=== PATIENT | male | born 1950 | race Caucasian/White ===

== ENCOUNTER 2022-06-28 10:29 | Outpatient (CLI) | payer MEDICARE, SELFPAY ==
[2022-06-28 19:08] LABS: Basophils Percent Auto 0.4 % (0.2-1.2); Eosinophils Absolute Auto 0.2 K/mm3 (0-0.3); Eosinophils Percent Auto 3.1 % (0-4.4); Hematocrit 45.7 % (42.0-52.0); Hemoglobin 14.8 g/dL (14.0-18.0); Immature Granulocyte Absolute 0.01 K/mm3 (0.00-0.031); Immature Granulocyte Percent A 0.2 % (0-0.5); Lymphocytes Absolute Auto 1.17 K/mm3 (0.9-3.2); Lymphocytes Percent Auto 24.3 % (18.3-44.2); Mean Corpuscular HGB Conc 32.4 g/dl (32-36); Mean Corpuscular Hemoglobin 29.5 pg (26-34); Monocytes Absolute Auto 0.5 K/mm3 (0.1-0.6); Monocytes Percent Auto 9.6 % (2.6-8.5); Neutrophils Percent Auto 62.4 % (45.5-73.1); Platelet Count Result 156 k/mm3 (150-375); Red Blood Count 5.02 M/mm3 (4.6-6.20); Red Cell Distribution Width 14.6 % (11.5-14.5); White Blood Count 4.8 K/mm3 (4.5-10.0)
[2022-06-28 19:22] LABS: Hemoglobin A1C 6.2 % (<5.7)
[2022-06-28 19:48] LABS: Alanine Aminotransferase 18 U/L (6-50); Albumin Level 4.2 g/dL (3.5-5.1); Alkaline Phosphatase 67 U/L (38-126); Anion Gap 9 mmol/L (8-16); Aspartate Amino Transferase 28 U/L (17-59); Bilirubin,Total 0.9 mg/dL (0.2-1.3); Blood Urea Nitrogen 14 mg/dL (9-20); Calcium 9.1 mg/dL (8.4-10.2); Carbon Dioxide 29 mmol/L (22-30); Chloride 103 mmol/L (98-107); Cholesterol 162 mg/dL (0-200); Estimated Glomerular Filt Rate > 60; Glucose 124 mg/dL (65-110); HDL Direct 38 mg/dL; Potassium 4.4 mmol/L (3.4-5.0); Sodium 141 mmol/L (137-145); Triglycerides 119 mg/dL (<150)
[2022-06-28 20:00] LABS: LDL Cholesterol Direct 96 mg/dL
[2022-06-28 20:20] LABS: Prostate Specific Antigen 1.9 ng/mL (< OR = 4.0)
[2022-06-28 20:32] LABS: Creatinine Urine 65.4 mg/dL
[2022-06-28 20:36] LABS: MALB Creatinine Ratio 17.7 mg/g (0-30); Microalbumin Urine Random 11.6 mg/L (0-16.7)
[2022-06-28 22:06] LABS: Vitamin D 25 Hydroxy 47.1 ng/mL
== END 2022-06-28 10:30 | disposition home or self-care (01) ==
LOC: ANHGOSHLAB 10:32
PROVIDERS: PCP Family Medicine; Visit Provider Family Medicine
DX: G47.33 Obstructive sleep apnea (adult) (pediatric) (principal); I10 Essential (primary) hypertension; E55.9 Vitamin D deficiency, unspecified; E53.8 Deficiency of other specified B group vitamins; Z12.5 Encounter for screening for malignant neoplasm of prostate; E78.5 Hyperlipidemia, unspecified; E11.9 Type 2 diabetes mellitus without complications
CPT/HCPCS: 36415; 80053; 80061; 82043; 82306; 82607; 83036; 84153; 84443; 85025; G0103

== ENCOUNTER 2022-12-30 10:31 | Outpatient (CLI) | payer MEDICARE, SELFPAY ==
[2022-12-30 18:44] LABS: Alanine Aminotransferase 23 U/L (6-50); Albumin Level 4.3 g/dL (3.5-5.1); Alkaline Phosphatase 77 U/L (38-126); Anion Gap 4 mmol/L (8-16); Aspartate Amino Transferase 22 U/L (17-59); Bilirubin,Total 1.2 mg/dL (0.2-1.3); Blood Urea Nitrogen 15 mg/dL (9-20); Carbon Dioxide 34 mmol/L (22-30); Chloride 101 mmol/L (98-107); Estimated Glomerular Filt Rate > 60; Glucose 139 mg/dL (65-110); Sodium 139 mmol/L (137-145)
[2022-12-30 19:11] LABS: Hemoglobin A1C 6.6 % (<5.7)
== END 2022-12-30 10:32 | disposition home or self-care (01) ==
LOC: ANHGOSHLAB 10:32
PROVIDERS: PCP Family Medicine; Visit Provider Family Medicine
DX: E11.9 Type 2 diabetes mellitus without complications (principal); I10 Essential (primary) hypertension; Z79.899 Other long term (current) drug therapy
CPT/HCPCS: 36415; 80053; 83036

== ENCOUNTER 2023-06-29 10:26 | Outpatient (CLI) | payer MEDICARE, SELFPAY ==
[2023-06-29 19:35] LABS: Alanine Aminotransferase 21 U/L (6-50); Albumin Level 4.6 g/dL (3.5-5.1); Alkaline Phosphatase 58 U/L (38-126); Anion Gap 10 mmol/L (8-16); Aspartate Amino Transferase 30 U/L (17-59); Bilirubin,Total 1.3 mg/dL (0.2-1.3); Blood Urea Nitrogen 16 mg/dL (9-20); Calcium 9.3 mg/dL (8.4-10.2); Carbon Dioxide 29 mmol/L (22-30); Chloride 100 mmol/L (98-107); Cholesterol 179 mg/dL (0-200); Estimated Glomerular Filt Rate > 60; Glucose 107 mg/dL (65-110); HDL Direct 46 mg/dL; Potassium 4.3 mmol/L (3.4-5.0); Sodium 139 mmol/L (137-145); Triglycerides 99 mg/dL (<150)
[2023-06-29 19:46] LABS: LDL Cholesterol Direct 99 mg/dL
[2023-06-29 20:14] LABS: Basophils Percent Auto 0.4 % (0.2-1.2); Eosinophils Absolute Auto 0.1 K/mm3 (0-0.3); Eosinophils Percent Auto 1.5 % (0-4.4); Hematocrit 45.2 % (42.0-52.0); Hemoglobin 14.5 g/dL (14.0-18.0); Immature Granulocyte Absolute 0.01 K/mm3 (0.00-0.031); Immature Granulocyte Percent A 0.2 % (0-0.5); Immature Platelet Fraction Pct 2.4 % (0.9-11.2); Lymphocytes Absolute Auto 0.94 K/mm3 (0.9-3.2); Lymphocytes Percent Auto 17.6 % (18.3-44.2); Mean Corpuscular HGB Conc 32.1 g/dl (32-36); Mean Corpuscular Hemoglobin 29.5 pg (26-34); Mean Corpuscular Volume 91.9 fl (80-100); Monocytes Absolute Auto 0.4 K/mm3 (0.1-0.6); Neutrophils Absolute Auto 3.9 K/mm3 (1.3-6.7); Neutrophils Percent Auto 72.3 % (45.5-73.1); Platelet Count Result 161 k/mm3 (150-375); Red Blood Count 4.92 M/mm3 (4.6-6.20); Red Cell Distribution Width 14.7 % (11.5-14.5); White Blood Count 5.4 K/mm3 (4.5-10.0)
[2023-06-29 20:15] LABS: Creatinine Urine 117.8 mg/dL
[2023-06-29 20:23] LABS: Hemoglobin A1C 5.9 % (<5.7)
[2023-06-29 20:25] LABS: Vitamin D 25 Hydroxy 51.7 ng/mL
[2023-06-29 20:39] LABS: Thyroid Stimulating Hormone Reflex 0.907 uIU/mL (0.465-4.68)
[2023-06-29 21:56] LABS: MALB Creatinine Ratio 25.5 mg/g (0-30)
[2023-06-30 17:30] LABS: Prostate Specific Antigen 2.5 ng/mL (< OR = 4.0)
== END 2023-06-29 10:27 | disposition home or self-care (01) ==
LOC: ANHGOSHLAB 10:27
PROVIDERS: PCP Family Medicine; Visit Provider Family Medicine
DX: E78.5 Hyperlipidemia, unspecified (principal); I10 Essential (primary) hypertension; E11.9 Type 2 diabetes mellitus without complications; E53.8 Deficiency of other specified B group vitamins; E55.9 Vitamin D deficiency, unspecified; Z12.5 Encounter for screening for malignant neoplasm of prostate
CPT/HCPCS: 36415; 80053; 80061; 82043; 82306; 82607; 83036; 84153; 84443; 85025; 85055; G0103

== ENCOUNTER 2023-08-23 01:43 | Day surgery (SDC) | payer MEDICARE, SELFPAY ==
[2023-08-11 14:58] VITALS: BMI 28.0
--- NOTE | 2023-08-19 14:32 | SUR.PREOP ---
Patient called regarding upcoming procedure. No answer- message left with phone number for questions.
[2023-08-23 13:07] VITALS: BP 132/56; PULSE 73; RESP 20; TEMP 36.2; O2SAT 100; BMI 27.6
--- NOTE | 2023-08-23 13:24 | PM.HPGS ---
History of Present Illness History of Present Illness Consent: Risks, benefits, and alternatives have been discussed and questions answered. Patient agrees to proceed with procedure. Chief complaint: hx colon polyps Narrative: Farooq Fish is a 73 year old male Presents for screening colonoscopy. Patient's current weight appetite and bowel movements are normal. Patient denies abdominal pain. He has had no bleeding. Family history is significant that his father had colon cancer. Patient self has had colon polyps in the past in 2001 they were adenomatous. In 2019 just a hyperplastic polyp. Patient returns for screening colonoscopy today. Review of Systems Review of Systems: Review of systems noncontributory. [facility] Past Medical History Medical History (Updated 08/23/23 @ 13:26 by Jordan Burgess MD) Chronic pain of right knee Dyslipidemia Essential (primary) hypertension History of colon polyps History of polyneuropathy (~1992) h/o numbness and weakness in legs ruled out MS ROMÁN (obstructive sleep apnea) Toe fracture 01/2015 Type 2 diabetes mellitus without complication, without long-term current use of insulin Vitamin D deficiency Surgical History Surgical History History of cholecystectomy History of hernia repair 03/11/2017 [place] teeth extracted Family History Family History Father Carcinoma of colon, Onset Age: 61 Sibling Family history of type 2 diabetes mellitus Other Diabetes mellitus Family history of malignant neoplasm Social History Social History Smoking status: Never smoker Second hand tobacco smoke exposure: No Alcohol intake: current Drinks per week: 3 Alcohol use details: consumes 2 beers weekly Substance use: never Substance use type: does not use Lack of Transportation: No Lack of Food: Never True Current Housing: I Have Housing Concerned About Future Housing: No Difficulty Paying Gas/Electric Bills: No Difficulty Paying for Meds: No Currently Unemployed: No Education: High School Diploma/GED Difficulty w/ Childcare or Family Care: No Living arrangements: other Additional living arrangements comments: with sp Agree to blood products: Yes Meds Home Medications and Allergies Home Medications Medication Instructions Recorded Confirmed Type blood sugar diagnostic #100 ea 12/14/21 08/11/23 Rx metformin 500 mg tablet,extended 500 mg PO BID #180 tabs 03/01/23 08/11/23 Rx release 24 hr empagliflozin 25 mg tablet 25 mg PO QAM #90 tabs 03/17/23 08/11/23 Rx (Jardiance) ezetimibe 10 mg tablet 10 mg PO DAILY #90 tabs 05/30/23 08/11/23 Rx glipizide 10 mg tablet, extended 10 mg PO DAILY #90 tabs 05/30/23 08/11/23 Rx release 24 hr cholecalciferol (vitamin D3) 50 50 mcg PO DAILY 06/29/23 08/11/23 History mcg (2,000 unit) tablet cyanocobalamin (vitamin B-12) 1,000 mcg sublingual DAILY #90 tabs 06/30/23 08/11/23 Rx 1,000 mcg sublingual tablet sodium,potassium,mag sulfates 17.5 See Rx Instructions PO .COMPLEX 08/10/23 Rx gram-3.13 gram-1.6 gram oral soln #354 mL (Suprep Bowel Prep Kit) losartan 100 1 tablet PO DAILY #90 tabs 08/15/23 Rx mg-hydrochlorothiazide 25 mg tablet Allergies Allergy/AdvReac Type Severity Reaction Status Date / Time No Known Allergies Allergy Verified 08/11/23 14:56 Vital Signs Vital Signs - 24 hr 08/23/23 13:07 Temperature 97.2 F L Pulse Rate 73 Respiratory Rate 20 Blood Pressure 132/56 L Pulse Oximetry 100 Oxygen Delivery Room Air Exam Narrative: Physical exam reveals patient to be alert. Vital signs stable. HEENT exam is unremarkable. Patient anicteric. Lungs are clear to auscultation and percussion. Heart is without murmur or extra sounds. Abdomen bowel sounds are present sof
[2023-08-23 13:31] LABS: Glucose Point of Care 71 mg/dl (65-105)
[2023-08-23] MEDS: LACTATED RINGERS 1,000 ML 150 ML IV CONT (13:32)
--- NOTE | 2023-08-23 13:50 | WPDANESEPPF ---
Anes - Initial Pre Proc Eval Procedure: Operation Date: 08/23/23 14:30 Proposed Procedures p Colonoscopy - Jordan Burgess MD Date/Time: 08/23/23 13:50 Surgeon: Jordan Burgess MD Pre Op Diagnosis: hx colon polyps Patient Data Age: 73 Gender: M Height: 1.93 m Weight: 103.2 kg Last Vital Signs Temp 97.2 F L 08/23/23 13:07 Pulse 73 08/23/23 13:07 Resp 20 08/23/23 13:07 BP 132/56 L 08/23/23 13:07 Pulse Ox 100 08/23/23 13:07 O2 Del Method Room Air 08/23/23 13:07 Allergies Allergy/AdvReac Type Severity Reaction Status Date / Time No Known Allergies Allergy Verified 08/11/23 14:56 Home Medications Medication Instructions Recorded Confirmed Type blood sugar diagnostic #100 ea 12/14/21 08/11/23 Rx metformin 500 mg tablet,extended 500 mg PO BID #180 tabs 03/01/23 08/11/23 Rx release 24 hr empagliflozin 25 mg tablet 25 mg PO QAM #90 tabs 03/17/23 08/11/23 Rx (Jardiance) ezetimibe 10 mg tablet 10 mg PO DAILY #90 tabs 05/30/23 08/11/23 Rx glipizide 10 mg tablet, extended 10 mg PO DAILY #90 tabs 05/30/23 08/11/23 Rx release 24 hr cholecalciferol (vitamin D3) 50 50 mcg PO DAILY 06/29/23 08/11/23 History mcg (2,000 unit) tablet cyanocobalamin (vitamin B-12) 1,000 mcg sublingual DAILY #90 tabs 06/30/23 08/11/23 Rx 1,000 mcg sublingual tablet sodium,potassium,mag sulfates 17.5 See Rx Instructions PO .COMPLEX 08/10/23 Rx gram-3.13 gram-1.6 gram oral soln #354 mL (Suprep Bowel Prep Kit) losartan 100 1 tablet PO DAILY #90 tabs 08/15/23 Rx mg-hydrochlorothiazide 25 mg tablet Laboratory Tests 08/23/23 13:28 POC Capillary Glucose 71 mg/dl (65-105) Patient hx anesthesia problems: none Family hx anesthesia problems: none Results Review: All pre-operative results and documents have been reviewed as part of the pre-operative evaluation. [facility] Past Medical History Medical History (Updated 08/23/23 @ 13:26 by Jordan Burgess MD) Chronic pain of right knee Dyslipidemia Essential (primary) hypertension History of colon polyps History of polyneuropathy (~1992) h/o numbness and weakness in legs ruled out MS ROMÁN (obstructive sleep apnea) Toe fracture 01/2015 Type 2 diabetes mellitus without complication, without long-term current use of insulin Vitamin D deficiency Surgical History Surgical History History of cholecystectomy History of hernia repair 03/11/2017 [place] teeth extracted Family History Family History Father Carcinoma of colon, Onset Age: 61 Sibling Family history of type 2 diabetes mellitus Other Diabetes mellitus Family history of malignant neoplasm Social History Social History Smoking status: Never smoker Second hand tobacco smoke exposure: No Alcohol intake: current Drinks per week: 3 Alcohol use details: consumes 2 beers weekly Substance use: never Substance use type: does not use Lack of Transportation: No Lack of Food: Never True Current Housing: I Have Housing Concerned About Future Housing: No Difficulty Paying Gas/Electric Bills: No Difficulty Paying for Meds: No Currently Unemployed: No Education: High School Diploma/GED Difficulty w/ Childcare or Family Care: No Living arrangements: other Additional living arrangements comments: with sp Agree to blood products: Yes Anes - Eval Final PreProcedure Day of Procedure 08/23/23 13:50 Patient weight: normal Heart: regular rate and rhythm Lungs: clear to auscultation Airway: Mallampati scale class II Neurological: alert and oriented Last oral intake: >/= 8 hours ASA classification: III Emergent: no Anesthetic plan: proceed Anesthesia type and monitoring: general GIVS and standard monitoring Results Review: All pre-operative results and
[2023-08-23 14:20] VITALS: BP 116/66; PULSE 71; RESP 24; O2SAT 100
[2023-08-23 14:30] VITALS: BP 140/71; PULSE 67; RESP 19; O2SAT 100
[2023-08-23 14:40] VITALS: BP 132/77; PULSE 62; RESP 19; O2SAT 100
== END 2023-08-23 14:53 | disposition home or self-care (01) ==
PROVIDERS: PCP Family Medicine; Visit Provider Internal Medicine Gastroenterology
PROC: 0DJD8ZZ Inspection of Lower Intestinal Tract, Via Natural or Artificial Opening Endoscopic (ICD-10-PCS; CPT 45378; principal; 2023-08-23 14:30)
DX: Z12.11 Encounter for screening for malignant neoplasm of colon (principal); E78.5 Hyperlipidemia, unspecified; I10 Essential (primary) hypertension; G47.33 Obstructive sleep apnea (adult) (pediatric); E11.9 Type 2 diabetes mellitus without complications; E55.9 Vitamin D deficiency, unspecified; Z79.84 Long term (current) use of oral hypoglycemic drugs; Z90.49 Acquired absence of other specified parts of digestive tract; Z86.010 Personal history of colon polyps; Z80.0 Family history of malignant neoplasm of digestive organs; K64.8 Other hemorrhoids; K57.30 Diverticulosis of large intestine without perforation or abscess without bleeding
CPT/HCPCS: G0105; 82948; J2001; J2704; J7120

== ENCOUNTER 2023-12-28 09:56 | Outpatient (CLI) | payer MEDICARE, SELFPAY ==
[2023-12-28 19:03] LABS: Alanine Aminotransferase 14 U/L (6-50); Albumin Level 4.2 g/dL (3.5-5.1); Alkaline Phosphatase 78 U/L (38-126); Anion Gap 4 mmol/L (4-12); Aspartate Amino Transferase 23 U/L (17-59); Blood Urea Nitrogen 13 mg/dL (9-20); Calcium 9.5 mg/dL (8.4-10.2); Carbon Dioxide 33 mmol/L (22-30); Chloride 104 mmol/L (98-107); Estimated Glomerular Filt Rate > 60; Glucose 105 mg/dL (65-110); Potassium 3.9 mmol/L (3.4-5.0); Sodium 141 mmol/L (137-145)
[2023-12-28 19:45] LABS: Hemoglobin A1C 6.6 % (<5.7)
[2023-12-28 20:52] LABS: Hepatitis C Virus Antibody Negative (Negative)
== END 2023-12-28 09:57 | disposition home or self-care (01) ==
LOC: ANHGOSHLAB 09:59
PROVIDERS: PCP Family Medicine; Visit Provider Family Medicine
DX: E11.9 Type 2 diabetes mellitus without complications (principal); I10 Essential (primary) hypertension; Z11.59 Encounter for screening for other viral diseases
CPT/HCPCS: 36415; 80053; 83036; 86803

== ENCOUNTER 2024-02-23 16:29 | Emergency (ER) | payer MEDICARE, SELFPAY ==
--- NOTE | 2024-02-23 16:33 | ED.MALEGU ---
HPI - Male Genitourinary General Chief complaint: Urogenital-Male Stated complaint: FREQUENT URINATION Time Seen by Provider: 02/23/24 16:52 Source: patient, RN notes reviewed and old records reviewed Mode of arrival: ambulatory Limitations: no limitations History of Present Illness HPI Narrative: 73-year-old male presents to the [facility] with continued frequent and urgent urination. Did a telemedicine appointment on 02/13 was prescribed Macrobid without testing. States the burning is better however continues to have frequency and urgency with urination. States that it has been interrupting his sleep because he is up multiple times through the night Does have a history of diabetes, blood sugar 166 currently Onset (ago): day(s) (12) Associated symptoms: Reports dysuria; Denies blood in urine, fever, nausea/vomiting or incontinence Related Data Home Medications Medication Instructions Recorded Confirmed cholecalciferol (vitamin D3) 50 50 mcg PO DAILY 06/29/23 02/14/24 mcg (2,000 unit) tablet ezetimibe 10 mg tablet 10 mg PO DAILY 12/28/23 02/14/24 glipizide 10 mg tablet, extended 10 mg PO DAILY 12/28/23 02/14/24 release 24 hr Allergies Allergy/AdvReac Type Severity Reaction Status Date / Time No Known Allergies Allergy Verified 02/23/24 16:37 Review of Systems Review of Systems: All systems reviewed & are unremarkable except as noted in HPI and below Constitutional: Constitutional: Reports no additional constitutional complaints Eyes: Eyes: Reports no additional eye complaints ENT: Reports system reviewed and no additional complaints, except as documented Cardiovascular: Cardiovascular: Reports no additional cardiovascular complaints, Denies chest pain and Denies dyspnea Respiratory: Respiratory: Reports no additional respiratory complaints, Denies chest congestion, Denies cough and Denies dyspnea Gastrointestinal: Gastrointestinal: Reports no additional gastrointestinal complaints, Denies abdominal pain, Denies nausea and Denies vomiting Genitourinary: Genitourinary: Reports as per HPI and Reports dysuria Musculoskeletal: Musculoskeletal: Reports no additional musculoskeletal complaints Integumentary/Breasts: Skin/Breast: Reports system reviewed and no additional complaints, except as docu Neurologic: Reports system reviewed and no additional complaints, except as documented Psychiatric: Psychiatric: Reports no additional psychiatric complaints Allergic/Immunologic: Allergic/Immunologic: Reports no additional allergic/immunologic complaints PMFSH Past Medical History Medical History Dyslipidemia Essential (primary) hypertension History of colon polyps History of polyneuropathy (~1992) h/o numbness and weakness in legs ruled out MS ROMÁN (obstructive sleep apnea) Toe fracture 01/2015 Type 2 diabetes mellitus without complication, without long-term current use of insulin Vitamin D deficiency Surgical History Surgical History History of cholecystectomy (~1999) History of incisional hernia repair (~03/2002) History of right inguinal hernia repair (~03/2017) [place] teeth extracted Family History Family History Father Carcinoma of colon, Onset Age: 61 Sibling Family history of type 2 diabetes mellitus Other Diabetes mellitus Family history of malignant neoplasm Social History Social History Smoking status: Never smoker Second hand tobacco smoke exposure: No Alcohol intake: current Drinks per week: 3 Alcohol use details: consumes 2 beers weekly Substance use: never Substance use type: does not use Lack of Transportation: No Lack of Food: Never True Current Housing: I Have Housing Concerned About Future Housing: No Difficulty Paying Gas/Electric B
[2024-02-23 16:42] VITALS: BP 118/70; PULSE 80; RESP 16; TEMP 37.3; O2SAT 99
[2024-02-23 16:54] LABS: Glucose Point of Care 166 mg/dl (65-105)
--- NOTE | 2024-02-23 16:55 | PC.NURSE ---
[address] [facility] 166.
== END 2024-02-23 17:15 | disposition home or self-care (01) ==
PROVIDERS: Emergency Provider Nurse Practitioner; PCP Family Medicine
DX: N39.0 Urinary tract infection, site not specified (principal); B95.2 Enterococcus as the cause of diseases classified elsewhere; E78.5 Hyperlipidemia, unspecified; I10 Essential (primary) hypertension; E11.42 Type 2 diabetes mellitus with diabetic polyneuropathy; E55.9 Vitamin D deficiency, unspecified
CPT/HCPCS: 81003; 82948; 87077; 87086; 87088; 87181; 99213; G0463

== ENCOUNTER 2024-02-26 18:29 | Emergency (ER) | payer MEDICARE, SELFPAY ==
[2024-02-26 18:29] VITALS: BP 134/65; PULSE 66; RESP 18; TEMP 36.8; O2SAT 100
--- NOTE | 2024-02-26 18:34 | ED.MALEGU ---
HPI - Male Genitourinary General Chief complaint: Urogenital-Male Stated complaint: UTI Time Seen by Provider: 02/26/24 18:34 History of Present Illness HPI Narrative: Patient is a 73 year old male with history of DM, HTN here with abnormal lab. Patient notes that on 02/13 he called his PCP because he began having dysuria and increased urinary frequency. He believes that he was started on nitrofurantoin at that time. He completed a 5 day course and believed symptoms were improving. His symptoms returned a few days after stopping his antibiotics and 3 days ago they contacted PCP to have a urine sample performed. He went to an urgent care 02/22, had a urine sample performed. He was started on augmentin at that time. He believes he has had some improvement with his urination over the last couple of days however tonight he was called by the urgent care because his urine culture was positive and he needed to get IV antibiotics to treat his UTI. Patient denies fever, chills, abdominal pain. Notes he has been a bit more tired but is otherwise feeling well. Related Data Home Medications Medication Instructions Recorded Confirmed cholecalciferol (vitamin D3) 50 50 mcg PO DAILY 06/29/23 02/23/24 mcg (2,000 unit) tablet ezetimibe 10 mg tablet 10 mg PO DAILY 12/28/23 02/23/24 glipizide 10 mg tablet, extended 10 mg PO DAILY 12/28/23 02/23/24 release 24 hr Allergies Allergy/AdvReac Type Severity Reaction Status Date / Time No Known Allergies Allergy Verified 02/23/24 16:37 Review of Systems Review of Systems: All systems reviewed & are unremarkable except as noted in HPI and below [facility] Past Medical History Medical History Dyslipidemia Essential (primary) hypertension History of colon polyps History of polyneuropathy (~1992) h/o numbness and weakness in legs ruled out MS ROMÁN (obstructive sleep apnea) Toe fracture 01/2015 Type 2 diabetes mellitus without complication, without long-term current use of insulin Vitamin D deficiency Surgical History Surgical History History of cholecystectomy (~1999) History of incisional hernia repair (~03/2002) History of right inguinal hernia repair (~03/2017) [place] teeth extracted Family History Family History Father Carcinoma of colon, Onset Age: 61 Sibling Family history of type 2 diabetes mellitus Other Diabetes mellitus Family history of malignant neoplasm Social History Social History Smoking status: Never smoker Second hand tobacco smoke exposure: No Alcohol intake: current Drinks per week: 3 Alcohol use details: consumes 2 beers weekly Substance use: never Substance use type: does not use Lack of Transportation: No Lack of Food: Never True Current Housing: I Have Housing Concerned About Future Housing: No Difficulty Paying Gas/Electric Bills: No Difficulty Paying for Meds: No Currently Unemployed: No Education: High School Diploma/GED Difficulty w/ Childcare or Family Care: No Living arrangements: other Additional living arrangements comments: with sp Agree to blood products: Yes Exam Narrative: GENERAL: Well-appearing, well-nourished, and in no acute distress. HEAD: Normocephalic, atraumatic. EYES: PERRLA and EOMI. ENT: Nares clear. Mucous membranes moist. NECK: Supple. CHEST: Clear to auscultation. No respiratory distress. HEART: Regular rate and rhythm. Normal peripheral pulses. ABDOMEN: Soft, nontender, nondistended. EXTREMITIES: Normal range of motion. No edema. SKIN: Warm, dry, no rash. NEURO: No focal deficits. Alert and oriented x3. PSYCH: Normal mood and affect. Course Course Emergency Course: Spoke with Urgent Care provider regarding transfer to this hospital. Reviewed chart with lalo
[2024-02-26 20:00] VITALS: PULSE 64; RESP 18; O2SAT 100
[2024-02-26 20:03] LABS: Basophils Percent Auto 0.5 % (0.2-1.2); Eosinophils Absolute Auto 0.1 K/mm3 (0-0.3); Eosinophils Percent Auto 1.9 % (0-4.4); Hemoglobin 13.7 g/dL (14.0-18.0); Immature Granulocyte Absolute 0.02 K/mm3 (0.00-0.031); Immature Granulocyte Percent A 0.3 % (0-0.5); Lymphocytes Absolute Auto 1.17 K/mm3 (0.9-3.2); Lymphocytes Percent Auto 18.9 % (18.3-44.2); Mean Corpuscular HGB Conc 33.4 g/dl (32-36); Mean Corpuscular Volume 86.9 fl (80-100); Mean Platelet Volume 9.1 fl (7.4-10.4); Monocytes Absolute Auto 0.5 K/mm3 (0.1-0.6); Monocytes Percent Auto 7.4 % (2.6-8.5); Neutrophils Absolute Auto 4.4 K/mm3 (1.3-6.7); Platelet Count Result 188 k/mm3 (150-375); Red Blood Count 4.72 M/mm3 (4.6-6.20); Red Cell Distribution Width 13.6 % (11.5-14.5); White Blood Count 6.2 K/mm3 (4.5-10.0)
[2024-02-26 20:20] LABS: Alanine Aminotransferase 25 U/L (6-50); Albumin Level 4.2 g/dL (3.5-5.1); Alkaline Phosphatase 87 U/L (38-126); Anion Gap 6 mmol/L (4-12); Aspartate Amino Transferase 18 U/L (17-59); Bilirubin,Total 0.5 mg/dL (0.2-1.3); Blood Urea Nitrogen 19 mg/dL (9-20); CRP 1.4 mg/dL (<1.0); Calcium 9.2 mg/dL (8.4-10.2); Carbon Dioxide 30 mmol/L (22-30); Chloride 101 mmol/L (98-107); Estimated CRCL calculation 80 ml/min; Estimated Glomerular Filt Rate > 60; Glucose 164 mg/dL (65-110); Potassium 3.7 mmol/L (3.4-5.0); Sodium 137 mmol/L (137-145)
[2024-02-26 21:02] LABS: Appearance Urine Clear (Clear); Bacteria Urine None Seen /hpf; Bilirubin Urine Negative (Negative); Blood Urine 2+ (Negative); Color Urine Yellow (Yellow); Glucose Urine UA 3+ mg/dL (Negative); Ketones Urine Negative (Negative); Leukocyte Esterase Ur Negative LEU/UL (Negative); Need Manual Microscopic Reviewed; Nitrate Urine Negative (Negative); Non Pathogenic Casts 0-2; Protein Urine Negative (Negative); Specific Grav Ur 1.024 (1.001-1.035); Squamous Epithelial Cell Urine None Seen /hpf (Few); Urobilinogen Urine 0.2 mg/dL (<2.0); pH Urine 5.5 (5.0-9.0)
[2024-02-26 21:10] LABS: Add Urine Microscopic? YES
[2024-02-26 21:26] VITALS: BP 137/59; PULSE 66; RESP 18; TEMP 36.6; O2SAT 98
[2024-02-26] MEDS: AMOXICILLIN/CLAVULANATE K 875-125 MG TAB 1 TABLET PO (21:28)
== END 2024-02-26 21:50 | disposition home or self-care (01) ==
PROVIDERS: Emergency Provider Student in an Organized Health Care Education/Training Program; PCP Family Medicine
DX: N39.0 Urinary tract infection, site not specified (principal); E78.5 Hyperlipidemia, unspecified; I10 Essential (primary) hypertension; E11.9 Type 2 diabetes mellitus without complications; G47.30 Sleep apnea, unspecified
CPT/HCPCS: 36415; 80053; 81001; 83605; 85025; 86140; 87040; 87086; 99283; A9270

== ENCOUNTER 2024-03-06 09:22 | Outpatient (CLI) | payer MEDICARE, SELFPAY ==
[2024-03-06 13:41] LABS: Appearance Urine Clear (Clear); Bacteria Urine None Seen /hpf; Bilirubin Urine Negative (Negative); Blood Urine 2+ (Negative); Color Urine Yellow (Yellow); Glucose Urine UA 3+ mg/dL (Negative); Ketones Urine Negative (Negative); Leukocyte Esterase Ur Negative LEU/UL (Negative); Nitrate Urine Negative (Negative); Non Pathogenic Casts 0-2; Protein Urine Negative (Negative); Specific Grav Ur 1.025 (1.001-1.035); Squamous Epithelial Cell Urine None Seen /hpf (Few); Urobilinogen Urine 0.2 mg/dL (<2.0); WBC Urine 0-5 /hpf (0-3)
[2024-03-06 14:10] LABS: Add Urine Microscopic? YES
== END 2024-03-06 09:23 | disposition home or self-care (01) ==
LOC: ANHGOSHLAB 09:23
PROVIDERS: PCP Family Medicine; Visit Provider Nurse Practitioner
DX: N39.0 Urinary tract infection, site not specified (principal)
CPT/HCPCS: 81001

== ENCOUNTER 2024-04-16 09:53 | Outpatient (CLI) | payer MEDICARE, SELFPAY ==
[2024-04-17 09:55] LABS: Kit Draw Collected
== END 2024-04-16 09:54 | disposition home or self-care (01) ==
LOC: ANHGOSHLAB 09:55
PROVIDERS: PCP Family Medicine; Visit Provider Nurse Practitioner
DX: E11.9 Type 2 diabetes mellitus without complications (principal)
CPT/HCPCS: 36415

== ENCOUNTER 2024-05-11 09:20 | Outpatient (CLI) | payer MEDICARE, SELFPAY ==
--- NOTE | ~2024-05-11 | CT_ITS ---
CT of the Abdomen and Pelvis: Indication: Neoplasm of uncertain behavior of left kidney Technique: 2.5 mm axial scans were obtained through the abdomen and pelvis prior to and following in travenous administration of 100 cc of Omnipaque 350. Dose reduction technique was used on this scan b y utilizing automated exposure control and iterative reconstruction technique. The dose-length produc t (DLP) was 900.67 mGy-cm. Findings: Scans through the lung bases are unremarkable. There are 2 separate 1.5 cm hypodense lesions at the dome of the liver (series 6 images 40-41). There is an additional 2.5 cm hypodense probable mass in the right hepatic lobe more inferiorly (axial robin ge 51). The spleen, pancreas, and adrenal glands are within normal limits. Cholecystectomy clips are present. No evidence of aortic aneurysm. No lymphadenopathy. Small simple right renal cysts are present. There is a 6.5 x 5.8 x 7.1 cm heterogeneous solid mass ex tensively occupying the midpole the left kidney, most compatible with renal cell carcinoma. No bowel obstruction or bowel wall thickening. There is no evidence to suggest acute appendicitis. Images through the pelvis were performed. Urinary bladder is distended, probable mild diffuse wall ve ntricular dilatation. Prostate gland mildly enlarged. No ascites. There are bilateral L5 pars interarticularis defects, with minimal grade 1 anterolisthesis of L5 over S1. Impression: 6.5 x 5.8 x 7.1 cm solid left renal mass, most consistent with renal cell carcinoma. 3 hypodense hepatic masses, as detailed above, indeterminate. Metastatic disease is a consideration. Pre and postcontrast MR recommended to further evaluate. Distended urinary bladder with diffuse bladder wall trabeculation and mildly enlarged prostate gland. Reviewed, dictated and finalized at location . Impression: 6.5 x 5.8 x 7.1 cm solid left renal mass, most consistent with renal cell carci noma. 3 hypodense hepatic masses, as detailed above, indeterminate. Metastatic diseas e is a consideration. Pre and postcontrast MR recommended to further evaluate. Distended urinary bladder with diffuse bladder wall trabeculation and mildly en larged prostate gland.
[2024-05-11 09:58] LABS: Estimated Glomerular Filt Rate > 60
== END 2024-05-11 09:21 | disposition home or self-care (01) ==
LOC: ANHIMG 09:27
PROVIDERS: PCP Family Medicine; Visit Provider Urology
DX: D41.02 Neoplasm of uncertain behavior of left kidney (principal)
CPT/HCPCS: 74178; Q9967

== ENCOUNTER 2024-06-28 11:19 | Outpatient (CLI) | payer MEDICARE, SELFPAY ==
[2024-06-28 12:07] LABS: Basophils Percent Auto 0.5 % (0.2-1.2); Eosinophils Absolute Auto 0.1 K/mm3 (0-0.3); Eosinophils Percent Auto 1.3 % (0-4.4); Hematocrit 43.4 % (42.0-52.0); Hemoglobin 14.1 g/dL (14.0-18.0); Immature Granulocyte Absolute 0.01 K/mm3 (0.00-0.031); Immature Granulocyte Percent A 0.2 % (0-0.5); Lymphocytes Absolute Auto 0.93 K/mm3 (0.9-3.2); Mean Corpuscular HGB Conc 32.5 g/dl (32-36); Mean Corpuscular Hemoglobin 28.3 pg (26-34); Mean Platelet Volume 9.5 fl (7.4-10.4); Monocytes Absolute Auto 0.5 K/mm3 (0.1-0.6); Monocytes Percent Auto 8.8 % (2.6-8.5); Neutrophils Percent Auto 72.2 % (45.5-73.1); Platelet Count Result 184 k/mm3 (150-375); Red Blood Count 4.99 M/mm3 (4.6-6.20); Red Cell Distribution Width 14.2 % (11.5-14.5); White Blood Count 5.5 K/mm3 (4.5-10.0)
[2024-06-28 12:21] LABS: Alanine Aminotransferase 14 U/L (6-50); Albumin Level 4.4 g/dL (3.5-5.1); Alkaline Phosphatase 94 U/L (38-126); Anion Gap 8 mmol/L (4-12); Aspartate Amino Transferase 20 U/L (17-59); Bilirubin,Total 0.9 mg/dL (0.2-1.3); Blood Urea Nitrogen 19 mg/dL (9-20); Calcium 9.2 mg/dL (8.4-10.2); Carbon Dioxide 30 mmol/L (22-30); Chloride 100 mmol/L (98-107); Cholesterol 147 mg/dL (0-200); Estimated Glomerular Filt Rate > 60; Glucose 132 mg/dL (65-110); HDL Direct 45 mg/dL; Potassium 4.1 mmol/L (3.4-5.0); Sodium 138 mmol/L (137-145); Triglycerides 58 mg/dL (<150)
[2024-06-28 12:31] LABS: LDL Cholesterol Direct 89 mg/dL
[2024-06-28 12:52] LABS: Prostate Specific Antigen 2.2 ng/mL (< OR = 4.0)
[2024-06-28 12:53] LABS: Vitamin D 25 Hydroxy 47.8 ng/mL
[2024-06-28 12:54] LABS: Add Urine Microscopic? YES; Appearance Urine Cloudy (Clear); Bilirubin Urine Negative (Negative); Blood Urine 3+ (Negative); Color Urine Yellow (Yellow); Glucose Urine UA 3+ mg/dL (Negative); Ketones Urine 1+ mg/dL (Negative); Leukocyte Esterase Ur Trace LEU/UL (Negative); Nitrate Urine Negative (Negative); Protein Urine Trace mg/dL (Negative); Specific Grav Ur 1.033 (1.001-1.035); Urobilinogen Urine 0.2 mg/dL (<2.0)
[2024-06-28 13:01] LABS: Hemoglobin A1C 6.8 % (<5.7)
[2024-06-28 13:19] LABS: Squamous Epithelial Cell Urine None Seen /hpf (Few)
[2024-06-28 18:31] LABS: Creatinine Urine 112.5 mg/dL
[2024-06-28 18:35] LABS: MALB Creatinine Ratio 47.9 mg/g (0-30); Microalbumin Urine Random 53.9 mg/L (0-16.7)
== END 2024-06-28 11:20 | disposition home or self-care (01) ==
PROVIDERS: PCP Family Medicine; Visit Provider Family Medicine
DX: E55.9 Vitamin D deficiency, unspecified (principal); E53.8 Deficiency of other specified B group vitamins; R31.9 Hematuria, unspecified; E11.9 Type 2 diabetes mellitus without complications; I10 Essential (primary) hypertension; Z12.5 Encounter for screening for malignant neoplasm of prostate; M25.562 Pain in left knee
CPT/HCPCS: 36415; 80053; 80061; 81001; 82043; 82306; 82607; 83036; 84153; 84443; 85025; G0103

== ENCOUNTER 2024-08-24 17:09 | Inpatient (IN) | payer MEDICARE, SELFPAY ==
[2024-08-24] VITALS (72 sets, daily range): BP systolic 61–168; BP diastolic 39–108; PULSE 77–95; RESP 15–33; TEMP 36.6–38.3; O2SAT 90–100
--- NOTE | ~2024-08-24 | XR_ITS ---
EXAMINATION: XR chest 1V portable DATE: 08/24/2024 18:12 INDICATION: Hypoxia. Weakness. Fever. TECHNIQUE: A single frontal view of the chest was obtained. COMPARISON: CT abdomen and pelvis 05/11/2024 FINDINGS: There is no pneumonia, pleural effusion, or pneumothorax. The heart size is normal. IMPRESSION: 1. No acute cardiopulmonary disease. Reviewed, dictated and finalized at location A. ELET FORM COVERER
--- NOTE | ~2024-08-24 | XR_ITS ---
EXAMINATION: XR chest port-a-cath/central DATE: 08/24/2024 20:40 INDICATION: Central line adjustment. TECHNIQUE: A single frontal view of the chest was obtained. COMPARISON: Chest single view at 8:12 PM FINDINGS: There is no pneumonia, pleural effusion, or pneumothorax. The heart size is normal. A left subclavian central venous catheter is seen with tip in the superior vena cava. IMPRESSION: 1. Central line tip in the superior vena cava. Reviewed, dictated and finalized at location A. RINARY SURGEON
--- NOTE | ~2024-08-24 | XR_ITS ---
EXAMINATION: XR chest port-a-cath/central DATE: 08/24/2024 20:21 INDICATION: Central line placement. TECHNIQUE: A single frontal view of the chest was obtained. COMPARISON: Chest single view at 6:08 PM. FINDINGS: There is mild atelectasis in the lower lung zones. No pleural effusion or pneumothorax. The heart size is normal. There is a left subclavian central venous catheter with tip in the left regulatory intern al jugular vein above the superior margin of the radiograph. IMPRESSION: 1. Catheter tip in abnormal position in the left internal jugular vein. 2. Mild atelectasis in the lower lung zones. Reviewed, dictated and finalized at location A. AND [employer]ENT AIRCRAFT MECHANIC
--- NOTE | ~2024-08-24 | CT_ITS ---
EXAMINATION: CT chest abdomen pelvis wo con DATE: 08/24/2024 23:33 INDICATION: Acute renal failure. Septic shock. TECHNIQUE: Computed tomography (CT) of the chest, abdomen, and pelvis was performed without intraveno us contrast. Automated exposure control and iterative reconstruction technique were employed. The dos e-length product was 1334.83 mGy-cm. COMPARISON: CT abdomen and pelvis 05/11/24 FINDINGS: CHEST CT: There are airspace opacities in the lower lobes with volume loss. A calcified left lung nodule is con sistent with old granulomatous disease. No pleural effusion. The heart size is normal. There are herson nary artery calcifications. There is a trace pericardial effusion. The central pulmonary arteries are enlarged, consistent with pulmonary arterial hypertension. There is a left subclavian central venous catheter with tip in superior vena cava. There is a healing fracture of right eighth rib. There is a hemangioma in T3 vertebral body. There is an aggressive lytic lesion in the T3 and T4 posterior [place] ents and T4 vertebral body. There is a lytic lesion in T7 vertebral body. There is mild chronic heigh t loss of multiple vertebral bodies. ABDOMEN/PELVIS CT: There is periportal edema in the liver. There is a 1.6 cm low-density mass in right hepatic lobe. The re are changes of cholecystectomy. The spleen, pancreas, and adrenal glands are normal. There are cys ts in the kidneys measuring up to 1.6 cm on the right. There is a 7.0 cm mass in left kidney. There i s mild left hydronephrosis and hydroureter. The prostate is moderately enlarged. There is a Knight cat heter in expected position. There is diffuse bladder wall thickening. There is diverticulosis of the colon without evidence of diverticulitis. There is diffuse wall thickening of colon. There are no dil ated loops of bowel. There are no pathologically enlarged lymph nodes. There is trace ascites. There is edema of the intra-abdominal fat and body wall. There is a lytic lesion in the sacrum. IMPRESSION: 1. Airspace opacities in the lower lobes, consistent with atelectasis versus pneumonia. 2. 7.0 cm mass in left kidney that enhanced on the prior CT, consistent with renal cell carcinoma. 3. Lytic lesions of bone, consistent with metastatic disease. 4. 1.6 cm liver mass, which may be benign or malignant. Consider abdomen MRI without and with contras t. 5. Diffuse bladder wall thickening, which may be secondary to chronic outlet obstruction and/or neuro genic bladder. 6. Mild left hydronephrosis and hydroureter. Reviewed, dictated and finalized at location A. IVABLE EXECUTIVE IMPRESSION: 1. Airspace opacities in the lower lobes, consistent with atelectasis versus pn eumonia. 2. 7.0 cm mass in left kidney that enhanced on the prior CT, consistent with re nal cell carcinoma. 3. Lytic lesions of bone, consistent with metastatic disease. 4. 1.6 cm liver mass, which may be benign or malignant. Consider abdomen MRI wi thout and with contrast. 5. Diffuse bladder wall thickening, which may be secondary to chronic outlet ob struction and/or neurogenic bladder. 6. Mild left hydronephrosis and hydroureter.
--- NOTE | 2024-08-24 17:26 | ECG_ITS ---
Test Date: 2024-08-24 17:32:34 Measurements Intervals [place] Rate: 94 P: 17 MA: 136 QRS: -31 QRSD: 115 T: 38 QT: 328 QTc: 411 Interpretive Statements SINUS RHYTHM LEFT AXIS DEVIATION INTRAVENTRICULAR CONDUCTION DELAY PATTERN CONSISTENT WITH PULMONARY DISEASE INFERIOR INFARCT, AGE INDETERMINATE BORDERLINE T WAVE ABNORMALITY- ANTEROLAT/HIGH LAT LEADS BASELINE ARTIFACT- I, II, III, AVR, AVL, AVF, V4-V6 ABNORMAL ECG No previous ECG available for comparison Electronically Signed On 08-25-2024 07:53:57 OPERATIONS ARCHITECT by Messi Smith D.O.
--- NOTE | 2024-08-24 17:28 | ED_ITS ---
HPI - Weakness General Chief complaint: Weakness <ROBBIE Jay Filed: 08/25/24 02:48> Stated complaint: weakness <ROBBIE Jay Filed: 08/25/24 02:48> Time Seen by Provider: 08/24/24 17:12 <ROBBIE Jay Filed: 08/25/24 02:48> Source: patient <ROBBIE Jay Filed: 08/25/24 02:48> Mode of arrival: EMS <ROBBIE Jay Filed: 08/25/24 02:48> Limitations: no limitations <ROBBIE Jay Last Filed: 08/25/24 02:48> History of Present Illness HPI Narrative: Patient is a 74-year-old male who presents the ED via EMS with report of weakness. 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 Seeing Dr. Perez with [facility]. Last had a chemotherapy infusion on Tuesday. States he has been increasingly weak over the last few days. Has had decreased p.o. intake. Had a fever up to 103? F today per . Given Tylenol prior to arrival. also reported that patient has had urinary incontinence. He does straight cath himself. Patient denies any significant pain. <ROBBIE Jay Last Filed: 08/25/24 02:48> Related Data Home medications: Home Medications Medication Instructions Recorded Confirmed cholecalciferol (vitamin D3) 50 50 mcg PO DAILY 06/29/23 08/25/24 mcg (2,000 unit) tablet tamsulosin 0.4 mg capsule 0.4 mg PO HS 06/28/24 08/25/24 ezetimibe 10 mg tablet 10 mg PO HS 08/25/24 08/25/24 lenvatinib 20 mg/day (10 mg x 2) 10 mg PO DAILY 08/25/24 08/25/24 capsule (Lenvima) <ROBBIE Jay Last Filed: 08/25/24 02:48> Allergies/Adverse reactions: Allergies Allergy/AdvReac Type Severity Reaction Status Date / Time No Known Allergies Allergy Verified 06/28/24 09:46 <Magaly Cueva PA-C - Last Filed: 08/25/24 02:48> Review of Systems Review of Systems: All systems reviewed & are unremarkable except as noted in HPI. <Magaly Cueva PA-C - Last Filed: 08/25/24 02:48> All systems reviewed & are unremarkable except as noted in HPI and below <Magaly Cueva PA-C - Last Filed: 08/25/24 02:48> [facility] Past Medical History Medical History: Medical History Dyslipidemia Essential (primary) hypertension History of colon polyps History of polyneuropathy (~1992) h/o numbness and weakness in legs ruled out MS Left kidney mass ROMÁN (obstructive sleep apnea) Toe fracture 01/2015 Type 2 diabetes mellitus without complication, without long-term current use of insulin Urinary retention Vitamin D deficiency <Magaly Cueva PA-C - Last Filed: 08/25/24 02:48> Surgical History Surgical History: Surgical History History of cholecystectomy (~1999) History of incisional hernia repair (~03/2002) History of right inguinal hernia repair (~03/2017) [place] teeth extracted <Magaly Cueva PA-C - Last Filed: 08/25/24 02:48> Family History Family History: Family History Father Carcinoma of colon, Onset Age: 61 Sibling Family history of type 2 diabetes mellitus Other Diabetes mellitus Family history of malignant neoplasm <Magaly Cueva PA-C - Last Filed: 08/25/24 02:48> Social History Social History: Social History Smoking status: Never smoker Second hand tobacco smoke exposure: No Alcohol intake: former Drinks per week: 2 Alcohol use details: consumes 2 beers weekly Substance use: never Substance use type: does not use Do You Feel Safe in your Home?: Yes Lack of Transportation: No Lack of Food: Never True Current Housing: I Have Housing Concerned About Future Housing: No Difficulty Paying Gas/Electric Bills: No Difficulty Paying for Meds: No Currently Unemployed: No Education: High School Diploma/GED Difficulty w/ Childcare or Family Care: No Living arrangements: other Additional living arrangements comments: with sp Spiritual care concerns: No Agree to blood products: Yes <Magaly Cueva PA-C - Last Filed: 08/25/24 02:48> Exam Narrative: GENERAL: Ill-appearing, somewhat thin, non-toxic, in no acute distress. HEAD: Normocephalic, atraumatic. RESPIRATORY: Airway patent, respirations nonlabored. On NC but no tachypnea or distress. Clear to auscultation bilaterally, no rales, rhonchi, wheezing. No significant focal lung sounds. CARDIOVASCULAR: Regular rate and rhythm without murmurs, rubs, or gallops. MUSCULOSKELETAL: Moves all extremities. No gross deformities. SKIN: Warm, dry, normal color. No rash. NEURO: A&O X3. Speech clear. No ataxic movements. No focal deficits. PSYCHIATRIC: Appropriate mood and affect. Normal interaction. <Magaly Cueva PA-C - Last Filed: 08/25/24 02:48> Course CH[employer] TAPPER/PA Physician Supervision I agree with midlevel documentation; I performed the medical decision making component of this evaluation. I had independent [id number] time with the patient and performed my own independent evaluation and assessment. Patient is in septic shock and has severe neutropenia given his ongoing chemotherapy and cancer diagnosis. He has received maximum fluid resuscitation and requires pressors at this time. Peripheral vasopressor and norepinephrine was given until central access was obtained by myself. Please see procedure note for successful left subclavian after 2 attempts. Patient tolerated the procedure well. Had improvement his blood pressure after peripheral pressors have switched to central access pressors. He was also given hydrocortisone. Discussions with the inpatient team and the shale processing technician was for plan to admit the patient here wall transfer was pending. 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 Patient and family agreed to transfer at this time and patient left without further incident via ALS. <Kamlesh Padron MD - Last Filed: 08/25/24 08:22> Vital Signs Vital signs: Vital Signs Pulse Oximetry 90 08/24/24 17:16 Oxygen Delivery Nasal Cannula 08/24/24 17:16 Oxygen Flow Rate 2 08/24/24 17:16 Temperature 36.9 C 08/25/24 04:30 Pulse Rate 64 08/25/24 04:30 Respiratory Rate 20 08/25/24 04:30 Blood Pressure 97/59 L 08/25/24 04:30 Pulse Oximetry 96 08/25/24 04:30 Oxygen Delivery Nasal Cannula 08/25/24 04:30 Oxygen Flow Rate 2 08/25/24 04:30 <Magaly Cueva PA-C - Last Filed: 08/25/24 02:48> Vital Signs Pulse Oximetry 90 08/24/24 17:16 Oxygen Delivery Nasal Cannula 08/24/24 17:16 Oxygen Flow Rate 2 08/24/24 17:16 Temperature 36.9 C 08/25/24 04:30 Pulse Rate 64 08/25/24 04:30 Respiratory Rate 20 08/25/24 04:30 Blood Pressure 97/59 L 08/25/24 04:30 Pulse Oximetry 96 08/25/24 04:30 Oxygen Delivery Nasal Cannula 08/25/24 04:30 Oxygen Flow Rate 2 08/25/24 04:30 <Bruce Padron MD - Last Filed: 08/25/24 08:22> Procedures Central Line Placement Left SC: Central Line Date: 08/25/24 <Bruce Padron MD - Last Filed: 08/25/24 08:22> Central Line Time: 20:27 <Bruce Padron MD - Last Filed: 08/25/24 08:22> Discussed w/ the patient/family/POA,the placement of a central venous catheter, including its clinical necessity/indication & associated potential risks, benifits and alternatives.: Yes <Bruce Padron MD - Last Filed: 08/25/24 08:22> The patient/family/POA understand(s) and acknowledge(s) the need to proceed with central venous catheter insertion as an important element of the patient's clinical management.: Yes <Bruce Padron MD - Last Filed: 08/25/24 08:22> Time Out Performed: Yes <Bruce Padron MD - Last Filed: 08/25/24 08:22> Patient Placed on Monitor/Pulse Ox: Yes <Bruce Padron MD - Last Filed: 08/25/24 08:22> Max. Sterile Barrier Technique: Caps, large sterile sheet and hand hygiene <Bruce Padron MD - Last Filed: 08/25/24 08:22> Central Line Prep: 2% chlorhexidine scrub and sterile drapes applied <Bruce Padron MD - Last Filed: 08/25/24 08:22> Technique: sterile prep/drape <Bruce Padron MD - Last Filed: 08/25/24 08:22> Local Anesthetic: lidocaine 1% <Bruce Padron MD - Last Filed: 08/25/24 08:22> Amount of anesthesia used (mL): 5 <Bruce Padron MD - Last Filed: 08/25/24 08:22> Ultrasound Used for Placement: Yes <Bruce Padron MD - Last Filed: 08/25/24 08:22> Central Line Lumen Inserted: single <Bruce Padron MD - Last Filed: 08/25/24 08:22> Post Procedure: sutured in place, good blood return, all ports aspirated, flushed, capped and sterile dressing applied <Bruce Padron MD - Last Filed: 08/25/24 08:22> Post Procedure X-Ray: other (Abnormal positioning of the catheter tip curling into left IJ, will be replaced.) <Bruce Padron MD - Last Filed: 08/25/24 08:22> Patient Tolerated Procedure: well <Bruce Padron MD - Last Filed: 08/25/24 08:22> Complications: catheter malposition (Catheter was exchanged and reposition with appropriate positioning of the catheter in the superior vena cava on repeat x- ray. No complications such as pneumothorax or hematoma. Patient tolerated the procedure well without any additional complications on 2nd attempt.) <Bruce Padron MD - Last Filed: 08/25/24 08:22> Additional Comments: Repeat chest x-ray confirming appropriate position on replacement after new subclavian catheter. <Bruce Padron MD - Last Filed: 08/25/24 08:22> MDM - Weakness MDM Narrative Medical decision making narrative: Patient presented to ED with weakness, fever, possible UTI, currently undergoing chemotherapy for renal cell carcinoma. Patient hypotensive, borderline tachycardic, borderline febrile, hypoxic on room air. Placed on 2L NC which required titration up to 4 L. Patient does not appear in any significant respiratory distress however. No previous oxygen requirement. Patient did receive Tylenol prior to arrival. Sepsis w/u initiated. Given 30cc/kg fluid bolus. CBC with marked leukopenia 0.3. Neutrophils are 48.4%. H&H is stable. Thrombocytopenia noted with platelet count of 62. CMP with Na 132, K 3.3 (IV replacement ordered), Mag WNL. Acute renal failure noted with creatinine today of 2.3. Baseline around 0.9 per records. Fluids ongoing. Patient has had decreased intake over the last several days. CK is within normal range. Inflammatory markers are notably elevated. Procalcitonin is markedly elevated to 51.6. Lactic acid 5.1. Viral swabs are negative. UA appears infectious. Chest x-ray is clear. Blood cultures obtained. Vanc/zosyn initiated for broad spectrum coverage for sepsis/leukopenia. Patient persistently hypotensive despite appropriate fluid resuscitation. Pressures consistently in the 60s to 70 systolic. Discussed severity of patient's condition with patient and family at length, discussed potential for central line placement for BP support. Patient does desire to be a full code. Peripheral Levophed was initiated but ultimately decision was made to place central line. Patient and family in agreement w/ this. L subclavian line placed. Performed by Dr. Padron, EDP. See procedure notes. Levophed now through central line as well as maintenance fluids. Discussed case with Dr. Neal, shale processing technician, recommended to switch Zosyn to meropenem to cover for potential ESBL and avoid further kidney injury. Recommended to give hydrocortisone 100 mg IV push x1. Recommended to obtain CT chest/abd/pelvis to ensure no obstructive or surgical process. Will accept to ICU and admit here, however advised to discuss with [facility] for waitlist/transfer for continuity of care of oncologic services. CT chest/abdomen/pelvis with atelectasis versus pneumonia, known cancer tumors with mets, left-sided hydroureteronephrosis, but no obstructing stone. Discussed case with Dr. Harris, hospitalist, in agreement with plan, accepted for admission. Discussed case with Dr. Leblanc, shale processing technician at [facility], accepted patient for transfer/admission to [facility]. Bed available. <ROBBIE Jay Last Filed: 08/25/24 02:48> Differential Diagnosis Differential diagnosis: Likely acute myocardial infarction, hypoglycemia, rhabdomyolysis, sepsis, dehydration and other (neutropenia, deven, uti) <ROBBIE Jay Last Filed: 08/25/24 02:48> Medical Records Attestation: I reviewed the patient's medical records. <ROBBIE Jay Last Filed: 08/25/24 02:48> Lab Data Attestation: I reviewed the patient's lab results. <ROBBEI Jay Last Filed: 08/25/24 02:48> Result diagrams: 08/24/24 18:11 08/24/24 18:11 <ROBBIE Jay Last Filed: 08/25/24 02:48> Labs: Lab Results 08/24/24 08/24/24 08/24/24 Range/Units 18:11 18:27 19:02 WBC 0.3 L* (4.5-10.0) K/mm3 RBC 4.71 (4.6-6.20) M/mm3 Hgb 13.5 L (14.0-18.0) g/dL Hct 40.1 L (42.0-52.0) % MCV 85.1 (80-100) fl MCH 28.7 (26-34) pg MCHC 33.7 (32-36) g/dl RDW 14.2 (11.5-14.5) % Plt Count 62 L D (150-375) k/mm3 MPV 9.7 (7.4-10.4) fl Immature Gran % (Auto) 9.7 H (0-0.5) % Neut % (Auto) 48.4 (45.5-73.1) % Lymph % (Auto) 25.8 (18.3-44.2) % [place] % (Auto) 3.2 (2.6-8.5) % Eos % (Auto) 9.7 H (0-4.4) % Baso % (Auto) 3.2 H (0.2-1.2) % Lymph # (Auto) 0.08 L (0.9-3.2) K/mm3 [place] # (Auto) 0.0 L (0.1-0.6) K/mm3 Eos # (Auto) 0.0 (0-0.3) K/mm3 Baso # (Auto) 0.0 (0.0-0.1) K/mm3 Abs Immat Gran (auto) 0.03 (0.00-0.031) K/mm3 Absolute Neuts (auto) 0.2 L (1.3-6.7) K/mm3 Absolute Nucleated RBC 0.000 (0.0-0.012) K/mm3 Nucleated RBC % 0.0 (0.0-0.2) % Platelet Estimate Decreased (Adequate) % Immature Plt Fraction 2.0 (0.9-11.2) % Anisocytosis 1+ Schistocytes None seen ESR 44 H (0-20) mm/hr PT 16.3 H (11.1-14.7) Seconds INR 1.3 APTT 37.2 H (22.3-36.8) Seconds Methemoglobin 0.0 (0-1.5) %THb Sodium 132 L (137-145) mmol/L Potassium 3.3 L (3.4-5.0) mmol/L Chloride 97 L (98-107) mmol/L Carbon Dioxide 25 (22-30) mmol/L Anion Gap 10 (4-12) mmol/L BUN 54 H D (9-20) mg/dL Creatinine 2.30 H (0.7-1.3) mg/dL Estim Creat Clear Calc 32 ml/min Estimated GFR 28 L (59 - ) Glucose 233 H (65-110) mg/dL Lactic Acid 5.1 H* (0.7-2.0) mmol/L Calcium 8.4 (8.4-10.2) mg/dL Magnesium 2.1 (1.6-2.3) mg/dL Total Bilirubin 1.5 H (0.2-1.3) mg/dL AST 82 H (17-59) U/L ALT 32 (6-50) U/L Alkaline Phosphatase 92 (38-126) U/L Total Creatine Kinase 45 L (55-170) U/L C-Reactive Protein 30.6 H (<1.0) mg/dL Total Protein 7.0 (6.3-8.2) g/dL Albumin 3.5 (3.5-5.1) g/dL Procalcitonin 51.6 ng/mL Urine Color Dark yellow (Yellow) Urine Appearance Cloudy H (Clear) Urine pH 5.5 (5.0-9.0) Ur Specific Bra[place] 1.018 (1.001-1.035) Urine Protein 3+ H (Negative) mg/dL Urine Glucose (UA) 3+ H (Negative) mg/dL Urine Ketones Trace H (Negative) mg/dL Ur Blood (Man) 3+ H (Negative) Urine Nitrate Positive H (Negative) Urine Bilirubin 1+ H (Negative) Urine Urobilinogen 1.0 (<2.0) mg/dL Add Ur Microanalysis Reviewed Leukocyte Esterase Rfl 2+ H (Negative) CHEYANNE/UL Urine RBC 0-2 (0-2) /hpf Urine WBC >100 H (0-3) /hpf Ur Squamous Epith Cells Moderate (Few) /hpf Urine Bacteria 4+ H /hpf Urine Casts 11-20 C. difficile (PCR) (NEGATIVE) Influenza A (RT-PCR) Negative (Negative) Influenza B (RT-PCR) Negative (Negative) RSV (RT-PCR) Negative (Negative) SARS-CoV-2 RNA (RT-PCR) Negative (Negative) 08/24/24 08/24/24 Range/Units 22:10 22:39 WBC (4.5-10.0) K/mm3 RBC (4.6-6.20) M/mm3 Hgb (14.0-18.0) g/dL Hct (42.0-52.0) % MCV (80-100) fl MCH (26-34) pg MCHC (32-36) g/dl RDW (11.5-14.5) % Plt Count (150-375) k/mm3 MPV (7.4-10.4) fl Immature Gran % (Auto) (0-0.5) % Neut % (Auto) (45.5-73.1) % Lymph % (Auto) (18.3-44.2) % [place] % (Auto) (2.6-8.5) % Eos % (Auto) (0-4.4) % Baso % (Auto) (0.2-1.2) % Lymph # (Auto) (0.9-3.2) K/mm3 [place] # (Auto) (0.1-0.6) K/mm3 Eos # (Auto) (0-0.3) K/mm3 Baso # (Auto) (0.0-0.1) K/mm3 Abs Immat Gran (auto) (0.00-0.031) K/mm3 Absolute Neuts (auto) (1.3-6.7) K/mm3 Absolute Nucleated RBC (0.0-0.012) K/mm3 Nucleated RBC % (0.0-0.2) % Platelet Estimate (Adequate) % Immature Plt Fraction (0.9-11.2) % Anisocytosis Schistocytes ESR (0-20) mm/hr PT (11.1-14.7) Seconds INR APTT (22.3-36.8) Seconds Methemoglobin (0-1.5) %THb Sodium (137-145) mmol/L Potassium (3.4-5.0) mmol/L Chloride (98-107) mmol/L Carbon Dioxide (22-30) mmol/L Anion Gap (4-12) mmol/L BUN (9-20) mg/dL Creatinine (0.7-1.3) mg/dL Estim Creat Clear Calc ml/min Estimated GFR (59 - ) Glucose (65-110) mg/dL Lactic Acid 3.7 H (0.7-2.0) mmol/L Calcium (8.4-10.2) mg/dL Magnesium (1.6-2.3) mg/dL Total Bilirubin (0.2-1.3) mg/dL AST (17-59) U/L ALT (6-50) U/L Alkaline Phosphatase (38-126) U/L Total Creatine Kinase (55-170) U/L C-Reactive Protein (<1.0) mg/dL Total Protein (6.3-8.2) g/dL Albumin (3.5-5.1) g/dL Procalcitonin ng/mL Urine Color (Yellow) Urine Appearance (Clear) Urine pH (5.0-9.0) Ur Specific [place] (1.001-1.035) Urine Protein (Negative) mg/dL Urine Glucose (UA) (Negative) mg/dL Urine Ketones (Negative) mg/dL Ur Blood (Man) (Negative) Urine Nitrate (Negative) Urine Bilirubin (Negative) Urine Urobilinogen (<2.0) mg/dL Add Ur Microanalysis Leukocyte Esterase Rfl (Negative) [place]/UL Urine RBC (0-2) /hpf Urine WBC (0-3) /hpf Ur Squamous Epith Cells (Few) /hpf Urine Bacteria /hpf Urine Casts C. difficile (PCR) Negative (NEGATIVE) Influenza A (RT-PCR) (Negative) Influenza B (RT-PCR) (Negative) RSV (RT-PCR) (Negative) SARS-CoV-2 RNA (RT-PCR) (Negative) <Magaly Cueva PA-C - Last Filed: 08/25/24 02:48> Lab Results 08/24/24 08/24/24 08/24/24 Range/Units 18:11 18:27 19:02 WBC 0.3 L* (4.5-10.0) K/mm3 RBC 4.71 (4.6-6.20) M/mm3 Hgb 13.5 L (14.0-18.0) g/dL Hct 40.1 L (42.0-52.0) % MCV 85.1 (80-100) fl MCH 28.7 (26-34) pg MCHC 33.7 (32-36) g/dl RDW 14.2 (11.5-14.5) % Plt Count 62 L D (150-375) k/mm3 MPV 9.7 (7.4-10.4) fl Immature Gran % (Auto) 9.7 H (0-0.5) % Neut % (Auto) 48.4 (45.5-73.1) % Lymph % (Auto) 25.8 (18.3-44.2) % [place] % (Auto) 3.2 (2.6-8.5) % Eos % (Auto) 9.7 H (0-4.4) % Baso % (Auto) 3.2 H (0.2-1.2) % Lymph # (Auto) 0.08 L (0.9-3.2) K/mm3 [place] # (Auto) 0.0 L (0.1-0.6) K/mm3 Eos # (Auto) 0.0 (0-0.3) K/mm3 Baso # (Auto) 0.0 (0.0-0.1) K/mm3 Abs Immat Gran (auto) 0.03 (0.00-0.031) K/mm3 Absolute Neuts (auto) 0.2 L (1.3-6.7) K/mm3 Absolute Nucleated RBC 0.000 (0.0-0.012) K/mm3 Nucleated RBC % 0.0 (0.0-0.2) % Platelet Estimate Decreased (Adequate) % Immature Plt Fraction 2.0 (0.9-11.2) % Anisocytosis 1+ Schistocytes None seen ESR 44 H (0-20) mm/hr PT 16.3 H (11.1-14.7) Seconds INR 1.3 APTT 37.2 H (22.3-36.8) Seconds Methemoglobin 0.0 (0-1.5) %THb Sodium 132 L (137-145) mmol/L Potassium 3.3 L (3.4-5.0) mmol/L Chloride 97 L (98-107) mmol/L Carbon Dioxide 25 (22-30) mmol/L Anion Gap 10 (4-12) mmol/L BUN 54 H D (9-20) mg/dL Creatinine 2.30 H (0.7-1.3) mg/dL Estim Creat Clear Calc 32 ml/min Estimated GFR 28 L (59 - ) Glucose 233 H (65-110) mg/dL Lactic Acid 5.1 H* (0.7-2.0) mmol/L Calcium 8.4 (8.4-10.2) mg/dL Magnesium 2.1 (1.6-2.3) mg/dL Total Bilirubin 1.5 H (0.2-1.3) mg/dL AST 82 H (17-59) U/L ALT 32 (6-50) U/L Alkaline Phosphatase 92 (38-126) U/L Total Creatine Kinase 45 L (55-170) U/L C-Reactive Protein 30.6 H (<1.0) mg/dL Total Protein 7.0 (6.3-8.2) g/dL Albumin 3.5 (3.5-5.1) g/dL Procalcitonin 51.6 ng/mL Urine Color Dark yellow (Yellow) Urine Appearance Cloudy H (Clear) Urine pH 5.5 (5.0-9.0) Ur Specific [place] 1.018 (1.001-1.035) Urine Protein 3+ H (Negative) mg/dL Urine Glucose (UA) 3+ H (Negative) mg/dL Urine Ketones Trace H (Negative) mg/dL Ur Blood (Man) 3+ H (Negative) Urine Nitrate Positive H (Negative) Urine Bilirubin 1+ H (Negative) Urine Urobilinogen 1.0 (<2.0) mg/dL Add Ur Microanalysis Reviewed Leukocyte Esterase Rfl 2+ H (Negative) [place]/UL Urine RBC 0-2 (0-2) /hpf Urine WBC >100 H (0-3) /hpf Ur Squamous Epith Cells Moderate (Few) /hpf Urine Bacteria 4+ H /hpf Urine Casts 11-20 C. difficile (PCR) (NEGATIVE) Influenza A (RT-PCR) Negative (Negative) Influenza B (RT-PCR) Negative (Negative) RSV (RT-PCR) Negative (Negative) SARS-CoV-2 RNA (RT-PCR) Negative (Negative) 08/24/24 08/24/24 Range/Units 22:10 22:39 WBC (4.5-10.0) K/mm3 RBC (4.6-6.20) M/mm3 Hgb (14.0-18.0) g/dL Hct (42.0-52.0) % MCV (80-100) fl MCH (26-34) pg MCHC (32-36) g/dl RDW (11.5-14.5) % Plt Count (150-375) k/mm3 MPV (7.4-10.4) fl Immature Gran % (Auto) (0-0.5) % Neut % (Auto) (45.5-73.1) % Lymph % (Auto) (18.3-44.2) % [place] % (Auto) (2.6-8.5) % Eos % (Auto) (0-4.4) % Baso % (Auto) (0.2-1.2) % Lymph # (Auto) (0.9-3.2) K/mm3 [place] # (Auto) (0.1-0.6) K/mm3 Eos # (Auto) (0-0.3) K/mm3 Baso # (Auto) (0.0-0.1) K/mm3 Abs Immat Gran (auto) (0.00-0.031) K/mm3 Absolute Neuts (auto) (1.3-6.7) K/mm3 Absolute Nucleated RBC (0.0-0.012) K/mm3 Nucleated RBC % (0.0-0.2) % Platelet Estimate (Adequate) % Immature Plt Fraction (0.9-11.2) % Anisocytosis Schistocytes ESR (0-20) mm/hr PT (11.1-14.7) Seconds INR APTT (22.3-36.8) Seconds Methemoglobin (0-1.5) %THb Sodium (137-145) mmol/L Potassium (3.4-5.0) mmol/L Chloride (98-107) mmol/L Carbon Dioxide (22-30) mmol/L Anion Gap (4-12) mmol/L BUN (9-20) mg/dL Creatinine (0.7-1.3) mg/dL Estim Creat Clear Calc ml/min Estimated GFR (59 - ) Glucose (65-110) mg/dL Lactic Acid 3.7 H (0.7-2.0) mmol/L Calcium (8.4-10.2) mg/dL Magnesium (1.6-2.3) mg/dL Total Bilirubin (0.2-1.3) mg/dL AST (17-59) U/L ALT (6-50) U/L Alkaline Phosphatase (38-126) U/L Total Creatine Kinase (55-170) U/L C-Reactive Protein (<1.0) mg/dL Total Protein (6.3-8.2) g/dL Albumin (3.5-5.1) g/dL Procalcitonin ng/mL Urine Color (Yellow) Urine Appearance (Clear) Urine pH (5.0-9.0) Ur Specific [place] (1.001-1.035) Urine Protein (Negative) mg/dL Urine Glucose (UA) (Negative) mg/dL Urine Ketones (Negative) mg/dL Ur Blood (Man) (Negative) Urine Nitrate (Negative) Urine Bilirubin (Negative) Urine Urobilinogen (<2.0) mg/dL Add Ur Microanalysis Leukocyte Esterase Rfl (Negative) [place]/UL Urine RBC (0-2) /hpf Urine WBC (0-3) /hpf Ur Squamous Epith Cells (Few) /hpf Urine Bacteria /hpf Urine Casts C. difficile (PCR) Negative (NEGATIVE) Influenza A (RT-PCR) (Negative) Influenza B (RT-PCR) (Negative) RSV (RT-PCR) (Negative) SARS-CoV-2 RNA (RT-PCR) (Negative) <Bruce Padron MD - Last Filed: 08/25/24 08:22> ABG Data ABG results: 08/24/24 18:27 Puncture Site Left radial ABG pH 7.432 ABG pCO2 29.9 L ABG pO2 67.7 L ABG PO2/FiO2 Ratio 1.88 ABG HCO3 19.5 L ABG O2 Saturation 94.3 L ABG O2 Content 16.8 ABG Base Excess -3.7 A-a Gradient 154.3 Oxyhemoglobin 92.7 Carboxyhemoglobin 1.1 Reduced Hemoglobin 6.2 H Total Hemoglobin 12.9 O2 Delivery Device Nasal cannula O2 Liters/Min 4.0 FiO2 36 <Magaly Cueva PA-C - Last Filed: 08/25/24 02:48> 08/24/24 18:27 Puncture Site Left radial ABG pH 7.432 ABG pCO2 29.9 L ABG pO2 67.7 L ABG PO2/FiO2 Ratio 1.88 ABG HCO3 19.5 L ABG O2 Saturation 94.3 L ABG O2 Content 16.8 ABG Base Excess -3.7 A-a Gradient 154.3 Oxyhemoglobin 92.7 Carboxyhemoglobin 1.1 Reduced Hemoglobin 6.2 H Total Hemoglobin 12.9 O2 Delivery Device Nasal cannula O2 Liters/Min 4.0 FiO2 36 <Bruce Padron MD - Last Filed: 08/25/24 08:22> Attestation: I personally reviewed and interpreted this ABG as follows: <Magaly Cueva PA-C - Last Filed: 08/25/24 02:48> Imaging Data Attestation: I personally reviewed and interpreted this imaging study as follows: <Magaly Cueva PA-C - Last Filed: 08/25/24 02:48> Radiologist's impression: ITS Impressions Chest X-Ray 08/24/24 18:18 IMPRESSION: 1. No acute cardiopulmonary disease. Chest X-Ray 08/24/24 20:27 IMPRESSION: 1. Catheter tip in abnormal position in the left internal jugular vein. 2. Mild atelectasis in the lower lung zones. Chest X-Ray 08/24/24 20:42 IMPRESSION: 1. Central line tip in the superior vena cava. Chest/Abdomen/Pelvis CT 08/24/24 23:35 IMPRESSION: 1. Airspace opacities in the lower lobes, consistent with atelectasis versus pneumonia. 2. 7.0 cm mass in left kidney that enhanced on the prior CT, consistent with renal cell carcinoma. 3. Lytic lesions of bone, consistent with metastatic disease. 4. 1.6 cm liver mass, which may be benign or malignant. Consider abdomen MRI without and with contrast. 5. Diffuse bladder wall thickening, which may be secondary to chronic outlet obstruction and/or neurogenic bladder. 6. Mild left hydronephrosis and hydroureter. <Magaly Cueva PA-C - Last Filed: 08/25/24 02:48> ECG Data EKG #1: Attestation: I personally reviewed and interpreted this ECG as follows: <Magaly Cueva PA-C - Last Filed: 08/25/24 02:48> ECG completion date: 08/24/24 <Magaly Cueva PA-C - Last Filed: 08/25/24 02:48> Critical Care Time Critical Care Time Critical Care Time: Yes <Bruce Padron MD - Last Filed: 08/25/24 08:22> Total Critical Care Time: 120 <Bruce Padron MD - Last Filed: 08/25/24 08:22> Discharge Plan Discharge Clinical Impression: Septic shock, Thrombocytopenia, Lactic acidosis, Acute hypoxic respiratory failure, Hydroureteronephrosis Leukopenia Qualifiers: Leukopenia type: unspecified Qualified Code(s): D72.819 - Decreased white blood cell count, unspecified Renal cell carcinoma Qualifiers: Laterality: left Qualified Code(s): C64.2 - Malignant neoplasm of left kidney, except renal pelvis Acute renal failure Qualifiers: Acute renal failure type: unspecified Qualified Code(s): N17.9 - Acute kidney failure, unspecified UTI (urinary tract infection) Qualifiers: Urinary tract infection type: acute cystitis Hematuria presence: without hematuria Qualified Code(s): N30.00 - Acute cystitis without hematuria <Magaly Cueva PA-C - Last Filed: 08/25/24 02:48> Patient Disposition: Still a Patient <Magaly Cueva PA-C - Last Filed: 08/25/24 02:48> Condition: Critical <Magaly Cueva PA-C - Last Filed: 08/25/24 02:48>
[2024-08-24] MEDS: SODIUM CHLORIDE 0.9% IV 1,000 ML 999 ML IV CONT ×2 (18:13→18:14)
[2024-08-24 18:18] LABS: Basophils Percent Auto 3.2 % (0.2-1.2); Eosinophils Percent Auto 9.7 % (0-4.4); Hematocrit 40.1 % (42.0-52.0); Hemoglobin 13.5 g/dL (14.0-18.0); Immature Granulocyte Absolute 0.03 K/mm3 (0.00-0.031); Immature Granulocyte Percent A 9.7 % (0-0.5); Lymphocytes Absolute Auto 0.08 K/mm3 (0.9-3.2); Lymphocytes Percent Auto 25.8 % (18.3-44.2); Mean Corpuscular HGB Conc 33.7 g/dl (32-36); Mean Corpuscular Hemoglobin 28.7 pg (26-34); Mean Corpuscular Volume 85.1 fl (80-100); Mean Platelet Volume 9.7 fl (7.4-10.4); Monocytes Percent Auto 3.2 % (2.6-8.5); Neutrophils Absolute Auto 0.2 K/mm3 (1.3-6.7); Neutrophils Percent Auto 48.4 % (45.5-73.1); Platelet Count Result 62 k/mm3 (150-375); Red Blood Count 4.71 M/mm3 (4.6-6.20); Red Cell Distribution Width 14.2 % (11.5-14.5)
[2024-08-24 18:27] LABS: Creatine Kinase 45 U/L (55-170)
[2024-08-24 18:29] LABS: Alveolar/Arterial O2 Gradient 154.3 mmHg; Base Excess ABG -3.7 mEq/l (+/-2.0); Carboxyhemoglobin 1.1 % THb (0-2.0); Fractional Inspired Oxygen 36 %; HCO3 ABG 19.5 mEq/l (22.0-26.0); Oxygen Content ABG 16.8 %vol (16.0-22.0); Oxygen Saturation ABG 94.3 % (95.0-100.0); Oxyhemoglobin 92.7 % THb (90.0-100.0); PCO2 ABG 29.9 mmHg (35.0-45.0); PO2 ABG 67.7 mmHg (80.0-100.0); PO2 FiO2 Ratio Arterial Blood 1.88 %; Reduced Hemoglobin 6.2 %THb (0-5.0); Total Hemoglobin 12.9 g/dL (12.0-18.0); pH ABG 7.432 (7.350-7.450)
[2024-08-24 18:29] LABS: Lactic Acid Reflex 5.1 mmol/L (0.7-2.0)
[2024-08-24 18:31] LABS: Device NASAL CANNULA; Modified Allen's Test Pass; Site Drawn LEFT RADIAL
[2024-08-24 18:41] LABS: Alanine Aminotransferase 32 U/L (6-50); Albumin Level 3.5 g/dL (3.5-5.1); Alkaline Phosphatase 92 U/L (38-126); Aspartate Amino Transferase 82 U/L (17-59); Blood Urea Nitrogen 54 mg/dL (9-20); Calcium 8.4 mg/dL (8.4-10.2); Carbon Dioxide 25 mmol/L (22-30); Chloride 97 mmol/L (98-107); Estimated CRCL calculation 32 ml/min; Estimated Glomerular Filt Rate 28
[2024-08-24 18:42] LABS: Anion Gap 10 mmol/L (4-12); Bilirubin,Total 1.5 mg/dL (0.2-1.3); Glucose 233 mg/dL (65-110); Potassium 3.3 mmol/L (3.4-5.0); Sodium 132 mmol/L (137-145)
[2024-08-24 18:43] LABS: Procalcitonin 51.6 ng/mL
[2024-08-24 18:45] LABS: INR 1.3; Prothrombin Time 16.3 Seconds (11.1-14.7)
[2024-08-24 18:46] LABS: Partial Thromboplastin Time 37.2 Seconds (22.3-36.8)
[2024-08-24 18:52] LABS: Influenza A QL RT-PCR Negative (Negative); Influenza B QL RT-PCR Negative (Negative); RSV RNA, RT-PCR Negative (Negative); SARS-CoV-2 RNA PCR Negative (Negative)
[2024-08-24 18:56] LABS: White Blood Count 0.3 K/mm3 (4.5-10.0)
[2024-08-24 18:57] LABS: Platelet Estimate Decreased (Adequate)
[2024-08-24 18:58] LABS: Anisocytosis 1+; Schistocytes None Seen
[2024-08-24 19:09] LABS: CRP 30.6 mg/dL (<1.0)
[2024-08-24] MEDS: ACETAMINOPHEN 500 MG TABLET 1000 MG PO (19:24)
[2024-08-24] MEDS: NOREPINEPHRINE 8 MG/D5W 250 ML 8 MG/250 ML BAG 9.38 MG IV CONT (19:25)
--- NOTE | 2024-08-24 19:33 | PC.NURSE ---
Report received from JULIANNE Banda. Assumed care of patient at this time. Central line being set up at this time.
[2024-08-24] MEDS: PIPERACILLN/TAZ 3.375GM/NS50ML 3.375 GM/50 ML BAG IVPB (19:42)
--- NOTE | 2024-08-24 19:42 | PC.NURSE ---
Zosyn started at this time via IV. Unable to scan in DEC, but ROBBIE notified.
[2024-08-24 19:44] LABS: Erythrocyte Sedimentation Rate 44 mm/hr (0-20)
--- NOTE | 2024-08-24 19:49 | PC.NURSE ---
Pt was admitted to monitor in ED 19, however vitals did not pullover to chart prior to move from ED 19 to ed8. ERP aware of persistent hypotension with BPs 70/40 after bolus of fluids.
--- NOTE | 2024-08-24 20:15 | PC.NURSE ---
ERP placed central line, upon xray, line not in good position. VORB to set up another central line kit.
[2024-08-24 20:32] LABS: Magnesium 2.1 mg/dL (1.6-2.3)
--- NOTE | 2024-08-24 20:32 | PC.NURSE ---
ERP placed new central line. Patient tolerated well. New xray ordered.
[2024-08-24 20:33] LABS: Add Urine Microscopic? YES; Appearance Urine Cloudy (Clear); Bacteria Urine 4+ /hpf; Bilirubin Urine 1+ (Negative); Blood Urine 3+ (Negative); Color Urine Dark Yellow (Yellow); Glucose Urine UA 3+ mg/dL (Negative); Ketones Urine Trace mg/dL (Negative); Leukocyte Esterase Ur 2+ LEU/UL (Negative); Need Manual Microscopic Reviewed; Nitrate Urine Positive (Negative); Protein Urine 3+ mg/dL (Negative); RBC Urine 0-2 /hpf (0-2); Specific Grav Ur 1.018 (1.001-1.035); Squamous Epithelial Cell Urine Moderate /hpf (Few); WBC Urine >100 /hpf (0-3); pH Urine 5.5 (5.0-9.0)
--- NOTE | 2024-08-24 20:37 | PC.NURSE ---
ERP in room, verified central line in correct position, okay to use.
[2024-08-24] MEDS: VANCOMYCIN 1,500 MG/NS 500 ML 1,500 MG/500 ML BAG 250 MG IVPB (20:57)
--- NOTE | 2024-08-24 21:05 | PC.NURSE ---
Spoke with Pharmacy, okay to run Kcl with alejandrina.
[2024-08-24] MEDS: KCL 20 MEQ/SW 100 ML 100 ML 50 MEQ IVPB (21:08)
[2024-08-24 21:14] LABS: Reflex Lactic Acid Yes or No Add Lactic
--- NOTE | 2024-08-24 21:35 | PC.NURSE ---
Spoke with pharmacy, okay to run vasopressin with
[2024-08-24] MEDS: VASOPRESSIN INJ 100 UNITS in DEXTROSE 5% 95 ML IV CONT (21:38)
[2024-08-24] MEDS: HYDROCORTISONE SODIUM SUCCINATE 100 MG/2 ML VIAL IV PUSH (22:04)
[2024-08-24] MEDS: SODIUM CHLORIDE 0.9% IV 1,000 ML 125 ML IV CONT (22:13)
[2024-08-24 22:23] LABS: Lactic Acid 3.7 mmol/L (0.7-2.0)
--- NOTE | 2024-08-24 23:12 | PC.NURSE ---
Patient in ct at this time. Patient on monitor, has IV meds going via pumps.
[2024-08-24] MEDS: MEROPENEM 2 GM in SODIUM CHLORIDE 0.9% IV 100 ML IVPB (23:33)
--- NOTE | 2024-08-24 23:43 | PM.IMHP ---
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 Patient has been undergoing chemotherapy, presents to the emergency room after having episode of fever of 103 F, generalized weakness. In emergency room patient was found to have lung infiltrates. patient has an arranged transfer to [facility] EXAMINATION: XR chest 1V portable DATE: 08/24/2024 18:12 INDICATION: Hypoxia. Weakness. Fever. TECHNIQUE: A single frontal view of the chest was obtained. COMPARISON: CT abdomen and pelvis 05/11/2024 FINDINGS: There is no pneumonia, pleural effusion, or pneumothorax. The heart size is normal. IMPRESSION: 1. No acute cardiopulmonary disease. EXAMINATION: CT chest abdomen pelvis wo con DATE: 08/24/2024 23:33 INDICATION: Acute renal failure. Septic shock. TECHNIQUE: Computed tomography (CT) of the chest, abdomen, and pelvis was performed without intravenous contrast. Automated exposure control and iterative reconstruction technique were employed. The dose-length product was 1334.83 mGy-cm. COMPARISON: CT abdomen and pelvis 05/11/24 FINDINGS: CHEST CT: There are airspace opacities in the lower lobes with volume loss. A calcified left lung nodule is consistent with old granulomatous disease. No pleural effusion. The heart size is normal. There are coronary artery calcifications. There is a trace pericardial effusion. The central pulmonary arteries are enlarged, consistent with pulmonary arterial hypertension. There is a left subclavian central venous catheter with tip in superior vena cava. There is a healing fracture of right eighth rib. There is a hemangioma in T3 vertebral body. There is an aggressive lytic lesion in the T3 and T4 posterior elements and T4 vertebral body. There is a lytic lesion in T7 vertebral body. There is mild chronic height loss of multiple vertebral bodies. ABDOMEN/PELVIS CT: There is periportal edema in the liver. There is a 1.6 cm low-density mass in right hepatic lobe. There are changes of cholecystectomy. The spleen, pancreas, and adrenal glands are normal. There are cysts in the kidneys measuring up to 1.6 cm on the right. There is a 7.0 cm mass in left kidney. There is mild left hydronephrosis and hydroureter. The prostate is moderately enlarged. There is a Knight catheter in expected position. There is diffuse bladder wall thickening. There is diverticulosis of the colon without evidence of diverticulitis. There is diffuse wall thickening of colon. There are no dilated loops of bowel. There are no pathologically enlarged lymph nodes. There is trace ascites. There is edema of the intra-abdominal fat and body wall. There is a lytic lesion in the sacrum. IMPRESSION: 1. Airspace opacities in the lower lobes, consistent with atelectasis versus pneumonia. 2. 7.0 cm mass in left kidney that enhanced on the prior CT, consistent with renal cell carcinoma. 3. Lytic lesions of bone, consistent with metastatic disease. 4. 1.6 cm liver mass, which may be benign or malignant. Consider abdomen MRI without and with contrast. 5. Diffuse bladder wall thickening, which may be secondary to chronic outlet obstruction and/or neurogenic bladder. 6. Mild left hydronephrosis and hydroureter. Review of Systems Review of Systems: ROS unobtainable: Yes unobtainable due to mental status ( obtundation) [facility] Past Medical History Medical History Cardiomyopathy Dyslipidemia Essential (primary) hypertension History of colon polyps History of polyneuropathy (~1992) h/o numbness and weakness in legs ruled out MS Left kidney mass ROMÁN (obstructive sleep apnea) Paroxysmal atrial fibrillation (~08/2024) 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 Toe fracture 01/2015 Type 2 diabetes mellitus without complication, without long-term current use of insulin Urinary retention Vitamin D deficiency Surgical History Surgical History History of cholecystectomy (~1999) History of incisional hernia repair (~03/2002) History of right inguinal hernia repair (~03/2017) [place] teeth extracted Family History Family History Father Carcinoma of colon, Onset Age: 61 Sibling Family history of type 2 diabetes mellitus Other Diabetes mellitus Family history of malignant neoplasm Social History Social History Smoking status: Never smoker Second hand tobacco smoke exposure: No Alcohol intake: former Drinks per week: 2 Alcohol use details: consumes 2 beers weekly Substance use: never Substance use type: does not use Do You Feel Safe in your Home?: Yes Lack of Transportation: No Lack of Food: Never True Current Housing: I Have Housing Concerned About Future Housing: No Difficulty Paying Gas/Electric Bills: No Difficulty Paying for Meds: No Currently Unemployed: No Education: High School Diploma/GED Difficulty w/ Childcare or Family Care: No Living arrangements: other Additional living arrangements comments: with sp Spiritual care concerns: No Agree to blood products: Yes Meds Home Medications and Allergies Home Medications ?Medication ?Instructions ?Recorded ?Confirmed ?Type cyanocobalamin (vitamin B-12) 1,000 mcg sublingual DAILY #90 tabs 06/30/23 09/06/24 Rx 1,000 mcg sublingual tablet blood sugar diagnostic (OneTouch #100 ea 01/02/24 09/06/24 Rx Ultra Test strips) metformin 500 mg tablet,extended 500 mg PO BID #180 tabs 02/28/24 09/06/24 Rx release 24 hr glipizide 10 mg tablet, extended 10 mg PO DAILY #90 tabs 05/22/24 09/06/24 Rx release 24 hr tamsulosin 0.4 mg capsule 0.4 mg PO PCHS 06/28/24 09/06/24 History carvedilol 6.25 mg tablet 6.25 mg PO BID 09/06/24 09/06/24 History cholecalciferol (vitamin D3) 25 25 mcg PO DAILY 09/06/24 09/06/24 History mcg (1,000 unit) capsule ciprofloxacin HCl 750 mg tablet 750 mg PO BID 09/06/24 09/06/24 History empagliflozin 10 mg tablet 10 mg PO DAILY 09/06/24 09/06/24 History (Jardiance) ezetimibe 10 mg tablet 10 mg PO DAILY 09/06/24 09/06/24 History losartan 25 mg tablet 25 mg PO DAILY 09/06/24 09/06/24 History spironolactone 25 mg tablet 25 mg PO DAILY 09/06/24 09/06/24 History Allergies Allergy/AdvReac Type Severity Reaction Status Date / Time No Known Allergies Allergy Verified 09/06/24 13:30 Vital Signs Vital Signs - 24 hr 08/24/24 17:19 08/24/24 17:16 08/24/24 17:22 Temperature 99.1 F Pulse Rate 95 89 Respiratory Rate 19 Blood Pressure 91/51 L Pulse Oximetry 90 92 Oxygen Delivery Nasal Cannula Nasal Cannula Oxygen Flow Rate 2 2 08/24/24 17:40 08/24/24 19:25 08/24/24 19:25 Temperature Pulse Rate 94 Respiratory Rate Blood Pressure 92/58 L 92/65 L Pulse Oximetry 92 Oxygen Delivery Nasal Cannula Oxygen Flow Rate 4 08/24/24 19:30 08/24/24 18:50 08/24/24 18:40 Temperature Pulse Rate Respiratory Rate Blood Pressure 88/64 L 74/49 L 71/39 L Pulse Oximetry Oxygen Delivery Oxygen Flow Rate 08/24/24 19:36 08/24/24 20:33 08/24/24 19:40 Temperature Pulse Rate 92 89 Respiratory Rate 20 18 Blood Pressure 69/46 L 84/60 L Pulse Oximetry 98 Oxygen Delivery Oxygen Flow Rate 08/24/24 19:41 08/24/24 19:45 08/24/24 19:46 Temperature Pulse Rate 91 91 Respiratory Rate 25 H 24 H 23 H Blood Pressure 94/41 L Pulse Oximetry 99 Oxygen Delivery Oxygen Flow Rate 08/24/24 19:50 08/24/24 19:52 08/24/24 20:01 Temperature Pulse Rate 90 91 91 Respiratory Rate 23 H 23 H 17 Blood Pressure 78/57 L Pulse Oximetry 100 99 98 Oxygen Delivery Oxygen Flow Rate 08/24/24 20:05 08/24/24 20:06 08/24/24 20:20 Temperature Pulse Rate 91 93 89 Respiratory Rate 22 H 21 H 20 Blood Pressure 72/47 L 61/47 L Pulse Oximetry 99 95 Oxygen Delivery Oxygen Flow Rate 08/24/24 20:21 08/24/24 20:25 08/24/24 20:26 Temperature Pulse Rate 90 89 88 Respiratory Rate 25 H 22 H 23 H Blood Pressure 63/47 L Pulse Oximetry 96 Oxygen Delivery Oxygen Flow Rate 08/24/24 20:30 08/24/24 20:31 08/24/24 20:42 Temperature 97.8 F Pulse Rate 88 90 Respiratory Rate 22 H 23 H Blood Pressure 69/46 L Pulse Oximetry 97 97 Oxygen Delivery Oxygen Flow Rate 08/24/24 20:57 08/24/24 21:38 08/24/24 21:38 Temperature Pulse Rate 89 86 85 Respiratory Rate Blood Pressure 70/56 L 76/55 L 76/55 L Pulse Oximetry Oxygen Delivery Oxygen Flow Rate 08/24/24 20:35 08/24/24 20:36 08/24/24 20:40 Temperature Pulse Rate 89 90 89 Respiratory Rate 20 23 H 23 H Blood Pressure 70/57 L 72/50 L Pulse Oximetry 97 96 Oxygen Delivery Oxygen Flow Rate 08/24/24 20:41 08/24/24 20:45 08/24/24 20:46 Temperature Pulse Rate 85 91 87 Respiratory Rate 19 22 H 23 H Blood Pressure 68/54 L Pulse Oximetry 98 100 97 Oxygen Delivery Oxygen Flow Rate 08/24/24 20:50 08/24/24 20:51 08/24/24 20:55 Temperature Pulse Rate 90 88 90 Respiratory Rate 23 H 24 H 24 H Blood Pressure 88/72 L 70/56 L Pulse Oximetry 98 94 Oxygen Delivery Oxygen Flow Rate 08/24/24 20:56 08/24/24 21:00 08/24/24 21:02 Temperature Pulse Rate 91 88 88 Respiratory Rate 23 H 23 H 25 H Blood Pressure 89/65 L Pulse Oximetry 97 96 94 Oxygen Delivery Oxygen Flow Rate 08/24/24 21:05 08/24/24 21:06 08/24/24 21:10 Temperature Pulse Rate 88 88 86 Respiratory Rate 18 24 H 15 Blood Pressure 74/54 L 73/55 L Pulse Oximetry 94 94 98 Oxygen Delivery Oxygen Flow Rate 08/24/24 21:34 Temperature Pulse Rate 80 Respiratory Rate 24 H Blood Pressure Pulse Oximetry 94 Oxygen Delivery Oxygen Flow Rate Exam Narrative: patient is laying in a stretcher Const: General: comfortable, no acute distress, well developed, ill appearing, lethargic, patient obtunded and average body habitus Nutritional Appearance: average body habitus Orientation/consciousness: patient oriented x3 HENMT: Head: normal to inspection, normocephalic and atraumatic Ears: hearing grossly normal bilaterally Face/Nose/Sinus: normal facial exam Face and sinus: normal facial exam Eyes: General: appearance normal, both eyes and all related structures Pupils: Equal, round and reactive pupils present EOM: EOMs intact bilaterally Neck: Neck: full ROM, no lymphadenopathy and no JVD Thyroid: thyroid normal Lymphatic: no lymphadenopathy noted Resp: Effort & Inspection: normal respiratory effort and able to speak in complete sentences Auscultation: clear to auscultation bilaterally Cardio: Jugular venous distension: no JVD Rate: regular rate Rhythm: regular rhythm Heart sounds: S1 normal heart sound present and S2 normal heart sound present GI: GI Palp: Yes Soft to palpation and Yes No hepatosplenomegaly present : General: Yes deferred Skin: Rashes: no rashes Wounds: no wounds Neuro: General: oriented to person, oriented to place and CN's II-XI intact bilaterally Cranial nerves: Yes CN's II-XII intact bilaterally and Yes Equal, round and reactive pupils present Cognition (Neuro): abnormal cognition ( obtundation) Speech: normal speech Gait exam (Neuro): Unable to assess gait Motor exam (neuro): 5/5 motor strength present throughout Extrem: General: edema bilateral ( 3+) H&P: Results Labs Labs: Short CBC 08/24/24 Range/Units 18:11 WBC 0.3 L* (4.5-10.0) K/mm3 Hgb 13.5 L (14.0-18.0) g/dL Hct 40.1 L (42.0-52.0) % Plt Count 62 L D (150-375) k/mm3 BMP 08/24/24 18:11 Sodium 132 L Potassium 3.3 L Chloride 97 L Carbon Dioxide 25 BUN 54 H D Creatinine 2.30 H Glucose 233 H Calcium 8.4 Cardiac Enzymes 08/24/24 Range/Units 18:11 Total Creatine Kinase 45 L (55-170) U/L Liver Function 08/24/24 Range/Units 18:11 Total Bilirubin 1.5 H (0.2-1.3) mg/dL AST 82 H (17-59) U/L ALT 32 (6-50) U/L Alkaline Phosphatase 92 (38-126) U/L Albumin 3.5 (3.5-5.1) g/dL Urine 08/24/24 Range/Units 19:02 Urine Color Dark yellow (Yellow) Urine Appearance Cloudy H (Clear) Urine pH 5.5 (5.0-9.0) Ur Specific [place] 1.018 (1.001-1.035) Urine Protein 3+ H (Negative) mg/dL Urine Glucose (UA) 3+ H (Negative) mg/dL Assessment and Plan Assessment and plan (1) Bilateral pulmonary infiltrates: Code(s): R91.8 - Other nonspecific abnormal finding of lung field Status: Acute Assessment and Plan: patient is awaiting bed at [facility] sepsis protocol in progress early goal-directed therapy in progress patient is started on broad-spectrum antibiotics (2) Acute hypoxic respiratory failure: Code(s): J96.01 - Acute respiratory failure with hypoxia Status: Acute Assessment and Plan: on supplemental oxygen by nasal cannula (3) Cardiomyopathy: Qualifiers: Cardiomyopathy type: unspecified Qualified Code(s): I42.9 - Cardiomyopathy, unspecified Code(s): I42.9 - Cardiomyopathy, unspecified Status: Acute Assessment and Plan: continue to monitor daily intake and output daily weights (4) Paroxysmal atrial fibrillation: Onset Date: ~08/2024 Code(s): I48.0 - Paroxysmal atrial fibrillation Status: Acute Assessment and Plan: continue to monitor (5) 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: Code(s): C64.2 - Malignant neoplasm of left kidney, except renal pelvis Status: Acute Assessment and Plan: follow-up in outpatient setting (6) Acute renal failure: Qualifiers: Acute renal failure type: unspecified Qualified Code(s): N17.9 - Acute kidney failure, unspecified Code(s): N17.9 - Acute kidney failure, unspecified Status: Acute Assessment and Plan: likely to be multifactorial continue to monitor BUN and creatinine daily BMP will hold losartan will hold spironolactone (7) ROMÁN (obstructive sleep apnea): Code(s): G47.33 - Obstructive sleep apnea (adult) (pediatric) Status: Chronic Assessment and Plan: CPAP at nighttime (8) Type 2 diabetes mellitus without complication, without long-term current use of insulin: Code(s): E11.9 - Type 2 diabetes mellitus without complications Status: Chronic Assessment and Plan: will hold glipizide will hold metformin we hold ezetimibe
[2024-08-24 23:53] LABS: Toxigenic C. Diff NEGATIVE (NEGATIVE)
[2024-08-25] VITALS (15 sets, daily range): BP systolic 75–97; BP diastolic 55–66; PULSE 60–78; RESP 15–32; TEMP 36.8–37.3; O2SAT 93–98; BMI 22.8
[2024-08-25 01:29] LABS: Glucose Point of Care 275 mg/dl (65-105)
--- NOTE | 2024-08-25 01:39 | ADMGEN ---
This patient, Farooq Fish, was admitted to Intensive Care Unit-5 at 0116. Patient/family oriented to hospital policies and general routines including ID bracelet, bed and alarms, visiting hours, pain management, procedures, bathroom and other care routines, personal items, smoking policy, room service/diet, and visiting hours. Information on how to activate the Rapid Response Team has been discussed. Patient/Family are encouraged to report perceived risks to care and to ask questions if they do not understand what they are told or what they should do. Report was called from the ED at 0050.
--- NOTE | 2024-08-25 02:37 | PC.NURSE ---
Received call at 0145 from [facility] that patient has a bed at [facility]. Called report (at 0226) to Magaly at [facility], . Patient will be transferred to room 499-[address] under accepting Dr. Coffey.
[2024-08-25 03:06] LABS: MRSA (PCR) NOT DETECTED (NOT DETECTE)
--- NOTE | 2024-08-25 05:02 | PC.NURSE ---
Patient was picked up via EMS at 0450. No personal belongings were left with the patient, took them home. Called Magaly Narayan to let her know the patient was on the way.
--- NOTE | 2024-09-11 21:04 | P.TS_ITS ---
Transfer Discharge Sum: Prov Provider Date of admission: 08/24/24 23:52 Primary care physician: Sushma Willett MD Admitting clinician: Thais Harris MD Consults: 08/24/24 23:54 Consult to Physician Routine Comment: Consulting Provider: Migel Neal Reason for consultation: septic shock, uti, arf, leukopenia, renal cell carcinoma Has provider been notified: Yes Attending physician on discharge: Thais Harris V. DS: Admitting Diagnosis Discharge Date 08/25/24 Admitting Diagnosis (1) Bilateral pulmonary infiltrates: Code(s): R91.8 - Other nonspecific abnormal finding of lung field Status: Acute Assessment and Plan: patient is awaiting bed at [facility] sepsis protocol in progress early goal-directed therapy in progress patient is started on broad-spectrum antibiotics (2) Acute hypoxic respiratory failure: Code(s): J96.01 - Acute respiratory failure with hypoxia Status: Acute Assessment and Plan: on supplemental oxygen by nasal cannula (3) Cardiomyopathy: Qualifiers: Cardiomyopathy type: unspecified Qualified Code(s): I42.9 - Cardiomyopathy, unspecified Code(s): I42.9 - Cardiomyopathy, unspecified Status: Acute Assessment and Plan: continue to monitor daily intake and output daily weights (4) Paroxysmal atrial fibrillation: Onset Date: ~08/2024 Code(s): I48.0 - Paroxysmal atrial fibrillation Status: Acute Assessment and Plan: continue to monitor (5) 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: Code(s): C64.2 - Malignant neoplasm of left kidney, except renal pelvis Status: Acute Assessment and Plan: follow-up in outpatient setting (6) Acute renal failure: Qualifiers: Acute renal failure type: unspecified Qualified Code(s): N17.9 - Acute kidney failure, unspecified Code(s): N17.9 - Acute kidney failure, unspecified Status: Acute Assessment and Plan: likely to be multifactorial continue to monitor BUN and creatinine daily BMP will hold losartan will hold spironolactone (7) ROMÁN (obstructive sleep apnea): Code(s): G47.33 - Obstructive sleep apnea (adult) (pediatric) Status: Chronic Assessment and Plan: CPAP at nighttime (8) Type 2 diabetes mellitus without complication, without long-term current use of insulin: Code(s): E11.9 - Type 2 diabetes mellitus without complications Status: Chronic Assessment and Plan: will hold glipizide will hold metformin we hold ezetimibe DS: Discharge Diagnosis Discharge Diagnosis (1) Bilateral pulmonary infiltrates: Code(s): R91.8 - Other nonspecific abnormal finding of lung field Status: Acute Assessment and Plan: patient is awaiting bed at [facility] sepsis protocol in progress early goal-directed therapy in progress patient is started on broad-spectrum antibiotics (2) Cardiomyopathy: Qualifiers: Cardiomyopathy type: unspecified Qualified Code(s): I42.9 - Cardiomyopathy, unspecified Code(s): I42.9 - Cardiomyopathy, unspecified Status: Acute Assessment and Plan: continue to monitor daily intake and output daily weights (3) Paroxysmal atrial fibrillation: Onset Date: ~08/2024 Code(s): I48.0 - Paroxysmal atrial fibrillation Status: Acute Assessment and Plan: continue to monitor (4) 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: Code(s): C64.2 - Malignant neoplasm of left kidney, except renal pelvis Status: Acute Assessment and Plan: follow-up in outpatient setting (5) Acute renal failure: Qualifiers: Acute renal failure type: unspecified Qualified Code(s): N17.9 - Acute kidney failure, unspecified Code(s): N17.9 - Acute kidney failure, unspecified Status: Acute Assessment and Plan: likely to be multifactorial continue to monitor BUN and creatinine daily BMP will hold losartan will hold spironolactone (6) Renal cell carcinoma: Qualifiers: Laterality: left Qualified Code(s): C64.2 - Malignant neoplasm of left kidney, except renal pelvis Code(s): C64.9 - Malignant neoplasm of unspecified kidney, except renal pelvis Status: Acute (7) Acute hypoxic respiratory failure: Code(s): J96.01 - Acute respiratory failure with hypoxia Status: Acute Assessment and Plan: on supplemental oxygen by nasal cannula (8) Type 2 diabetes mellitus without complication, without long-term current use of insulin: Code(s): E11.9 - Type 2 diabetes mellitus without complications Status: Chronic Assessment and Plan: will hold glipizide will hold metformin we hold ezetimibe (9) ROMÁN (obstructive sleep apnea): Code(s): G47.33 - Obstructive sleep apnea (adult) (pediatric) Status: Chronic Assessment and Plan: CPAP at nighttime Plan (1) Bilateral pulmonary infiltrates: Code(s): R91.8 - Other nonspecific abnormal finding of lung field Status: Acute Assessment and Plan: patient is awaiting bed at [facility] sepsis protocol in progress early goal-directed therapy in progress patient is started on broad-spectrum antibiotics (2) Acute hypoxic respiratory failure: Code(s): J96.01 - Acute respiratory failure with hypoxia Status: Acute Assessment and Plan: on supplemental oxygen by nasal cannula (3) Cardiomyopathy: Qualifiers: Cardiomyopathy type: unspecified Qualified Code(s): I42.9 - Cardiomyopathy, unspecified Code(s): I42.9 - Cardiomyopathy, unspecified Status: Acute Assessment and Plan: continue to monitor daily intake and output daily weights (4) Paroxysmal atrial fibrillation: Onset Date: ~08/2024 Code(s): I48.0 - Paroxysmal atrial fibrillation Status: Acute Assessment and Plan: continue to monitor (5) 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: Code(s): C64.2 - Malignant neoplasm of left kidney, except renal pelvis Status: Acute Assessment and Plan: follow-up in outpatient setting (6) Acute renal failure: Qualifiers: Acute renal failure type: unspecified Qualified Code(s): N17.9 - Acute kidney failure, unspecified Code(s): N17.9 - Acute kidney failure, unspecified Status: Acute Assessment and Plan: likely to be multifactorial continue to monitor BUN and creatinine daily BMP will hold losartan will hold spironolactone (7) ROMÁN (obstructive sleep apnea): Code(s): G47.33 - Obstructive sleep apnea (adult) (pediatric) Status: Chronic Assessment and Plan: CPAP at nighttime (8) Type 2 diabetes mellitus without complication, without long-term current use of insulin: Code(s): E11.9 - Type 2 diabetes mellitus without complications Status: Chronic Assessment and Plan: will hold glipizide will hold metformin we hold ezetimibe Transfer Discharge Sum: Med Medications Active and Home Medications: Home Medications cyanocobalamin (vitamin B-12) 1,000 mcg sublingual tablet 1,000 mcg sublingual DAILY #90 tabs 06/30/23 [Rx Confirmed 09/06/24] blood sugar diagnostic (GoForm[employer]uch Ultra Test strips) #100 ea 01/02/24 [Rx Confirmed 09/06/24] metformin 500 mg tablet,extended release 24 hr 500 mg PO BID #180 tabs 02/28/24 [Rx Confirmed 09/06/24] glipizide 10 mg tablet, extended release 24 hr 10 mg PO DAILY #90 tabs 05/22/24 [Rx Confirmed 09/06/24] tamsulosin 0.4 mg capsule 0.4 mg PO PCHS 06/28/24 [History Confirmed 09/06/24] carvedilol 6.25 mg tablet 6.25 mg PO BID 09/06/24 [History Confirmed 09/06/24] cholecalciferol (vitamin D3) 25 mcg (1,000 unit) capsule 25 mcg PO DAILY 09/06/24 [History Confirmed 09/06/24] ciprofloxacin HCl 750 mg tablet 750 mg PO BID 09/06/24 [History Confirmed 09/06/24] empagliflozin 10 mg tablet (Jardiance) 10 mg PO DAILY 09/06/24 [History Confirmed 09/06/24] ezetimibe 10 mg tablet 10 mg PO DAILY 09/06/24 [History Confirmed 09/06/24] losartan 25 mg tablet 25 mg PO DAILY 09/06/24 [History Confirmed 09/06/24] spironolactone 25 mg tablet 25 mg PO DAILY 09/06/24 [History Confirmed 09/06/24] Transfer Discharge Sum: Hosp Hospital Course Hospital course: Farooq Fish is a 74 year old male with past medical history significant for renal cell carcinoma with metastatic lesions to spine, undergoing chemotherapy, chronic kidney disease, type 2 diabetes mellitus, obstructive sleep apnea, cardiomyopathy. Patient presents to the emergency room due to generalized weakness and fever of 103? F found to have bilateral lung infiltrates. Time Spent with Patient Time attestation: Total time spent providing and/or coordinating transfer services: Exam Narrative: patient is laying in a stretcher Const: General: comfortable, no acute distress, well developed, alert, awake, ill appearing, lethargic, patient obtunded and average body habitus Nutritional Appearance: average body habitus Orientation/consciousness: oriented to person, oriented to place, patient oriented x3, patient obtunded and lethargic HENMT: Head: normal to inspection, normocephalic and atraumatic Ears: hearing grossly normal bilaterally Face/Nose/Sinus: normal facial exam Face and sinus: normal facial exam Eyes: General: appearance normal, both eyes and all related structures Pupils: Equal, round and reactive pupils present EOM: EOMs intact bilaterally Neck: Neck: full ROM, no lymphadenopathy and no JVD Thyroid: thyroid normal Lymphatic: no lymphadenopathy noted Resp: Effort & Inspection: normal respiratory effort and able to speak in complete sentences Auscultation: clear to auscultation bilaterally Cardio: Jugular venous distension: no JVD Rate: regular rate Rhythm: regular rhythm Heart sounds: S1 normal heart sound present and S2 normal hea rt sound present : General: Yes deferred Skin: Rashes: no rashes Wounds: no wounds Neuro: General: oriented to person, oriented to place, patient oriented x3, CN's II-XI intact bilaterally, patient obtunded and Unable to assess gait Cranial nerves: Yes CN's II-XII intact bilaterally and Yes Equal, round and reactive pupils present Cognition (Neuro): normal cognition and abnormal cognition ( obtundation) Speech: normal speech Gait exam (Neuro): Normal gait present and Unable to assess gait Motor exam (neuro): 5/5 motor strength present throughout Extrem: General: normal to inspection, full ROM, no joint enlargement, no pedal edema and edema bilateral ( 3+)
== END 2024-08-25 04:50 | disposition short-term general hospital (02) | DRG 871 ==
LOC: ANHED 20:03 → ANHICU 08-25 00:42
PROVIDERS: Internal Medicine; Admitting Provider Internal Medicine; Emergency Provider Physician Assistant; PCP Family Medicine; Visit Provider Internal Medicine
DX: A02.1 Salmonella sepsis (principal); J96.01 Acute respiratory failure with hypoxia; R65.21 Severe sepsis with septic shock; C64.2 Malignant neoplasm of left kidney, except renal pelvis; C79.51 Secondary malignant neoplasm of bone; N17.9 Acute kidney failure, unspecified; N13.30 Unspecified hydronephrosis; N39.0 Urinary tract infection, site not specified; I42.9 Cardiomyopathy, unspecified; R91.8 Other nonspecific abnormal finding of lung field; I10 Essential (primary) hypertension; E78.5 Hyperlipidemia, unspecified; I48.0 Paroxysmal atrial fibrillation; G47.33 Obstructive sleep apnea (adult) (pediatric); E11.9 Type 2 diabetes mellitus without complications; R33.9 Retention of urine, unspecified; D69.6 Thrombocytopenia, unspecified; Z90.49 Acquired absence of other specified parts of digestive tract
CPT/HCPCS: 36415; 36556; 36600; 71045; 71250; 74176; 80053; 81001; 82375; 82550; 82805; 82948; 83050; 83605; 83735; 84145; 85018; 85025; 85055; 85610; 85652; 85730; 86140; 87040; 87045; 87077; 87086; 87088; 87186; 87427; 87449; 87493; 87637; 87641; 93005; 96361; 96365; 96366; 96367; 96375; 99291; A9270; C1751; J1720; J2185; J2543; J3370; J3480; J7030

== ENCOUNTER 2024-12-20 09:56 | Outpatient (CLI) | payer MEDICARE, SELFPAY ==
--- OUTSIDE RECORDS SUMMARY | 2024-12-20 10:34 | XMS_ITS | Encounter Summary ---
Author Organization [facility] Address [address] [place] [address] Care Team Providers Care Brass Molder Helper Name Role Phone Sushma Willett MD Primary Care Provider Samm Boudreaux MD Unavailable [phone] Pablo Perez MD Unavailable [phone] Encounter Details Date Type Department Care Team (Late st Contact Info) Description 07/30/2024 Social Work [facility] [address] [place] [address] Jolie Pabon LCSW Social History Tobacco Use Types Packs/Day Years Used Date Smoking Tobacco: Never AUDIT-C Answer Date Recorded Q1: How often do you have a drink containing alcohol? 4 or more times a week 06/29/2024 Q2: How many drinks containi ng alcohol do you have on a typical day when you are drinking? 1 or 2 Q3: How often do you have si x or more drinks on one occasion? Never 06/29/2024 Sex and Gender Information Value Date Recorded Sex Assigned at Not on file Legal Sex Male 2:20 PM PROFESSOR OF VOICE Gender Identity Not on file Sexual Orientation Not on file documented as of this encounter Plan of Treatment Not on file documented as of this encounter Visit Diagnoses Not on filedocumented in this encounter Care Teams Brass Molder Helper Relationship Specialty Start Date End Date Sushma Willett MD [address] [facility] [address] [address] PCP - General Family Practice 05/30/24 Samm Boudreaux MD [address] DEPT [place] [address] Consulting Physician Radiation Oncology 07/06/24 Pablo Perez MD [address] [place] [address] Medical Oncologist/Plug Maker Hematology and Oncology 07/06/24 documented as of this encounter
--- OUTSIDE RECORDS SUMMARY | 2024-12-20 10:34 | XMS_ITS ---
Author Organization [facility] Address [address] [place] [address] Care Team Providers Care Deputy United [place] Marshal Name Role Phone Sushma Wlilett MD Primary Care Provider Samm Boudreaux MD Unavailable [phone] Pablo Perez MD Unavailable [phone] Active Problems Problem Noted Date Diagnosed Date Cardiomyopathy 08/31/2024 Salmonella bacteremia 08/29/2024 Atrial fibrillation 08/28/2024 Palliative care encounter 08/27/2024 Advanced care planning/counseling discussion Severe protein-calorie malnutrition 08/26/2024 Sepsis 08/25/2024 Acute renal failure with tubular necrosis 2023 Septic shock 08/25/2024 Kidney cancer, primary, with metastasis from kidney to other site 07/18/2024 Cancer Staging:Clinical stage from 07/09/2024:Stage IV(cTX, cN0, pM1) - Signed by Pablo Perez MD on 08/02/2024 Renal mass 06/26/2024 Current Treatment and Therapy Plans Lenvatinib / Pembrolizumab - 21 Day Cycles - Renal* Plan Start Date:07/17/2024 Plan Provider:Pablo Perez MD Linked Problems Primary malignant neoplasm o f left kidney with metastasis from kidney to other site (HCC) Treatment Medications Current Day (Day 1 , Cycle 8 - Planned for 12/26/2024) Next Day (Day 1, Cycle 9 - Planned for 01/16/2025) lenvatinib (LENVIMA)pembrolizumab (KEYTRUDA)pembrolizumab (KEYTRUDA) IVPB in 100 mL pembrolizumab (KEYTRUDA) 200 mg in sodium chloride 0.9% 100 mL IVPB pembrolizumab (KEYTRUDA) 200 mg in sodium chloride 0.9% 100 mL IVPB Past Treatment and Therapy Plans No past plan information found. Radiation Treatments * Course C1_T SPINE 07/16/2024 - 07/27/2024 Treatment Period Energy Fraction Dose Fractions Total Dose Plans Planned T_SPINE_FiF 07/16/2024 - 07/27/2024 300 ,000 Reference Points Delivered DVP TSPINE 07/16/2024 - 07/27/2024 3,000
--- OUTSIDE RECORDS SUMMARY | 2024-12-20 10:34 | XMS_ITS | Clinical Summary ---
Author Organization [facility] Address [facility] [place] [address] Care Team Providers Care Histologist Name Role Phone None, Provider Primary Care Provider Unavaila ble Encounters Date Type Department Care Team Description 10/10/2024 10:14 AM MIS MANAGER - 10/10/2024 11:59 PM MIS MANAGER Hospital Encounter [facility] [place] [address] Zaire Ashford MD Discharge Disposition: Home or Self Care (Routine Discharge) 10/10/2024 Travel from Last 3 Months Social History Tobacco Use Types Packs/Day Years Used Date Smoking Tobacco: Never Assessed Sex and Gender Information Value Date Recorded Sex Assigned at Not on file Legal Sex Male 9:10 AM MIS MANAGER Gender Identity Not on file Sexual Orientation Not on file Plan of Treatment Health Maintenance Due Date Last Done Comments Colorectal Cancer Screening Colonoscopy (10 Years) 1950 Hepatitis C 1969 Zoster Vaccines (1 of 2) 2001 Annual Medicare Wellness Visit 2016 Pneumococcal Vaccine: 65+ Years (2 of 2 - PPSV23 or PCV20) 06/26/2021 06/26/2020 COVID-19 Vaccine ( season) 2024 07/14/2023, 08/09/2022, 07/27/2021, Additional history exists RSV Immunization or 60+ Years (1 - 1-dose 75+ series) 2026 DTaP, Tdap and Td Vaccines (2 - Td or Tdap) 07/14/2033 07/14/2023 Influenza Adult Completed 06/28/2024, 01/2022, 06/29/2021, Additional history exists Meningococcal B Vaccine Aged Out No l onger eligible based on patient's age to complete this topic Meningococcal Vaccine Aged Out No isaiah tila eligible based on patient's age to complete this topic RSV Immunizations Under 20 Months Aged Out No longer eligible based on patient's age to complete this topic Procedures Procedure Name Priority Date/Time Associated Diagnosis Comments XR LUMB SP+FLEX+EXT MIN 4V Routine 10/10/2024 10:43 AM MIS MANAGER Low back pain XR THOR SPINE 2V Routine 10/10/2024 10:4 3 AM MIS MANAGER Thoracic spine pain from Last 3 Months Results * XR THOR SPINE 2V (10/10/2024 10:43 AM MIS MANAGER) Anatomical Region Laterality Modality Spine Radiographic Lisa ging 10/11/2024 4:02 PM MIS MANAGER Impressions 10/11/2024 4:04 PM MIS MANAGER IMPRESSION: 10 mm anterolisthesis of L5 on S1 stable with extension, increases to 13 mm on flexion. Bilateral L5 spondylolysis. Mild lumbar levoscoliosis. Moderate degenerative disc disease and facet arthropathy, worst at L4-L5 and L5- S1. Degenerative changes without evidence of fracture thoracic spine. If neurologic signs are present, MRI recommended. Referred By: Interpreted By: Jose E Garcia MD, 10/11/2024 4:02 PM Narrative 10/11/2024 4:04 PM MIS MANAGER [address] [address] EXAMINATION: Thoracic spine and lumbar spine [id number] EXAM DATE: 10/10/2024 10:19 AM REASON FOR EXAM: low back pain COMPARISON: None TECHNIQUE: 3 views of the thoracic spine. 4 views of the lumbar spine including flexion and extension. FINDINGS: Thoracic: 12 thoracic type rib-bearing vertebrae. Moderate diffuse degenerative disc disease and facet arthropathy. No evidence of fracture or malalignment. Lumbar: 5 lumbar-type vertebrae are identified. 10 mm anterolisthesis of L5 on S1 stable with extension, increases to 13 mm on flexion. Bilateral L5 spondylolysis. Mild levoscoliosis. Moderate degenerative disc disease and facet arthropathy, worst at L4-L5 and L5- S1. No evidence of fracture. Procedure Note Jose E Garcia MD - 10/11/[address] [address] EXAMINATION: Thoracic spine and lumbar spine [id number] EXAM DATE: 10/10/2024 10:19 AM REASON FOR EXAM: low back pain COMPARISON: None TECHNIQUE: 3 views of the thoracic spine. 4 views of the lumbar spineincluding flexion and extension. FINDINGS: Thoracic: 12 thoracic type rib-bearing vertebrae. Moderate diffusedegenerative disc disease and facet arthropathy. No evidence of fractureor malalignment. Lumbar: 5 lumbar-type vertebrae are identified. 10 mm anterolisthesis ofL5 on S1 stable with extension, increases to 13 mm on flexion. Bilateral L5 spondylolysis. Mild levoscoliosis. Moderate degenerative disc disease and facet arthropathy, worst at L4-L5and L5- S1. No evidence of fracture. IMPRESSION: 10 mm anterolisthesis of L5 on S1 stable with extension, increases to 13mm on flexion. Bilateral L5 spondylolysis. Mild lumbar levoscoliosis. Moderate degenerative disc disease and facet arthropathy, worst at L4-L5and L5- S1. Degenerative changes without evidence of fracture thoracic spine. If neurologic signs are present, MRI recommended. Referred By: Interpreted By: Jose E Garcia MD, 10/11/2024 4:02 PM Zaire Ashford MD GENERAL IMAGING Final R esult * XR LUMB SP+FLEX+EXT MIN 4V (10/10/2024 10:43 AM MIS MANAGER) Anatomical Region Laterality Modality Spine Radiographic Lisa ging 10/11/2024 4:02 PM MIS MANAGER Impressions 10/11/2024 4:04 PM MIS MANAGER IMPRESSION: 10 mm anterolisthesis of L5 on S1 stable with extension, increases to 13 mm on flexion. Bilateral L5 spondylolysis. Mild lumbar levoscoliosis. Moderate degenerative disc disease and facet arthropathy, worst at L4-L5 and L5- S1. Degenerative changes without evidence of fracture thoracic spine. If neurologic signs are present, MRI recommended. Referred By: Interpreted By: Jose E Garcia MD, 10/11/2024 4:02 PM Narrative 10/11/2024 4:04 PM MIS MANAGER [place] [address] EXAMINATION: Thoracic spine and lumbar spine [id number] EXAM DATE: 10/10/2024 10:19 AM REASON FOR EXAM: low back pain COMPARISON: None TECHNIQUE: 3 views of the thoracic spine. 4 views of the lumbar spine including flexion and extension. FINDINGS: Thoracic: 12 thoracic type rib-bearing vertebrae. Moderate diffuse degenerative disc disease and facet arthropathy. No evidence of fracture or malalignment. Lumbar: 5 lumbar-type vertebrae are identified. 10 mm anterolisthesis of L5 on S1 stable with extension, increases to 13 mm on flexion. Bilateral L5 spondylolysis. Mild levoscoliosis. Moderate degenerative disc disease and facet arthropathy, worst at L4-L5 and L5- S1. No evidence of fracture. Procedure Note Jose E Garcia MD - 10/11/[address] [address] EXAMINATION: Thoracic spine and lumbar spine [id number] EXAM DATE: 10/10/2024 10:19 AM REASON FOR EXAM: low back pain COMPARISON: None TECHNIQUE: 3 views of the thoracic spine. 4 views of the lumbar spineincluding flexion and extension. FINDINGS: Thoracic: 12 thoracic type rib-bearing vertebrae. Moderate diffusedegenerative disc disease and facet arthropathy. No evidence of fractureor malalignment. Lumbar: 5 lumbar-type vertebrae are identified. 10 mm anterolisthesis ofL5 on S1 stable with extension, increases to 13 mm on flexion. Bilateral L5 spondylolysis. Mild levoscoliosis. Moderate degenerative disc disease and facet arthropathy, worst at L4-L5and L5- S1. No evidence of fracture. IMPRESSION: 10 mm anterolisthesis of L5 on S1 stable with extension, increases to 13mm on flexion. Bilateral L5 spondylolysis. Mild lumbar levoscoliosis. Moderate degenerative disc disease and facet arthropathy, worst at L4-L5and L5- S1. Degenerative changes without evidence of fracture thoracic spine. If neurologic signs are present, MRI recommended. Referred By: Interpreted By: Jose E Garcia MD, 10/11/2024 4:02 PM Zaire Ashford MD GENERAL IMAGING Final R esult from Last 3 Months Insurance [employer] Care Teams Histologist Relationship Specialty Start Date End Date None, Provider, PCP - General UNKNOWN PHYSICIAN SPECIALTY 10/10/24
--- OUTSIDE RECORDS SUMMARY | 2024-12-20 10:34 | XMS_ITS | Referral Summary ---
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) 12/05/2024 1:45 PM BONDING SUPERVISOR Lab [facility] Lab [address] [place] [phone] 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) 11/14/2024 9:00 AM BONDING SUPERVISOR Office Visit [facility] [address] [place] [phone] Alexandre Rocha MD 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); Rash 11/14/2024 9:30 AM BONDING SUPERVISOR Infusion [facility] [address] [place] [phone] 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) 11/14/2024 8:30 AM BONDING SUPERVISOR Lab [facility] [address] [place] [phone] 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) 11/13/2024 11:11 AM BONDING SUPERVISOR - 11/13/2024 11:59 PM BONDING SUPERVISOR Hospital Encounter [facility] - Imaging [address] [place] [phone] Pablo Perez MD 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) Discharge Disposition: Discharge to home or self care 10/25/2024 Orders Only [address] [phone] Pablo Perez MD 10/24/2024 8:30 AM BONDING SUPERVISOR Infusion [facility] [address] [place] [phone] 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) 10/24/2024 7:30 AM BONDING SUPERVISOR Lab [facility] [address] [place] [phone] 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) 10/24/2024 8:00 AM BONDING SUPERVISOR Office Visit [facility] [address] [place] [phone] Pablo Perez MD 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) 10/01/2024 8:00 AM BONDING SUPERVISOR Lab [facility] [address] [place] [phone] 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) 10/01/2024 9:00 AM BONDING SUPERVISOR Infusion [facility] [address] [place] [phone] 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) 10/01/2024 8:30 AM BONDING SUPERVISOR Office Visit [facility] [address] [place] [phone] Pablo Perez MD 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); Stress-induced cardiomyopathy 09/24/2024 1:59 PM BONDING SUPERVISOR - 09/24/2024 11:59 PM BONDING SUPERVISOR Hospital Encounter [facility] Cardiac Testing [address] [place] [address] [address] [place] [address] 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); Stress-induced cardiomyopathy Discharge Disposition: Discharge to home or self care from Last 3 Months Allergies No known active allergies Medications cholecalciferol 25 mcg (1,000 unit) tablet Take 1 tablet (1,000 Units total) by mouth every morning Active cyanocobalamin (Vitamin B-12) 1,000 mcg sublingual tablet Take 1 tablet (1,000 mcg total) by mouth every morning Active ezetimibe (ZETIA) 10 mg tablet Take 1 tablet (10 mg total) by mouth nightly Active tamsulosin (FLOMAX) 0.4 mg extended release capsule Take 1 capsule (0.4 mg total) by mouth nightly Active glipiZIDE XL (GLUCOTROL XL) 10 mg 24 hr tabletIndicatio ns:type 2 diabetes mellitus Take 1 tablet (10 mg total) by mouth every morning Active metFORMIN XR (GLUCOPHAGE XR) 500 mg 24 hr tablet Take 1 tablet (500 mg total) by mouth 2 (two) times a day Active empagliflozin (JARDIANCE) 10 mg tabletIndicatio ns:heart failure associated with type 2 diabetes mellitus Take 1 tablet (10 mg total) by mouth daily 30 tablet 2 4 Active losartan (COZAAR) 25 mg tablet Take 1 tablet (25 mg total) by mouth daily 30 tablet 2 4 Active spironolactone (ALDACTONE) 25 mg tablet Take 1 tablet (25 mg total) by mouth daily 30 tablet 2 4 Active carvediloL (COREG) 6.25 mg tablet Take 1 tablet (6.25 mg total) by mouth 2 (two) times a day with meals 60 tablet 2 4 09/03/20 25 Active lenvatinib (Lenvima) 10 mg/day (10 mg x 1/day) capsule Take 1 capsule (10 mg) by mouth daily. Take with or without food at the same time each day. 30 capsule 11 5 Active losartan-hydroc hlorothiazide (HYZAAR) 100-25 mg per tablet Take 1 tablet by mouth daily 5 Active acyclovir (ZOVIRAX) 400 mg tabletIndicatio ns:Prophylaxis, Medical,Skin/So ft Tissue Infection Take 1 tablet (400 mg total) by mouth 2 (two) times a day 30 tablet 5 Active triamcinolone (KENALOG) 0.1 % cream Apply topically 2 (two) times a day 30 g 5 Active Active Problems Problem Noted Date Diagnosed Date [...] Perez MD on 08/02/2024 Renal mass 06/26/2024 Social History Tobacco Use Types Packs/Day Years Used Date Smoking Tobacco: Never Tobacco Cessation:Counseling Given: Not Answered [facility] Utilities Answer Date Recorded In the past 12 months has e [employer], gas, oil, or water [employer] threatened to shut off services in your home? No 08/27/2024 Social Connection and Isolat ion Panel [NHANES] Answer Date Recorded In a typical week, how many times do you talk on the phone with family, friends, or neighbors? More than three times a week 08/27/2024 How often do you get togethe r with friends or relatives? More than three times a week 08/27/2024 How often do you attend chur ch or hinduism services? Never 08/27/2024 Do you belong to any clubs o r organizations such as adventist groups, unions, fraternal or athletic groups, or school groups? No 08/27/2024 How often do you attend meet ings of the clubs or organizations you belong to? Never 08/27/2024 Are you , , di vorced, , never , or living with a partner? 08/27/2024 AUDIT-C Answer Date Recorded Q1: How often do you have a drink containing alcohol? 4 or more times a week 06/29/2024 Q2: How many drinks containi ng alcohol do you have on a typical day when you are drinking? 1 or 2 Q3: How often do you have si x or more drinks on one occasion? Never 06/29/2024 Overall Financial Resource Strain (CARDIA) Answe r Date Recorded How hard is it for you to pa y for the very basics like food, housing, medical care, and heating? Not very hard 08/27/2024 Hunger Vital Sign Answer Date Recorded Within the past 12 months, y ou worried that your food would run out before you got the money to buy more. Never true 08/27/20 24 Within the past 12 months, t he food you bought just didn't last and you didn't have money to get more. Never true 08/27/2024 PRAPARE - Transportation Answer Date Re corded In the past 12 months, has l ack of transportation kept you from medical appointments or from getting medications? No 08/04 In the past 12 months, has l ack of transportation kept you from meetings, work, or from getting things needed for daily living? No 08/27/2024 Housing Stability Vital Sign Answer Reinaldo e Recorded In the last 12 months, was t here a time when you were not able to pay the mortgage or rent on time? No 08/27/2024 In the past 12 months, how m any times have you moved where you were living? 0 08/27/2024 At any time in the [facility], were you homeless or living in a prison (including now)? No 08/27/2024 Personal Safety Answer Date Recorded Have you ever been in or are you currently in a harmful physical or emotional relationship or is someone making you feel afraid or unsafe? 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 BONDING SUPERVISOR Gender Identity Not on file Sexual Orientation Not on file Last Filed Vital Signs Vital Sign Reading Time Taken Comments Blood Pressure 137/79 12/05/2024 2:52 PM BONDING SUPERVISOR Pulse 75 12/05/2024 2:52 PM BONDING SUPERVISOR Temperature 36.6 C (97.9 F) 12/05/2024 2:52 PM BONDING SUPERVISOR Respiratory Rate 18 12/05/2024 2:52 PM BONDING SUPERVISOR Oxygen Saturation 99% 12/05/2024 2:52 PM BONDING SUPERVISOR Inhaled Oxygen Concentration - - Weight 87.8 kg (193 lb 8 oz) 12/05/2024 2:52 PM BONDING SUPERVISOR Height 190.5 cm (6' 3 ) 10/24/2024 8:00 AM BONDING SUPERVISOR Body Mass Index 24.19 10/24/2024 8:00 AM BONDING SUPERVISOR Plan of Treatment Not on file Procedures Procedure Name Priority Date/Time Associated Diagnosis Comments PROTEIN / CREATININE RATIO, URINE, RANDOM Routine 12/05/2024 3:16 PM BONDING SUPERVISOR 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) EGFR STAT 12/05/2024 1:43 PM BONDING SUPERVISOR 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) DIFFERENTIAL AUTO STAT 12/05/2024 1:4 3 PM BONDING SUPERVISOR 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) THYROID FUNCTION CASCADE Routine 12/05/2024 1:43 PM BONDING SUPERVISOR 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) COMPREHENSIVE METABOLIC PANEL STAT 12/05/2024 1:43 PM BONDING SUPERVISOR 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) CBC WITH AUTO DIFFERENTIAL STAT 12/05/2024 1:43 PM BONDING SUPERVISOR 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) TRANSTHORACIC ECHO (TTE) COMPLETE W DOPPLER/CF WO CONTRAST Routine 11/23/2024 1:18 PM BONDING SUPERVISOR EGFR STAT 11/14/2024 8:26 AM BONDING SUPERVISOR 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) DIFFERENTIAL AUTO STAT 11/14/2024 8:2 6 AM BONDING SUPERVISOR 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) PROTEIN / CREATININE RATIO, URINE, RANDOM Routine 11/14/2024 8:26 AM BONDING SUPERVISOR 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) THYROID FUNCTION CASCADE Routine 11/14/2024 8:26 AM BONDING SUPERVISOR 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) COMPREHENSIVE METABOLIC PANEL STAT 11/14/2024 8:26 AM BONDING SUPERVISOR 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) CBC WITH AUTO DIFFERENTIAL STAT 11/14/2024 8:26 AM BONDING SUPERVISOR 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) CT CHEST ABDOMEN PELVIS W CONTRAST Schedule Routine, Read Routine (OP Routine) 11/13/2024 11:59 AM BONDING SUPERVISOR 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) POCT CREATININE FOR CONTRAST EVALUATION Routine 11/13/2024 11:26 AM BONDING SUPERVISOR EGFR STAT 10/24/2024 7:40 AM BONDING SUPERVISOR 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) DIFFERENTIAL AUTO STAT 10/24/2024 7:4 0 AM BONDING SUPERVISOR 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) CBC WITH AUTO DIFFERENTIAL STAT 10/24/2024 7:40 AM BONDING SUPERVISOR 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) COMPREHENSIVE METABOLIC PANEL STAT 10/24/2024 7:40 AM BONDING SUPERVISOR 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) THYROID FUNCTION CASCADE Routine 10/24/2024 7:40 AM BONDING SUPERVISOR 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) PROTEIN / CREATININE RATIO, URINE, RANDOM Routine 10/24/2024 7:40 AM BONDING SUPERVISOR 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) EGFR STAT 10/01/2024 7:56 AM BONDING SUPERVISOR 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) DIFFERENTIAL AUTO STAT 10/01/2024 7:5 6 AM BONDING SUPERVISOR 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) CBC WITH AUTO DIFFERENTIAL STAT 10/01/2024 7:56 AM BONDING SUPERVISOR 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) COMPREHENSIVE METABOLIC PANEL STAT 10/01/2024 7:56 AM BONDING SUPERVISOR 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) THYROID FUNCTION CASCADE Routine 10/01/2024 7:56 AM BONDING SUPERVISOR 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) PROTEIN / CREATININE RATIO, URINE, RANDOM Routine 10/01/2024 7:56 AM BONDING SUPERVISOR 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 Current interpretive data was last revised 2019. Creatinine Ur 77.4 mg/dL [facility] Comment: Interpretive Data No reference range established. Current interpretive data was last revised 2019. Protein/creatinin e ratio 87.9 0.0 - 180.0 mg/g CR [facility] Urine 12/05/2024 3:16 PM BONDING SUPERVISOR 12/05/2024 3:16 PM BONDING SUPERVISOR Narrative [facility] - 12/05/2024 3:49 PM BONDING SUPERVISOR No reference range established for random urine total protein. us Alexandre Rocha MD LAB URINE ORDERABLES Fin al Result [facility] [address] [place] [address] * eGFR (12/05/2024 1:43 PM BONDING SUPERVISOR) eGFR 75 >=60 mL/min/1. 73 m2 Comment: Interpretive Data Reference Interval Normal >/= 90 mL/min/1.73m2 Mildly decreased* 60 - 89 mL/min/1.73m2 Mildly to moderately decreased 45 - 59 mL/min/1.73m2 Moderately to severely decreased 30 - 44 mL/min/1.73m2 Severely decreased 15 - 29 mL/min/1.73m2 Kidney Failure < 15 mL/min/1.73m2 *Relative to young adult level Estimated glomerular filtration rate is determined by the 2020 CKD-EPI equation recommended by the National Kidney Foundation (A Unifying Approach to GFR Estimation: Recommendations of the NKF-ASK Task Force on Reassessing the Inclusion of Race in Diagnosing Kidney Disease, JASN 2020). The CKD-EPI equation should not be used for patients with unstable renal function and has not been validated in children and those over 70. Current interpretive data was last reviewed 2021. Blood 12/05/2024 1:43 PM BONDING SUPERVISOR 12/05/2024 2:00 PM BONDING SUPERVISOR us Alexandre Rocha MD LAB BLOOD ORDERABLES Fin al Result [facility] [address] [place] [address] * Differential, auto (12/05/2024 1:43 PM BONDING SUPERVISOR) Neutrophil abs 3.9 1.5 - 6.5 K/cumm Imm gran abs 0.0 0.0 - 0.1 K/cumm [facility] Lymphocyte abs 0.9 0.8 - 3.3 K/cumm [facility] Monocyte abs 0.4 0.2 - 0.8 K/cumm [facility] Eosinophil abs 0.2 0.0 - 0.5 K/cumm [facility] Basophil abs 0.0 0.0 - 0.1 K/cumm [facility] Neutrophil pct 72.0 % [facility] Comment: Interpretive Data Percent cell count reference ranges are not reported, since discordance with absolute values may lead to misinterpretation of CBC data. Current Interpretive Data was last revised on 2018. Imm gran pct 0.4 % [facility] Comment: Interpretive Data Percent cell count reference ranges are not reported, since discordance with absolute values may lead to misinterpretation of CBC data. Current Interpretive Data was last revised on 2018. Lymphocyte pct 16.1 % [facility] Comment: Interpretive Data Percent cell count reference ranges are not reported, since discordance with absolute values may lead to misinterpretation of CBC data. Current Interpretive Data was last revised on 2018. Monocyte pct 7.8 % [facility] Comment: Interpretive Data Percent cell count reference ranges are not reported, since discordance with absolute values may lead to misinterpretation of CBC data. Current Interpretive Data was last revised on 2018. Eosinophil pct 3.3 % [facility] Comment: Interpretive Data Percent cell count reference ranges are not reported, since discordance with absolute values may lead to misinterpretation of CBC data. Current Interpretive Data was last revised on 2018. Basophil pct 0.4 % [facility] Comment: Interpretive Data Percent cell count reference ranges are not reported, since discordance with absolute values may lead to misinterpretation of CBC data. Current Interpretive Data was last revised on 2018. Blood 12/05/2024 1:43 PM BONDING SUPERVISOR 12/05/2024 1:43 PM BONDING SUPERVISOR Alexandre Rocha MD LAB BLOOD ORDERABLES Fin al Result Performing Organization Address City/[facility]/ZIP Co de Phone Number [facility] [address] [employer] [place], [place] [id number] * Thyroid Function [place] (12/05/2024 1:43 PM BONDING SUPERVISOR) [facility] TSH 1.95 0.30 - 4.20 mcIUnit/mL Blood 12/05/2024 1:43 PM BONDING SUPERVISOR 12/05/2024 2:00 PM BONDING SUPERVISOR Alexandre Rocha MD LAB BLOOD ORDERABLES Fin al Result Performing Organization Address [facility]/ZIP Co de Phone Number [facility] [address] [place] [address] * (ABNORMAL) CBC with auto differential (12/05/2024 1:43 PM BONDING SUPERVISOR) [facility] WBC 5.4 3.8 - 9.9 K/cumm Hgb 15.3 13.0 - 17.5 g/dL [facility] Hct 45.5 38.9 - 50.3 % [facility] Plt 121(L) 150 - 400 K/cumm [facility] MPV 8.9(L) 9.1 - 12.3 fL [facility] RBC 5.37 4.30 - 5.80 M/cumm [facility] MCV 84.7 81.3 - 96.4 fL [facility] MCH 28.5 27.1 - 33.3 pg [facility] MCHC 33.6 32.3 - 35.7 g/dL [facility] RDW CV 15.2(H) 11.1 - 14.9 % [facility] RDW SD 46.9 35.7 - 48.1 fL [facility] NRBC abs 0.00 0.00 - 0.01 K/cumm [facility] Blood 12/05/2024 1:43 PM BONDING SUPERVISOR 12/05/2024 1:43 PM BONDING SUPERVISOR us Alexandre Rocha MD LAB BLOOD ORDERABLES Fin al Result [facility] [address] [place] [address] * (ABNORMAL) Comprehensive metabolic panel (12/05/2024 1:43 PM BONDING SUPERVISOR) Sodium 140 135 - 145 mmol/L Potassium, pl 4.9 3.3 - 4.9 mmol/L [facility] Chloride 102 97 - 110 mmol/L [facility] CO2 26 22 - 32 mmol/L [facility] Anion gap 12 2 - 15 mmol/L [facility] BUN 19 6 - 25 mg/dL [facility] Creatinine 1.05 0.80 - 1.30 mg/dL [facility] Glucose 205(H) 70 - 199 mg/dL [facility] Comment: Interpretive Data Fasting glucose >/= 126 mg/dl is diagnostic for diabetes. Fasting is defined as no caloric intake for at least 8 hours. Fasting glucose between 100 mg/dl to 125 mg/dl is diagnostic of prediabetes. In a patient with classic symptoms of hyperglycemia or hyperglycemic crisis, a random glucose >/= 200 mg/dl is diagnostic for diabetes. In the absence of unequivocal hyperglycemia, results should be confirmed by repeat testing. The classification and Diagnosis of Diabetes [facility] 2021; 46: S19-S40. Current interpretive data was last revised 2022. Calcium 9.6 8.5 - 10.3 mg/dL [facility] Bilirubin, total 0.6 0.1 - 1.2 mg/dL [facility] Protein, pl 7.2 6.5 - 8.5 g/dL [facility] Albumin 4.6 3.5 - 5.0 g/dL [facility] Alk phos 99 40 - 130 Units/L [facility] ALT 17 7 - 55 Units/L [facility] AST 17 10 - 50 Units/L [facility] Blood 12/05/2024 1:43 PM BONDING SUPERVISOR 12/05/2024 2:00 PM BONDING SUPERVISOR us Alexandre Rocha MD LAB BLOOD ORDERABLES Fin al Result [facility] [address] Department [place] [address] * TRANSTHORACIC ECHO (TTE) COMPLETE W DOPPLER/CF WO CONTRAST (11/23/2024 1:18 PM BONDING SUPERVISOR) Anatomical Region Laterality Modality Ultrasound 08/28/2024 1:37 PM BONDING SUPERVISOR Narrative 08/28/2024 3:40 PM BONDING SUPERVISOR [facility] [address] [address] ECHOCARDIOGRAM Patient Name: YONNY CAST : 1950 Study Date: 08/28/2024 1:37:38 PM Gender: M Tech: Location: [id number] Ref Provider: JACKIE PAEZ Height(Cm): 188 BSA: 2.15 Weight(Kg): 88.9 Order Provider: JACKIE PAEZ PROCEDURES: Echocardiographic Report: Transthoracic Echocardiogram with complete 2D, M-Mode, Spectral and Color Flow Doppler examination. INDICATIONS: shock. Measurements: 2D/M Mode Doppler Measurement Value Normal Range Measurement Value Normal Range LA Dimension 2D 4.51 [ 3.00 - 4.00 ] cm AV Peak Angel 1.2 [ 1.0 - 1.7 ] m/s AoR Diam 2D 3.99 [ 3.10 - 3.70 ] cm AV Peak PG 6 mmHg AoR Diam 2D Index 1.86 AV Mean PG 4 mmHg TAPSE 2.21 [ >= 1.71 ] cm AV VTI 22.5 cm ___ ___ ___ EM Vmax 2.8 cm2 ___ ___ ___ ME VTI 2.8 cm2 ___ ___ ___ LVOT Peak Angel 0.88 [ 0.70 - 1.10 ] m/s ___ ___ ___ LVOT VTI 15.9 cm ___ ___ ___ MV Peak PG 1 mmHg ___ ___ ___ MV Mean PG 1 mmHg ___ ___ ___ MV E Peak Angel 0.4 [ 0.6 - 1.3 ] m/s ___ ___ ___ MV A Peak Angel 0.5 [ 1.0 - 1.2 ] m/s ___ ___ ___ MV PHT 162.1 [ 20.0 - 100.0 ] ms ___ ___ ___ MV Decel Time 326.4 [ 104.0 - 258.0 ] ms ___ ___ ___ MVA PHT 1.4 ms MV E/A Ratio 0.8 TR Peak Angel 2.5 [ 1.0 - 2.8 ] m/s TR Peak PG 25 mmHg RVSP 40.0 [ 10.0 - 36.0 ] mmHg RA Pressure 15.0 mmHg PV Peak Angel 1.1 [ 0.4 - 0.8 ] m/s PV Peak PG 5 mmHg Lat E` Angel 0.05 [ 0.10 - 0.15 ] m/s E/E` 8.00 RV S` m/s Measurement Value Normal Range Measurement Value Normal Range 2D/M Mode Doppler - FINDINGS: Study Quality: The study was technically adequate. BP: Blood pressure: 112/58 mmHg. Left Ventricle: Moderate left ventricular systolic dysfunction. There is global hypokinesis. Ejection Fraction is estimated at 25-30 %. Right Ventricle: Normal right ventricular systolic function. Normal right ventricular size. Left Atrium: There is mild enlargement of the left atrium. Right Atrium: The right atrium is normal in size. Atrial Septum: Normal appearing atrial septum. Mitral Valve: Normal appearance of the mitral valve leaflets. Mild mitral valve regurgitation. Aortic Valve: Normal aortic valve appearance and function. Tricuspid Valve: Normal appearance of the tricuspid leaflets. Mild tricuspid regurgitation. There is mild pulmonary hypertension. Pulmonic Valve: The pulmonic valve is not seen. Mild pulmonic regurgitation. Pericardium: Normal appearing pericardial thickness. No significant pericardial effusion. Aortic Root and Aorta: Mild aortic root enlargement. Aortic Arch: The aortic arch is not seen. IVC: Dilated inferior vena cava with poor inspiratory collapse consistent with elevated right atrial pressure. CONCLUSIONS: 1. Moderate left ventricular systolic dysfunction. There is global hypokinesis. Ejection Fraction is estimated at 25-30 %. 2. Normal appearance of the mitral valve leaflets. Mild mitral valve regurgitation. 3. Normal appearance of the tricuspid leaflets. Mild tricuspid regurgitation. There is mild pulmonary hypertension. Electronically Signed By: Jake Wilson MD 2024-08-28 15:39:54 BONDING SUPERVISOR Procedure Note Jake Wilson MD - 08/28/2024 [facility] [address] [place] [address] ECHOCARDIOGRAM Patient Name: YONNY CAST : 1950 Study Date: 08/28/2024 1:37:38 PM Gender: M Tech: Location: [id number] Ref Provider: JACKIE PAEZ Height(Cm): 188 BSA: 2.15 Weight(Kg): 88.9 Order Provider: JACKIE PAEZ PROCEDURES: Echocardiographic Report: Transthoracic Echocardiogram with complete 2D, M-Mode, Spectral and ColorFlow Doppler examination. INDICATIONS: shock. Measurements: 2D/M ModeDoppler Measurement Value Normal Range MeasurementValue Normal Range LA Dimension 2D 4.51 [ 3.00 - 4.00 ] cm AV Peak Vel1.2 [ 1.0 - 1.7 ] m/s AoR Diam 2D 3.99 [ 3.10 - 3.70 ] cm AV Peak PG6 mmHg AoR Diam 2D Index 1.86 AV Mean PG4 mmHg TAPSE 2.21 [ >= 1.71 ] cm AV VTI22.5 cm ___ ___ ___ EM Vmax2.8 cm2 ___ ___ ___ EM VTI2.8 cm2 ___ ___ ___ LVOT Peak Vel0.88 [ 0.70 - 1.10 ] m/s ___ ___ ___ LVOT VTI15.9 cm ___ ___ ___ MV Peak PG1 mmHg ___ ___ ___ MV Mean PG1 mmHg ___ ___ ___ MV E Peak Vel0.4 [ 0.6 - 1.3 ] m/s ___ ___ ___ MV A Peak Vel0.5 [ 1.0 - 1.2 ] m/s ___ ___ ___ MV YYT468.1 [ 20.0 - 100.0 ] ms ___ ___ ___ MV Decel Xgnv572.4 [ 104.0 - 258.0 ] ms ___ ___ ___ MVA PHT1.4 ms MV E/A Ratio 0.8 TR Peak Angel 2.5 [ 1.0 - 2.8 ] m/s TR Peak PG 25 mmHg RVSP 40.0 [ 10.0 - 36.0 ] mmHg RA Pressure 15.0 mmHg PV Peak Angel 1.1 [ 0.4 - 0.8 ] m/s PV Peak PG 5 mmHg Lat E` Angel 0.05 [ 0.10 - 0.15 ] m/s E/E` 8.00 RV S` m/s Measurement Value Normal Range MeasurementValue Normal Range 2D/M ModeDoppler - FINDINGS: Study Quality: The study was technically adequate. BP: Blood pressure: 112/58 mmHg. Left Ventricle: Moderate left ventricular systolic dysfunction. There is globalhypokinesis. Ejection Fraction is estimated at 25-30 %. Right Ventricle: Normal right ventricular systolic function. Normal right ventricularsize. Left Atrium: There is mild enlargement of the left atrium. Right Atrium: The right atrium is normal in size. Atrial Septum: Normal appearing atrial septum. Mitral Valve: Normal appearance of the mitral valve leaflets. Mild mitral valveregurgitation. Aortic Valve: Normal aortic valve appearance and function. Tricuspid Valve: Normal appearance of the tricuspid leaflets. Mild tricuspid regurgitation.There is mild pulmonary hypertension. Pulmonic Valve: The pulmonic valve is not seen. Mild pulmonic regurgitation. Pericardium: Normal appearing pericardial thickness. No significant pericardialeffusion. Aortic Root and Aorta: Mild aortic root enlargement. Aortic Arch: The aortic arch is not seen. IVC: Dilated inferior vena cava with poor inspiratory collapse consistent withelevated right atrial pressure. CONCLUSIONS: 1. Moderate left ventricular systolic dysfunction. There is globalhypokinesis. Ejection Fraction is estimated at 25-30 %. 2. Normal appearance of the mitral valve leaflets. Mild mitral valveregurgitation. 3. Normal appearance of the tricuspid leaflets. Mild tricuspidregurgitation. There is mild pulmonary hypertension. Electronically Signed By: Jake Wilson MD 2024-08-28 15:39:54 BONDING SUPERVISOR Jackie Paez MD CV ECHO PROCEDURES Final Res ult * eGFR (11/14/2024 8:26 AM BONDING SUPERVISOR) eGFR 71 >=60 mL/min/1. 73 m2 Comment: Interpretive Data Reference Interval Normal >/= 90 mL/min/1.73m2 Mildly decreased* 60 - 89 mL/min/1.73m2 Mildly to moderately decreased 45 - 59 mL/min/1.73m2 Moderately to severely decreased 30 - 44 mL/min/1.73m2 Severely decreased 15 - 29 mL/min/1.73m2 Kidney Failure < 15 mL/min/1.73m2 *Relative to young adult level Estimated glomerular filtration rate is determined by the 2020 CKD-EPI equation recommended by the National Kidney Foundation (A Unifying Approach to GFR Estimation: Recommendations of the NKF-ASK Task Force on Reassessing the Inclusion of Race in Diagnosing Kidney Disease, JASN 2020). The CKD-EPI equation should not be used for patients with unstable renal function and has not been validated in children and those over 70. Current interpretive data was last reviewed 2021. Blood 11/14/2024 8:26 AM BONDING SUPERVISOR 11/14/2024 8:36 AM BONDING SUPERVISOR us Pablo Perez MD LAB BLOOD ORDERABLES Final R esult [facility] [address] [place] [address] * (ABNORMAL) Differential, auto (11/14/2024 8:26 AM BONDING SUPERVISOR) Neutrophil abs 2.3 1.5 - 6.5 K/cumm Imm gran abs 0.0 0.0 - 0.1 K/cumm [facility] Lymphocyte abs 0.4(L) 0.8 - 3.3 K/cumm [facility] Monocyte abs 0.4 0.2 - 0.8 K/cumm [facility] Eosinophil abs 0.2 0.0 - 0.5 K/cumm [facility] Basophil abs 0.0 0.0 - 0.1 K/cumm [facility] Neutrophil pct 69.0 % [facility] Comment: Interpretive Data Percent cell count reference ranges are not reported, since discordance with absolute values may lead to misinterpretation of CBC data. Current Interpretive Data was last revised on 2018. Imm gran pct 0.3 % [facility] Comment: Interpretive Data Percent cell count reference ranges are not reported, since discordance with absolute values may lead to misinterpretation of CBC data. Current Interpretive Data was last revised on 2018. Lymphocyte pct 13.0 % [facility] Comment: Interpretive Data Percent cell count reference ranges are not reported, since discordance with absolute values may lead to misinterpretation of CBC data. Current Interpretive Data was last revised on 2018. Monocyte pct 10.9 % [facility] Comment: Interpretive Data Percent cell count reference ranges are not reported, since discordance with absolute values may lead to misinterpretation of CBC data. Current Interpretive Data was last revised on 2018. Eosinophil pct 6.2 % [facility] Comment: Interpretive Data Percent cell count reference ranges are not reported, since discordance with absolute values may lead to misinterpretation of CBC data. Current Interpretive Data was last revised on 2018. Basophil pct 0.6 % [facility] Comment: Interpretive Data Percent cell count reference ranges are not reported, since discordance with absolute values may lead to misinterpretation of CBC data. Current Interpretive Data was last revised on 2018. Blood 11/14/2024 8:26 AM BONDING SUPERVISOR 11/14/2024 8:26 AM BONDING SUPERVISOR us Pablo Perez MD LAB BLOOD ORDERABLES Final R esult [facility] [address] [place] [place] [address] * Thyroid Function [place] (11/14/2024 8:26 AM BONDING SUPERVISOR) [facility] TSH 2.01 0.30 - 4.20 mcIUnit/mL Blood 11/14/2024 8:26 AM BONDING SUPERVISOR 11/14/2024 8:36 AM BONDING SUPERVISOR Pablo Perez MD LAB BLOOD ORDERABLES Final R esult Performing Organization Address [facility] Co de Phone Number [facility] [address] [place] [address] * (ABNORMAL) CBC with auto differential (11/14/2024 8:26 AM BONDING SUPERVISOR) [facility] WBC 3.4(L) 3.8 - 9.9 K/cumm Hgb 13.2 13.0 - 17.5 g/dL [facility] Hct 39.1 38.9 - 50.3 % [facility] Plt 98(L) 150 - 400 K/cumm [facility] MPV 8.8(L) 9.1 - 12.3 fL [facility] RBC 4.61 4.30 - 5.80 M/cumm [facility] MCV 84.8 81.3 - 96.4 fL [facility] MCH 28.6 27.1 - 33.3 pg [facility] MCHC 33.8 32.3 - 35.7 g/dL [facility] RDW CV 15.4(H) 11.1 - 14.9 % [facility] RDW SD 47.8 35.7 - 48.1 fL [facility] NRBC abs 0.00 0.00 - 0.01 K/cumm [facility] Blood 11/14/2024 8:26 AM BONDING SUPERVISOR 11/14/2024 8:26 AM BONDING SUPERVISOR Pablo Perez MD LAB BLOOD ORDERABLES Final R esult Performing Organization Address City/[facility]/ZIP Co de Phone Number [facility] [address] Department [employer] [place], [place] [phone] * Protein / creatinine ratio, urine, random (11/14/2024 8:26 AM BONDING SUPERVISOR) [facility] Protein, ur, quant 8.3 mg/dL Comment: Interpretive Data No reference range established. Current interpretive data was last revised 2019. Creatinine Ur 101.8 mg/dL [facility] Comment: Interpretive Data No reference range established. Current interpretive data was last revised 2019. Protein/creatinin e ratio 81.5 0.0 - 180.0 mg/g CR [facility] Urine 11/14/2024 8:26 AM BONDING SUPERVISOR 11/14/2024 8:26 AM BONDING SUPERVISOR Narrative [facility] - 11/14/2024 9:03 AM BONDING SUPERVISOR No reference range established for random urine total protein. Pablo Perez MD LAB URINE ORDERABLES Final R esult [facility] [address] [place] [address] * (ABNORMAL) Comprehensive metabolic panel (11/14/2024 8:26 AM BONDING SUPERVISOR) [facility] Sodium 138 135 - 145 mmol/L Potassium, pl 4.0 3.3 - 4.9 mmol/L [facility] Chloride 103 97 - 110 mmol/L [facility] CO2 26 22 - 32 mmol/L [facility] Anion gap 9 2 - 15 mmol/L [facility] BUN 16 6 - 25 mg/dL [facility] Creatinine 1.10 0.80 - 1.30 mg/dL [facility] Glucose 263(H) 70 - 199 mg/dL [facility] Comment: Interpretive Data Fasting glucose >/= 126 mg/dl is diagnostic for diabetes. Fasting is defined as no caloric intake for at least 8 hours. Fasting glucose between 100 mg/dl to 125 mg/dl is diagnostic of prediabetes. In a patient with classic symptoms of hyperglycemia or hyperglycemic crisis, a random glucose >/= 200 mg/dl is diagnostic for diabetes. In the absence of unequivocal hyperglycemia, results should be confirmed by repeat testing. The classification and Diagnosis of Diabetes Diabetes Care 2021; 46: S19-S40. Current interpretive data was last revised 2022. Calcium 8.9 8.5 - 10.3 mg/dL [facility] Bilirubin, total 0.7 0.1 - 1.2 mg/dL [facility] Protein, pl 6.3(L) 6.5 - 8.5 g/dL [facility] Albumin 4.0 3.5 - 5.0 g/dL [facility] Alk phos 102 40 - 130 Units/L [facility] ALT 19 7 - 55 Units/L [facility] AST 17 10 - 50 Units/L [facility] Blood 11/14/2024 8:26 AM BONDING SUPERVISOR 11/14/2024 8:36 AM BONDING SUPERVISOR Pablo Perez MD LAB BLOOD ORDERABLES Final R esult [facility] [address] Department [place] [address] * CT Chest Abdomen Pelvis W Contrast (11/13/2024 11:59 AM BONDING SUPERVISOR) Anatomical Region Laterality Modality Body N/A Computed Tomogra phy 11/13/2024 3:20 PM BONDING SUPERVISOR Impressions 11/13/2024 3:[address] CHEST: 1. No lymphadenopathy in the chest. 2. Redemonstration of T4 level lytic lesion involving the posterior elements and portions of the posterior aspect of the T4 vertebral body. 3. T7 vertebral body lesion, mildly larger in size compared with prior CT dated 06/21/2024 and prior MRI dated 07/04/2024 allowing for differences in modalities. CT ABDOMEN AND PELVIS: 1. Posterior right hepatic lesion, stable. 2. Left kidney lesions, smaller in size. 3. No new lymphadenopathy in the abdomen or pelvis. 4. Right sacral kaia lytic lesion, mildly larger in size compared with prior CT dated 08/31/2024. Electronically signed by: Angel Gomes M.D. Narrative 11/13/2024 3:[address] CHEST ABDOMEN PELVIS W CONTRAST 11/13/2024 11:45 AM CLINICAL INDICATION: Restaging, metastatic kidney cancer on therapy. COMPARISON: Prior CT scans, most recent CT abdomen pelvis dated 08/31/2024. TECHNIQUE: CT of the chest, abdomen and pelvis was performed with contrast. 91 mL of Optiray 350 was administered intravenously. Coronal and sagittal reformatted images were generated. FINDINGS: CHEST: LOWER NECK: Right thyroid nodule measures 7 mm no supraclavicular lymphadenopathy. HEART: Stable in size. Small pericardial fluid. CORONARY ARTERIES: Normal. AORTA: Origins of the great vessels patent. PULMONARY ARTERIES: No filling defects in the main pulmonary arteries. MEDIASTINUM AND POLY: No mediastinal or hilar lymphadenopathy. CHEST WALL: No axillary lymphadenopathy. LUNGS AND LARGE AIRWAYS: Trachea and large airways patent. No new consolidation or suspicious infiltrate. PLEURA: No pleural effusion or pneumothorax. ABDOMEN AND PELVIS: LIVER: Posterior right hepatic lesion measures approximately 3.2 cm, overall stable compared with prior CT. Small round hypodense lesions near the dome of the liver, stable. No new suspicious hepatic lesions. Portal veins patent. GALLBLADDER AND BILE DUCTS: Post surgical change from cholecystectomy. PANCREAS: No new pancreatic ductal dilatation. Small hypodense lesion along the tail of the pancreas, unchanged. SPLEEN: Normal. ADRENALS: Normal. KIDNEYS AND URETERS: Left kidney mass smaller in size measuring approximately 5.7 x 4.4 cm, previously 7.0 x 4.[address] Similarly, lesion along the inferior pole of the left kidney (series 2, image 152), smaller in size. Multiple small cysts in the right kidney. No hydroureteronephrosis. VASCULATURE: Abdominal aorta normal in caliber. Major visceral vessels patent. LYMPH NODES: No new lymphadenopathy. RETROPERITONEUM/PERITONEUM: No ascites. REPRODUCTIVE ORGANS: Prostatomegaly. No acute findings in the visualized scrotum. URINARY BLADDER: Diffuse urinary bladder wall thickening. Interval removal of Knight catheter compared with prior CT. STOMACH, BOWEL, AND MESENTERY: Small hiatal hernia. No acute findings along the stomach and duodenum. Small bowel normal in caliber without evidence for small bowel obstruction. Increased stool along the colon. No acute colonic abnormality. APPENDIX: Not definitively identified. No CT evidence for appendicitis. ABDOMINAL WALL: No inguinal lymphadenopathy. BONES: T3 vertebral body corduroy lesion, unchanged. Redemonstration of T4 metastasis with lytic change along the posterior elements and posterior aspect of the T4 vertebral body. T6 superior endplate deformity, unchanged. T7 vertebral body lesion larger in size compared to prior CT measuring measuring 1.6 cm, previously 0.9 cm. T10-T12 superior endplate deformities, unchanged. T12, L1 and L2 vertebral body lesions unchanged. Right sacral kaia lytic lesion larger in size measuring 2.4 cm, previously 1.[address] dated 08/31/2024. Procedure Note Angel Gomes MD - 11/13/2024 CT CHEST ABDOMEN PELVIS W CONTRAST 11/13/2024 11:45 AM CLINICAL INDICATION: Restaging, metastatic kidney cancer on therapy. COMPARISON: Prior CT scans, most recent CT abdomen pelvis dated 08/31/2024. TECHNIQUE: CT of the chest, abdomen and pelvis was performed with contrast. 91 mL of Optiray 350 was administered intravenously. Coronal and sagittal reformatted images were generated. FINDINGS: CHEST: LOWER NECK: Right thyroid nodule measures 7 mm no supraclavicular lymphadenopathy. HEART: Stable in size. Small pericardial fluid. CORONARY ARTERIES: Normal. AORTA: Origins of the great vessels patent. PULMONARY ARTERIES: No filling defects in the main pulmonary arteries. MEDIASTINUM AND POLY: No mediastinal or hilar lymphadenopathy. CHEST WALL: No axillary lymphadenopathy. LUNGS AND LARGE AIRWAYS: Trachea and large airways patent. No new consolidation or suspicious infiltrate. PLEURA: No pleural effusion or pneumothorax. ABDOMEN AND PELVIS: LIVER: Posterior right hepatic lesion measures approximately 3.2 cm, overall stable compared with prior CT. Small round hypodense lesions near the dome of the liver, stable. No new suspicious hepatic lesions. Portal veins patent. GALLBLADDER AND BILE DUCTS: Post surgical change from cholecystectomy. PANCREAS: No new pancreatic ductal dilatation. Small hypodense lesion along the tail of the pancreas, unchanged. SPLEEN: Normal. ADRENALS: Normal. KIDNEYS AND URETERS: Left kidney mass smaller in size measuring approximately 5.7 x 4.4 cm, previously 7.0 x 4.[address] Similarly, lesion along the inferior pole of the left kidney (series 2, image 152), smaller in size. Multiple small cysts in the right kidney. No hydroureteronephrosis. VASCULATURE: Abdominal aorta normal in caliber. Major visceral vessels patent. LYMPH NODES: No new lymphadenopathy. RETROPERITONEUM/PERITONEUM: No ascites. REPRODUCTIVE ORGANS: Prostatomegaly. No acute findings in the visualized scrotum. URINARY BLADDER: Diffuse urinary bladder wall thickening. Interval removal of Knight catheter compared with prior CT. STOMACH, BOWEL, AND MESENTERY: Small hiatal hernia. No acute findings along the stomach and duodenum. Small bowel normal in caliber without evidence for small bowel obstruction. Increased stool along the colon. No acute colonic abnormality. APPENDIX: Not definitively identified. No CT evidence for appendicitis. ABDOMINAL WALL: No inguinal lymphadenopathy. BONES: T3 vertebral body corduroy lesion, unchanged. Redemonstration of T4 metastasis with lytic change along the posterior elements and posterior aspect of the T4 vertebral body. T6 superior endplate deformity, unchanged. T7 vertebral body lesion larger in size compared to prior CT measuring measuring 1.6 cm, previously 0.9 cm. T10-T12 superior endplate deformities, unchanged. T12, L1 and L2 vertebral body lesions unchanged. Right sacral kaia lytic lesion larger in size measuring 2.4 cm, previously 1.[address] dated 08/31/2024. IMPRESSION: CT CHEST: 1. No lymphadenopathy in the chest. 2. Redemonstration of T4 level lytic lesion involving the posterior elements and portions of the posterior aspect of the T4 vertebral body. 3. T7 vertebral body lesion, mildly larger in size compared with prior CT dated 06/21/2024 and prior MRI dated 07/04/2024 allowing for differences in modalities. CT ABDOMEN AND PELVIS: 1. Posterior right hepatic lesion, stable. 2. Left kidney lesions, smaller in size. 3. No new lymphadenopathy in the abdomen or pelvis. 4. Right sacral kaia lytic lesion, mildly larger in size compared with prior CT dated 08/31/2024. Electronically signed by: Angel Gomes M.D. Pablo Perez MD [facility] CT PROCEDURES Final Resu lt * POCT creatinine for contrast evaluation (11/13/2024 11:26 AM BONDING SUPERVISOR) Creatinine, POC 0.9 0.6 - 1.5 mg/dL Comment:egfr 89 Blood 11/13/2024 11:2 6 AM BONDING SUPERVISOR Pablo Perez MD POINT OF CARE TEST ORDERABLE S Final Result * eGFR (10/24/2024 7:40 AM BONDING SUPERVISOR) eGFR 74 >=60 mL/min/1. 73 m2 Comment: Interpretive Data Reference Interval Normal >/= 90 mL/min/1.73m2 Mildly decreased* 60 - 89 mL/min/1.73m2 Mildly to moderately decreased 45 - 59 mL/min/1.73m2 Moderately to severely decreased 30 - 44 mL/min/1.73m2 Severely decreased 15 - 29 mL/min/1.73m2 Kidney Failure < 15 mL/min/1.73m2 *Relative to young adult level Estimated glomerular filtration rate is determined by the 2020 CKD-EPI equation recommended by the National Kidney Foundation (A Unifying Approach to GFR Estimation: Recommendations of the NKF-ASK Task Force on Reassessing the Inclusion of Race in Diagnosing Kidney Disease, JASN 2020). The CKD-EPI equation should not be used for patients with unstable renal function and has not been validated in children and those over 70. Current interpretive data was last reviewed 2021. Blood 10/24/2024 7:40 AM BONDING SUPERVISOR 10/24/2024 7:47 AM BONDING SUPERVISOR Pablo Perez MD LAB BLOOD ORDERABLES Final R esult [facility] [address] [place] [address] * (ABNORMAL) Differential, auto (10/24/2024 7:40 AM BONDING SUPERVISOR) Pathologist [facility] Neutrophil abs 2.6 1.5 - 6.5 K/cumm Imm gran abs 0.0 0.0 - 0.1 K/cumm [facility] Lymphocyte abs 0.6(L) 0.8 - 3.3 K/cumm [facility] Monocyte abs 0.3 0.2 - 0.8 K/cumm [facility] Eosinophil abs 0.2 0.0 - 0.5 K/cumm [facility] Basophil abs 0.0 0.0 - 0.1 K/cumm [facility] Neutrophil pct 69.9 % [facility] Comment: Interpretive Data Percent cell count reference ranges are not reported, since discordance with absolute values may lead to misinterpretation of CBC data. Current Interpretive Data was last revised on 2018. Imm gran pct 0.3 % [facility] Comment: Interpretive Data Percent cell count reference ranges are not reported, since discordance with absolute values may lead to misinterpretation of CBC data. Current Interpretive Data was last revised on 2018. Lymphocyte pct 17.3 % [facility] Comment: Interpretive Data Percent cell count reference ranges are not reported, since discordance with absolute values may lead to misinterpretation of CBC data. Current Interpretive Data was last revised on 2018. Monocyte pct 7.1 % [facility] Comment: Interpretive Data Percent cell count reference ranges are not reported, since discordance with absolute values may lead to misinterpretation of CBC data. Current Interpretive Data was last revised on 2018. Eosinophil pct 4.9 % [facility] Comment: Interpretive Data Percent cell count reference ranges are not reported, since discordance with absolute values may lead to misinterpretation of CBC data. Current Interpretive Data was last revised on 2018. Basophil pct 0.5 % [facility] Comment: Interpretive Data Percent cell count reference ranges are not reported, since discordance with absolute values may lead to misinterpretation of CBC data. Current Interpretive Data was last revised on 2018. Blood 10/24/2024 7:40 AM BONDING SUPERVISOR 10/24/2024 7:40 AM BONDING SUPERVISOR Pablo Perez MD LAB BLOOD ORDERABLES Final R esult [facility] [address] Department [place] [address] * Thyroid Function [place] (10/24/2024 7:40 AM BONDING SUPERVISOR) TSH 3.72 0.30 - 4.20 mcIUnit/mL Blood 10/24/2024 7:40 AM BONDING SUPERVISOR 10/24/2024 7:47 AM BONDING SUPERVISOR Pablo Perez MD LAB BLOOD ORDERABLES Final R esult Performing Organization Address [facility] Co de Phone Number [facility] [address] [place] [address] * (ABNORMAL) CBC with auto differential (10/24/2024 7:40 AM BONDING SUPERVISOR) [facility] WBC 3.7(L) 3.8 - 9.9 K/cumm Hgb 13.2 13.0 - 17.5 g/dL [facility] Hct 40.5 38.9 - 50.3 % [facility] Plt 114(L) 150 - 400 K/cumm [facility] MPV 9.1 9.1 - 12.3 fL [facility] RBC 4.81 4.30 - 5.80 M/cumm [facility] MCV 84.2 81.3 - 96.4 fL [facility] MCH 27.4 27.1 - 33.3 pg [facility] MCHC 32.6 32.3 - 35.7 g/dL [facility] RDW CV 15.1(H) 11.1 - 14.9 % [facility] RDW SD 46.5 35.7 - 48.1 fL [facility] NRBC abs 0.00 0.00 - 0.01 K/cumm [facility] Blood 10/24/2024 7:40 AM BONDING SUPERVISOR 10/24/2024 7:40 AM BONDING SUPERVISOR Pablo Perez MD LAB BLOOD ORDERABLES Final R esult Performing Organization Address City/[facility]/ZIP Co de Phone Number [facility] [address] Department [facility] [place], [place] [phone] * Protein / creatinine ratio, urine, random (10/24/2024 7:40 AM BONDING SUPERVISOR) [facility] Protein, ur, quant 4.9 mg/dL Comment: Interpretive Data No reference range established. Current interpretive data was last revised 2019. Creatinine Ur 61.0 mg/dL [facility] Comment: Interpretive Data No reference range established. Current interpretive data was last revised 2019. Protein/creatinin e ratio 80.3 0.0 - 180.0 mg/g CR [facility] Urine 10/24/2024 7:40 AM BONDING SUPERVISOR 10/24/2024 7:40 AM BONDING SUPERVISOR Narrative [facility] - 10/24/2024 8:18 AM BONDING SUPERVISOR No reference range established for random urine total protein. Pablo Perez MD LAB URINE ORDERABLES Final R esult [facility] [address] [place] [address] * (ABNORMAL) Comprehensive metabolic panel (10/24/2024 7:40 AM BONDING SUPERVISOR) Sodium 140 135 - 145 mmol/L Potassium, pl 4.5 3.3 - 4.9 mmol/L [facility] Chloride 104 97 - 110 mmol/L [facility] CO2 26 22 - 32 mmol/L [facility] Anion gap 10 2 - 15 mmol/L [facility] BUN 21 6 - 25 mg/dL [facility] Creatinine 1.06 0.80 - 1.30 mg/dL [facility] Glucose 291(H) 70 - 199 mg/dL [facility] Comment: Interpretive Data Fasting glucose >/= 126 mg/dl is diagnostic for diabetes. Fasting is defined as no caloric intake for at least 8 hours. Fasting glucose between 100 mg/dl to 125 mg/dl is diagnostic of prediabetes. In a patient with classic symptoms of hyperglycemia or hyperglycemic crisis, a random glucose >/= 200 mg/dl is diagnostic for diabetes. In the absence of unequivocal hyperglycemia, results should be confirmed by repeat testing. The classification and Diagnosis of Diabetes Diabetes Care 2021; 46: S19-S40. Current interpretive data was last revised 2022. Calcium 9.4 8.5 - 10.3 mg/dL [facility] Bilirubin, total 0.5 0.1 - 1.2 mg/dL [facility] Protein, pl 6.7 6.5 - 8.5 g/dL [facility] Albumin 4.1 3.5 - 5.0 g/dL [facility] Alk phos 103 40 - 130 Units/L [facility] ALT 14 7 - 55 Units/L [facility] AST 13 10 - 50 Units/L [facility] Blood 10/24/2024 7:40 AM BONDING SUPERVISOR 10/24/2024 7:47 AM BONDING SUPERVISOR Pablo Perez MD LAB BLOOD ORDERABLES Final R esult Performing Organization Address City/[facility]/ZIP Co de Phone Number [facility] [address] [employer] [place] [place] [address] * eGFR (10/01/2024 7:56 AM BONDING SUPERVISOR) eGFR 77 >=60 mL/min/1. 73 m2 Comment: Interpretive Data Reference Interval Normal >/= 90 mL/min/1.73m2 Mildly decreased* 60 - 89 mL/min/1.73m2 Mildly to moderately decreased 45 - 59 mL/min/1.73m2 Moderately to severely decreased 30 - 44 mL/min/1.73m2 Severely decreased 15 - 29 mL/min/1.73m2 Kidney Failure < 15 mL/min/1.73m2 *Relative to young adult level Estimated glomerular filtration rate is determined by the 2020 CKD-EPI equation recommended by the National Kidney Foundation (A Unifying Approach to GFR Estimation: Recommendations of the NKF-ASK Task Force on Reassessing the Inclusion of Race in Diagnosing Kidney Disease, JASN 2020). The CKD-EPI equation should not be used for patients with unstable renal function and has not been validated in children and those over 70. Current interpretive data was last reviewed 2021. Blood 10/01/2024 7:56 AM BONDING SUPERVISOR 10/01/2024 8:09 AM BONDING SUPERVISOR Pablo Perez MD LAB BLOOD ORDERABLES Final R esult Performing Organization Address City/[facility]/ZIP Co de Phone Number [facility] [address] Department [place] [address] * (ABNORMAL) Differential, auto (10/01/2024 7:56 AM BONDING SUPERVISOR) Neutrophil abs 3.6 1.5 - 6.5 K/cumm Imm gran abs 0.0 0.0 - 0.1 K/cumm [facility] Lymphocyte abs 0.7(L) 0.8 - 3.3 K/cumm [facility] Monocyte abs 0.4 0.2 - 0.8 K/cumm [facility] Eosinophil abs 0.2 0.0 - 0.5 K/cumm [facility] Basophil abs 0.0 0.0 - 0.1 K/cumm [facility] Neutrophil pct 74.3 % [facility] Comment: Interpretive Data Percent cell count reference ranges are not reported, since discordance with absolute values may lead to misinterpretation of CBC data. Current Interpretive Data was last revised on 2018. Imm gran pct 0.2 % [facility] Comment: Interpretive Data Percent cell count reference ranges are not reported, since discordance with absolute values may lead to misinterpretation of CBC data. Current Interpretive Data was last revised on 2018. Lymphocyte pct 14.0 % [facility] Comment: Interpretive Data Percent cell count reference ranges are not reported, since discordance with absolute values may lead to misinterpretation of CBC data. Current Interpretive Data was last revised on 2018. Monocyte pct 8.0 % [facility] Comment: Interpretive Data Percent cell count reference ranges are not reported, since discordance with absolute values may lead to misinterpretation of CBC data. Current Interpretive Data was last revised on 2018. Eosinophil pct 3.1 % [facility] Comment: Interpretive Data Percent cell count reference ranges are not reported, since discordance with absolute values may lead to misinterpretation of CBC data. Current Interpretive Data was last revised on 2018. Basophil pct 0.4 % [facility] Comment: Interpretive Data Percent cell count reference ranges are not reported, since discordance with absolute values may lead to misinterpretation of CBC data. Current Interpretive Data was last revised on 2018. Blood 10/01/2024 7:56 AM BONDING SUPERVISOR 10/01/2024 7:56 AM BONDING SUPERVISOR Pablo Perez MD LAB BLOOD ORDERABLES Final R esult Performing Organization Address City/[facility] Co de Phone Number [facility] [address] [facility] [place] [address] * Thyroid Function [place] (10/01/2024 7:56 AM BONDING SUPERVISOR) [facility] TSH 3.76 0.30 - 4.20 mcIUnit/mL Blood 10/01/2024 7:56 AM BONDING SUPERVISOR 10/01/2024 8:09 AM BONDING SUPERVISOR Pablo Perez MD LAB BLOOD ORDERABLES Final R esult Performing Organization Address [facility] de Phone Number [facility] [address] [place] [place] [address] * (ABNORMAL) CBC with auto differential (10/01/2024 7:56 AM BONDING SUPERVISOR) [facility] WBC 4.9 3.8 - 9.9 K/cumm Hgb 11.9(L) 13.0 - 17.5 g/dL [facility] Hct 36.4(L) 38.9 - 50.3 % [facility] Plt 140(L) 150 - 400 K/cumm [facility] MPV 8.4(L) 9.1 - 12.3 fL [facility] RBC 4.34 4.30 - 5.80 M/cumm [facility] MCV 83.9 81.3 - 96.4 fL [facility] MCH 27.4 27.1 - 33.3 pg [facility] MCHC 32.7 32.3 - 35.7 g/dL [facility] RDW CV 15.5(H) 11.1 - 14.9 % [facility] RDW SD 46.9 35.7 - 48.1 fL [facility] NRBC abs 0.00 0.00 - 0.01 K/cumm [facility] Blood 10/01/2024 7:56 AM BONDING SUPERVISOR 10/01/2024 7:56 AM BONDING SUPERVISOR Pablo Perez MD LAB BLOOD ORDERABLES Final R esult Performing Organization Address [facility] Co de Phone Number [facility] [address] [place] [address] * Protein / creatinine ratio, urine, random (10/01/2024 7:56 AM BONDING SUPERVISOR) Pathologist [facility] Protein, ur, quant 7.4 mg/dL Comment: Interpretive Data No reference range established. Current interpretive data was last revised 2019. Creatinine Ur 71.7 mg/dL [facility] Comment: Interpretive Data No reference range established. Current interpretive data was last revised 2019. Protein/creatinin e ratio 103.2 0.0 - 180.0 mg/g CR [facility] Urine 10/01/2024 7:56 AM BONDING SUPERVISOR 10/01/2024 8:43 AM BONDING SUPERVISOR Narrative [facility] - 10/01/2024 9:10 AM BONDING SUPERVISOR No reference range established for random urine total protein. Pablo Perez MD LAB URINE ORDERABLES Final R [facility] Performing Organization Address [facility] Co de Phone Number [facility] [address] Department [place] [address] * (ABNORMAL) Comprehensive metabolic panel (10/01/2024 7:56 AM BONDING SUPERVISOR) [facility] Sodium 141 135 - 145 mmol/L Potassium, pl 4.1 3.3 - 4.9 mmol/L [facility] Chloride 104 97 - 110 mmol/L [facility] CO2 26 22 - 32 mmol/L [facility] Anion gap 11 2 - 15 mmol/L [facility] BUN 20 6 - 25 mg/dL [facility] Creatinine 1.03 0.80 - 1.30 mg/dL [facility] Glucose 228(H) 70 - 199 mg/dL [facility] Comment: Interpretive Data Fasting glucose >/= 126 mg/dl is diagnostic for diabetes. Fasting is defined as no caloric intake for at least 8 hours. Fasting glucose between 100 mg/dl to 125 mg/dl is diagnostic of prediabetes. In a patient with classic symptoms of hyperglycemia or hyperglycemic crisis, a random glucose >/= 200 mg/dl is diagnostic for diabetes. In the absence of unequivocal hyperglycemia, results should be confirmed by repeat testing. The classification and Diagnosis of Diabetes Diabetes Care 202; 46: S19-S40. Current interpretive data was last revised 2022. Calcium 8.9 8.5 - 10.3 mg/dL [facility] Bilirubin, total 0.6 0.1 - 1.2 mg/dL [facility] Protein, pl 6.6 6.5 - 8.5 g/dL [facility] Albumin 4.1 3.5 - 5.0 g/dL [facility] Alk phos 90 40 - 130 Units/L [facility] ALT 10 7 - 55 Units/L [facility] AST 12 10 - 50 Units/L [facility] Blood 10/01/2024 7:56 AM BONDING SUPERVISOR 10/01/2024 8:09 AM BONDING SUPERVISOR Pablo Perez MD LAB BLOOD ORDERABLES Final R esult [facility] [address] [place] [address] * TRANSTHORACIC ECHO (TTE) COMPLETE W DOPPLER/CF WO CONTRAST (09/24/2024 3:09 PM BONDING SUPERVISOR) Anatomical Region Laterality Modality Ultrasound 09/24/2024 2:28 PM BONDING SUPERVISOR Narrative 09/24/2024 7:11 PM BONDING SUPERVISOR [facility] [address] [address] ECHOCARDIOGRAM Patient Name: YONNY CAST : 1950 (74y 6m) Gender: M Study Date: 09/24/2024 02:28:02 PM Ht(Inch): 76 Wt(Lb): 190.92 BSA: 2.15 Programmer Analyst Consultant: Location: OPT Order Provider: PABLO PEREZ BMI: 23.24 BP: 107/69 Ref Provider: PABLO PEREZ - PROCEDURES: Echocardiographic Report: Transthoracic Echocardiogram with complete 2D, M-Mode, Spectral and Color Flow Doppler examination. INDICATIONS: C64.2 Malignant neoplasm of left kidney, except renal pelvis and I51.81 Takotsubo syndrome. MEASUREMENTS: 2D/MM Value Range Doppler Value Range IVSd 2D 0.83 cm [ 0.60 - 1.00 ] AV Peak Angel 1 m/s [ 1 - 2 ] LVIDd 2D 5.84 cm [ 4.20 - 5.80 ] AV Peak PG 8 mmHg LVIDs 2D 3.86 cm [ 2.50 - 4.00 ] AV Mean PG 4 mmHg LVPWd 2D 0.84 cm [ 0.60 - 1.00 ] AV VTI 29.8 cm Estimated EF 60-65 % EM VTI 2.5 cm2 LA Dimension 2D 3.13 cm [ 3.00 - 4.00 ] LVOT Peak Angel 1.13 m/s [ 0.70 - 1.10 ] AoR Diam 2D 3.30 cm [ 3.10 - 3.70 ] LVOT Diam 2.0 cm AoR Diam 2D Index 1.53 LVOT Peak PG 5 mmHg RA Volume 41.00 ml LVOT VTI 23.8 cm TAPSE 2.08 cm [ >= 1.71 ] TR Peak Angel 2.1 m/s [ 1.0 - 2.8 ] TR Peak PG 25 mmHg RVSP 40.4 mmHg [ 10.0 - 36.0 ] RA Pressure 15.0 mmHg PV Peak Angel 0.7 m/s [ 0.4 - 0.8 ] PV Peak PG 2 mmHg Lat E` Angel 0.13 m/s [ 0.10 - 0.15 ] Sept E' Angel 0.10 m/s [ 0.08 - 0.15 ] RV S' 0.20 m/s 2D/MM Value Range Doppler Value Range - FINDINGS: BP: Blood pressure: 107/69 mmHg. Left Ventricle: Normal global and regional left ventricular systolic function. Normal left ventricular diastolic function. Ejection Fraction is estimated at 60-65 %. Upper limits of normal left ventricular chamber size. LV wall thickness is within normal limits. GLPS is normal (-22.7%). Right Ventricle: Normal right ventricular systolic function. Normal right ventricular size. Left Atrium: The left atrium is normal in size. Right Atrium: The right atrium is normal in size. Atrial Septum: Normal appearing atrial septum. Mitral Valve: Normal appearance of the mitral valve leaflets. Mitral stenosis is absent. Mild mitral valve regurgitation. Aortic Valve: Probable tricuspid aortic valve, although not all cusps are well visualized. Aortic cusps appear mildly calcified. There is no aortic stenosis. Trace aortic valve regurgitation. Tricuspid Valve: Normal appearance of the tricuspid leaflets. Mild tricuspid regurgitation. Mildly elevated RVSP (40-42mmHg with RAP 15). Pulmonic Valve: Pulmonic valve not well visualized. There is no pulmonic stenosis. Trace pulmonic regurgitation. Pericardium: Normal appearing pericardial thickness. No significant pericardial effusion. Aortic Root and Aorta: Normal caliber aortic root. Poorly visualized ascending aorta. Aortic Arch: The aortic arch is poorly visualized. IVC: Dilated inferior vena cava with poor inspiratory collapse consistent with elevated right atrial pressure (estimated RAP 15 mmHg). CONCLUSIONS: 1. Normal global and regional left ventricular systolic function. Normal left ventricular diastolic function. Ejection Fraction is estimated at 60-65 %. Upper limits of normal left ventricular chamber size. LV wall thickness is within normal limits. GLPS is normal (-22.7%). 2. Normal right ventricular systolic function. Normal right ventricular size. 3. The left atrium is normal in size. 4. The right atrium is normal in size. 5. Normal appearing atrial septum. 6. Normal appearance of the mitral valve leaflets. Mitral stenosis is absent. Mild mitral valve regurgitation. 7. Probable tricuspid aortic valve, although not all cusps are well visualized. Aortic cusps appear mildly calcified. There is no aortic stenosis. Trace aortic valve regurgitation. 8. Normal appearance of the tricuspid leaflets. Mild tricuspid regurgitation. Mildly elevated RVSP (40-42mmHg with RAP 15). 9. Pulmonic valve not well visualized. There is no pulmonic stenosis. Trace pulmonic regurgitation. 10. Normal appearing pericardial thickness. No significant pericardial effusion. 11. Dilated inferior vena cava with poor inspiratory collapse consistent with elevated right atrial pressure (estimated RAP 15 mmHg). Electronically Signed By: Abdiel Wylie MD PhD 09/24/2024 7:10:54 PM BONDING SUPERVISOR 60-65 Procedure Note Abdiel Wylie MD PhD - 09/24/2024 [place] [address] [place] [address] ECHOCARDIOGRAM Patient Name: YONNY CAST : 1950 (74y 6m) Gender: M Study Date: 09/24/2024 02:28:02 PM Ht(Inch): 76 Wt(Lb): 190.92 BSA: 2.15 Programmer Analyst Consultant: Location: OPT Order Provider: PABLO PEREZ BMI: 23.24 BP: 107/69 Ref Provider: PABLO PEREZ - PROCEDURES: Echocardiographic Report: Transthoracic Echocardiogram with complete 2D,M-Mode, Spectral and Color Flow Doppler examination. INDICATIONS: C64.2 Malignant neoplasm of left kidney, except renal pelvis and I51.81Takotsubo syndrome. MEASUREMENTS: 2D/MM Value Range Doppler ValueRange IVSd 2D 0.83 cm [ 0.60 - 1.00 ] AV Peak Angel 1 m/s[ 1 - 2 ] LVIDd 2D 5.84 cm [ 4.20 - 5.80 ] AV Peak PG 8mmHg LVIDs 2D 3.86 cm [ 2.50 - 4.00 ] AV Mean PG 4mmHg LVPWd 2D 0.84 cm [ 0.60 - 1.00 ] AV VTI 29.8cm Estimated EF 60-65 % EM VTI 2.5cm2 LA Dimension 2D 3.13 cm [ 3.00 - 4.00 ] LVOT Peak Angel 1.13m/s [ 0.70 - 1.10 ] AoR Diam 2D 3.30 cm [ 3.10 - 3.70 ] LVOT Diam 2.0cm AoR Diam 2D Index 1.53 LVOT Peak PG 5mmHg RA Volume 41.00 ml LVOT VTI 23.8cm TAPSE 2.08 cm [ >= 1.71 ] TR Peak Angel 2.1m/s [ 1.0 - 2.8 ] TR Peak PG 25 mmHg RVSP 40.4 mmHg [ 10.0 - 36.0 ] RA Pressure 15.0 mmHg PV Peak Angel 0.7 m/s [ 0.4 - 0.8 ] PV Peak PG 2 mmHg Lat E` Angel 0.13 m/s [ 0.10 - 0.15 ] Sept E' Angel 0.10 m/s [ 0.08 - 0.15 ] RV S' 0.20 m/s 2D/MM Value Range Doppler ValueRange - FINDINGS: BP: Blood pressure: 107/69 mmHg. Left Ventricle: Normal global and regional left ventricular systolicfunction. Normal left ventricular diastolic function. Ejection Fraction is estimated at60-65 %. Upper limits of normal left ventricular chamber size. LV wall thickness iswithin normal limits. GLPS is normal (-22.7%). Right Ventricle: Normal right ventricular systolic function. Normal rightventricular size. Left Atrium: The left atrium is normal in size. Right Atrium: The right atrium is normal in size. Atrial Septum: Normal appearing atrial septum. Mitral Valve: Normal appearance of the mitral valve leaflets. Mitralstenosis is absent. Mild mitral valve regurgitation. Aortic Valve: Probable tricuspid aortic valve, although not all cusps arewell visualized. Aortic cusps appear mildly calcified. There is no aorticstenosis. Trace aortic valve regurgitation. Tricuspid Valve: Normal appearance of the tricuspid leaflets. Mildtricuspid regurgitation. Mildly elevated RVSP (40-42mmHg with RAP 15). Pulmonic Valve: Pulmonic valve not well visualized. There is no pulmonicstenosis. Trace pulmonic regurgitation. Pericardium: Normal appearing pericardial thickness. No significantpericardial effusion. Aortic Root and Aorta: Normal caliber aortic root. Poorly visualizedascending aorta. Aortic Arch: The aortic arch is poorly visualized. IVC: Dilated inferior vena cava with poor inspiratory collapse consistentwith elevated right atrial pressure (estimated RAP 15 mmHg). CONCLUSIONS: 1. Normal global and regional left ventricular systolic function. Normalleft ventricular diastolic function. Ejection Fraction is estimated at 60-65 %. Upperlimits of normal left ventricular chamber size. LV wall thickness is within normal limits.GLPS is normal (-22.7%). 2. Normal right ventricular systolic function. Normal right ventricularsize. 3. The left atrium is normal in size. 4. The right atrium is normal in size. 5. Normal appearing atrial septum. 6. Normal appearance of the mitral valve leaflets. Mitral stenosis isabsent. Mild mitral valve regurgitation. 7. Probable tricuspid aortic valve, although not all cusps are wellvisualized. Aortic cusps appear mildly calcified. There is no aortic stenosis. Trace aorticvalve regurgitation. 8. Normal appearance of the tricuspid leaflets. Mild tricuspidregurgitation. Mildly elevated RVSP (40-42mmHg with RAP 15). 9. Pulmonic valve not well visualized. There is no pulmonic stenosis.Trace pulmonic regurgitation. 10. Normal appearing pericardial thickness. No significant pericardialeffusion. 11. Dilated inferior vena cava with poor inspiratory collapse consistentwith elevated right atrial pressure (estimated RAP 15 mmHg). Electronically Signed By: Abdiel Wylie MD PhD 09/24/2024 7:10:54 PM BONDING SUPERVISOR 60-65 Pablo Perez MD CV ECHO PROCEDURES Final Res ult * (ABNORMAL) Hemoglobin A1c (08/25/2024 9:50 AM BONDING SUPERVISOR) Hgb A1C 7.2(H) 4.0 - 5.6 % Estimated Average Glucose 160 mg/dL [facility] Comment: The ADA recommends reporting an estimated Average Glucose (eAG) with all Hemoglobin A1c results using the equation derived from a study of 507 normal and diabetic adults. Minority populations were underrepresented and children were not included. (Diabetes Care 31:0584-7695, 2008). The eAG is not equivalent to a fasting glucose. Blood 08/25/2024 9:50 AM BONDING SUPERVISOR 08/25/2024 10:16 AM BONDING SUPERVISOR us Todd Clemens MD LAB BLOOD ORDERABLES Andressa sheldon Result [facility] [address] [place] [address] from Last 3 Months or Most Recently Relevant to Health Maintenance Insurance [facility] MEDICARE Advance Directives For more information, please contact: [phone] Documents on File Type Date Recorded Patient Tax Services Intern Expl anation ADVANCE DIRECTIVE 08/25/2024 12:15 PM Pow er of Printed Circuit Boards Inspector-Medical * Full Code (Latest Code Status on File) Date Activated Date Inactivated Comments 08/25/2024 6:42 AM 09/03/2024 4:27 PM Care Teams Intravenous Therapy Nurse Relationship Specialty Start Date End Date Sushma Willett MD [address] [facility] [place] [place] [address] [address] PCP - General Family Practice 05/30/24 Samm Boudreaux MD [address] DEPT RADIATION ONCOLOGY [place], [place] [id number] Consulting Physician Radiation Oncology 07/06/24 Pablo Perez MD [address] [place] [address] Medical Oncologist/Support Services Tech Hematology and Oncology 07/06/24
--- OUTSIDE RECORDS SUMMARY | 2024-12-20 10:34 | XMS_ITS | Clinical Summary ---
Author Organization [facility] Address [address] [place] [address] Care Team Providers Care Modeling Manager Name Role Phone Sushma Willett MD Primary Care Provider Samm Boudreaux MD Unavailable [phone] Pablo Perez MD Unavailable [phone] Allergies No known active allergies Medications cholecalciferol [...] Perez MD on 08/02/2024 Renal mass 06/26/2024 Encounters Date Type Department Care Team Description 12/05/2024 2:45 PM FOREIGN EXCHANGE POSITION CLERK Infusion [facility] [address] [place] [phone] 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) 12/05/2024 1:45 PM FOREIGN EXCHANGE POSITION CLERK Lab [facility] [address] [place] [phone] 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) 11/14/2024 9:30 AM FOREIGN EXCHANGE POSITION CLERK Infusion [facility] [address] [place] [phone] 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) 11/14/2024 9:00 AM FOREIGN EXCHANGE POSITION CLERK Office Visit [address] [phone] Alexandre Rocha MD 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); Rash 11/14/2024 8:30 AM FOREIGN EXCHANGE POSITION CLERK Lab [facility] [address] [place] [phone] 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) 11/13/2024 11:11 AM FOREIGN EXCHANGE POSITION CLERK - 11/13/2024 11:59 PM FOREIGN EXCHANGE POSITION CLERK Hospital Encounter [facility] - Imaging [address] [place] [phone] Pablo Perez MD 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) Discharge Disposition: Discharge to home or self care 10/25/2024 Orders Only [facility] [address] [place] [phone] Pablo Perez MD 10/24/2024 8:30 AM FOREIGN EXCHANGE POSITION CLERK Infusion [facility] [address] [place] [phone] 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) 10/24/2024 8:00 AM FOREIGN EXCHANGE POSITION CLERK Office Visit [facility] [address] [place] [phone] Pablo Perez MD 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) 10/24/2024 7:30 AM FOREIGN EXCHANGE POSITION CLERK Lab [facility] [address] [place] [phone] 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) 10/01/2024 9:00 AM FOREIGN EXCHANGE POSITION CLERK Infusion [facility] [address] [place] [phone] 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) 10/01/2024 8:30 AM FOREIGN EXCHANGE POSITION CLERK Office Visit [facility] [address] [place] [phone] Pablo Perez MD 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); Stress-induced cardiomyopathy 10/01/2024 8:00 AM FOREIGN EXCHANGE POSITION CLERK Lab [facility] [address] [place] [phone] 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) 09/24/2024 1:59 PM FOREIGN EXCHANGE POSITION CLERK - 09/24/2024 11:59 PM FOREIGN EXCHANGE POSITION CLERK Hospital Encounter [facility] Cardiac Testing [address] [place] [address] [address] [place] [address] 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); Stress-induced cardiomyopathy Discharge Disposition: Discharge to home or self care from Last 3 Months Surgical History Surgery Date Site/Laterality Comments CHOLECYSTECTOMY HERNIA REPAIR PERCUTANEOUS NEEDLE BIOPSY MUSCLE 07/13/2024 N/A Medical History Medical History Date Comments Diabetes mellitus (HCC) BPH (benign prostatic hyperplasia) Renal mass HLD (hyperlipidemia) HTN (hypertension) Social History Tobacco Use Types Packs/Day Years Used Date Smoking Tobacco: Never Tobacco Cessation:Counseling Given: Not Answered [facility] Utilities Answer Date Recorded In the past 12 months has th e electric, gas, oil, or water company threatened to shut off services in your [...] often do you attend chur ch or alevism services? Never 08/27/2024 Do you belong to any clubs o r organizations such as latter-day groups, unions, fraternal or athletic groups, or [...] any time in the past 12 m [facility], were you homeless or living in a residential (including now)? No 08/27/2024 Personal Safety Answer Date Recorded Have you ever been in or are you currently in a harmful physical or emotional relationship or is someone making you feel afraid or unsafe? 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 FOREIGN EXCHANGE POSITION CLERK Gender Identity Not on file Sexual Orientation Not on file Obstetrics History Last Filed Vital Signs Vital Sign Reading Time Taken Comments Blood Pressure 137/79 12/05/2024 2:52 PM FOREIGN EXCHANGE POSITION CLERK Pulse 75 12/05/2024 2:52 PM FOREIGN EXCHANGE POSITION CLERK Temperature 36.6 C (97.9 F) 12/05/2024 2:52 PM FOREIGN EXCHANGE POSITION CLERK Respiratory Rate 18 12/05/2024 2:52 PM FOREIGN EXCHANGE POSITION CLERK Oxygen Saturation 99% 12/05/2024 2:52 PM FOREIGN EXCHANGE POSITION CLERK Inhaled Oxygen Concentration - - Weight 87.8 kg (193 lb 8 oz) 12/05/2024 2:52 PM FOREIGN EXCHANGE POSITION CLERK Height 190.5 cm (6' 3 ) 10/24/2024 8:00 AM FOREIGN EXCHANGE POSITION CLERK Body Mass Index 24.19 10/24/2024 8:00 AM FOREIGN EXCHANGE POSITION CLERK Plan of Treatment Health Maintenance Due Date Last Done Comments Albumin Creatinine Ratio, Urine 1950 Colon Cancer Screening-Colonoscopy 1950 Depression Screening 1950 Hepatitis C Screening 1950 Dilated Eye Exam 1950 Foot Exam 1950 Lipid Panel 1950 Hepatitis B Screening 1969 Zoster Vaccine (1 of 2) 1970 Well Visit 65+ 2016 Pneumococcal vaccine 65+ (2 of 2 - PPSV23) 08/21/2020 06/26/2020 Covid-19 Vaccine (2023-2 5 season) 2024 07/14/2023, 08/09/2022, 07/27/2021, Additional history exists Influenza Vaccine (#1) 2024 3, 07/07/2022, 06/29/2021, Additional history exists Hemoglobin A1C 02/22/2025 08/25/2024 Fall Risk Assessment 12/05/2025 12/05/2024, 10/24/2024, 10/01/2024, Additional history exists eGFR 12/05/2025 12/05/2024, 11/03, 10/24/2024, Additional history exists DTaP/Tdap/Td Vaccine (2 - Td or Tdap) 07/14/2033 07/14/2023 Procedures Procedure Name Priority Date/Time Associated Diagnosis Comments PROTEIN / CREATININE RATIO, URINE, RANDOM Routine 12/05/2024 3:16 PM FOREIGN EXCHANGE POSITION CLERK 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) EGFR STAT 12/05/2024 1:43 PM FOREIGN EXCHANGE POSITION CLERK 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) DIFFERENTIAL AUTO STAT 12/05/2024 1:4 3 PM FOREIGN EXCHANGE POSITION CLERK 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) THYROID FUNCTION CASCADE Routine 12/05/2024 1:43 PM FOREIGN EXCHANGE POSITION CLERK 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) COMPREHENSIVE METABOLIC PANEL STAT 12/05/2024 1:43 PM FOREIGN EXCHANGE POSITION CLERK 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) CBC WITH AUTO DIFFERENTIAL STAT 12/05/2024 1:43 PM FOREIGN EXCHANGE POSITION CLERK 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) TRANSTHORACIC ECHO (TTE) COMPLETE W DOPPLER/CF WO CONTRAST Routine 11/23/2024 1:18 PM FOREIGN EXCHANGE POSITION CLERK EGFR STAT 11/14/2024 8:26 AM FOREIGN EXCHANGE POSITION CLERK 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) DIFFERENTIAL AUTO STAT 11/14/2024 8:2 6 AM FOREIGN EXCHANGE POSITION CLERK 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) PROTEIN / CREATININE RATIO, URINE, RANDOM Routine 11/14/2024 8:26 AM FOREIGN EXCHANGE POSITION CLERK 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) THYROID FUNCTION CASCADE Routine 11/14/2024 8:26 AM FOREIGN EXCHANGE POSITION CLERK 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) COMPREHENSIVE METABOLIC PANEL STAT 11/14/2024 8:26 AM FOREIGN EXCHANGE POSITION CLERK 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) CBC WITH AUTO DIFFERENTIAL STAT 11/14/2024 8:26 AM FOREIGN EXCHANGE POSITION CLERK 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) CT CHEST ABDOMEN PELVIS W CONTRAST Schedule Routine, Read Routine (OP Routine) 11/13/2024 11:59 AM FOREIGN EXCHANGE POSITION CLERK 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) POCT CREATININE FOR CONTRAST EVALUATION Routine 11/13/2024 11:26 AM FOREIGN EXCHANGE POSITION CLERK EGFR STAT 10/24/2024 7:40 AM FOREIGN EXCHANGE POSITION CLERK 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) DIFFERENTIAL AUTO STAT 10/24/2024 7:4 0 AM FOREIGN EXCHANGE POSITION CLERK 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) CBC WITH AUTO DIFFERENTIAL STAT 10/24/2024 7:40 AM FOREIGN EXCHANGE POSITION CLERK 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) COMPREHENSIVE METABOLIC PANEL STAT 10/24/2024 7:40 AM FOREIGN EXCHANGE POSITION CLERK 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) THYROID FUNCTION CASCADE Routine 10/24/2024 7:40 AM FOREIGN EXCHANGE POSITION CLERK 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) PROTEIN / CREATININE RATIO, URINE, RANDOM Routine 10/24/2024 7:40 AM FOREIGN EXCHANGE POSITION CLERK 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) EGFR STAT 10/01/2024 7:56 AM FOREIGN EXCHANGE POSITION CLERK 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) DIFFERENTIAL AUTO STAT 10/01/2024 7:5 6 AM FOREIGN EXCHANGE POSITION CLERK 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) CBC WITH AUTO DIFFERENTIAL STAT 10/01/2024 7:56 AM FOREIGN EXCHANGE POSITION CLERK 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) COMPREHENSIVE METABOLIC PANEL STAT 10/01/2024 7:56 AM FOREIGN EXCHANGE POSITION CLERK 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) THYROID FUNCTION CASCADE Routine 10/01/2024 7:56 AM FOREIGN EXCHANGE POSITION CLERK 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) PROTEIN / CREATININE RATIO, URINE, RANDOM Routine 10/01/2024 7:56 AM FOREIGN EXCHANGE POSITION CLERK 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 Current interpretive data was last revised 2019. Creatinine Ur 77.4 mg/dL [facility] Comment: Interpretive Data No reference range established. Current interpretive data was last revised 2019. Protein/creatinin e ratio 87.9 0.0 - 180.0 mg/g CR [facility] Urine 12/05/2024 3:16 PM FOREIGN EXCHANGE POSITION CLERK 12/05/2024 3:16 PM FOREIGN EXCHANGE POSITION CLERK Narrative [facility] - 12/05/2024 3:49 PM FOREIGN EXCHANGE POSITION CLERK No reference range established for random urine total protein. Alexandre Rocha MD LAB URINE ORDERABLES Fin al Result Performing Organization Address [facility]/ZIP Co de Phone Number [facility] [address] [place], [place] [id number] * eGFR (12/05/2024 1:43 PM FOREIGN EXCHANGE POSITION CLERK) eGFR 75 >=60 mL/min/1. 73 m2 Comment: [...] last reviewed 2021. Blood 12/05/2024 1:43 PM FOREIGN EXCHANGE POSITION CLERK 12/05/2024 2:00 PM FOREIGN EXCHANGE POSITION CLERK Alexandre Rocha MD LAB BLOOD ORDERABLES Fin al Result Performing Organization Address [facility]/ZIP Co de Phone Number [facility] [address] Department [employer] [place] [address] * Differential, auto (12/05/2024 1:43 PM FOREIGN EXCHANGE POSITION CLERK) Neutrophil abs 3.9 1.5 - 6.5 K/cumm Imm gran abs 0.0 0.0 - 0.1 K/cumm [facility] Lymphocyte abs 0.9 0.8 - 3.3 K/cumm [facility] Monocyte abs 0.4 0.2 - 0.8 K/cumm [facility] Eosinophil abs 0.2 0.0 - 0.5 K/cumm [facility] Basophil abs 0.0 0.0 - 0.1 K/cumm [facility] Neutrophil pct 72.0 % [facility] Comment: Interpretive Data Percent cell count reference ranges are not reported, since discordance with absolute values may lead to misinterpretation of CBC data. Current Interpretive Data was last revised on 2018. Imm gran pct 0.4 % [facility] Comment: Interpretive Data Percent cell count reference ranges are not reported, since discordance with absolute values may lead to misinterpretation of CBC data. Current Interpretive Data was last revised on 2018. Lymphocyte pct 16.1 % [facility] Comment: Interpretive Data Percent cell count reference ranges are not reported, since discordance with absolute values may lead to misinterpretation of CBC data. Current Interpretive Data was last revised on 2018. Monocyte pct 7.8 % [facility] Comment: Interpretive Data Percent cell count reference ranges are not reported, since discordance with absolute values may lead to misinterpretation of CBC data. Current Interpretive Data was last revised on 2018. Eosinophil pct 3.3 % [facility] Comment: Interpretive Data Percent cell count reference ranges are not reported, since discordance with absolute values may lead to misinterpretation of CBC data. Current Interpretive Data was last revised on 2018. Basophil pct 0.4 % [facility] Comment: Interpretive Data Percent cell count reference ranges are not reported, since discordance with absolute values may lead to misinterpretation of CBC data. Current Interpretive Data was last revised on 2018. Blood 12/05/2024 1:43 PM FOREIGN EXCHANGE POSITION CLERK 12/05/2024 1:43 PM FOREIGN EXCHANGE POSITION CLERK Alexandre Rocha MD LAB BLOOD ORDERABLES Fin al Result Performing Organization Address City/[facility]/ZIP Co de Phone Number [facility] [address] [facility] [place] [address] * Thyroid Function [place] (12/05/2024 1:43 PM FOREIGN EXCHANGE POSITION CLERK) [facility] TSH 1.95 0.30 - 4.20 mcIUnit/mL Blood 12/05/2024 1:43 PM FOREIGN EXCHANGE POSITION CLERK 12/05/2024 2:00 PM FOREIGN EXCHANGE POSITION CLERK Alexandre Rocha MD LAB BLOOD ORDERABLES Fin al Result Performing Organization Address [facility] Co de Phone Number [facility] [address] [facility] [place] [address] * (ABNORMAL) CBC with auto differential (12/05/2024 1:43 PM FOREIGN EXCHANGE POSITION CLERK) [facility] WBC 5.4 3.8 - 9.9 K/cumm Hgb 15.3 13.0 - 17.5 g/dL [facility] Hct 45.5 38.9 - 50.3 % [facility] Plt 121(L) 150 - 400 K/cumm [facility] MPV 8.9(L) 9.1 - 12.3 fL [facility] RBC 5.37 4.30 - 5.80 M/cumm [facility] MCV 84.7 81.3 - 96.4 fL [facility] MCH 28.5 27.1 - 33.3 pg [facility] MCHC 33.6 32.3 - 35.7 g/dL [facility] RDW CV 15.2(H) 11.1 - 14.9 % [facility] RDW SD 46.9 35.7 - 48.1 fL [facility] NRBC abs 0.00 0.00 - 0.01 K/cumm [facility] Blood 12/05/2024 1:43 PM FOREIGN EXCHANGE POSITION CLERK 12/05/2024 1:43 PM FOREIGN EXCHANGE POSITION CLERK Alexandre Rocha MD LAB BLOOD ORDERABLES Fin al Result [facility] [address] Department [place] [address] * (ABNORMAL) Comprehensive metabolic panel (12/05/2024 1:43 PM FOREIGN EXCHANGE POSITION CLERK) Sodium 140 135 - 145 mmol/L Potassium, pl 4.9 3.3 - 4.9 mmol/L [facility] Chloride 102 97 - 110 mmol/L [facility] CO2 26 22 - 32 mmol/L [facility] Anion gap 12 2 - 15 mmol/L [facility] BUN 19 6 - 25 mg/dL [facility] Creatinine 1.05 0.80 - 1.30 mg/dL [facility] Glucose 205(H) 70 - 199 mg/dL [facility] Comment: Interpretive Data Fasting glucose >/= 126 [...] 2022. Calcium 9.6 8.5 - 10.3 mg/dL [facility] Bilirubin, total 0.6 0.1 - 1.2 mg/dL [facility] Protein, pl 7.2 6.5 - 8.5 g/dL [facility] Albumin 4.6 3.5 - 5.0 g/dL [facility] Alk phos 99 40 - 130 Units/L [facility] ALT 17 7 - 55 Units/L [facility] AST 17 10 - 50 Units/L [facility] Blood 12/05/2024 1:43 PM FOREIGN EXCHANGE POSITION CLERK 12/05/2024 2:00 PM FOREIGN EXCHANGE POSITION CLERK Alexandre Rocha MD LAB BLOOD ORDERABLES Fin al Result [facility] [address] Department [place] [address] * TRANSTHORACIC ECHO (TTE) COMPLETE W DOPPLER/CF WO CONTRAST (11/23/2024 1:18 PM FOREIGN EXCHANGE POSITION CLERK) Anatomical Region Laterality Modality Ultrasound 08/28/2024 1:37 PM FOREIGN EXCHANGE POSITION CLERK Narrative 08/28/2024 3:40 PM FOREIGN EXCHANGE POSITION CLERK [facility] [address] [place] [address] ECHOCARDIOGRAM Patient Name: YONNY CAST : 1950 Study Date: 08/28/2024 1:37:38 PM Gender: M Tech: Location: [id number] Ref Provider: JACKIE PAEZ Height(Cm): 188 BSA: [...] EM Vmax 2.8 cm2 ___ ___ ___ EM VTI 2.8 cm2 ___ ___ ___ LVOT [...] Signed By: Jake Wilson MD 2024-08-28 15:39:54 FOREIGN EXCHANGE POSITION CLERK Procedure Note Jake Wilson MD - 08/28/2024 [facility] [address] [place] [address] ECHOCARDIOGRAM Patient Name: YONNY CAST : 1950 Study Date: 08/28/2024 1:37:38 PM Gender: M Tech: Location: [id number] Ref Provider: JACKIE PAEZ Height(Cm): 188 BSA: [...] 1.2 ] m/s ___ ___ ___ MV [id number] [ 20.0 - 100.0 ] ms ___ ___ ___ MV Decel [id number] [ 104.0 - 258.0 ] ms ___ [...] Signed By: Jake Wilson MD 2024-08-28 15:39:54 FOREIGN EXCHANGE POSITION CLERK us Jackie Paez MD CV ECHO PROCEDURES Final Res ult * eGFR (11/14/2024 8:26 AM FOREIGN EXCHANGE POSITION CLERK) eGFR 71 >=60 mL/min/1. 73 m2 Comment: [...] of Race in Diagnosing Kidney Disease, JASN 202). The CKD-EPI equation should not be used for patients with unstable renal function and has not been validated in children and those over 70. Current interpretive data was last reviewed 2021. Blood 11/14/2024 8:26 AM FOREIGN EXCHANGE POSITION CLERK 11/14/2024 8:36 AM FOREIGN EXCHANGE POSITION CLERK Pablo Perez MD LAB BLOOD ORDERABLES Final R esult [facility] [address] Department [place] [address] * (ABNORMAL) Differential, auto (11/14/2024 8:26 AM FOREIGN EXCHANGE POSITION CLERK) Neutrophil abs 2.3 1.5 - 6.5 K/cumm Imm gran abs 0.0 0.0 - 0.1 K/cumm [facility] Lymphocyte abs 0.4(L) 0.8 - 3.3 K/cumm [facility] Monocyte abs 0.4 0.2 - 0.8 K/cumm [facility] Eosinophil abs 0.2 0.0 - 0.5 K/cumm [facility] Basophil abs 0.0 0.0 - 0.1 K/cumm [facility] Neutrophil pct 69.0 % [facility] Comment: Interpretive Data Percent cell count reference ranges are not reported, since discordance with absolute values may lead to misinterpretation of CBC data. Current Interpretive Data was last revised on 2018. Imm gran pct 0.3 % [facility] Comment: Interpretive Data Percent cell count reference ranges are not reported, since discordance with absolute values may lead to misinterpretation of CBC data. Current Interpretive Data was last revised on 2018. Lymphocyte pct 13.0 % [facility] Comment: Interpretive Data Percent cell count reference ranges are not reported, since discordance with absolute values may lead to misinterpretation of CBC data. Current Interpretive Data was last revised on 2018. Monocyte pct 10.9 % [facility] Comment: Interpretive Data Percent cell count reference ranges are not reported, since discordance with absolute values may lead to misinterpretation of CBC data. Current Interpretive Data was last revised on 2018. Eosinophil pct 6.2 % [facility] Comment: Interpretive Data Percent cell count reference ranges are not reported, since discordance with absolute values may lead to misinterpretation of CBC data. Current Interpretive Data was last revised on 2018. Basophil pct 0.6 % [facility] Comment: Interpretive Data Percent cell count reference ranges are not reported, since discordance with absolute values may lead to misinterpretation of CBC data. Current Interpretive Data was last revised on 2018. Blood 11/14/2024 8:26 AM FOREIGN EXCHANGE POSITION CLERK 11/14/2024 8:26 AM FOREIGN EXCHANGE POSITION CLERK Pablo Perez MD LAB BLOOD ORDERABLES Final R esult Performing Organization Address [facility] Co de Phone Number [facility] [address] [place] [address] * Thyroid Function [place] (11/14/2024 8:26 AM FOREIGN EXCHANGE POSITION CLERK) TSH 2.01 0.30 - 4.20 mcIUnit/mL Blood 11/14/2024 8:26 AM FOREIGN EXCHANGE POSITION CLERK 11/14/2024 8:36 AM FOREIGN EXCHANGE POSITION CLERK Pablo Perez MD LAB BLOOD ORDERABLES Final R esult Performing Organization Address City/[facility]/ZIP Co de Phone Number [facility] [address] Department [place] [address] * (ABNORMAL) CBC with auto differential (11/14/2024 8:26 AM FOREIGN EXCHANGE POSITION CLERK) [facility] WBC 3.4(L) 3.8 - 9.9 K/cumm Hgb 13.2 13.0 - 17.5 g/dL [facility] Hct 39.1 38.9 - 50.3 % [facility] Plt 98(L) 150 - 400 K/cumm [facility] MPV 8.8(L) 9.1 - 12.3 fL [facility] RBC 4.61 4.30 - 5.80 M/cumm [facility] MCV 84.8 81.3 - 96.4 fL [facility] MCH 28.6 27.1 - 33.3 pg [facility] MCHC 33.8 32.3 - 35.7 g/dL [facility] RDW CV 15.4(H) 11.1 - 14.9 % [facility] RDW SD 47.8 35.7 - 48.1 fL [facility] NRBC abs 0.00 0.00 - 0.01 K/cumm [facility] Blood 11/14/2024 8:26 AM FOREIGN EXCHANGE POSITION CLERK 11/14/2024 8:26 AM FOREIGN EXCHANGE POSITION CLERK us Pablo Perez MD LAB BLOOD ORDERABLES Final R esult [facility] [address] Department [place] [address] * Protein / creatinine ratio, urine, random (11/14/2024 8:26 AM FOREIGN EXCHANGE POSITION CLERK) [facility] Protein, ur, quant 8.3 mg/dL Comment: Interpretive Data No reference range established. Current interpretive data was last revised 2019. Creatinine Ur 101.8 mg/dL [facility] Comment: Interpretive Data No reference range established. Current interpretive data was last revised 2019. Protein/creatinin e ratio 81.5 0.0 - 180.0 mg/g CR [facility] Urine 11/14/2024 8:26 AM FOREIGN EXCHANGE POSITION CLERK 11/14/2024 8:26 AM FOREIGN EXCHANGE POSITION CLERK Narrative [facility] - 11/14/2024 9:03 AM FOREIGN EXCHANGE POSITION CLERK No reference range established for random urine total protein. Pablo Perez MD LAB URINE ORDERABLES Final R esult [facility] [address] Department [place] [address] * (ABNORMAL) Comprehensive metabolic panel (11/14/2024 8:26 AM FOREIGN EXCHANGE POSITION CLERK) Sodium 138 135 - 145 mmol/L Potassium, pl 4.0 3.3 - 4.9 mmol/L [facility] Chloride 103 97 - 110 mmol/L [facility] CO2 26 22 - 32 mmol/L [facility] Anion gap 9 2 - 15 mmol/L [facility] BUN 16 6 - 25 mg/dL [facility] Creatinine 1.10 0.80 - 1.30 mg/dL [facility] Glucose 263(H) 70 - 199 mg/dL [facility] Comment: Interpretive Data Fasting glucose >/= 126 [...] 2022. Calcium 8.9 8.5 - 10.3 mg/dL [facility] Bilirubin, total 0.7 0.1 - 1.2 mg/dL [facility] Protein, pl 6.3(L) 6.5 - 8.5 g/dL [facility] Albumin 4.0 3.5 - 5.0 g/dL [facility] Alk phos 102 40 - 130 Units/L [facility] ALT 19 7 - 55 Units/L [facility] AST 17 10 - 50 Units/L [facility] Blood 11/14/2024 8:26 AM FOREIGN EXCHANGE POSITION CLERK 11/14/2024 8:36 AM FOREIGN EXCHANGE POSITION CLERK Pablo Perez MD LAB BLOOD ORDERABLES Final R esult [facility] [address] Department [place] [address] * CT Chest Abdomen Pelvis W Contrast (11/13/2024 11:59 AM FOREIGN EXCHANGE POSITION CLERK) Anatomical Region Laterality Modality Body N/A Computed Tomogra phy 11/13/2024 3:20 PM FOREIGN EXCHANGE POSITION CLERK Impressions 11/13/2024 3:20 PM FOREIGN EXCHANGE POSITION CLERK CT CHEST: 1. No lymphadenopathy in the [...] Angel Gomes M.D. Narrative 11/13/2024 3:20 PM FOREIGN EXCHANGE POSITION CLERK CT CHEST ABDOMEN PELVIS W CONTRAST 11/13/2024 [...] by: Angel Gomes M.D. Pablo Perez MD IMG CT PROCEDURES Final Resu lt * POCT creatinine for contrast evaluation (11/13/2024 11:26 AM FOREIGN EXCHANGE POSITION CLERK) [facility] Creatinine, POC 0.9 0.6 - 1.5 mg/dL Comment:egfr 89 Blood 11/13/2024 11:2 6 AM FOREIGN EXCHANGE POSITION CLERK Pablo Perez MD POINT OF CARE TEST ORDERABLE S Final Result * eGFR (10/24/2024 7:40 AM FOREIGN EXCHANGE POSITION CLERK) [facility] eGFR 74 >=60 mL/min/1. 73 m2 Comment: [...] last reviewed 2021. Blood 10/24/2024 7:40 AM FOREIGN EXCHANGE POSITION CLERK 10/24/2024 7:47 AM FOREIGN EXCHANGE POSITION CLERK Pablo Perez MD LAB BLOOD ORDERABLES Final R esult [facility] [address] Department [place] [address] * (ABNORMAL) Differential, auto (10/24/2024 7:40 AM FOREIGN EXCHANGE POSITION CLERK) Neutrophil abs 2.6 1.5 - 6.5 K/cumm Imm gran abs 0.0 0.0 - 0.1 K/cumm [facility] Lymphocyte abs 0.6(L) 0.8 - 3.3 K/cumm [facility] Monocyte abs 0.3 0.2 - 0.8 K/cumm [facility] Eosinophil abs 0.2 0.0 - 0.5 K/cumm [facility] Basophil abs 0.0 0.0 - 0.1 K/cumm [facility] Neutrophil pct 69.9 % [facility] Comment: Interpretive Data Percent cell count reference ranges are not reported, since discordance with absolute values may lead to misinterpretation of CBC data. Current Interpretive Data was last revised on 2018. Imm gran pct 0.3 % [facility] Comment: Interpretive Data Percent cell count reference ranges are not reported, since discordance with absolute values may lead to misinterpretation of CBC data. Current Interpretive Data was last revised on 2018. Lymphocyte pct 17.3 % [facility] Comment: Interpretive Data Percent cell count reference ranges are not reported, since discordance with absolute values may lead to misinterpretation of CBC data. Current Interpretive Data was last revised on 2018. Monocyte pct 7.1 % [facility] Comment: Interpretive Data Percent cell count reference ranges are not reported, since discordance with absolute values may lead to misinterpretation of CBC data. Current Interpretive Data was last revised on 2018. Eosinophil pct 4.9 % [facility] Comment: Interpretive Data Percent cell count reference ranges are not reported, since discordance with absolute values may lead to misinterpretation of CBC data. Current Interpretive Data was last revised on 2018. Basophil pct 0.5 % [facility] Comment: Interpretive Data Percent cell count reference ranges are not reported, since discordance with absolute values may lead to misinterpretation of CBC data. Current Interpretive Data was last revised on 2018. Blood 10/24/2024 7:40 AM FOREIGN EXCHANGE POSITION CLERK 10/24/2024 7:40 AM FOREIGN EXCHANGE POSITION CLERK Pablo Perez MD LAB BLOOD ORDERABLES Final R esult Performing Organization Address City/[facility]/ZIP Co de Phone Number [facility] [address] [facility] [place], [place] [id number] * Thyroid Function [place] (10/24/2024 7:40 AM FOREIGN EXCHANGE POSITION CLERK) TSH 3.72 0.30 - 4.20 mcIUnit/mL Blood 10/24/2024 7:40 AM FOREIGN EXCHANGE POSITION CLERK 10/24/2024 7:47 AM FOREIGN EXCHANGE POSITION CLERK Pablo Perez MD LAB BLOOD ORDERABLES Final R esult [facility] [address] [place] [address] * (ABNORMAL) CBC with auto differential (10/24/2024 7:40 AM FOREIGN EXCHANGE POSITION CLERK) WBC 3.7(L) 3.8 - 9.9 K/cumm Hgb 13.2 13.0 - 17.5 g/dL [facility] Hct 40.5 38.9 - 50.3 % [facility] Plt 114(L) 150 - 400 K/cumm [facility] MPV 9.1 9.1 - 12.3 fL [facility] RBC 4.81 4.30 - 5.80 M/cumm [facility] MCV 84.2 81.3 - 96.4 fL [facility] MCH 27.4 27.1 - 33.3 pg [facility] MCHC 32.6 32.3 - 35.7 g/dL [facility] RDW CV 15.1(H) 11.1 - 14.9 % [facility] RDW SD 46.5 35.7 - 48.1 fL [facility] NRBC abs 0.00 0.00 - 0.01 K/cumm [facility] Blood 10/24/2024 7:40 AM FOREIGN EXCHANGE POSITION CLERK 10/24/2024 7:40 AM FOREIGN EXCHANGE POSITION CLERK Pablo Perez MD LAB BLOOD ORDERABLES Final R esult [facility] [address] Department [place] [address] * Protein / creatinine ratio, urine, random (10/24/2024 7:40 AM FOREIGN EXCHANGE POSITION CLERK) Protein, ur, quant 4.9 mg/dL Comment: Interpretive Data No reference range established. Current interpretive data was last revised 2019. Creatinine Ur 61.0 mg/dL [facility] Comment: Interpretive Data No reference range established. Current interpretive data was last revised 2019. Protein/creatinin e ratio 80.3 0.0 - 180.0 mg/g CR [facility] Urine 10/24/2024 7:40 AM FOREIGN EXCHANGE POSITION CLERK 10/24/2024 7:40 AM FOREIGN EXCHANGE POSITION CLERK Narrative [facility] - 10/24/2024 8:18 AM FOREIGN EXCHANGE POSITION CLERK No reference range established for random urine total protein. Pablo Perez MD LAB URINE ORDERABLES Final R esult [facility] [address] Department [place] [address] * (ABNORMAL) Comprehensive metabolic panel (10/24/2024 7:40 AM FOREIGN EXCHANGE POSITION CLERK) Sodium 140 135 - 145 mmol/L Potassium, pl 4.5 3.3 - 4.9 mmol/L [facility] Chloride 104 97 - 110 mmol/L [facility] CO2 26 22 - 32 mmol/L [facility] Anion gap 10 2 - 15 mmol/L [facility] BUN 21 6 - 25 mg/dL [facility] Creatinine 1.06 0.80 - 1.30 mg/dL [facility] Glucose 291(H) 70 - 199 mg/dL [facility] Comment: Interpretive Data Fasting glucose >/= 126 [...] 2022. Calcium 9.4 8.5 - 10.3 mg/dL [facility] Bilirubin, total 0.5 0.1 - 1.2 mg/dL [facility] Protein, pl 6.7 6.5 - 8.5 g/dL [facility] Albumin 4.1 3.5 - 5.0 g/dL [facility] Alk phos 103 40 - 130 Units/L [facility] ALT 14 7 - 55 Units/L [facility] AST 13 10 - 50 Units/L [facility] Blood 10/24/2024 7:40 AM FOREIGN EXCHANGE POSITION CLERK 10/24/2024 7:47 AM FOREIGN EXCHANGE POSITION CLERK Pablo Perez MD LAB BLOOD ORDERABLES Final R esult Performing Organization Address [facility]/ZIP Co de Phone Number [facility] [address] Department [place] [address] * eGFR (10/01/2024 7:56 AM FOREIGN EXCHANGE POSITION CLERK) eGFR 77 >=60 mL/min/1. 73 m2 Comment: [...] last reviewed 2021. Blood 10/01/2024 7:56 AM FOREIGN EXCHANGE POSITION CLERK 10/01/2024 8:09 AM FOREIGN EXCHANGE POSITION CLERK Pablo Perez MD LAB BLOOD ORDERABLES Final R esult Performing Organization Address [facility] Co de Phone Number [facility] [address] Department [place] [address] * (ABNORMAL) Differential, auto (10/01/2024 7:56 AM FOREIGN EXCHANGE POSITION CLERK) Neutrophil abs 3.6 1.5 - 6.5 K/cumm Imm gran abs 0.0 0.0 - 0.1 K/cumm [facility] Lymphocyte abs 0.7(L) 0.8 - 3.3 K/cumm [facility] Monocyte abs 0.4 0.2 - 0.8 K/cumm [facility] Eosinophil abs 0.2 0.0 - 0.5 K/cumm [facility] Basophil abs 0.0 0.0 - 0.1 K/cumm [facility] Neutrophil pct 74.3 % [facility] Comment: Interpretive Data Percent cell count reference ranges are not reported, since discordance with absolute values may lead to misinterpretation of CBC data. Current Interpretive Data was last revised on 2018. Imm gran pct 0.2 % [facility] Comment: Interpretive Data Percent cell count reference ranges are not reported, since discordance with absolute values may lead to misinterpretation of CBC data. Current Interpretive Data was last revised on 2018. Lymphocyte pct 14.0 % [facility] Comment: Interpretive Data Percent cell count reference ranges are not reported, since discordance with absolute values may lead to misinterpretation of CBC data. Current Interpretive Data was last revised on 2018. Monocyte pct 8.0 % [facility] Comment: Interpretive Data Percent cell count reference ranges are not reported, since discordance with absolute values may lead to misinterpretation of CBC data. Current Interpretive Data was last revised on 2018. Eosinophil pct 3.1 % [facility] Comment: Interpretive Data Percent cell count reference ranges are not reported, since discordance with absolute values may lead to misinterpretation of CBC data. Current Interpretive Data was last revised on 2018. Basophil pct 0.4 % [facility] Comment: Interpretive Data Percent cell count reference ranges are not reported, since discordance with absolute values may lead to misinterpretation of CBC data. Current Interpretive Data was last revised on 2018. Blood 10/01/2024 7:56 AM FOREIGN EXCHANGE POSITION CLERK 10/01/2024 7:56 AM FOREIGN EXCHANGE POSITION CLERK us Pablo Perez MD LAB BLOOD ORDERABLES Final R esult [facility] [address] Department of Laboratories [place], [place] [id number] * Thyroid Function [place] (10/01/2024 7:56 AM FOREIGN EXCHANGE POSITION CLERK) TSH 3.76 0.30 - 4.20 mcIUnit/mL Blood 10/01/2024 7:56 AM FOREIGN EXCHANGE POSITION CLERK 10/01/2024 8:09 AM FOREIGN EXCHANGE POSITION CLERK Pablo Perez MD LAB BLOOD ORDERABLES Final R esult Performing Organization Address City/[facility]/ZIP Co de Phone Number [facility] [address] [place] [address] * (ABNORMAL) CBC with auto differential (10/01/2024 7:56 AM FOREIGN EXCHANGE POSITION CLERK) [facility] WBC 4.9 3.8 - 9.9 K/cumm Hgb 11.9(L) 13.0 - 17.5 g/dL [facility] Hct 36.4(L) 38.9 - 50.3 % [facility] Plt 140(L) 150 - 400 K/cumm [facility] MPV 8.4(L) 9.1 - 12.3 fL [facility] RBC 4.34 4.30 - 5.80 M/cumm [facility] MCV 83.9 81.3 - 96.4 fL [facility] MCH 27.4 27.1 - 33.3 pg [facility] MCHC 32.7 32.3 - 35.7 g/dL [facility] RDW CV 15.5(H) 11.1 - 14.9 % [facility] RDW SD 46.9 35.7 - 48.1 fL [facility] NRBC abs 0.00 0.00 - 0.01 K/cumm [facility] Blood 10/01/2024 7:56 AM FOREIGN EXCHANGE POSITION CLERK 10/01/2024 7:56 AM FOREIGN EXCHANGE POSITION CLERK Pablo Perez MD LAB BLOOD ORDERABLES Final R esult [facility] [address] [place], [place] [id number] * Protein / creatinine ratio, urine, random (10/01/2024 7:56 AM FOREIGN EXCHANGE POSITION CLERK) Pathologist [facility] Protein, ur, quant 7.4 mg/dL Comment: Interpretive Data No reference range established. Current interpretive data was last revised 2019. Creatinine Ur 71.7 mg/dL [facility] Comment: Interpretive Data No reference range established. Current interpretive data was last revised 2019. Protein/creatinin e ratio 103.2 0.0 - 180.0 mg/g CR [facility] Urine 10/01/2024 7:56 AM FOREIGN EXCHANGE POSITION CLERK 10/01/2024 8:43 AM FOREIGN EXCHANGE POSITION CLERK Narrative [facility] - 10/01/2024 9:10 AM FOREIGN EXCHANGE POSITION CLERK No reference range established for random urine total protein. us Pablo Perez MD LAB URINE ORDERABLES Final R esult [facility] [address] Department [place] [address] * (ABNORMAL) Comprehensive metabolic panel (10/01/2024 7:56 AM FOREIGN EXCHANGE POSITION CLERK) Sodium 141 135 - 145 mmol/L Potassium, pl 4.1 3.3 - 4.9 mmol/L [facility] Chloride 104 97 - 110 mmol/L [facility] CO2 26 22 - 32 mmol/L [facility] Anion gap 11 2 - 15 mmol/L [facility] BUN 20 6 - 25 mg/dL [facility] Creatinine 1.03 0.80 - 1.30 mg/dL [facility] Glucose 228(H) 70 - 199 mg/dL [facility] Comment: Interpretive Data Fasting glucose >/= 126 [...] 2022. Calcium 8.9 8.5 - 10.3 mg/dL [facility] Bilirubin, total 0.6 0.1 - 1.2 mg/dL [facility] Protein, pl 6.6 6.5 - 8.5 g/dL [facility] Albumin 4.1 3.5 - 5.0 g/dL [facility] Alk phos 90 40 - 130 Units/L [facility] ALT 10 7 - 55 Units/L [facility] AST 12 10 - 50 Units/L [facility] Blood 10/01/2024 7:56 AM FOREIGN EXCHANGE POSITION CLERK 10/01/2024 8:09 AM FOREIGN EXCHANGE POSITION CLERK us Pablo Perez MD LAB BLOOD ORDERABLES Final R esult [facility] [address] [place] [address] * TRANSTHORACIC ECHO (TTE) COMPLETE W DOPPLER/CF WO CONTRAST (09/24/2024 3:09 PM FOREIGN EXCHANGE POSITION CLERK) Anatomical Region Laterality Modality Ultrasound 09/24/2024 2:28 PM FOREIGN EXCHANGE POSITION CLERK Narrative 09/24/2024 7:11 PM FOREIGN EXCHANGE POSITION CLERK [facility] [address] [place] [address] ECHOCARDIOGRAM Patient Name: YONNY CAST : 1950 (74y 6m) Gender: M Study Date: 09/24/2024 02:28:02 PM Ht(Inch): 76 Wt(Lb): 190.92 BSA: 2.15 [employer] Construction Worker: Location: OPT Order Provider: APBLO PEREZ BMI: 23.24 BP: 107/69 Ref Provider: [...] Abdiel Wylie MD PhD 09/24/2024 7:10:54 PM FOREIGN EXCHANGE POSITION CLERK 60-65 Procedure Note Abdiel Wylie MD PhD - 09/24/2024 [facility] [address] [place] [address] ECHOCARDIOGRAM Patient Name: YONNY CAST : 1950 (74y 6m) Gender: M Study Date: 09/24/2024 02:28:02 PM Ht(Inch): 76 Wt(Lb): 190.92 BSA: 2.15 [employer] Worker: AB Location: OPT Order Provider: PABLO PEREZ BMI: [...] Abdiel Wylie MD PhD 09/24/2024 7:10:54 PM FOREIGN EXCHANGE POSITION CLERK 60-65 us Pablo Perez MD CV ECHO PROCEDURES Final Res ult * (ABNORMAL) Hemoglobin A1c (08/25/2024 9:50 AM FOREIGN EXCHANGE POSITION CLERK) Hgb A1C 7.2(H) 4.0 - 5.6 % Estimated Average Glucose 160 mg/dL [facility] Comment: The ADA recommends reporting an estimated Average Glucose (eAG) with all Hemoglobin A1c results using the equation derived from a study of 507 normal and diabetic adults. Minority populations were underrepresented and children were not included. (Diabetes Care 31:6129-8267, 2008). The eAG is not equivalent to a fasting glucose. Blood 08/25/2024 9:50 AM FOREIGN EXCHANGE POSITION CLERK 08/25/2024 10:16 AM FOREIGN EXCHANGE POSITION CLERK us Todd Clemens MD LAB BLOOD ORDERABLES Andressa sheldon Result [facility] [address] Department [place] [address] from Last 3 Months or Most Recently Relevant to Health Maintenance Insurance [facility] MEDICARE T MEDICARE [facility] Address: [id number] [place] [id number] Advance Directives For more information, please contact: [phone] Documents on File Type Date Recorded Patient Retail Assistant Manager Expl anation ADVANCE DIRECTIVE 08/25/2024 12:15 PM [facility] er of Editorial Intern-Medical * Full Code (Latest Code Status on File) Date Activated Date Inactivated Comments 08/25/2024 6:42 AM 09/03/2024 4:27 PM Care Teams Modeling Manager Relationship Specialty Start Date End Date Sushma Willett MD [facility] [facility] [place] [address] PCP - General Family Practice 05/30/24 Samm Boudreaux MD [address] [place] [address] Consulting Physician Radiation Oncology 07/06/24 Pablo Perez MD [address] [place] [address] Medical Oncologist/Religious Ritual Slaughterer Hematology and Oncology 07/06/24
[2024-12-20 14:32] LABS: Alanine Aminotransferase 20 U/L (6-50); Albumin Level 4.5 g/dL (3.5-5.1); Alkaline Phosphatase 82 U/L (38-126); Anion Gap 13 mmol/L (4-12); Aspartate Amino Transferase 27 U/L (17-59); Bilirubin,Total 0.7 mg/dL (0.2-1.3); Blood Urea Nitrogen 33 mg/dL (9-20); Calcium 9.5 mg/dL (8.4-10.2); Carbon Dioxide 25 mmol/L (22-30); Chloride 100 mmol/L (98-107); Estimated Glomerular Filt Rate 59; Glucose 151 mg/dL (65-110); Potassium 4.5 mmol/L (3.4-5.0); Sodium 138 mmol/L (137-145)
[2024-12-20 16:11] LABS: Hemoglobin A1C 6.9 % (<5.7)
== END 2024-12-20 09:57 | disposition home or self-care (01) ==
LOC: ANHGOSHLAB 09:57
PROVIDERS: PCP Family Medicine; Visit Provider Family Medicine
DX: E11.9 Type 2 diabetes mellitus without complications (principal); I10 Essential (primary) hypertension
CPT/HCPCS: 36415; 80053; 83036

== ENCOUNTER 2025-02-27 19:02 | Emergency (ER) | payer MEDICARE, SELFPAY ==
[2025-02-27 19:14] VITALS: BP 118/90; PULSE 65; RESP 16; TEMP 36.4; O2SAT 99
--- NOTE | 2025-02-27 19:21 | ED_ITS ---
HPI - Male Genitourinary General Chief complaint: Urogenital-Male Stated complaint: UTI SYMPTOMS Time Seen by Provider: 02/27/25 19:21 Source: patient and RN notes reviewed Mode of arrival: ambulatory Limitations: no limitations History of Present Illness HPI Narrative: 74-year-old male presents Express Care complaining of urinary symptoms since today. Patient said this morning he got his chemotherapy over at [facility]. He says since then today he has developed burning with urination, increased frequency, and suprapubic pain. Patient reports he self catheterizes himself due to urinary retention. Patient denies any fevers, body aches, chills, nausea, vomiting, diarrhea, back pain, or any other symptoms. Patient does have a history of diabetes, urosepsis, hypertension, and renal carcinoma. Related Data Home Medications ?Medication ?Instructions ?Recorded ?Confirmed ?Last Taken ?Type tamsulosin 0.4 mg capsule 0.4 mg PO [facility] 06/28/24 12/20/24 08/23/24 18:00 History cholecalciferol (vitamin D3) 25 25 mcg PO DAILY 09/06/24 12/20/24 Unknown History mcg (1,000 unit) capsule lenvatinib 10 mg/day (10 mg x 1) 10 mg PO DAILY 12/20/24 12/20/24 Unknown History capsule (Lenvima) Allergies Allergy/AdvReac Type Severity Reaction Status Date / Time No Known Allergies Allergy Verified 02/27/25 19:24 Review of Systems Review of Systems: CONSTITUTIONAL: Denies fever, chills, body aches, or sweats. EYES: Denies visual changes, redness, or discharge. ENT: Denies rhinorrhea, congestion, sore throat, or otalgia. CARDIOVASCULAR: Denies chest pain, palpitations, or edema. RESPIRATORY: Denies cough or dyspnea. GASTROINTESTINAL: Denies abdominal pain, nausea, vomiting, or diarrhea. GENITOURINARY: Positive for dysuria, suprapubic pain, increased frequency. Negative for hematuria penile discharge. SKIN: Denies rash or itching. MUSCULOSKELETAL: Denies back pain, joint pain, or myalgia. NEUROLOGIC: Denies headache, numbness, or weakness. PSYCHIATRIC: Denies anxiety or depression. All other systems reviewed are negative, except as documented in HPI. 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 Urinary retention Left kidney mass History of colon polyps History of polyneuropathy (~1992) h/o numbness and weakness in legs ruled out MS Vitamin D deficiency Dyslipidemia Toe fracture 01/2015 ROM[place]N (obstructive sleep apnea) Type 2 diabetes mellitus without complication, without long-term current use of insulin Essential (primary) hypertension Surgical History Surgical History History of incisional hernia repair (~03/2002) History of right inguinal hernia repair (~03/2017) [place] teeth extracted History of cholecystectomy (~1999) Family History Family History Father Carcinoma of colon, Onset Age: 61 Sibling Family history of type 2 diabetes mellitus Other Diabetes mellitus Family history of malignant neoplasm Social History Social History Smoking status: Never smoker Second hand tobacco smoke exposure: No Alcohol intake: former Drinks per week: 2 Alcohol use details: consumes 2 beers weekly Substance use: never Substance use type: does not use Do You Feel Safe in your Home?: Yes Lack of Transportation: No Lack of Food: Never True Current Housing: I Have Housing Concerned About Future Housing: No Difficulty Paying Gas/Electric Bills: No Difficulty Paying for Meds: No Currently Unemployed: No Education: High School Diploma/GED Difficulty w/ Childcare or Family Care: No Living arrangements: other Additional living arrangements comments: with sp Spiritual care concerns: No Agree to blood products: Yes Comments At the time of my signature, I reviewed and agree with the nursing past medical, surgical, social, and family history. There is no relevant family history p ertinent to the patient complaint. Exam Narrative: GENERAL: This is a well-nourished, well-developed adult, in no apparent distress. They are non ill-appearing, nontoxic appearing. HEAD: normocephalic, atraumatic. EYES: Sclera clear/white. Vision is grossly intact. Conjunctiva normal bilaterally. Extraocular movements intact. EARS: External ears normal,Hearing grossly intact. NOSE: External nose normal THROAT: Mucous membranes moist NECK: Normal range of motion CARDIOVASCULAR: Regular rate and rhythm. Normal S1-S2. No clicks, gallops, rubs, or murmurs. RESPIRATORY: Respiratory rate normal, respiratory effort nonlabored, no respiratory distress. Lung sounds clear to auscultation throughout. Lung Sounds equal bilaterally. No adventitious lung sounds. GASTROINTESTINAL: Abdomen soft, flat, mild suprapubic tenderness to palpation, nondistended. Bowel sounds are active. No hepato-splenomegaly, or palpable masses. No guarding. No rebound tenderness. SKIN: warm, Dry, intact with no suspicious lesions or rash, good texture and turgor. NEURO: awake, alert, and oriented to person, place and time. There were no obvious focal neurologic abnormalities. EXTREMITIES: No joint tenderness, effusion, or edema noted. BACK: Nontender without deformity. No CVA tenderness. Course Course Emergency Course: Portions of this record may have been created with voice recognition software Level of Care: Express Care Visit Vital Signs Vital signs: Vital Signs Temperature 97.5 F L 02/27/25 19:14 Pulse Rate 65 02/27/25 19:14 Respiratory Rate 16 02/27/25 19:14 Blood Pressure 118/90 02/27/25 19:14 Pulse Oximetry 99 02/27/25 19:14 Temperature 97.5 F L 02/27/25 19:14 Pulse Rate 65 02/27/25 19:14 Respiratory Rate 16 02/27/25 19:14 Blood Pressure 118/90 02/27/25 19:14 Pulse Oximetry 99 02/27/25 19:14 MDM - Male Genitourinary MDM Narrative Medical decision making narrative: Urine dipstick shows evidence of urinary tract infection. Urine culture is pending. Likely patient has a complicated UTI. Patient's previous urine cultures showed salmonella in urine. Patient was susceptible to ceftriaxone according to culture. Will give patient 1 time dose of ceftriaxone followed by prescription for Augmentin. Discussed physical exam findings. Advised supportive measures and signs/symptoms to go to the ER. Pt is appropriate for outpt treatment and f/u. Differential Diagnosis Differential diagnosis: Likely urinary tract infection, acute retention of urine and other (Pyelonephritis.) Lab Data Attestation: I reviewed the patient's lab results. Labs: Lab Results 02/27/25 Range/Units 19:24 POC Urine Color Yellow POC Urine Clarity Cloudy POC Urine pH 5.5 POC Ur Specif Fertile 1.015 POC Urine Protein 1+ (Negative) POC Ur Glucose (UA) 3+ (Negative) POC Urine Ketones Negative (Negative) POC Urine Blood Trace (Negative) POC Urine Nitrite Negative (Negative) POC Urine Bilirubin Negative (Negative) POC Urine Urobilinogen 0.2 POC U Leukocyte Esteras 2+ (Negative) Discharge Plan Discharge Clinical Impression: Urinary tract infection Qualifiers: Urinary tract infection type: catheter-associated UTI Indwelling urinary catheter type: unspecified Encounter type: initial encounter Qualified Code(s): T83.511A - Infection and inflammatory reaction due to indwelling urethral catheter, initial encounter Patient Disposition: Home Condition: Stable Instructions: Antibiotic Form, Urinary Tract Infection in Men (ED) Additional Instructions: Take the antibiotic as prescribed The urine will be sent of for a culture to identify what type of bacteria is causing your infection. If the culture shows that the antibiotic will not get rid of your infection, you will be notified and a new antibiotic will be called in for you. Increase water intake you will need to follow up with your PCP 3-5 days. Go to the ER for any worsening symptoms, abdominal pain, fevers, nausea, vomiting, or any other concerns Patient Language: Danish Prescriptions: New amoxicillin-pot clavulanate 875-125 mg tablet 1 tablet PO Q12H 10 Days Qty: 20 0RF No Action Lenvima 10 mg/day (10 mg x 1) capsule 10 mg PO DAILY Keytruda 25 mg/mL solution 200 mg IV .[id number] Rx Instructions: administer over 30 mins cholecalciferol (vitamin D3) 25 mcg (1,000 unit) capsule 25 mcg PO DAILY tamsulosin 0.4 mg capsule 0.4 mg PO [facility] cyanocobalamin (vitamin B-12) 1,000 mcg tablet, sublingual 1,000 mcg sublingual DAILY Qty: 90 1RF (DME) OneTouch Ultra Test Strip See Rx Instructions .Route Qty: 100 2RF Rx Instructions: Use to check BS every morning and as needed glipizide 10 mg tablet extended release 24hr 10 mg PO DAILY Qty: 90 1RF metformin 500 mg tablet extended release 24 hr 500 mg PO BID Qty: 180 1RF ezetimibe 10 mg tablet 10 mg PO DAILY Qty: 90 1RF carvedilol 6.25 mg tablet 6.25 mg PO BID Qty: 180 1RF spironolactone 25 mg tablet 25 mg PO DAILY Qty: 90 1RF Jardiance 10 mg tablet 10 mg PO DAILY Qty: 90 1RF losartan-hydrochlorothiazide 100-25 mg tablet 1 tablet PO DAILY Qty: 90 1RF Follow-up/Referrals: Leroy Willett MD [Primary Care Provider] - Time of Disposition: 19:41
[2025-02-27 19:26] LABS: EDUAAPPEAR Cloudy; EDUABILI Negative (Negative); EDUABLOOD Trace (Negative); EDUACOLOR1 Yellow; EDUAGLUCOSE 3+ (Negative); EDUAKETONE Negative (Negative); EDUALEUKO 2+ (Negative); EDUANITRATE Negative (Negative); EDUAPH 5.5; EDUAPROTEIN 1+ (Negative); EDUASPGRAVITY 1.015; EDUAUROBILI 0.2
[2025-02-27] MEDS: cefTRIAXone 1 GM, LIDOCAINE 1% LOCAL INJ 2.1 ML IM (19:49)
== END 2025-02-27 19:56 | disposition home or self-care (01) ==
PROVIDERS: PCP Family Medicine
DX: T83.511A Infection and inflammatory reaction due to indwelling urethral catheter, initial encounter (principal); I48.0 Paroxysmal atrial fibrillation; I10 Essential (primary) hypertension; E11.9 Type 2 diabetes mellitus without complications; Z79.84 Long term (current) use of oral hypoglycemic drugs; C64.2 Malignant neoplasm of left kidney, except renal pelvis; C79.9 Secondary malignant neoplasm of unspecified site; Z79.60 Long term (current) use of unspecified immunomodulators and immunosuppressants; I42.9 Cardiomyopathy, unspecified; E78.5 Hyperlipidemia, unspecified; E55.9 Vitamin D deficiency, unspecified
CPT/HCPCS: 81003; 87086; 96372; 99213; G0463; J0696; J2003

== ENCOUNTER 2025-07-04 10:05 | Outpatient (CLI) | payer MEDICARE, SELFPAY ==
--- OUTSIDE RECORDS SUMMARY | 2025-07-03 13:45 | XMS_ITS | Encounter Summary ---
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) Pablo Perez MD [address] [place] [id number] Phone: tel: fax: [facility] [address] [address] Phone: tel: fax: Referral ID Status Reason Start Date Expiration Date V isits Requested Visits Authorized [id number] Pending Review 07/26/2024 07/26/2025 99 99 Encounter Details Date Type Department Care Team (Late st Contact Info) Description 07/03/2025 1:45 PM CDT Lab [facility] [address] [place] [id number] 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 No 08/27/2024 Social Connection and Isolation Panel Answer Date Recorded In a typical week, how many times do you talk on the phone with family, friends, or neighbors? More than three times a week 08/27/2024 How often do you get togethe r with friends or relatives? More than three times a week 08/27/2024 How often do you attend chur ch or gnosticist services? Never 08/27/2024 Do you belong to any clubs o r organizations such as mandaen groups, unions, fraternal or athletic groups, or [...] any time in the past 12 m [facility], were you homeless or living in a detention (including now)? No 08/27/2024 Personal Safety Answer Date Recorded Have you ever been in or are you currently in a harmful physical or emotional relationship or is someone making you feel afraid or unsafe? 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) DIFFERENTIAL AUTO STAT 07/03/2025 1:1 8 PM CDT 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) THYROID FUNCTION CASCADE Routine 07/03/2025 1:18 PM CDT 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 Current interpretive data was last revised 2019. Creatinine Ur 47.7 mg/dL [facility] Comment: Interpretive Data No reference range established. Current interpretive data was last revised 2019. Protein/creatinin e ratio 100.6 0.0 - 180.0 mg/g CR [facility] Urine 07/03/2025 1:19 PM CDT 07/03/2025 1:52 PM CDT Narrative [facility] - 07/03/2025 2:24 PM CDT No reference range established for random urine total protein. us Pablo Perez MD LAB URINE ORDERABLES Final R esult [facility] [address] Department [place] [address] * eGFR (07/03/2025 1:18 PM CDT) eGFR 67 >=60 mL/min/1. 73 m2 Comment: Interpretive Data [...] interpretive data was last reviewed 2021. Blood 07/03/2025 1:18 PM CDT 07/03/2025 1:52 PM CDT Pablo Perez MD LAB BLOOD ORDERABLES Final R esult [facility] [address] Department [place] [address] * Differential, auto (07/03/2025 1:18 PM CDT) Neutrophil abs 3.08 1.50 - 6.50 K/cumm Imm gran abs 0.01 0.00 - 0.10 K/cumm [facility] Lymphocyte abs 0.89 0.80 - 3.30 K/cumm [facility] Monocyte abs 0.38 0.20 - 0.80 K/cumm [facility] Eosinophil abs 0.26 0.00 - 0.50 K/cumm [facility] Basophil abs 0.02 0.00 - 0.10 K/cumm [facility] Neutrophil pct 66.4 % [facility] Comment: Interpretive Data Percent cell count reference ranges are not reported, since discordance with absolute values may lead to misinterpretation of CBC data. Current Interpretive Data was last revised on 2018. Imm gran pct 0.2 % [facility] Comment: Interpretive Data Percent cell count reference ranges are not reported, since discordance with absolute values may lead to misinterpretation of CBC data. Current Interpretive Data was last revised on 2018. Lymphocyte pct 19.2 % [facility] Comment: Interpretive Data Percent cell count reference ranges are not reported, since discordance with absolute values may lead to misinterpretation of CBC data. Current Interpretive Data was last revised on 2018. Monocyte pct 8.2 % [facility] Comment: Interpretive Data Percent cell count reference ranges are not reported, since discordance with absolute values may lead to misinterpretation of CBC data. Current Interpretive Data was last revised on 2018. Eosinophil pct 5.6 % [facility] Comment: Interpretive Data Percent cell count reference ranges are not reported, since discordance with absolute values may lead to misinterpretation of CBC data. Current Interpretive Data was last revised on 2018. Basophil pct 0.4 % [facility] Comment: Interpretive Data Percent cell count reference ranges are not reported, since discordance with absolute values may lead to misinterpretation of CBC data. Current Interpretive Data was last revised on 2018. Blood 07/03/2025 1:18 PM CDT 07/03/2025 1:18 PM CDT Pablo Perze MD LAB BLOOD ORDERABLES Final R esult [facility] [address] Department [address] [place] [address] * (ABNORMAL) CBC with auto differential (07/03/2025 1:18 PM CDT) WBC 4.64 3.80 - 9.90 K/cumm Hgb 13.7 13.0 - 17.5 g/dL [facility] Hct 40.1 38.9 - 50.3 % [facility] Plt 117(L) 150 - 400 K/cumm [facility] MPV 9.1 9.1 - 12.3 fL [facility] RBC 4.57 4.30 - 5.80 M/cumm [facility] MCV 87.7 81.3 - 96.4 fL [facility] MCH 30.0 27.1 - 33.3 pg [facility] MCHC 34.2 32.3 - 35.7 g/dL [facility] RDW CV 13.5 11.1 - 14.9 % [facility] RDW SD 43.6 35.7 - 48.1 fL [facility] NRBC abs 0.00 0.00 - 0.01 K/cumm [facility] ANC Prelim 3.08 1.50 - 6.50 K/cumm [facility] Comment: Interpretive Data The rapid ANC is a preliminary automated count and may vary from the final ANC (Neut Abs) reported in the WBC differential that follows. Current interpretive data was last revised 2024. Blood 07/03/2025 1:18 PM CDT 07/03/2025 1:18 PM CDT Pablo Perez MD LAB BLOOD ORDERABLES Final R esult [facility] [address] Department [place] [address] * (ABNORMAL) Comprehensive metabolic panel (07/03/2025 1:18 PM CDT) Sodium 140 135 - 145 mmol/L Potassium, pl 4.4 3.3 - 4.9 mmol/L [facility] Chloride 102 97 - 110 mmol/L [facility] CO2 26 22 - 32 mmol/L [facility] Anion gap 12 2 - 15 mmol/L [facility] BUN 25 6 - 25 mg/dL [facility] Creatinine 1.15 0.80 - 1.30 mg/dL [facility] Glucose 233(H) 70 - 199 mg/dL [facility] Comment: Interpretive Data Fasting glucose >/= 126 [...] interpretive data was last revised 2022. Calcium 9.0 8.5 - 10.3 mg/dL [facility] Bilirubin, total 0.4 0.1 - 1.2 mg/dL [facility] Protein, pl 6.2(L) 6.5 - 8.5 g/dL [facility] Albumin 4.0 3.5 - 5.0 g/dL [facility] Alk phos 65 40 - 130 Units/L [facility] ALT 16 7 - 55 Units/L [facility] AST 14 10 - 50 Units/L [facility] Blood 07/03/2025 1:18 PM CDT 07/03/2025 1:52 PM CDT Pablo Perez MD LAB BLOOD ORDERABLES Final R esult [facility] [address] Department [address] [place] [address] * Thyroid Function [place] (07/03/2025 1:18 PM CDT) TSH 2.44 0.30 - 4.20 mcIUnit/mL Blood 07/03/2025 1:18 PM CDT 07/03/2025 1:52 PM CDT Pablo Perez MD LAB BLOOD ORDERABLES Final R esult Performing Organization Address City/[facility]/ZIP Co de Phone Number [facility] [address] [place] [address] documented in this encounter Visit Diagnoses Diagnosis 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) documented in this encounter Orders Appointment Requests Count Last Ordered Date Fi rst Ordered Date ONCBCN LAB APPOINTMENT 1 07/03/2025 documented in this encounter Care Teams Entry Level Drafter Relationship Specialty Start Date End Date Sushma Willett MD [facility] [address] [place] [id number] PCP - General Family Practice 05/30/24 Samm Boudreaux MD [address] [place] [address] Consulting Physician Radiation Oncology 07/06/24 Pablo Perez MD [address] [place] [address] Medical Oncologist/Vocational Guidance Counselor Hematology and Oncology 07/06/24 Isaak Burgess MD [address] [facility] [address] [place] [address] [employer] Professor Cardiology 06/27/25 documented as of this encounter
--- OUTSIDE RECORDS SUMMARY | 2025-07-03 14:15 | XMS_ITS | Encounter Summary ---
Author Organization 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) Pablo Perez MD [address] [place] [id number] Phone: tel: fax: [facility] [address] [address] Phone: tel: fax: Referral ID Status Reason Start Date Expiration Date V isits Requested Visits Authorized [id number] Pending Review 07/26/2024 07/26/2025 99 99 Encounter Details Date Type Department Care Team (Late st Contact Info) Description 07/03/2025 2:15 PM CDT Office Visit [address] [address] Pablo Perez MD [address] [facility] [place] [address] 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 Never 08/27/2024 Do you belong to any clubs o r organizations such as sikh groups, unions, fraternal or athletic groups, or [...] any time in the past 12 m [facility], were you homeless or living in a usp (including now)? No 08/27/2024 Personal Safety Answer Date Recorded Have you ever been in or are you currently in a harmful physical or emotional relationship or is someone making you feel afraid or unsafe? 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 [employer] Gender Identity Not on file Sexual Orientation Not on file documented as of this encounter Last Filed Vital Signs Vital Sign Reading Time Taken Comments Blood Pressure 121/76 07/03/2025 1:37 PM CDT Pulse 64 07/03/2025 1:37 PM CDT Temperature 36.4 C (97.6 F) 07/03/2025 1:37 PM CDT Respiratory Rate 18 07/03/2025 1:37 PM CDT Oxygen Saturation 98% 07/03/2025 1:37 PM CDT Inhaled Oxygen Concentration - - Weight 92.6 kg (204 lb 1.6 oz) 07/03/2025 1:37 P M CDT Height - - Body Mass Index 24.84 07/02/2025 11:03 AM CDT documented in this encounter Progress Notes * Pablo Perez MD - 07/03/2025 2:15 PM CDT Oncology History: Mr. Fish is a 75 y.o. male with history of diabetes who was s diagnosed with kidney cancer. This was initially noted on abdominal imaging on May 11, 2024 which revealed a 7 cm left kidney mass. He met with Dr. Breen and was planning a cystectomy and further staging imaging was suggested. This included a CT chest on June 21 which revealed a destructive T4 spinous process mass. This p rompted MR spine imaging which better characterized a large 6.4 x 3.4 x 4.5 cm enhancing multilobular mass centered at T4 posterior spinous process and expanding to involve the bilateral transverse processes, pedicles, and right lateral T4 vertebral body with possible T4 rib and spinal epidural involvement. There was moderate canal stenosis without cord compression. In addition, additional sites of metastases were suspected in the thoracic spine at T3, T4, T7, T8, T9, T10, and T12. A biopsy of the T4 mass was performed percutaneously on July 13, 2024 and was consistent with metastatic clear cell renal cell carcinoma. He was treated with a course of radiotherapy to his T4 lesion completedon July 27, 2024. He began therapy with pembrolizumab +lenvatinib on July 30, 2024. Interval History: Mr. Fish presents accompanied by his for a scheduled follow-up visit. Since last visit he has been doing okay. He has no reason to suspect cancer progression. Energy level remains stable. Hehas been taking lenvatinib as directed. No trepidation about continuing on therapy at his present doses. Physical Exam: BP 121/76 (BP Location: Right arm) Pulse 64 Temp 36.4 ??C (97.6 ??F) (Tympanic) Resp 18 Wt 92.6 kg (204 lb 1.6 oz) SpO2 98% BMI 24.84 kg/m?? ECOG Performance Status: 1 General- Alert and Oriented, No apparent distress HEENT- No scleral icterus Neck- normal ROM Lungs- Symmetric Expansion Abdomen- Nondistended Extremities- Symmetric without edema Neurologic- Stable gait Psychiatric- Pleasant, at baseline Results: CMP with normal transaminases alk-phos 69 bilirubin 0.5 calcium 9.8 creatinine 1.13 TSH 2.53 white count 4.64 hemoglobin 13.7 platelets 117 ANC of 3.08. Last imaging was on June 11. Assessment & Plan: Mr. Fish is a 75-year-old male with metastatic clear cell renal cell carcinoma, [facility] intermediate risk, who presents for a scheduled follow-up visit. -Mr. Fish tolerating pembrolizumab and lenvatinib with manageable toxicities. He will continue on treatment return to clinic in 3 weeks for a toxicity assessment for his next dose. Restaging willbe planned in September. 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) Expected: 07/25/2025, Expires: 07/25/2026 Protein / creatinine ratio, urine, random Lab Routine 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) Expected: 07/25/2025, Expires: 07/25/2026 documented as of this encounter Visit Diagnoses Diagnosis 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)- Primary documented in this encounter Orders Appointment Requests Count Last Ordered Date Fi rst Ordered Date ONCBCN CLINIC APPOINTMENT REQUEST 2 025 ONCBCN LAB APPOINTMENT 1 07/03/2025 ONCBCN RETURN CHEMO 1.5HRS 1 07/03/2025 documented in this encounter Care Teams Mobile Lounge Driver Relationship Specialty Start Date End Date Sushma Willett MD [address] [facility] [address] [address] PCP - General Family Practice 05/30/24 Samm Boudreaux MD [address] [place] [address] Consulting Physician Radiation Oncology 07/06/24 Pablo Perez MD [address] [facility] [place] [address] Medical Oncologist/Human Resources Technician Hematology and Oncology 07/06/24 Isaak Burgess MD [address] [facility] [address] [place] [address] Physician Neonatology Cardiology 06/27/25 documented as of this encounter
--- OUTSIDE RECORDS SUMMARY | 2025-07-03 14:30 | XMS_ITS | Encounter Summary ---
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 Utilities Answer Date Recorded In the [...] often do you attend chur ch or confucianist services? Never 08/27/2024 Do you belong to any clubs o r organizations such as caodaism groups, unions, fraternal or athletic groups, or [...] when you are drinking? 1 or 2 4 Q3: How often do you have si [...] any time in the past 12 m [facility], were you homeless or living in a [facility] (including now)? No 08/27/2024 Personal Safety Answer Date Recorded Have you ever been in or are you currently in a harmful physical or emotional relationship or is someone making you feel afraid or unsafe? 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 Labs and VS reviewed. Patient reports some manageable constipation and weakness. He feels the weakness has gotten better over the last week. He denies falls. Infusion completed and tolerated, PIV removed. Schedule printed for patient. Discharge ambulatory in stable condition. 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)- Primary documented in this encounter Administered Medications Inactive Administered Medications - up to 3 most recent administrations Medication Order MAR Action Action Date Dose Rate Site pembrolizumab (KEYTRUDA) 200 mg in sodium chloride 0.9% 100 mL IVPB 200 mg, intravenous, at 216 mL/hr, Administer over 30 Minutes, Once, On Tue07/03/25 at 1530, For 1 dose, Use 0.2-5 micron filter, low-sorbing, low protein binding.Indications: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) New Bag 07/03/2025 3:06 PM CDT 200 mg 216 mL/hr documented in this encounter Orders Medications Ordered That Mychal ht Not Have Been Administered Count Last Ordered Date First Ordered Date pembrolizumab (KEYTRUDA) 200 mg in sodium chloride 0.9% 100 mL IVPB 1 07/03/2025 Nursing Count Last Ordered Date First Orde red Date ONCBCN NURSING COMMUNICATION [id number] 1 1 ONCBCN TREATMENT PARAMETERS 5 1 07/03/2025 Appointment Requests Count Last Ordered Date Fi rst Ordered Date ONCBCN RETURN CHEMO 1.5HRS 1 07/03/2025 documented in this encounter Care Teams Thermal Surfacing Machine Operator Relationship Specialty Start Date End Date Sushma Willett MD [address] [facility] [address] [place] [address] PCP - General Family Practice 05/30/24 Samm Boudreaux MD [address] [place] [address] Consulting Physician Radiation Oncology 07/06/24 Pablo Perez MD [address] [place] [address] Medical Oncologist/Hub Inventory Specialist Hematology and Oncology 07/06/24 Isaak Burgess MD [address] [facility] [address] [place] [address] Manager Resource Cardiology 06/27/25 documented as of this encounter
--- OUTSIDE RECORDS SUMMARY | 2025-07-04 10:37 | XMS_ITS | Clinical Summary ---
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 Name Role Phone Sushma Willett MD Primary Care Provider Samm Boudreaux MD Unavailable [phone] Pablo Perez MD Unavailable Isaak Burgess MD Unavailable [phone] Allergies No known active allergies Medications ezetimibe (ZETIA) 10 mg tablet Take 1 [...] by mouth daily 30 tablet 2 4 07/02/20 99 Active spironolactone (ALDACTONE) 25 mg tablet Take 1 tablet (25 mg total) by mouth daily 30 tablet 2 4 07/02/20 99 Active carvediloL (COREG) 6.25 mg tablet Take 1 tablet (6.25 mg total) by mouth 2 (two) times a day with meals 60 tablet 2 4 09/03/20 Active lenvatinib (Lenvima) 10 mg/day (10 mg x 1/day) capsule Take 1 capsule (10 mg) by mouth daily. Take with or without food at the same time each day. 30 capsule 11 5 Active losartan-hydroc hlorothiazide (HYZAAR) 100-25 mg per tablet Take 1 tablet by mouth daily 5 Active aspirin 81 mg chewable tablet Take 1 tablet (81 mg total) by mouth daily Active pembrolizumab (Keytruda) 25 mg/mL solution Infuse IV every 21 days Active cholecalciferol 25 mcg (1,000 unit) tablet Take 1 tablet (1,000 Units total) by mouth every morning 07/02/20 Discontinu ed(Therapy completed) cyanocobalamin (Vitamin B-12) 1,000 mcg sublingual tablet Take 1 tablet (1,000 mcg total) by mouth every morning 07/02/20 Discontinu ed(Therapy completed) acyclovir (ZOVIRAX) 400 mg tabletIndicatio ns:Prophylaxis, Medical,Skin/So ft Tissue Infection Take 1 tablet (400 mg total) by mouth 2 (two) times a day 30 tablet 5 07/02/20 Discontinu ed(Therapy completed) triamcinolone (KENALOG) 0.1 % cream Apply topically 2 (two) times a day 30 g 5 07/02/20 Discontinu ed(Therapy completed) Active Problems Problem Noted Date Diagnosed Date [...] Encounters Date Type Department Care Team Description 07/03/2025 2:30 PM CDT Infusion [facility] [address] [place] [phone] Yahaira Mclean RN 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) 07/03/2025 2:15 PM CDT Office Visit [address] [phone] Pablo Perez MD 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) 07/03/2025 1:45 PM CDT Lab [facility] [address] [place] [phone] 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) 07/02/2025 10:30 AM CDT Office Visit [facility] [address] [place] [phone] Isaak Burgess MD Paroxysmal atrial fibrillation (HCC) (Primary Dx); Cardiomyopathy, unspecified type (HCC) 06/12/2025 3:00 PM CDT Infusion [address] [phone] Claudia Morrow, JULIANNE 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) 06/12/2025 2:30 PM CDT Office Visit [address] [phone] Pablo Perez MD 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) 06/12/2025 2:00 PM CDT Lab [facility] [address] [place] [phone] 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) 06/11/2025 8:52 AM CDT - 06/11/2025 11:59 PM CDT Hospital Encounter [facility] Imaging [address] [place] [phone] 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) Discharge Disposition: Discharge to home or self care 05/22/2025 1:45 PM CDT Infusion [facility] [address] [place] [phone] Albina Snow RN 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) 05/22/2025 1:15 PM CDT Office Visit [address] [phone] Pablo Perez MD 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) 05/22/2025 12:45 PM CDT Lab [facility] [address] [place] [phone] 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) 05/01/2025 9:30 AM CDT Infusion [facility] [address] [place] [phone] Almita Lai RN 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) 05/01/2025 9:00 AM CDT Office Visit [address] [phone] Pablo Perez MD 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) 05/01/2025 8:30 AM CDT Lab [facility] [address] [place] [phone] 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) 04/10/2025 9:00 AM CDT Infusion [facility] [address] [place] [phone] Cee Armstrong RN 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) 04/10/2025 8:45 AM CDT Office Visit [facility] [address] [place] [phone] Pablo Perez MD 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) 04/10/2025 8:00 AM CDT Lab [facility] [address] [place] [phone] 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) from Last 3 Months Surgical History Surgery Date Site/Laterality Comments CHOLECYSTECTOMY HERNIA REPAIR PERCUTANEOUS NEEDLE BIOPSY MUSCLE 07/13/2024 N/A Medical History Medical History Date Comments Diabetes mellitus BPH (benign prostatic hyperplasia) Renal mass HLD (hyperlipidemia) HTN (hypertension) Social History Tobacco Use Types Packs/Day Years Used Date Smoking Tobacco: Never Smokeless Tobacco: Never Tobacco Cessation:Counseling Given: Not Answered [facility] Utilities Answer Date Recorded In the past 12 months has [facility], [employer], oil, or water [employer] threatened to shut off services in your [...] often do you attend chur ch or church services? Never 08/27/2024 Do you belong to any clubs o r organizations such as yazidi groups, unions, fraternal or athletic groups, or [...] time in the past 12 m [facility], were you homeless or living in a skilled nursing (including now)? No 08/27/2024 Personal Safety Answer Date Recorded Have you ever been in or are you currently in a harmful physical or emotional relationship or is someone making you feel afraid or unsafe? 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 Gender Identity Not on file Sexual Orientation [...] oz) 07/03/2025 1:37 P M CDT Height 193 cm (6' 4) 07/02/2025 11:03 AM CDT Body Mass Index 24.84 07/02/2025 11:03 AM CDT Plan of Treatment Health Maintenance Due Date Last Done Comments Albumin Creatinine Ratio, Urine 1951 Colon Cancer Screening-Colonoscopy 1950 Depression Screening 1950 Hepatitis C Screening 1950 Dilated Eye Exam 1951 Foot Exam 1951 Lipid Panel 1951 Hepatitis B Screening 1969 Zoster Vaccine (1 of 2) 1970 Well Visit 65+ 2016 Pneumococcal vaccine 65+ (2 of 2 - PPSV23, PCV20, or PCV21) 08/21/2020 06/26/2020 Hemoglobin A1C 02/22/2025 08/25/2024 Covid-19 Vaccine (6 - 2024-2 6 season) 2025 07/14/2023, 08/09/2022, 07/27/2021, Additional history exists Influenza Vaccine (#1) 2025 , 07/07/2022, 06/29/2021, Additional history exists Fall Risk Assessment 07/03/2026 07/03/2025, 06/12/2025, 05/22/2025, Additional history exists eGFR 07/03/2026 07/03/2025, 06/03, 05/22/2025, Additional history exists DTaP/Tdap/Td Vaccine (2 - [...] kidney to other site (HCC) EGFR STAT 06/12/2025 1:39 PM CDT 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) DIFFERENTIAL AUTO STAT 06/12/2025 1:3 9 PM CDT 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) CBC WITH AUTO DIFFERENTIAL STAT 06/12/2025 1:39 PM CDT 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) COMPREHENSIVE METABOLIC PANEL STAT 06/12/2025 1:39 PM CDT 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) THYROID FUNCTION CASCADE Routine 06/12/2025 1:39 PM CDT 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) PROTEIN / CREATININE RATIO, URINE, RANDOM Routine 06/12/2025 1:39 PM CDT 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) CT CHEST ABDOMEN PELVIS W CONTRAST Schedule Routine, Read Routine (OP Routine) 06/11/2025 9:33 AM CDT 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) POCT CREATININE FOR CONTRAST EVALUATION Routine 06/11/2025 9:12 AM CDT PROTEIN / CREATININE RATIO, URINE, RANDOM Routine 05/22/2025 12:20 PM CDT 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) EGFR STAT 05/22/2025 12:12 PM CDT 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) DIFFERENTIAL AUTO STAT 05/22/2025 12: 12 PM CDT 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) THYROID FUNCTION CASCADE Routine 05/22/2025 12:12 PM CDT 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) COMPREHENSIVE METABOLIC PANEL STAT 05/22/2025 12:12 PM CDT 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) CBC WITH AUTO DIFFERENTIAL STAT 05/22/2025 12:12 PM CDT 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) PROTEIN / CREATININE RATIO, URINE, RANDOM Routine 05/01/2025 8:39 AM CDT 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) EGFR STAT 05/01/2025 8:31 AM CDT 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) DIFFERENTIAL AUTO STAT 05/01/2025 8:3 1 AM CDT 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) CBC WITH AUTO DIFFERENTIAL STAT 05/01/2025 8:31 AM CDT 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) COMPREHENSIVE METABOLIC PANEL STAT 05/01/2025 8:31 AM CDT 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) THYROID FUNCTION CASCADE Routine 05/01/2025 8:31 AM CDT 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) EGFR STAT 04/10/2025 7:54 AM CDT 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) DIFFERENTIAL AUTO STAT 04/10/2025 7:5 4 AM CDT 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) CBC WITH AUTO DIFFERENTIAL STAT 04/10/2025 7:54 AM CDT 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) COMPREHENSIVE METABOLIC PANEL STAT 04/10/2025 7:54 AM CDT 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 Current interpretive data was last revised 2019. Creatinine Ur 47.7 mg/dL [facility] Comment: Interpretive Data No reference range established. Current interpretive data was last revised 2019. Protein/creatinin e ratio 100.6 0.0 - 180.0 mg/g CR [facility] Urine 07/03/2025 1:19 PM CDT 07/03/2025 1:52 PM CDT Narrative [facility] - 07/03/2025 2:24 PM CDT No reference range established for random urine total protein. Pablo Perez MD LAB URINE ORDERABLES Final R esult [facility] [address] [place] [address] * eGFR (07/03/2025 1:18 PM CDT) eGFR [...] MD LAB BLOOD ORDERABLES Final R esult [facility] [address] [place] [address] * Differential, auto (07/03/2025 1:18 PM CDT) Neutrophil abs 3.08 1.50 - 6.50 K/cumm Imm gran abs 0.01 0.00 - 0.10 K/cumm [facility] Lymphocyte abs 0.89 0.80 - 3.30 K/cumm [facility] Monocyte abs 0.38 0.20 - 0.80 K/cumm [facility] Eosinophil abs 0.26 0.00 - 0.50 K/cumm [facility] Basophil abs 0.02 0.00 - 0.10 K/cumm [facility] Neutrophil pct 66.4 % [facility] Comment: Interpretive Data Percent cell count reference ranges are not reported, since discordance with absolute values may lead to misinterpretation of CBC data. Current Interpretive Data was last revised on 2018. Imm gran pct 0.2 % [facility] Comment: Interpretive Data Percent cell count reference ranges are not reported, since discordance with absolute values may lead to misinterpretation of CBC data. Current Interpretive Data was last revised on 2018. Lymphocyte pct 19.2 % [facility] Comment: Interpretive Data Percent cell count reference ranges are not reported, since discordance with absolute values may lead to misinterpretation of CBC data. Current Interpretive Data was last revised on 2018. Monocyte pct 8.2 % [facility] Comment: Interpretive Data Percent cell count reference ranges are not reported, since discordance with absolute values may lead to misinterpretation of CBC data. Current Interpretive Data was last revised on 2018. Eosinophil pct 5.6 % [facility] Comment: Interpretive Data Percent cell count reference ranges are not reported, since discordance with absolute values may lead to misinterpretation of CBC data. Current Interpretive Data was last revised on 2018. Basophil pct 0.4 % [facility] Comment: Interpretive Data Percent cell count reference ranges are not reported, since discordance with absolute values may lead to misinterpretation of CBC data. Current Interpretive Data was last revised on 2018. Blood 07/03/2025 1:18 PM CDT 07/03/2025 1:18 PM CDT Pablo Perez MD LAB BLOOD ORDERABLES Final R esult Performing Organization Address City/[facility]/ZIP Co de Phone Number [facility] [address] [place] [address] * Thyroid Function [place] (07/03/2025 1:18 PM CDT) Pathologist [facility] TSH 2.44 0.30 - 4.20 mcIUnit/mL Blood 07/03/2025 1:18 PM CDT 07/03/2025 1:52 PM CDT Pablo Perez MD LAB BLOOD ORDERABLES Final R esult Performing Organization Address City/[facility] Co de Phone Number [facility] [address] [place] [address] * (ABNORMAL) CBC with auto differential (07/03/2025 1:18 PM CDT) [facility] WBC 4.64 3.80 - 9.90 K/cumm Hgb 13.7 13.0 - 17.5 g/dL [facility] Hct 40.1 38.9 - 50.3 % [facility] Plt 117(L) 150 - 400 K/cumm [facility] MPV 9.1 9.1 - 12.3 fL [facility] RBC 4.57 4.30 - 5.80 M/cumm [facility] MCV 87.7 81.3 - 96.4 fL [facility] MCH 30.0 27.1 - 33.3 pg [facility] MCHC 34.2 32.3 - 35.7 g/dL [facility] RDW CV 13.5 11.1 - 14.9 % [facility] RDW SD 43.6 35.7 - 48.1 fL [facility] NRBC abs 0.00 0.00 - 0.01 K/cumm [facility] ANC Prelim 3.08 1.50 - 6.50 K/cumm [facility] Comment: Interpretive Data The rapid ANC is a preliminary automated count and may vary from the final ANC (Neut Abs) reported in the WBC differential that follows. Current interpretive data was last revised 2024. Blood 07/03/2025 1:18 PM CDT 07/03/2025 1:18 PM CDT Pablo Perez MD LAB BLOOD ORDERABLES Final R esult [facility] [address] [place] [address] * (ABNORMAL) Comprehensive metabolic panel (07/03/2025 1:18 PM CDT) Sodium 140 135 - 145 mmol/L Potassium, pl 4.4 3.3 - 4.9 mmol/L [facility] Chloride 102 97 - 110 mmol/L [facility] CO2 26 22 - 32 mmol/L [facility] Anion gap 12 2 - 15 mmol/L [facility] BUN 25 6 - 25 mg/dL [facility] Creatinine 1.15 0.80 - 1.30 mg/dL [facility] Glucose 233(H) 70 - 199 mg/dL [facility] Comment: Interpretive Data Fasting glucose >/= [...] 2022. Calcium 9.0 8.5 - 10.3 mg/dL [facility] Bilirubin, total 0.4 0.1 - 1.2 mg/dL [facility] Protein, pl 6.2(L) 6.5 - 8.5 g/dL [facility] Albumin 4.0 3.5 - 5.0 g/dL [facility] Alk phos 65 40 - 130 Units/L [facility] ALT 16 7 - 55 Units/L [facility] AST 14 10 - 50 Units/L [facility] Blood 07/03/2025 1:18 PM CDT 07/03/2025 1:52 PM CDT Pablo Perez MD LAB BLOOD ORDERABLES Final R esult Performing Organization Address City/[facility]/ZIP Co de Phone Number [facility] [address] [place] [address] * eGFR (06/12/2025 1:39 PM CDT) eGFR 68 >=60 mL/min/1. 73 m2 Comment: Interpretive Data [...] interpretive data was last reviewed 2021. Blood 06/12/2025 1:39 PM CDT 06/12/2025 2:20 PM CDT Pablo Perez MD LAB BLOOD ORDERABLES Final R esult [facility] [address] [place] [address] * Differential, auto (06/12/2025 1:39 PM CDT) Neutrophil abs 3.44 1.50 - 6.50 K/cumm Imm gran abs 0.01 0.00 - 0.10 K/cumm [facility] Lymphocyte abs 0.81 0.80 - 3.30 K/cumm [facility] Monocyte abs 0.37 0.20 - 0.80 K/cumm [facility] Eosinophil abs 0.39 0.00 - 0.50 K/cumm [facility] Basophil abs 0.02 0.00 - 0.10 K/cumm [facility] Neutrophil pct 68.3 % [facility] Comment: Interpretive Data Percent cell count reference ranges are not reported, since discordance with absolute values may lead to misinterpretation of CBC data. Current Interpretive Data was last revised on 2018. Imm gran pct 0.2 % [facility] Comment: Interpretive Data Percent cell count reference ranges are not reported, since discordance with absolute values may lead to misinterpretation of CBC data. Current Interpretive Data was last revised on 2018. Lymphocyte pct 16.1 % [facility] Comment: Interpretive Data Percent cell count reference ranges are not reported, since discordance with absolute values may lead to misinterpretation of CBC data. Current Interpretive Data was last revised on 2018. Monocyte pct 7.3 % [facility] Comment: Interpretive Data Percent cell count reference ranges are not reported, since discordance with absolute values may lead to misinterpretation of CBC data. Current Interpretive Data was last revised on 2018. Eosinophil pct 7.7 % [facility] Comment: Interpretive Data Percent cell count reference ranges are not reported, since discordance with absolute values may lead to misinterpretation of CBC data. Current Interpretive Data was last revised on 2018. Basophil pct 0.4 % [facility] Comment: Interpretive Data Percent cell count reference ranges are not reported, since discordance with absolute values may lead to misinterpretation of CBC data. Current Interpretive Data was last revised on 2018. Blood 06/12/2025 1:39 PM CDT 06/12/2025 1:39 PM CDT Pablo Perez MD LAB BLOOD ORDERABLES Final R esult Performing Organization Address City/[facility]/ZIP Co de Phone Number [facility] [address] [facility] [place] [address] * Thyroid Function [place] (06/12/2025 1:39 PM CDT) [facility] TSH 2.53 0.30 - 4.20 mcIUnit/mL Blood 06/12/2025 1:39 PM CDT 06/12/2025 2:20 PM CDT Pablo Perez MD LAB BLOOD ORDERABLES Final R esult Performing Organization Address [facility] Co de Phone Number [facility] [address] [place] [address] * (ABNORMAL) CBC with auto differential (06/12/2025 1:39 PM CDT) [facility] WBC 5.04 3.80 - 9.90 K/cumm Hgb 14.2 13.0 - 17.5 g/dL [facility] Hct 41.1 38.9 - 50.3 % [facility] Plt 126(L) 150 - 400 K/cumm [facility] MPV 9.1 9.1 - 12.3 fL [facility] RBC 4.72 4.30 - 5.80 M/cumm [facility] MCV 87.1 81.3 - 96.4 fL [facility] MCH 30.1 27.1 - 33.3 pg [facility] MCHC 34.5 32.3 - 35.7 g/dL [facility] RDW CV 13.2 11.1 - 14.9 % [facility] RDW SD 42.5 35.7 - 48.1 fL [facility] NRBC abs 0.00 0.00 - 0.01 K/cumm [facility] ANC Prelim 3.44 1.50 - 6.50 K/cumm [facility] Comment: Interpretive Data The rapid ANC is a preliminary automated count and may vary from the final ANC (Neut Abs) reported in the WBC differential that follows. Current interpretive data was last revised 2024. Blood 06/12/2025 1:39 PM CDT 06/12/2025 1:39 PM CDT Pablo Perez MD LAB BLOOD ORDERABLES Final R esult Performing Organization Address [facility] Co de Phone Number [facility] [address] Department of Laboratories [place], [place] [id number] * Protein / creatinine ratio, urine, random (06/12/2025 1:39 PM CDT) Pathologist [facility] Protein, ur, quant 4.1 mg/dL Comment: Interpretive Data No reference range established. Current interpretive data was last revised 2019. Creatinine Ur 41.3 mg/dL [facility] Comment: Interpretive Data No reference range established. Current interpretive data was last revised 2019. Protein/creatinin e ratio 99.3 0.0 - 180.0 mg/g CR [facility] Urine 06/12/2025 1:39 PM CDT 06/12/2025 2:20 PM CDT Narrative [facility] - 06/12/2025 2:48 PM CDT No reference range established for random urine total protein. Pablo Perez MD LAB URINE ORDERABLES Final R esult Performing Organization Address [facility] Co de Phone Number [facility] [address] Department of [employer] [place], [place] [id number] * (ABNORMAL) Comprehensive metabolic panel (06/12/2025 1:39 PM CDT) Pathologist [facility] Sodium 137 135 - 145 mmol/L Potassium, pl 4.5 3.3 - 4.9 mmol/L [facility] Chloride 102 97 - 110 mmol/L [facility] CO2 23 22 - 32 mmol/L [facility] Anion gap 12 2 - 15 mmol/L [facility] BUN 23 6 - 25 mg/dL [facility] Creatinine 1.13 0.80 - 1.30 mg/dL [facility] Glucose 195 70 - 199 mg/dL [facility] Comment: Interpretive Data Fasting glucose >/= [...] interpretive data was last revised 2022. Calcium 9.8 8.5 - 10.3 mg/dL [facility] Bilirubin, total 0.5 0.1 - 1.2 mg/dL [facility] Protein, pl 6.4(L) 6.5 - 8.5 g/dL [facility] Albumin 4.0 3.5 - 5.0 g/dL [facility] Alk phos 69 40 - 130 Units/L [facility] ALT 17 7 - 55 Units/L [facility] AST 20 10 - 50 Units/L [facility] Comment:Slightly Hemolyzed S pecimen Blood 06/12/2025 1:39 PM CDT 06/12/2025 2:20 PM CDT Pablo Perez MD LAB BLOOD ORDERABLES Final R esult [facility] [address] [place] [address] * CT Chest Abdomen Pelvis W Contrast (06/11/2025 9:33 AM CDT) Anatomical Region Laterality Modality Body N/A Computed Tomogra phy 06/11/2025 9:42 AM CDT Impressions 06/11/2025 9:[address] ABDOMEN AND PELVIS: Liver lesions are stable. There are changes of cholecystectomy with no bile duct dilatation. Pancreas is normal. Spleen is normal. Adrenal glands are normal. Enhancing mass in the left kidney is stable. There is stable left perinephric edema and mild thickening of the fascia. There is no invasion of the left renal pelvis. Low-attenuation right renal lesions are stable and consistent with cysts. Ureters are normal. Urinary bladder is incompletely distended with diffuse wall thickening, stable. Prostate gland is enlarged. There is no acute bowel abnormality. The appendix is normal. There is no ascites or lymphadenopathy. There are scattered calcifications in the aorta and iliac arteries with no aneurysm. Abdominal wall is intact. Inguinal regions are normal. 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 There is a stable lytic lesion along the right side of S1. Hemangiomas in the upper lumbar spine are grossly stable. There is no new aggressive bone lesion. IMPRESSION: 1. Stable bone lesions 2. Stable mass left kidney with perinephric edema and minimal thickening of renal fascia 3. Stable liver lesions 4. Stable diffuse urinary bladder wall thickening Electronically signed by: Marion Roach M.D. Narrative 06/11/2025 9:42 AM CDT EXAM: CT chest abdomen and pelvis with contrast HISTORY: Restaging metastatic kidney cancer COMPARISON: 2025 FINDINGS: CT chest abdomen and pelvis was performed with 96 mL Optiray [address] CHEST: Low-attenuation right lobe thyroid nodule is stable. Thoracic aorta is of normal caliber. There is trace coronary artery calcification. There is grossly normal perfusion of the pulmonary arteries. There is no thoracic lymphadenopathy. There is no pleural or pericardial effusion. Chest wall is normal. There is no suspicious pulmonary nodule. There is no infiltrate. There is trace subpleural scarring in the posterior upper lobes. Central airways are patent. There is stable infiltrative soft tissue involving upper to midthoracic spine vertebral bodies and dorsal elements. There is no new bone metastasis. Procedure Note Marion Roach MD - 06/11/2025 EXAM: CT chest abdomen and pelvis with contrast HISTORY: Restaging metastatic kidney cancer COMPARISON: 2025 FINDINGS: CT chest abdomen and pelvis was performed with 96 mL Optiray [address] CHEST: Low-attenuation right lobe thyroid nodule is stable. Thoracic aorta is of normal caliber. There is trace coronary artery calcification. There is grossly normal perfusion of the pulmonary arteries. There is no thoracic lymphadenopathy. There is no pleural or pericardial effusion. Chest wall is normal. There is no suspicious pulmonary nodule. There is no infiltrate. There is trace subpleural scarring in the posterior upper lobes. Central airways are patent. There is stable infiltrative soft tissue involving upper to midthoracic spine vertebral bodies and dorsal elements. There is no new bone metastasis. IMPRESSION: Stable CT ABDOMEN AND PELVIS: Liver lesions are stable. There are changes of cholecystectomy with no bile duct dilatation. Pancreas is normal. Spleen is normal. Adrenal glands are normal. Enhancing mass in the left kidney is stable. There is stable left perinephric edema and mild thickening of the fascia. There is no invasion of the left renal pelvis. Low-attenuation right renal lesions are stable and consistent with cysts. Ureters are normal. Urinary bladder is incompletely distended with diffuse wall thickening, stable. Prostate gland is enlarged. There is no acute bowel abnormality. The appendix is normal. There is no ascites or lymphadenopathy. There are scattered calcifications in the aorta and iliac arteries with no aneurysm. Abdominal wall is intact. Inguinal regions are normal. 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 There is a stable lytic lesion along the right side of S1. Hemangiomas in the upper lumbar spine are grossly stable. There is no new aggressive bone lesion. IMPRESSION: 1. Stable bone lesions 2. Stable mass left kidney with perinephric edema and minimal thickening of renal fascia 3. Stable liver lesions 4. Stable diffuse urinary bladder wall thickening Electronically signed by: Marion Roach M.D. Pablo Perez MD IMG CT PROCEDURES Final Resu lt * POCT creatinine for contrast evaluation (06/11/2025 9:12 AM CDT) [facility] Creatinine, POC 1.2 0.6 - 1.5 mg/dL Comment:eGFR: 65 Blood 06/11/2025 9:12 AM CDT Pablo Perez MD POINT OF CARE TEST ORDERABLE S Final Result * Protein / creatinine ratio, urine, random (05/22/2025 12:20 PM CDT) [facility] Protein, ur, quant 4.4 mg/dL Comment: Interpretive Data No reference range established. Current interpretive data was last revised 2019. Creatinine Ur 43.0 mg/dL [facility] Comment: Interpretive Data No reference range established. Current interpretive data was last revised 2019. Protein/creatinin e ratio 102.3 0.0 - 180.0 mg/g CR [facility] Urine 05/22/2025 12:2 0 PM CDT 05/22/2025 12:21 PM CDT Narrative [facility] - 05/22/2025 1:03 PM CDT No reference range established for random urine total protein. Pablo Perez MD LAB URINE ORDERABLES Final R esult [facility] [address] [place] [address] * eGFR (05/22/2025 12:12 PM CDT) [facility] eGFR 75 >=60 mL/min/1. 73 m2 Comment: [...] interpretive data was last reviewed 2021. Blood 05/22/2025 12:1 2 PM CDT 05/22/2025 12:37 PM CDT Pablo Perez MD LAB BLOOD ORDERABLES Final R esult [facility] [address] [place] [address] * (ABNORMAL) Differential, auto (05/22/2025 12:12 PM CDT) Neutrophil abs 4.31 1.50 - 6.50 K/cumm Imm gran abs 0.02 0.00 - 0.10 K/cumm [facility] Lymphocyte abs 0.78(L) 0.80 - 3.30 K/cumm [facility] Monocyte abs 0.40 0.20 - 0.80 K/cumm [facility] Eosinophil abs 0.39 0.00 - 0.50 K/cumm [facility] Basophil abs 0.02 0.00 - 0.10 K/cumm [facility] Neutrophil pct 72.8 % [facility] Comment: Interpretive Data Percent cell count reference ranges are not reported, since discordance with absolute values may lead to misinterpretation of CBC data. Current Interpretive Data was last revised on 2018. Imm gran pct 0.3 % [facility] Comment: Interpretive Data Percent cell count reference ranges are not reported, since discordance with absolute values may lead to misinterpretation of CBC data. Current Interpretive Data was last revised on 2018. Lymphocyte pct 13.2 % [facility] Comment: Interpretive Data Percent cell count reference ranges are not reported, since discordance with absolute values may lead to misinterpretation of CBC data. Current Interpretive Data was last revised on 2018. Monocyte pct 6.8 % [facility] Comment: Interpretive Data Percent cell count reference ranges are not reported, since discordance with absolute values may lead to misinterpretation of CBC data. Current Interpretive Data was last revised on 2018. Eosinophil pct 6.6 % [facility] Comment: Interpretive Data Percent cell count reference ranges are not reported, since discordance with absolute values may lead to misinterpretation of CBC data. Current Interpretive Data was last revised on 2018. Basophil pct 0.3 % [facility] Comment: Interpretive Data Percent cell count reference ranges are not reported, since discordance with absolute values may lead to misinterpretation of CBC data. Current Interpretive Data was last revised on 2018. Blood 05/22/2025 12:1 2 PM CDT 05/22/2025 12:12 PM CDT Pablo Perez MD LAB BLOOD ORDERABLES Final R esult Performing Organization Address City/[facility]/ZIP Co de Phone Number [facility] [address] [place] [address] * Thyroid Function [place] (05/22/2025 12:12 PM CDT) [facility] TSH 1.92 0.30 - 4.20 mcIUnit/mL Blood 05/22/2025 12:1 2 PM CDT 05/22/2025 12:37 PM CDT Pablo Perez MD LAB BLOOD ORDERABLES Final R esult Performing Organization Address City/[facility] Co de Phone Number [facility] [address] [place] [address] * (ABNORMAL) CBC with auto differential (05/22/2025 12:12 PM CDT) [facility] WBC 5.92 3.80 - 9.90 K/cumm Hgb 14.1 13.0 - 17.5 g/dL [facility] Hct 41.7 38.9 - 50.3 % [facility] Plt 124(L) 150 - 400 K/cumm [facility] MPV 8.7(L) 9.1 - 12.3 fL [facility] RBC 4.78 4.30 - 5.80 M/cumm [facility] MCV 87.2 81.3 - 96.4 fL [facility] MCH 29.5 27.1 - 33.3 pg [facility] MCHC 33.8 32.3 - 35.7 g/dL [facility] RDW CV 13.2 11.1 - 14.9 % [facility] RDW SD 42.6 35.7 - 48.1 fL [facility] NRBC abs 0.00 0.00 - 0.01 K/cumm [facility] ANC Prelim 4.31 1.50 - 6.50 K/cumm [facility] Comment: Interpretive Data The rapid ANC is a preliminary automated count and may vary from the final ANC (Neut Abs) reported in the WBC differential that follows. Current interpretive data was last revised 2024. Blood 05/22/2025 12:1 2 PM CDT 05/22/2025 12:12 PM CDT Pablo Perez MD LAB BLOOD ORDERABLES Final R esult [facility] [address] [place] [address] * (ABNORMAL) Comprehensive metabolic panel (05/22/2025 12:12 PM CDT) Sodium 139 135 - 145 mmol/L Potassium, pl 4.3 3.3 - 4.9 mmol/L [facility] Chloride 101 97 - 110 mmol/L [facility] CO2 26 22 - 32 mmol/L [facility] Anion gap 12 2 - 15 mmol/L [facility] BUN 21 6 - 25 mg/dL [facility] Creatinine 1.04 0.80 - 1.30 mg/dL [facility] Glucose 207(H) 70 - 199 mg/dL [facility] Comment: Interpretive Data Fasting glucose >/= [...] interpretive data was last revised 2022. Calcium 9.3 8.5 - 10.3 mg/dL [facility] Bilirubin, total 0.4 0.1 - 1.2 mg/dL [facility] Protein, pl 6.2(L) 6.5 - 8.5 g/dL [facility] Albumin 4.0 3.5 - 5.0 g/dL [facility] Alk phos 71 40 - 130 Units/L [facility] ALT 16 7 - 55 Units/L [facility] AST 16 10 - 50 Units/L [facility] Blood 05/22/2025 12:1 2 PM CDT 05/22/2025 12:37 PM CDT Pablo Perez MD LAB BLOOD ORDERABLES Final R esult Performing Organization Address [facility] Co de Phone Number [facility] [address] Department [place] [address] * Protein / creatinine ratio, urine, random (05/01/2025 8:39 AM CDT) [facility] Protein, ur, quant 7.1 mg/dL Comment: Interpretive Data No reference range established. Current interpretive data was last revised 2019. Creatinine Ur 101.7 mg/dL [facility] Comment: Interpretive Data No reference range established. Current interpretive data was last revised 2019. Protein/creatinin e ratio 69.8 0.0 - 180.0 mg/g CR [facility] Urine 05/01/2025 8:39 AM CDT 05/01/2025 8:39 AM CDT Narrative [facility] - 05/01/2025 9:20 AM CDT No reference range established for random urine total protein. Pablo Perez MD LAB URINE ORDERABLES Final R esult Performing Organization Address City/[facility]/ZIP Co de Phone Number [facility] [address] [place] [address] * (ABNORMAL) eGFR (05/01/2025 8:31 AM CDT) eGFR 58(L) >=60 mL/min/1. 73 m2 Comment: Interpretive Data [...] interpretive data was last reviewed 2021. Blood 05/01/2025 8:31 AM CDT 05/01/2025 8:52 AM CDT us Pablo Perez MD LAB BLOOD ORDERABLES Final R esult [facility] [address] [place] [address] * (ABNORMAL) Differential, auto (05/01/2025 8:31 AM CDT) Pathologist [facility] Neutrophil abs 2.71 1.50 - 6.50 K/cumm Imm gran abs 0.00 0.00 - 0.10 K/cumm [facility] Lymphocyte abs 0.70(L) 0.80 - 3.30 K/cumm [facility] Monocyte abs 0.32 0.20 - 0.80 K/cumm [facility] Eosinophil abs 0.35 0.00 - 0.50 K/cumm [facility] Basophil abs 0.01 0.00 - 0.10 K/cumm [facility] Neutrophil pct 66.3 % [facility] Comment: Interpretive Data Percent cell count reference ranges are not reported, since discordance with absolute values may lead to misinterpretation of CBC data. Current Interpretive Data was last revised on 2018. Imm gran pct 0.0 % [facility] Comment: Interpretive Data Percent cell count reference ranges are not reported, since discordance with absolute values may lead to misinterpretation of CBC data. Current Interpretive Data was last revised on 2018. Lymphocyte pct 17.1 % [facility] Comment: Interpretive Data Percent cell count reference ranges are not reported, since discordance with absolute values may lead to misinterpretation of CBC data. Current Interpretive Data was last revised on 2018. Monocyte pct 7.8 % [facility] Comment: Interpretive Data Percent cell count reference ranges are not reported, since discordance with absolute values may lead to misinterpretation of CBC data. Current Interpretive Data was last revised on 2018. Eosinophil pct 8.6 % [facility] Comment: Interpretive Data Percent cell count reference ranges are not reported, since discordance with absolute values may lead to misinterpretation of CBC data. Current Interpretive Data was last revised on 2018. Basophil pct 0.2 % [facility] Comment: Interpretive Data Percent cell count reference ranges are not reported, since discordance with absolute values may lead to misinterpretation of CBC data. Current Interpretive Data was last revised on 2018. Blood 05/01/2025 8:31 AM CDT 05/01/2025 8:31 AM CDT Pablo Perez MD LAB BLOOD ORDERABLES Final R esult Performing Organization Address City/[facility] Co de Phone Number [facility] [address] [place] [address] * Thyroid Function [place] (05/01/2025 8:31 AM CDT) TSH 3.08 0.30 - 4.20 mcIUnit/mL Blood 05/01/2025 8:31 AM CDT 05/01/2025 8:52 AM CDT Pablo Perez MD LAB BLOOD ORDERABLES Final R esult Performing Organization Address City/[facility]/ZIP Co de Phone Number [facility] [address] [place] [address] * (ABNORMAL) CBC with auto differential (05/01/2025 8:31 AM CDT) [facility] WBC 4.09 3.80 - 9.90 K/cumm Hgb 14.5 13.0 - 17.5 g/dL [facility] Hct 42.5 38.9 - 50.3 % [facility] Plt 121(L) 150 - 400 K/cumm [facility] MPV 9.2 9.1 - 12.3 fL [facility] RBC 4.81 4.30 - 5.80 M/cumm [facility] MCV 88.4 81.3 - 96.4 fL [facility] MCH 30.1 27.1 - 33.3 pg [facility] MCHC 34.1 32.3 - 35.7 g/dL [facility] RDW CV 13.4 11.1 - 14.9 % [facility] RDW SD 43.9 35.7 - 48.1 fL [facility] NRBC abs 0.00 0.00 - 0.01 K/cumm [facility] ANC Prelim 2.71 1.50 - 6.50 K/cumm [facility] Comment: Interpretive Data The rapid ANC is a preliminary automated count and may vary from the final ANC (Neut Abs) reported in the WBC differential that follows. Current interpretive data was last revised 2024. Blood 05/01/2025 8:31 AM CDT 05/01/2025 8:31 AM CDT Pablo Perez MD LAB BLOOD ORDERABLES Final R candelariojose [facility] [address] [place] [address] * (ABNORMAL) Comprehensive metabolic panel (05/01/2025 8:31 AM CDT) [facility] Sodium 142 135 - 145 mmol/L Potassium, pl 4.7 3.3 - 4.9 mmol/L [facility] Chloride 103 97 - 110 mmol/L [facility] CO2 26 22 - 32 mmol/L [facility] Anion gap 13 2 - 15 mmol/L [facility] BUN 25 6 - 25 mg/dL [facility] Creatinine 1.29 0.80 - 1.30 mg/dL [facility] Glucose 283(H) 70 - 199 mg/dL [facility] Comment: Interpretive Data Fasting glucose >/= [...] 2022. Calcium 8.9 8.5 - 10.3 mg/dL [facility] Bilirubin, total 0.5 0.1 - 1.2 mg/dL [facility] Protein, pl 6.3(L) 6.5 - 8.5 g/dL [facility] Albumin 4.0 3.5 - 5.0 g/dL [facility] Alk phos 74 40 - 130 Units/L [facility] ALT 20 7 - 55 Units/L [facility] AST 23 10 - 50 Units/L [facility] Comment:Slightly Hemolyzed S pecimen Blood 05/01/2025 8:31 AM CDT 05/01/2025 8:52 AM CDT Pablo Perez MD LAB BLOOD ORDERABLES Final R esult [facility] [address] [place] [address] * eGFR (04/10/2025 7:54 AM CDT) eGFR 77 >=60 mL/min/1. 73 m2 Comment: [...] interpretive data was last reviewed 2021. Blood 04/10/2025 7:54 AM CDT 04/10/2025 8:10 AM CDT Pablo Perez MD LAB BLOOD ORDERABLES Final R esult [facility] [address] Department of Laboratories [place], [place] [id number] * (ABNORMAL) Differential, auto (04/10/2025 7:54 AM CDT) Neutrophil abs 2.61 1.50 - 6.50 K/cumm Imm gran abs 0.01 0.00 - 0.10 K/cumm [facility] Lymphocyte abs 0.81 0.80 - 3.30 K/cumm [facility] Monocyte abs 0.34 0.20 - 0.80 K/cumm [facility] Eosinophil abs 0.57(H) 0.00 - 0.50 K/cumm [facility] Basophil abs 0.02 0.00 - 0.10 K/cumm [facility] Neutrophil pct 59.8 % [facility] Comment: Interpretive Data Percent cell count reference ranges are not reported, since discordance with absolute values may lead to misinterpretation of CBC data. Current Interpretive Data was last revised on 2018. Imm gran pct 0.2 % [facility] Comment: Interpretive Data Percent cell count reference ranges are not reported, since discordance with absolute values may lead to misinterpretation of CBC data. Current Interpretive Data was last revised on 2018. Lymphocyte pct 18.6 % [facility] Comment: Interpretive Data Percent cell count reference ranges are not reported, since discordance with absolute values may lead to misinterpretation of CBC data. Current Interpretive Data was last revised on 2018. Monocyte pct 7.8 % [facility] Comment: Interpretive Data Percent cell count reference ranges are not reported, since discordance with absolute values may lead to misinterpretation of CBC data. Current Interpretive Data was last revised on 2018. Eosinophil pct 13.1 % [facility] Comment: Interpretive Data Percent cell count reference ranges are not reported, since discordance with absolute values may lead to misinterpretation of CBC data. Current Interpretive Data was last revised on 2018. Basophil pct 0.5 % [facility] Comment: Interpretive Data Percent cell count reference ranges are not reported, since discordance with absolute values may lead to misinterpretation of CBC data. Current Interpretive Data was last revised on 2018. Blood 04/10/2025 7:54 AM CDT 04/10/2025 7:54 AM CDT Pablo Perez MD LAB BLOOD ORDERABLES Final R esult Performing Organization Address City/[facility]/ZIP Co de Phone Number [facility] [address] [place] [address] * Thyroid Function [place] (04/10/2025 7:54 AM CDT) TSH 3.38 0.30 - 4.20 mcIUnit/mL Blood 04/10/2025 7:54 AM CDT 04/10/2025 8:10 AM CDT Pablo Perez MD LAB BLOOD ORDERABLES Final R esult [facility] [address] [place] [address] * (ABNORMAL) CBC with auto differential (04/10/2025 7:54 AM CDT) [facility] WBC 4.36 3.80 - 9.90 K/cumm Hgb 14.2 13.0 - 17.5 g/dL [facility] Hct 42.4 38.9 - 50.3 % [facility] Plt 117(L) 150 - 400 K/cumm [facility] MPV 9.2 9.1 - 12.3 fL [facility] RBC 4.78 4.30 - 5.80 M/cumm [facility] MCV 88.7 81.3 - 96.4 fL [facility] MCH 29.7 27.1 - 33.3 pg [facility] MCHC 33.5 32.3 - 35.7 g/dL [facility] RDW CV 13.8 11.1 - 14.9 % [facility] RDW SD 45.0 35.7 - 48.1 fL [facility] NRBC abs 0.00 0.00 - 0.01 K/cumm [facility] ANC Prelim 2.61 1.50 - 6.50 K/cumm [facility] Comment: Interpretive Data The rapid ANC is a preliminary automated count and may vary from the final ANC (Neut Abs) reported in the WBC differential that follows. Current interpretive data was last revised 2024. Blood 04/10/2025 7:54 AM CDT 04/10/2025 7:54 AM CDT us Pablo Perez MD LAB BLOOD ORDERABLES Final R esult [facility] [address] [place] [address] * Protein / creatinine ratio, urine, random (04/10/2025 7:54 AM CDT) [facility] Protein, ur, quant 6.2 mg/dL Comment: Interpretive Data No reference range established. Current interpretive data was last revised 2019. Creatinine Ur 73.5 mg/dL [facility] Comment: Interpretive Data No reference range established. Current interpretive data was last revised 2019. Testing performed by: [facility], [address] [place] [address] Protein/creatinin e ratio 73.4 0.0 - 180.0 mg/g CR [facility] Comment:Testing performed by : [facility], [address] [place] [address] Urine 04/10/2025 7:54 AM CDT 04/10/2025 8:10 AM CDT Narrative [facility] - 04/10/2025 2:02 PM CDT No reference range established for random urine total protein. Pablo Perez MD LAB URINE ORDERABLES Final R esult [facility] [address] [place] [address] * (ABNORMAL) Comprehensive metabolic panel (04/10/2025 7:54 AM CDT) Sodium 141 135 - 145 mmol/L Potassium, pl 4.2 3.3 - 4.9 mmol/L [facility] Chloride 103 97 - 110 mmol/L [facility] CO2 26 22 - 32 mmol/L [facility] Anion gap 12 2 - 15 mmol/L [facility] BUN 19 6 - 25 mg/dL [facility] Creatinine 1.02 0.80 - 1.30 mg/dL [facility] Glucose 177 70 - 199 mg/dL [facility] Comment: Interpretive Data Fasting glucose >/= [...] 2022. Calcium 9.4 8.5 - 10.3 mg/dL [facility] Bilirubin, total 0.7 0.1 - 1.2 mg/dL [facility] Protein, pl 6.4(L) 6.5 - 8.5 g/dL [facility] Albumin 4.1 3.5 - 5.0 g/dL [facility] Alk phos 73 40 - 130 Units/L [facility] ALT 17 7 - 55 Units/L [facility] AST 18 10 - 50 Units/L [facility] Comment:Slightly Hemolyzed S pecimen Blood 04/10/2025 7:54 AM CDT 04/10/2025 8:10 AM CDT us Pablo Perez MD LAB BLOOD ORDERABLES Final R esult Performing Organization Address City/[facility]/ZIP Co de Phone Number [facility] [address] [place] [address] * (ABNORMAL) Hemoglobin A1c (08/25/2024 9:50 AM DISASSEMBLER) Hgb A1C 7.2(H) 4.0 - 5.6 % Estimated Average Glucose 160 mg/dL [facility] Comment: The ADA recommends reporting an estimated Average Glucose (eAG) with all Hemoglobin A1c results using the equation derived from a study of 507 normal and diabetic adults. Minority populations were underrepresented and children were not included. (Diabetes Care 31:[id number], 2008). The eAG is not equivalent to a fasting glucose. 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 er of Streetcar Repairer Helper-Medical * Full Code (Latest Code Status on File) Date Activated Date Inactivated Comments 08/25/2024 6:42 AM 09/03/2024 4:27 PM Care Teams Hydraulic Repairer Relationship Specialty Start Date End Date Sushma Willett MD [address] [place] [address] PCP - General Family Practice 05/30/24 Samm Boudreaux MD [address] [place] [address] Consulting Physician Radiation Oncology 07/06/24 Pablo Perez MD [address] [place] [address] Medical Oncologist/Horticulturalist Hematology and Oncology 07/06/24 Isaak Burgess MD [address] [address] Tabular Typist Cardiology 06/27/25
--- OUTSIDE RECORDS SUMMARY | 2025-07-04 10:37 | XMS_ITS | Encounter Summary ---
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 Gender Identity Not on file Sexual Orientation Not on file documented as of this encounter Plan of Treatment Not on file documented as of this encounter Visit Diagnoses Not on filedocumented in this encounter Care Teams Log Washer Relationship Specialty Start Date End Date Sushma Willett MD [address] [facility] [address] [place] [address] PCP - General Family Practice 05/30/24 Samm Boudreaux MD [address] [place] [address] Consulting Physician Radiation Oncology 07/06/24 Pablo Perez MD [address] [place] [address] Medical Oncologist/Turkey Roll Maker Hematology and Oncology 07/06/24 Isaak Burgess MD [address] [facility] [address] [place] [address] Teacher Asst Cardiology 06/27/25 documented as of this encounter
--- OUTSIDE RECORDS SUMMARY | 2025-07-04 10:37 | XMS_ITS ---
Author Organization [facility] Address [address] [place] [address] Care Team Providers Care Contract Clerk Name Role Phone Sushma Willett MD Primary Care Provider Samm Boudreaux MD Unavailable [phone] Pablo Perez MD Unavailable [phone] Isaak Burgess MD Unavailable Active Problems Problem Noted Date Diagnosed Date [...] Medications Current Day (Day 1 , Cycle 18 - Planned for 07/25/2025) Next Day (Day 1, Cycle 19 - Planned for 08/15/2025) lenvatinib (LENVIMA)pembrolizumab (KEYTRUDA)pembrolizumab (KEYTRUDA) IVPB in 100 [...]
--- OUTSIDE RECORDS SUMMARY | 2025-07-04 10:37 | XMS_ITS | Clinical Summary ---
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 Gender Identity Not on file Sexual Orientation Not on file Plan of Treatment Health Maintenance Due Date Last Done Comments Colorectal Cancer Screening Colonoscopy (10 Years) 1950 Hepatitis C 1969 Zoster Vaccines (1 of 2) 2001 Annual Medicare Wellness Visit 2016 Pneumococcal Vaccine: 50+ Years (2 of 2 - PPSV23) 06/26/2021 06/26/2020 COVID-19 Vaccine ( season) 2025 07/14/2023, 08/09/2022, 07/27/2021, Additional history exists Influenza Adult (#1) 2025 06/28/2024, 07/07/2022, 06/29/2021, Additional history exists RSV Immunization or 60+ Years (1 - 1-dose 75+ series) 2026 DTaP, Tdap and Td Vaccines (2 - Td or Tdap) 07/14/2033 07/14/2023 Meningococcal B Vaccine Aged Out No l onger eligible based on patient's age to complete this topic Meningococcal Vaccine Aged Out No isaiah tila eligible based on patient's age to complete this topic RSV Immunizations Under 20 Months Aged Out No longer eligible based on patient's age to complete this topic Insurance [employer] MEDICARE Care Teams Arts And Crafts Instructor Relationship Specialty Start Date End Date None, Provider, PCP - General UNKNOWN PHYSICIAN SPECIALTY 10/10/24
[2025-07-04 13:05] LABS: Hematocrit 44.4 % (42.0-52.0); Hemoglobin 14.5 g/dL (14.0-18.0); Immature Granulocyte Percent A 0.2 % (0-0.5); Immature Platelet Fraction Pct 1.7 % (0.9-11.2); Lymphocytes Absolute Auto 0.87 K/mm3 (0.9-3.2); Mean Corpuscular HGB Conc 32.7 g/dl (32-36); Mean Corpuscular Hemoglobin 29.5 pg (26-34); Mean Corpuscular Volume 90.4 fl (80-100); Nucleated Red Blood Cells Absolute Auto 0.000 K/mm3 (0.0-0.012); Nucleated Red Blood Cells Perc 0.0 % (0.0-0.2); Platelet Count Result 131 k/mm3 (150-375); Red Blood Count 4.91 M/mm3 (4.6-6.20); White Blood Count 4.2 K/mm3 (4.5-10.0)
[2025-07-04 13:18] LABS: Iron 84 ug/dL (49-181)
[2025-07-04 13:25] LABS: Alanine Aminotransferase 15 U/L (6-50); Albumin Level 4.1 g/dL (3.5-5.1); Alkaline Phosphatase 68 U/L (38-126); Anion Gap 7 mmol/L (4-12); Aspartate Amino Transferase 27 U/L (17-59); Bilirubin,Total 0.7 mg/dL (0.2-1.3); Blood Urea Nitrogen 24 mg/dL (9-20); Calcium 9.2 mg/dL (8.4-10.2); Carbon Dioxide 28 mmol/L (22-30); Chloride 103 mmol/L (98-107); Cholesterol 192 mg/dL (0-200); Estimated Glomerular Filt Rate 58; Glucose 140 mg/dL (65-110); HDL Direct 38 mg/dL; Potassium 4.3 mmol/L (3.4-5.0); Sodium 138 mmol/L (137-145); Total Protein 6.9 g/dL (6.3-8.2); Triglycerides 129 mg/dL (<150)
[2025-07-04 13:33] LABS: MALB Creatinine Ratio 8.3 mg/g (0-30)
[2025-07-04 13:35] LABS: Percent Iron Saturation 30 % (20-50)
[2025-07-04 13:59] LABS: Thyroid Stimulating Hormone Reflex 2.680 uIU/mL (0.465-4.68)
[2025-07-04 14:09] LABS: Ferritin 223.00 ng/mL (11.1-264)
[2025-07-04 14:37] LABS: Vitamin B12 370.0 pg/mL (239-931)
[2025-07-04 16:08] LABS: Hemoglobin A1C 7.3 % (<5.7)
== END 2025-07-04 10:06 | disposition home or self-care (01) ==
LOC: ANHGOSHLAB 10:05
PROVIDERS: PCP Family Medicine; Visit Provider Family Medicine
DX: E78.5 Hyperlipidemia, unspecified (principal); Z00.00 Encounter for general adult medical examination without abnormal findings; D64.9 Anemia, unspecified; E11.9 Type 2 diabetes mellitus without complications; I10 Essential (primary) hypertension; E55.9 Vitamin D deficiency, unspecified
CPT/HCPCS: 36415; 80053; 80061; 82043; 82306; 82607; 82728; 82746; 83036; 83540; 83550; 84443; 85025; 85055

== ENCOUNTER 2025-08-01 10:34 | Emergency (ER) | payer MEDICARE, SELFPAY ==
[2025-08-01 10:42] VITALS: BP 134/75; PULSE 91; RESP 16; TEMP 36.9; O2SAT 98
[2025-08-01 10:59] LABS: EDUAAPPEAR Cloudy; EDUABILI Negative (Negative); EDUABLOOD 2+ (Negative); EDUACOLOR1 Yellow; EDUAGLUCOSE 3+ (Negative); EDUAKETONE Trace (Negative); EDUALEUKO 1+ (Negative); EDUANITRATE Positive (Negative); EDUAPH 5.5; EDUAPROTEIN 3+ (Negative); EDUASPGRAVITY 1.025; EDUAUROBILI 0.2
--- NOTE | 2025-08-01 11:06 | ED.MALEGU ---
HPI - Male Genitourinary General Chief complaint: Urogenital-Male Stated complaint: Uti Symptoms Time Seen by Provider: 08/01/25 10:52 Source: patient, family (), RN notes reviewed and old records reviewed Mode of arrival: ambulatory Limitations: no limitations History of Present Illness HPI Narrative: 75-year-old male patient with history of left-sided renal cancer and urinary retention presents today complaining of a 2 day history some suprapubic pressure, fatigue, chills, reports some dark cloudy urine today. States he self caths every 4 hours but has been feeling like he needs to cath every 3 hours. Related Data Home Medications ?Medication ?Instructions ?Recorded ?Confirmed ?Last Taken ?Type tamsulosin 0.4 mg capsule 0.4 mg PO HS 06/28/24 07/04/25 08/23/24 18:00 History lenvatinib 10 mg/day (10 mg x 1) 10 mg PO DAILY 12/20/24 07/04/25 Unknown History capsule (Lenvima) Allergies Allergy/AdvReac Type Severity Reaction Status Date / Time No Known Allergies Allergy Verified 08/01/25 10:54 [facility] Past Medical History Medical History Cardiomyopathy Paroxysmal atrial fibrillation (~08/2024) 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 Urinary retention Left kidney mass History of colon polyps History of polyneuropathy (~1992) h/o numbness and weakness in legs ruled out MS Vitamin D deficiency Dyslipidemia Toe fracture 01/2015 ROMÁN (obstructive sleep apnea) Type 2 diabetes mellitus without complication, without long-term current use of insulin Essential (primary) hypertension Surgical History Surgical History History of incisional hernia repair (~03/2002) History of right inguinal hernia repair (~03/2017) [place] teeth extracted History of cholecystectomy (~1999) Family History Family History Father Carcinoma of colon, Onset Age: 61 Sibling Family history of type 2 diabetes mellitus Other Diabetes mellitus Family history of malignant neoplasm Social History Social History (Reviewed 08/01/25 @ 11:08 by Li Gaxiola, JAMSHID, SAIGE Smoking status: Never smoker Second hand tobacco smoke exposure: No Alcohol intake: former Drinks per week: 2 Alcohol use details: consumes 2 beers weekly Substance use: never Substance use type: does not use Do You Feel Safe in your Home?: Yes Lack of Transportation: No Lack of Food: Never True Current Housing: I Have Housing Concerned About Future Housing: No Difficulty Paying Gas/Electric Bills: No Difficulty Paying for Meds: No Currently Unemployed: No Education: High School Diploma/GED Difficulty w/ Childcare or Family Care: No Living arrangements: other Additional living arrangements comments: with sp Spiritual care concerns: No Agree to blood products: Yes Comments At time of signature, I have reviewed and agree with nursing past medical, surgical, social and family history unless otherwise noted. Please see nursing chart for further information. There is no relevant family history pertinent to the presenting complaint Exam Narrative: GENERAL: Well-appearing, well-nourished, and in no acute distress. HEAD: Normocephalic, atraumatic. EYES: EOMI. No redness or drainage. Conjunctivae normal. ENT: Mucous membranes pink and moist. NECK: Normal AROM. CHEST: No respiratory distress. Clear to auscultation. HEART: Regular rate and rhythm. No murmur appreciated. Normal peripheral pulses. ABDOMEN: Soft, nontender, nondistended, normal active bowel sounds. -CVAT EXTREMITIES: Normal range of motion. No edema. SKIN: Warm, dry, no rash. Capillary refill normal. Normal skin turgor. NEURO: No focal deficits. Alert and oriented x3. Gait steady. PSYCH: Normal affect. No signs of depression or anxiety. Course Course Level of Care: Express Care Visit Vital Signs Vital signs: Vital Signs Temperature 98.4 F 08/01/25 10:42 Pulse Rate 91 08/01/25 10:42 Respiratory Rate 16 08/01/25 10:42 Blood Pressure 134/75 08/01/25 10:42 Pulse Oximetry 98 08/01/25 10:42 Temperature 98.4 F 08/01/25 10:42 Pulse Rate 91 08/01/25 10:42 Respiratory Rate 16 08/01/25 10:42 Blood Pressure 134/75 08/01/25 10:42 Pulse Oximetry 98 08/01/25 10:42 Reviewed MDM - Male Genitourinary MDM Narrative Medical decision making narrative: 75-year-old male patient with history of left-sided renal cancer and urinary retention presents today complaining of a 2 day history some suprapubic pressure, fatigue, chills, reports some dark cloudy urine today. States he self caths every 4 hours but has been feeling like he needs to cath every 3 hours. Normal physical exam. UA shows 3+ glucose, trace ketones, 2+ blood, 3+ protein, positive nitrites, 1+ leukocytes. Culture pending. Patient will be treated for acute UTI with Augmentin. Patient agrees with plan. Vital signs stable. Anticipatory guidance and ED precautions given. Lab Data Attestation: I reviewed the patient's lab results. Labs: Lab Results 08/01/25 Range/Units 10:57 POC Urine Color Yellow POC Urine Clarity Cloudy POC Urine pH 5.5 POC Ur Specif [place] 1.025 POC Urine Protein 3+ (Negative) POC Ur Glucose (UA) 3+ (Negative) POC Urine Ketones Trace (Negative) POC Urine Blood 2+ (Negative) POC Urine Nitrite Positive (Negative) POC Urine Bilirubin Negative (Negative) POC Urine Urobilinogen 0.2 POC U Leukocyte Esteras 1+ (Negative) Critical Care Time Critical Care Time Critical Care Time: No Discharge Plan Discharge Clinical Impression: UTI (urinary tract infection) Qualifiers: Urinary tract infection type: acute cystitis Hematuria presence: with hematuria Qualified Code(s): N30.01 - Acute cystitis with hematuria Patient Disposition: Home Condition: Stable Instructions: Antibiotic Form, Urinary Tract Infection in Men (ED) Additional Instructions: Your urine shows infection today. Take Augmentin as prescribed until gone. Your urine will be sent of for a culture to identify what type of bacteria is causing your infection. If the culture shows that your medication will not get rid of your infection, you will be notified and a new antibiotic will be called in for you. If your symptoms worsen to include fever, sweats, chills, nausea, vomiting, severe abdominal or back pain, please go to the ER for further evaluation. Patient Language: Arabic Prescriptions: New amoxicillin-pot clavulanate 875-125 mg tablet 1 tablet PO Q12H 7 Days Qty: 14 0RF No Action Lenvima 10 mg/day (10 mg x 1) capsule 10 mg PO DAILY Keytruda 25 mg/mL solution 200 mg IV .[id number] Rx Instructions: administer over 30 mins tamsulosin 0.4 mg capsule 0.4 mg PO [facility] (DME) OneTouch Ultra Test Strip See Rx Instructions .Route Qty: 100 2RF Rx Instructions: Use to check BS every morning and as needed losartan-hydrochlorothiazide 100-25 mg tablet 1 tablet PO DAILY Qty: 90 1RF glipizide 10 mg tablet extended release 24hr 10 mg PO DAILY Qty: 90 1RF metformin 500 mg tablet extended release 24 hr 500 mg PO BID Qty: 180 1RF ezetimibe 10 mg tablet 10 mg PO DAILY Qty: 90 1RF spironolactone 25 mg tablet 25 mg PO DAILY Qty: 90 1RF carvedilol 6.25 mg tablet 6.25 mg PO BID Qty: 180 1RF Jardiance 10 mg tablet 10 mg PO DAILY Qty: 90 1RF Follow-up/Referrals: Leroy Willett MD [Primary Care Provider, Family Practice] Time of Disposition: 11:12
== END 2025-08-01 11:19 | disposition home or self-care (01) ==
PROVIDERS: Emergency Provider Nurse Practitioner; PCP Family Medicine
DX: N30.01 Acute cystitis with hematuria (principal); I48.0 Paroxysmal atrial fibrillation; E11.9 Type 2 diabetes mellitus without complications; I10 Essential (primary) hypertension
CPT/HCPCS: 81003; 87077; 87086; 87186; 99213; G0463

== ENCOUNTER 2025-08-19 16:13 | Emergency (ER) | payer MEDICARE, SELFPAY ==
--- NOTE | ~2025-08-19 | CT_ITS ---
EXAMINATION: CT abdomen pelvis wo con DATE: 08/19/2025 18:59 INDICATION: Lower abdominal pain. Possible UTI. History of kidney cancer. TECHNIQUE: Computed tomography (CT) of the abdomen and pelvis was performed without intravenous contrast. Automated exposure control and iterative reconstruction technique were employed. The dose-length product was 445.71 mGy-cm. COMPARISON: CT dated 05/21/2024. FINDINGS: The lung bases do not show acute findings. Normal size liver and spleen. Gallbladder is surgically absent. Pancreas shows no acute findings. The right kidney shows no obstructive changes. Stable, 2.5 cm cyst in the upper pole of right kidney. Left kidney shows irregular 3.5 cm size exophytic mass compared with 5.9 cm size mass on 05/21/2024. No evidence of retroperitoneal adenopathy or ascites. No evidence of small bowel obstruction. No inflammatory changes in the pelvis. Fecal impaction of the rectum. IMPRESSION: 1. Limited noncontrast examination is not optimal to evaluate neoplasms, vascular structures, solid viscera. 2. Partially hyperdense mass of the left kidney, 3.5 cm in size is smaller compared with the previous CT examination of 12/20/2023. No obstructive changes of the kidneys are seen. Areas of increased density within the left renal mass may represent hemorrhagic changes. Overall size of the mass is smaller compared with previous CT examination of 05/21/2024. 3. No inflammatory changes in the pelvis. Mild diffuse fecal impaction. 4. Degenerative disc disease and minimal spondylolisthesis at L5-S1 level. Reviewed, dictated and finalized at location T. E DIRECTOR IMPRESSION: 1. Limited noncontrast examination is not optimal to evaluate neoplasms, vascul ar structures, solid viscera. 2. Partially hyperdense mass of the left kidney, 3.5 cm in size is smaller comp ared with the previous CT examination of 12/20/2023. No obstructive changes of t he kidneys are seen. Areas of increased density within the left renal mass may represent hemorrhagic changes. Overall size of the mass is smaller compared wit h previous CT examination of 05/21/2024. 3. No inflammatory changes in the pelvis. Mild diffuse fecal impaction. 4. Degenerative disc disease and minimal spondylolisthesis at L5-S1 level.
[2025-08-19 16:17] VITALS: BP 135/73; PULSE 73; RESP 21; TEMP 36.9; O2SAT 98
[2025-08-19 17:31] VITALS: BP 116/72; PULSE 74; RESP 16; O2SAT 97
--- NOTE | 2025-08-19 18:23 | ED.MALEGU ---
HPI - Male Genitourinary General Chief complaint: Urogenital-Male <ROBBIE Jay Last Filed: 08/19/25 18:39> Stated complaint: stuff in my urine <ROBBIE Jay Last Filed: 08/19/25 18:39> Time Seen by Provider: 08/19/25 18:25 <ROBBIE Jay Last Filed: 08/19/25 18:39> Focused HPI: Patient is a 75 y/o male who presents to the ED with c/o urinary trouble. Patient reports hx of frequent UTIs. He self-caths himself every 4 hours. Reports having intermittent pain in his lower abdomen for the past few weeks. Was diagnosed with UTI end of July. Seen at . Started on augmentin at that time. Cx did show positive for E.coli, sensitive to amoxicillin. States today, he began feeling confused and weak, having difficulty ambulating. He states this feels similar to when he was very sick with a UTI last year. States urine has been alegria/brown. Denies hematuria. Denies N/V, fevers. Receives Keytruda infusions every 3 weeks and takes Lenvima orally daily for L kidney CA. GENERAL: Elderly, somewhat frail, and in no acute distress. HEAD: Normocephalic, atraumatic. CHEST: Clear to auscultation. ?No respiratory distress. HEART: Regular rate and rhythm.? ABD: No significant focal tenderness. Normoactive BS NEURO: ?Alert and oriented x3. Patient screened in triage and initial orders placed.? ?Additional care and disposition to be based upon?diagnostic testing and treatment. <ROBBIE Jay Last Filed: 08/19/25 18:39> Source: patient <ROBBIE Jay Last Filed: 08/19/25 18:39> Mode of arrival: ambulatory <ROBBIE Jay Last Filed: 08/19/25 18:39> Limitations: no limitations <ROBBIE Jay Last Filed: 08/19/25 18:39> History of Present Illness HPI Narrative: Agree with above HPI. <OLIVA Etienne Last Filed: 08/20/25 03:21> Related Data Home medications: Home Medications ?Medication ?Instructions ?Recorded ?Confirmed ?Last Taken ?Type tamsulosin 0.4 mg capsule 0.4 mg PO [facility] 06/28/24 07/04/25 08/23/24 18:00 History lenvatinib 10 mg/day (10 mg x 1) 10 mg PO DAILY 12/20/24 07/04/25 Unknown History capsule (Lenvima) <Magaly Cueva PA-C - Last Filed: 08/19/25 18:39> Allergies/Adverse reactions: Allergies Allergy/AdvReac Type Severity Reaction Status Date / Time [id number] Reductase AdvReac Mild Muscle Pain Verified 08/19/25 16:20 Inhibitor <Magaly Cueva PA-C - Last Filed: 08/19/25 18:39> Review of Systems Review of Systems: All systems reviewed & are unremarkable except as noted in HPI and below <OLIVA Etienne Last Filed: 08/20/25 03:21> [facility] Past Medical History Medical History: Medical History (Updated 08/20/25 @ 00:00 by Parris Chaudhry) Statin myopathy Cardiomyopathy Paroxysmal atrial fibrillation (~08/2024) 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 Urinary retention Left kidney mass History of colon polyps History of polyneuropathy (~1992) h/o numbness and weakness in legs ruled out MS Vitamin D deficiency Dyslipidemia Toe fracture 01/2015 ROMÁN (obstructive sleep apnea) Type 2 diabetes mellitus without complication, without long-term current use of insulin Essential (primary) hypertension <ROBBIE Jay Last Filed: 08/19/25 18:39> Surgical History Surgical History: Surgical History History of incisional hernia repair (~03/2002) History of right inguinal hernia repair (~03/2017) [place] teeth extracted History of cholecystectomy (~1999) <ROBBIE Jay Last Filed: 08/19/25 18:39> Family History Family History: Family History Father Carcinoma of colon, Onset Age: 61 Sibling Family history of type 2 diabetes mellitus Other Diabetes mellitus Family history of malignant neoplasm <Magaly Cueva PA-C - Last Filed: 08/19/25 18:39> Social History Social History: Social History Smoking status: Never smoker Second hand tobacco smoke exposure: No Alcohol intake: former Drinks per week: 2 Alcohol use details: consumes 2 beers weekly Substance use: never Substance use type: does not use Do You Feel Safe in your Home?: Yes Lack of Transportation: No Lack of Food: Never True Current Housing: I Have Housing Concerned About Future Housing: No Difficulty Paying Gas/Electric Bills: No Difficulty Paying for Meds: No Currently Unemployed: No Education: High School Diploma/GED Difficulty w/ Childcare or Family Care: No Living arrangements: other Additional living arrangements comments: with sp Spiritual care concerns: No Agree to blood products: Yes <Magaly Cueva PA-C - Last Filed: 08/19/25 18:39> Exam Narrative: GENERAL: Well-nourished and in no acute distress. HEAD: Normocephalic, atraumatic. EYES: PERRLA and EOMI. ENT: Nares clear, no rhinorrhea or epistaxis. Mucous membranes moist. Oropharynx without tonsillar hypertrophy exudate or other lesions. Bilateral TMs pearly vaca non-bulging NECK: Supple. No adenopathy or masses. No carotid bruits or JVD CHEST: Clear to auscultation. No respiratory distress. No wheezes rales or rhonchi HEART: Regular rate and rhythm. No murmur heard. Normal peripheral pulses. ABDOMEN: Soft, mild suprapubic tenderness, nondistended, normal active bowel sounds. EXTREMITIES: Normal range of motion. No edema. SKIN: Warm, dry, no rash. NEURO: No focal deficits. Alert and oriented x3. PSYCH: Normal mood and affect <OLIVA Etienne - Last Filed: 08/20/25 03:21> Course Vital Signs Vital signs: Vital Signs Temperature 98.4 F 08/19/25 16:17 Pulse Rate 73 08/19/25 16:17 Respiratory Rate 21 H 08/19/25 16:17 Blood Pressure 135/73 08/19/25 16:17 Pulse Oximetry 98 08/19/25 16:17 Oxygen Delivery Room Air 08/19/25 16:17 Temperature 98.4 F 08/19/25 16:17 Pulse Rate 76 08/19/25 23:26 Respiratory Rate 14 08/19/25 23:26 Blood Pressure 130/73 08/19/25 23:26 Pulse Oximetry 97 08/19/25 23:26 Oxygen Delivery Room Air 08/19/25 16:17 <Magaly Cueva PA-C - Last Filed: 08/19/25 18:39> Vital Signs Temperature 98.4 F 08/19/25 16:17 Pulse Rate 73 08/19/25 16:17 Respiratory Rate 21 H 08/19/25 16:17 Blood Pressure 135/73 08/19/25 16:17 Pulse Oximetry 98 08/19/25 16:17 Oxygen Delivery Room Air 08/19/25 16:17 Temperature 98.4 F 08/19/25 16:17 Pulse Rate 76 08/19/25 23:26 Respiratory Rate 14 08/19/25 23:26 Blood Pressure 130/73 08/19/25 23:26 Pulse Oximetry 97 08/19/25 23:26 Oxygen Delivery Room Air 08/19/25 16:17 <OLIVA Etienne Last Filed: 08/20/25 03:21> MDM - Male Genitourinary MDM Narrative Medical decision making narrative: MSE by KEL in triage. <ROBBIE Jay Last Filed: 08/19/25 18:39> MSE by KEL in triage. Patient is a 75 y/o male who presents to the ED with c/o urinary trouble. Patient reports hx of frequent UTIs. He self-caths himself every 4 hours. Reports having intermittent pain in his lower abdomen for the past few weeks. Was diagnosed with UTI end of July. Seen at . Started on augmentin at that time. Cx did show positive for E.coli, sensitive to amoxicillin. States today, he began feeling confused and weak, having difficulty ambulating. He states this feels similar to when he was very sick with a UTI last year. States urine has been alegria/brown. Denies hematuria. Denies N/V, fevers. Receives Keytruda infusions every 3 weeks and takes Lenvima orally daily for L kidney CA. Patient relays that he feels like the UTI he had the end of July never fully cleared. He states that he feels foggy but he is A&O x3. He refuses any pain medication. Administered 1 L normal saline for mild CMP changes. No leukocytosis, stable H&H, and no fevers. UA does demonstrate signs of UTI. Given first dose of Macrobid and sending a prescription. CT demonstrates no inflammatory changes in the pelvis. Mild diffuse fecal impaction. Degenerative disc disease and minimal spondylolisthesis at L5-S1 level. No focal neurological deficits. CT also noted kidney mass has gotten smaller. Patient made aware of mild fecal impaction and denied disimpaction. Patient ambulated well as nursing staff. Patient agrees with discussion and after shared medical decision making agrees with plan of care. All questions were answered to the patient's satisfaction. The patient is appropriate for outpatient treatment and follow-up. Given reasons to return. <OLIVA Etienne - Last Filed: 08/20/25 03:21> Medical Records Attestation: I reviewed the patient's medical records. <OLIVA Etienne - Last Filed: 08/20/25 03:21> Lab Data Attestation: I reviewed the patient's lab results. <OLIVA Etienne - Last Filed: 08/20/25 03:21> Result diagrams: 08/19/25 20:21 08/19/25 20:21 <Magaly Cueva PA-C - Last Filed: 08/19/25 18:39> Labs: Lab Results 08/19/25 08/19/25 Range/Units 20:21 21:12 WBC 8.6 (4.5-10.0) K/mm3 RBC 5.02 (4.6-6.20) M/mm3 Hgb 14.7 (14.0-18.0) g/dL Hct 44.6 (42.0-52.0) % MCV 88.8 (80-100) fl MCH 29.3 (26-34) pg MCHC 33.0 (32-36) g/dl RDW 14.0 (11.5-14.5) % Plt Count 145 L (150-375) k/mm3 MPV 8.9 (7.4-10.4) fl Immature Gran % (Auto) 0.3 (0-0.5) % Neut % (Auto) 77.6 H (45.5-73.1) % Lymph % (Auto) 10.0 L (18.3-44.2) % [place] % (Auto) 9.6 H (2.6-8.5) % Eos % (Auto) 2.3 (0-4.4) % Baso % (Auto) 0.2 (0.2-1.2) % Lymph # (Auto) 0.86 L (0.9-3.2) K/mm3 [place] # (Auto) 0.8 H (0.1-0.6) K/mm3 Eos # (Auto) 0.2 (0-0.3) K/mm3 Baso # (Auto) 0.0 (0.0-0.1) K/mm3 Abs Immat Gran (auto) 0.03 (0.00-0.031) K/mm3 Absolute Neuts (auto) 6.7 (1.3-6.7) K/mm3 Absolute Nucleated RBC 0.000 (0.0-0.012) K/mm3 Nucleated RBC % 0.0 (0.0-0.2) % Sodium 137 (137-145) mmol/L Potassium 4.2 (3.4-5.0) mmol/L Chloride 99 (98-107) mmol/L Carbon Dioxide 28 (22-30) mmol/L Anion Gap 10 (4-12) mmol/L BUN 33 H (9-20) mg/dL Creatinine 1.44 H (0.7-1.3) mg/dL Estim Creat Clear Calc 50 ml/min Estimated GFR 48 L (59 - ) Glucose 193 H (65-110) mg/dL Lactic Acid 1.2 (0.7-2.0) mmol/L Calcium 9.6 (8.4-10.2) mg/dL Total Bilirubin 1.1 (0.2-1.3) mg/dL AST 22 (17-59) U/L ALT 17 (6-50) U/L Alkaline Phosphatase 80 (38-126) U/L Total Protein 7.8 (6.3-8.2) g/dL Albumin 4.5 (3.5-5.1) g/dL Urine Color Yellow (Yellow) Urine Appearance Cloudy H (Clear) Urine pH 5.0 (5.0-9.0) Ur Specific [place] 1.024 (1.001-1.035) Urine Protein 1+ H (Negative) mg/dL Urine Glucose (UA) 3+ H (Negative) mg/dL Urine Ketones Trace H (Negative) mg/dL Ur Blood (Man) 2+ H (Negative) Urine Nitrate Negative (Negative) Urine Bilirubin Negative (Negative) Urine Urobilinogen 0.2 (<2.0) mg/dL Leukocyte Esterase Rfl 1+ H (Negative) CHEYANNE/UL Urine RBC 3-5 H (0-2) /hpf Urine WBC >100 H (0-3) /hpf Ur Squamous Epith Cells None seen (Few) /hpf Urine Bacteria 4+ H /hpf Urine Casts 0-2 <Magaly Cueva PA-C - Last Filed: 08/19/25 18:39> Lab Results 08/19/25 08/19/25 Range/Units 20:21 21:12 WBC 8.6 (4.5-10.0) K/mm3 RBC 5.02 (4.6-6.20) M/mm3 Hgb 14.7 (14.0-18.0) g/dL Hct 44.6 (42.0-52.0) % MCV 88.8 (80-100) fl MCH 29.3 (26-34) pg MCHC 33.0 (32-36) g/dl RDW 14.0 (11.5-14.5) % Plt Count 145 L (150-375) k/mm3 MPV 8.9 (7.4-10.4) fl Immature Gran % (Auto) 0.3 (0-0.5) % Neut % (Auto) 77.6 H (45.5-73.1) % Lymph % (Auto) 10.0 L (18.3-44.2) % [place] % (Auto) 9.6 H (2.6-8.5) % Eos % (Auto) 2.3 (0-4.4) % Baso % (Auto) 0.2 (0.2-1.2) % Lymph # (Auto) 0.86 L (0.9-3.2) K/mm3 [place] # (Auto) 0.8 H (0.1-0.6) K/mm3 Eos # (Auto) 0.2 (0-0.3) K/mm3 Baso # (Auto) 0.0 (0.0-0.1) K/mm3 Abs Immat Gran (auto) 0.03 (0.00-0.031) K/mm3 Absolute Neuts (auto) 6.7 (1.3-6.7) K/mm3 Absolute Nucleated RBC 0.000 (0.0-0.012) K/mm3 Nucleated RBC % 0.0 (0.0-0.2) % Sodium 137 (137-145) mmol/L Potassium 4.2 (3.4-5.0) mmol/L Chloride 99 (98-107) mmol/L Carbon Dioxide 28 (22-30) mmol/L Anion Gap 10 (4-12) mmol/L BUN 33 H (9-20) mg/dL Creatinine 1.44 H (0.7-1.3) mg/dL Estim Creat Clear Calc 50 ml/min Estimated GFR 48 L (59 - ) Glucose 193 H (65-110) mg/dL Lactic Acid 1.2 (0.7-2.0) mmol/L Calcium 9.6 (8.4-10.2) mg/dL Total Bilirubin 1.1 (0.2-1.3) mg/dL AST 22 (17-59) U/L ALT 17 (6-50) U/L Alkaline Phosphatase 80 (38-126) U/L Total Protein 7.8 (6.3-8.2) g/dL Albumin 4.5 (3.5-5.1) g/dL Urine Color Yellow (Yellow) Urine Appearance Cloudy H (Clear) Urine pH 5.0 (5.0-9.0) Ur Specific [place] 1.024 (1.001-1.035) Urine Protein 1+ H (Negative) mg/dL Urine Glucose (UA) 3+ H (Negative) mg/dL Urine Ketones Trace H (Negative) mg/dL Ur Blood (Man) 2+ H (Negative) Urine Nitrate Negative (Negative) Urine Bilirubin Negative (Negative) Urine Urobilinogen 0.2 (<2.0) mg/dL Leukocyte Esterase Rfl 1+ H (Negative) [place]/UL Urine RBC 3-5 H (0-2) /hpf Urine WBC >100 H (0-3) /hpf Ur Squamous Epith Cells None seen (Few) /hpf Urine Bacteria 4+ H /hpf Urine Casts 0-2 <OLIVA Etienne Last Filed: 08/20/25 03:21> Imaging Data Attestation: I personally reviewed and interpreted this imaging study as follows: <OLIVA Etienne Last Filed: 08/20/25 03:21> Radiologist's impression: ITS Impressions Abdomen/Pelvis CT 08/19/25 19:00 IMPRESSION: 1. Limited noncontrast examination is not optimal to evaluate neoplasms, vascular structures, solid viscera. 2. Partially hyperdense mass of the left kidney, 3.5 cm in size is smaller compared with the previous CT examination of 12/20/2023. No obstructive changes of the kidneys are seen. Areas of increased density within the left renal mass may represent hemorrhagic changes. Overall size of the mass is smaller compared with previous CT examination of 05/21/2024. 3. No inflammatory changes in the pelvis. Mild diffuse fecal impaction. 4. Degenerative disc disease and minimal spondylolisthesis at L5-S1 level. <OLIVA Etienne Last Filed: 08/20/25 03:21> Discharge Plan Discharge Clinical Impression: Constipation Urinary tract infection Qualifiers: Urinary tract infection type: acute cystitis Hematuria presence: without hematuria Qualified Code(s): N30.00 - Acute cystitis without hematuria <ROBBIE Jay Last Filed: 08/19/25 18:39> Patient Disposition: Home <ROBBIE Jay Last Filed: 08/19/25 18:39> Condition: Stable <ROBBIE Jay Last Filed: 08/19/25 18:39> Instructions: Antibiotic Form, Constipation (ED), Urinary Tract Infection in Men (ED) <ROBBIE Jay Last Filed: 08/19/25 18:39> Additional Instructions: Return to the emergency department if you experience fever, abdominal pain with nausea and vomiting, you are unable to have a bowel movement, blood in the stool, fevers, or any other symptoms that are concerning to you Take Colace daily. Miralax once daily. Increase water intake. Take antibiotic as described. Follow up with your primary care doctor. <ROBBIE Jay Last Filed: 08/19/25 18:39> Patient Language: Albanian <ROBBIE Jay Last Filed: 08/19/25 18:39> Prescriptions: New nitrofurantoin macrocrystal 100 mg capsule 100 mg PO Q12H Qty: 10 0RF Rx Instructions: must administer with a meal/food No Action amoxicillin-pot clavulanate 875-125 mg tablet 1 tablet PO Q12H 7 Days Qty: 14 0RF Lenvima 10 mg/day (10 mg x 1) capsule 10 mg PO DAILY Keytruda 25 mg/mL solution 200 mg IV .[id number] Rx Instructions: administer over 30 mins tamsulosin 0.4 mg capsule 0.4 mg PO [facility] (DME) OneTouch Ultra Test Strip See Rx Instructions .Route Qty: 100 2RF Rx Instructions: Use to check BS every morning and as needed glipizide 10 mg tablet extended release 24hr 10 mg PO DAILY Qty: 90 1RF metformin 500 mg tablet extended release 24 hr 500 mg PO BID Qty: 180 1RF ezetimibe 10 mg tablet 10 mg PO DAILY Qty: 90 1RF spironolactone 25 mg tablet 25 mg PO DAILY Qty: 90 1RF carvedilol 6.25 mg tablet 6.25 mg PO BID Qty: 180 1RF Jardiance 10 mg tablet 10 mg PO DAILY Qty: 90 1RF losartan-hydrochlorothiazide 100-25 mg tablet 1 tablet PO DAILY Qty: 90 1RF <ROBBIE Jay Last Filed: 08/19/25 18:39> Follow-up/Referrals: Leroy Willett MD [Primary Care Provider, Family Practice] <Magaly Cueva PA-C - Last Filed: 08/19/25 18:39>
[2025-08-19 20:26] LABS: Hematocrit 44.6 % (42.0-52.0); Hemoglobin 14.7 g/dL (14.0-18.0); Immature Granulocyte Percent A 0.3 % (0-0.5); Lymphocytes Absolute Auto 0.86 K/mm3 (0.9-3.2); Mean Corpuscular HGB Conc 33.0 g/dl (32-36); Mean Corpuscular Hemoglobin 29.3 pg (26-34); Mean Corpuscular Volume 88.8 fl (80-100); Nucleated Red Blood Cells Absolute Auto 0.000 K/mm3 (0.0-0.012); Nucleated Red Blood Cells Perc 0.0 % (0.0-0.2); Platelet Count Result 145 k/mm3 (150-375); Red Blood Count 5.02 M/mm3 (4.6-6.20); White Blood Count 8.6 K/mm3 (4.5-10.0)
[2025-08-19 20:37] LABS: Alanine Aminotransferase 17 U/L (6-50); Albumin Level 4.5 g/dL (3.5-5.1); Alkaline Phosphatase 80 U/L (38-126); Anion Gap 10 mmol/L (4-12); Aspartate Amino Transferase 22 U/L (17-59); Bilirubin,Total 1.1 mg/dL (0.2-1.3); Blood Urea Nitrogen 33 mg/dL (9-20); Calcium 9.6 mg/dL (8.4-10.2); Carbon Dioxide 28 mmol/L (22-30); Chloride 99 mmol/L (98-107); Estimated CRCL calculation 50 ml/min; Estimated Glomerular Filt Rate 48; Glucose 193 mg/dL (65-110); Potassium 4.2 mmol/L (3.4-5.0); Sodium 137 mmol/L (137-145); Total Protein 7.8 g/dL (6.3-8.2)
[2025-08-19 21:23] LABS: Add Urine Microscopic? YES; Appearance Urine Cloudy (Clear); Glucose Urine UA 3+ mg/dL (Negative); Leukocyte Esterase Ur 1+ LEU/UL (Negative); Nitrate Urine Negative (Negative); Non Pathogenic Casts 0-2; Specific Grav Ur 1.024 (1.001-1.035)
[2025-08-19] MEDS: SODIUM CHLORIDE 0.9% IV 1,000 ML 999 ML IV CONT (22:23)
[2025-08-19] MEDS: NITROFURANTOIN MONOHYD MACROCR 100 MG CAP PO (22:23)
[2025-08-19 23:26] VITALS: BP 130/73; PULSE 76; RESP 14; O2SAT 97
--- OUTSIDE RECORDS SUMMARY | 2025-08-20 02:29 | XMS_ITS | Clinical Summary ---
Author Organization [facility] Address [address] [place] [id number] Care Team Providers Care Internal Medicine Hospitalist Name Role Phone None, Provider MD Primary Care Provider Unavaila ble Encounters Date Type Department Care Team Description 07/17/2025 10:28 AM CDT - 07/17/2025 11:59 PM CDT Hospital Encounter [facility] [place] [address] Zaire Camilo MD Discharge Disposition: Home or Self Care (Routine Discharge) 07/17/2025 Travel from Last 3 Months Social History Tobacco Use Types Packs/Day Years Used Date Smoking Tobacco: Never Assessed Sex and Gender Information Value Date Recorded Sex Assigned at Male 07/17/2025 10:26 AM CDT Legal 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 Gender Identity Not on file Sexual Orientation Not on file Plan of Treatment Health Maintenance Due Date Last Done Comments Colorectal Cancer Screening Colonoscopy (10 Years) 1950 Hepatitis C 1969 Zoster Vaccines (1 of 2) 2001 Annual Medicare Wellness Visit 2016 COVID-19 Vaccine ( season) 2025 07/14/2023, 08/09/2022, 07/27/2021, Additional history exists Influenza Adult (#1) 2025 06/28/2024, 07/07/2022, 06/29/2021, Additional history exists RSV Immunization or 60+ Years (1 - 1-dose 75+ series) 2026 DTaP, Tdap and Td Vaccines (3 - Td or Tdap) 07/14/2033 07/14/2023, 07/24/2012 Pneumococcal Vaccine: 50+ Years Completed 06/26/2020, 07/13/2017, 07/23/2016 Hepatitis A Vaccines Aged Out No long er eligible based on patient's age to complete this topic Meningococcal B Vaccine Aged Out No l onger eligible based on patient's age to complete this topic Meningococcal Vaccine Aged Out No isaiah tila eligible based on patient's age to complete this topic RSV Immunizations Under 20 Months Aged Out No longer eligible based on patient's age to complete this topic Procedures Procedure Name Priority Date/Time Associated Diagnosis Comments XR THOR SPINE 3V Routine 07/17/2025 10:4 3 AM CDT Thoracic back pain from Last 3 Months Results * XR THOR SPINE 3V (07/17/2025 10:43 AM CDT) Anatomical Region Laterality Modality Spine Radiographic Lisa ging 07/19/2025 8:05 AM CDT Impressions 07/19/2025 8:06 AM CDT IMPRESSION: 1) No significant acute thoracic spine abnormality is demonstrated. If there is strong clinical concern correlation with MRI thoracic spine would be recommended for further evaluation. Ordered By: ZAIRE CMAILO Interpreted By: Caleb Schneider MD, 07/19/2025 8:05 AM Narrative 07/19/2025 8:06 AM CDT [address] [address] Examination: XR THOR SPINE 3V Exam time: 07/17/2025 10:32 AM Clinical history: Back pain Comparison: 10/10/2024 Technique: Standing AP and lateral views of the thoracic spine with swimmer's view. Findings: Thoracic vertebral bodies are in good alignment. Thoracic vertebral body heights and disc spaces are fairly well-maintained. There is no acute paraspinous soft tissue abnormality. There is no evidence of acute thoracic spine fracture or focal lytic bone destructive lesion. Chronic degenerative disc disease lower cervical spine. Procedure Note Caleb Schneider MD - 07/19/2025 [facility] [address] [place], [place] [address] Examination: XR THOR SPINE 3V Exam time: 07/17/2025 10:32 AM Clinical history: Back pain Comparison: 10/10/2024 Technique: Standing AP and lateral views of the thoracic spine withswimmer's view. Findings: Thoracic vertebral bodies are in good alignment. Thoracicvertebral body heights and disc spaces are fairly well-maintained. Thereis no acute paraspinous soft tissue abnormality. There is no evidence ofacute thoracic spine fracture or focal lytic bone destructive lesion.Chronic degenerative disc disease lower cervical spine. IMPRESSION: 1) No significant acute thoracic spine abnormality is demonstrated. Ifthere is strong clinical concern correlation with MRI thoracic spine wouldbe recommended for further evaluation. Ordered By: ZAIRE CAMILO Interpreted By: Caleb Schneider MD, 07/19/2025 8:05 AM Zaire Camilo MD GENERAL IMAGING Final R esult from Last 3 Months Insurance [employer] MEDICARE Care Teams Internal Medicine Hospitalist Relationship Specialty Start Date End Date None, Provider, PCP - General UNKNOWN PHYSICIAN SPECIALTY 10/10/24
== END 2025-08-19 23:31 | disposition home or self-care (01) ==
PROVIDERS: Physician Assistant; PCP Family Medicine
DX: N30.00 Acute cystitis without hematuria (principal); K59.00 Constipation, unspecified; C64.2 Malignant neoplasm of left kidney, except renal pelvis; C79.9 Secondary malignant neoplasm of unspecified site; I42.9 Cardiomyopathy, unspecified; I48.0 Paroxysmal atrial fibrillation; I10 Essential (primary) hypertension; E55.9 Vitamin D deficiency, unspecified; E78.5 Hyperlipidemia, unspecified; E11.9 Type 2 diabetes mellitus without complications; G47.33 Obstructive sleep apnea (adult) (pediatric); Z86.0100 Personal history of colon polyps, unspecified; Z90.49 Acquired absence of other specified parts of digestive tract; M51.379 Other intervertebral disc degeneration, lumbosacral region without mention of lumbar back pain or lower extremity pain; Z79.84 Long term (current) use of oral hypoglycemic drugs; Z79.69 Long term (current) use of other immunomodulators and immunosuppressants; Z79.899 Other long term (current) drug therapy
CPT/HCPCS: 36415; 74176; 80053; 81001; 83605; 85025; 87086; 87186; 96360; 99284; A9270; J7030

== ENCOUNTER 2025-08-26 10:34 | Outpatient (CLI) | payer MEDICARE, SELFPAY ==
--- OUTSIDE RECORDS SUMMARY | 2025-08-26 12:22 | XMS_ITS ---
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 Radiation Treatments * Course C1_T SPINE 07/16/2024 - 07/27/2024 Treatment Period Energy Fraction Dose Fractions Total Dose Plans Planned T_SPINE_FiF 07/16/2024 - 07/27/2024 300 3,000 Reference Points Delivered DVP TSPINE 07/16/2024 - 07/27/2024 3,000
--- OUTSIDE RECORDS SUMMARY | 2025-08-26 12:22 | XMS_ITS | Clinical Summary ---
Author Organization [facility] Address [address] [place] [address] Care Team Providers Care Joy Operator Name Role Phone Sushma Willett MD Primary Care Provider Samm Boudreaux MD Unavailable [phone] Pablo Perez MD Unavailable [phone] Isaak Burgess MD Unavailable [phone] Allergies No known active allergies Medications ezetimibe [...] total) by mouth daily 30 tablet 2 09/03/2024 9 Active spironolactone (ALDACTONE) 25 mg tablet Take 1 tablet (25 mg total) by mouth daily 30 tablet 2 09/03/2024 9 Active carvediloL (COREG) 6.25 mg tablet Take 1 tablet (6.25 mg total) by mouth 2 (two) times a day with meals 60 tablet 2 09/03/2024 Active lenvatinib (Lenvima) 10 mg/day (10 mg x 1/day) capsule Take 1 capsule (10 mg) by mouth daily. Take with or without food at the same time each day. 30 capsule 11 10/25/2024 Active losartan-hydroc hlorothiazide (HYZAAR) 100-25 mg per tablet Take 1 tablet by mouth daily 11/01/2024 Active aspirin 81 mg chewable tablet Take 1 tablet (81 mg total) by mouth daily Active pembrolizumab (Keytruda) 25 mg/mL solution Infuse IV every 21 days Active blood glucose diagnostic strip 01/02/2024 Active Active Problems Problem Noted Date Diagnosed [...] Encounters Date Type Department Care Team Description 08/14/2025 9:00 AM DIRECTOR SAFETY Infusion [facility] [address] [place] [phone] Sharlene Day, RN 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) 08/14/2025 8:15 AM DIRECTOR SAFETY Office Visit [facility] [address] [place] [phone] Pablo Perez MD 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) 08/14/2025 8:00 AM DIRECTOR SAFETY Lab [facility] [address] [place] [phone] 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) 08/14/2025 Orders Only [facility] [address] [place] [phone] Pablo Perez MD 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) 08/14/2025 Orders Only [facility] [address] [place] [phone] Pablo Perez MD 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) 07/24/2025 1:00 PM CDT Infusion [facility] [address] [place] [phone] José Estrada RN 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) 07/24/2025 11:45 AM CDT Office Visit [address] [phone] Pablo Perez MD 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) 07/24/2025 11:30 AM CDT Lab [facility] [address] [place] [phone] 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) 07/03/2025 2:30 PM CDT Infusion [facility] [address] [place] [phone] Yahaira Mclean RN 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) 07/03/2025 2:15 PM CDT Office Visit [facility] [address] [place] [phone] Pablo Perez MD 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) 07/03/2025 1:45 PM CDT Lab [facility] [address] [place] [phone] 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) 07/02/2025 10:30 AM CDT Office Visit [facility] [address] [place] [address] Isaak Burgess MD Paroxysmal atrial fibrillation (HCC) (Primary Dx); Cardiomyopathy, unspecified type (HCC) 06/12/2025 3:00 PM CDT Infusion [facility] [address] [place] [phone] Claudia Morrow RN 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) 06/12/2025 2:30 PM CDT Office Visit [facility] [address] [place] [phone] Pablo Perez MD 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) 06/12/2025 2:00 PM CDT Lab [facility] [address] [place] [phone] 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 No 08/27/2024 Personal Safety Answer Date Recorded Have you ever been in or are you currently in a harmful physical or emotional relationship or is someone making you feel afraid or unsafe? 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 DIRECTOR SAFETY Gender Identity Not on file Sexual Orientation Not on file Last Filed Vital Signs Vital Sign Reading Time Taken Comments Blood Pressure 138/71 08/14/2025 8:12 AM DIRECTOR SAFETY Pulse 82 08/14/2025 8:12 AM DIRECTOR SAFETY Temperature 36.1 C (96.9 F) 08/14/2025 8:12 AM DIRECTOR SAFETY Respiratory Rate 18 08/14/2025 8:12 AM DIRECTOR SAFETY Oxygen Saturation 100% 08/14/2025 8:12 AM DIRECTOR SAFETY Inhaled Oxygen Concentration - - Weight 92.3 kg (203 lb 6.4 oz) 08/14/2025 8:12 A M DIRECTOR SAFETY Height 193 cm (6' 4) 07/02/2025 11:03 AM CDT Body Mass Index 24.76 07/02/2025 11:03 AM CDT Plan of Treatment Health Maintenance Due Date Last Done Comments Albumin Creatinine Ratio, Urine 1950 Colon Cancer Screening-Colonoscopy 1950 Depression Screening 1950 Hepatitis C Screening 1950 Dilated Eye Exam 1950 Foot Exam 1950 Lipid Panel 1951 Hepatitis B Screening 1969 Zoster Vaccine (1 of 2) 1970 Well Visit 65+ 2016 Hemoglobin A1C 02/22/2025 08/25/2024 Covid-19 Vaccine (2024-2 6 season) 2025 07/14/2023, 08/09/2022, 07/27/2021, Additional history exists Influenza Vaccine (#1) 2025 , 07/01/2023, 07/07/2022, Additional history exists Fall Risk Assessment 08/14/2026 08/14/2025, 07/03/2025, 06/12/2025, Additional history exists eGFR 08/14/2026 08/14/2025, 07/04, 07/03/2025, Additional history exists DTaP/Tdap/Td Vaccine (3 - Td or Tdap) 07/14/2033 07/14/2023, 07/24/2012 Pneumococcal vaccine 65+ Completed 020, 07/13/2017, 07/23/2016 Procedures Procedure Name Priority Date/Time Associated Diagnosis Comments PROTEIN / CREATININE RATIO, URINE, RANDOM Routine 08/14/2025 8:09 AM DIRECTOR SAFETY 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) EGFR STAT 08/14/2025 8:02 AM DIRECTOR SAFETY 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) DIFFERENTIAL AUTO STAT 08/14/2025 8:0 2 AM DIRECTOR SAFETY 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) CBC WITH AUTO DIFFERENTIAL STAT 08/14/2025 8:02 AM DIRECTOR SAFETY 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) COMPREHENSIVE METABOLIC PANEL STAT 08/14/2025 8:02 AM DIRECTOR SAFETY 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) THYROID FUNCTION CASCADE Routine 08/14/2025 8:02 AM DIRECTOR SAFETY 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) PROTEIN / CREATININE RATIO, URINE, RANDOM Routine 07/24/2025 11:32 AM CDT 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) EGFR STAT 07/24/2025 11:22 AM CDT 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) DIFFERENTIAL AUTO STAT 07/24/2025 11: 22 AM CDT 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) CBC WITH AUTO DIFFERENTIAL STAT 07/24/2025 11:22 AM CDT 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) COMPREHENSIVE METABOLIC PANEL STAT 07/24/2025 11:22 AM CDT 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 Current interpretive data was last revised 2019. Creatinine Ur 87.7 mg/dL [facility] Comment: Interpretive Data No reference range established. Current interpretive data was last revised 2019. Protein/creatinin e ratio 1,234.9(H ) 0.0 - 180.0 mg/g CR [facility] Urine 08/14/2025 8:09 AM DIRECTOR SAFETY 08/14/2025 8:09 AM DIRECTOR SAFETY Narrative [facility] - 08/14/2025 8:37 AM DIRECTOR SAFETY No reference range established for random urine total protein. Pablo Perez MD LAB URINE ORDERABLES Final R esult Performing Organization Address City/[facility]/ZIP Co de Phone Number [facility] [address] [employer] [place], [place] [phone] * eGFR (08/14/2025 8:02 AM DIRECTOR SAFETY) eGFR 66 >=60 mL/min/1. 73 m2 Comment: Interpretive Data [...] interpretive data was last reviewed 2021. Blood 08/14/2025 8:02 AM DIRECTOR SAFETY 08/14/2025 8:14 AM DIRECTOR SAFETY Pablo Perez MD LAB BLOOD ORDERABLES Final R esult [facility] [address] [place] [address] * (ABNORMAL) Differential, auto (08/14/2025 8:02 AM DIRECTOR SAFETY) Neutrophil abs 4.84 1.50 - 6.50 K/cumm Imm gran abs 0.02 0.00 - 0.10 K/cumm [facility] Lymphocyte abs 0.78(L) 0.80 - 3.30 K/cumm [facility] Monocyte abs 0.38 0.20 - 0.80 K/cumm [facility] Eosinophil abs 0.35 0.00 - 0.50 K/cumm [facility] Basophil abs 0.01 0.00 - 0.10 K/cumm [facility] Neutrophil pct 75.8 % [facility] Comment: Interpretive Data Percent cell count reference ranges are not reported, since discordance with absolute values may lead to misinterpretation of CBC data. Current Interpretive Data was last revised on 2018. Imm gran pct 0.3 % [facility] Comment: Interpretive Data Percent cell count reference ranges are not reported, since discordance with absolute values may lead to misinterpretation of CBC data. Current Interpretive Data was last revised on 2018. Lymphocyte pct 12.2 % [facility] Comment: Interpretive Data Percent cell count reference ranges are not reported, since discordance with absolute values may lead to misinterpretation of CBC data. Current Interpretive Data was last revised on 2018. Monocyte pct 6.0 % [facility] Comment: Interpretive Data Percent cell count reference ranges are not reported, since discordance with absolute values may lead to misinterpretation of CBC data. Current Interpretive Data was last revised on 2018. Eosinophil pct 5.5 % [facility] Comment: Interpretive Data Percent cell count reference ranges are not reported, since discordance with absolute values may lead to misinterpretation of CBC data. Current Interpretive Data was last revised on 2018. Basophil pct 0.2 % [facility] Comment: Interpretive Data Percent cell count reference ranges are not reported, since discordance with absolute values may lead to misinterpretation of CBC data. Current Interpretive Data was last revised on 2018. Blood 08/14/2025 8:02 AM DIRECTOR SAFETY 08/14/2025 8:02 AM DIRECTOR SAFETY Pablo Perez MD LAB BLOOD ORDERABLES Final R esult [facility] [address] [facility] [employer] [place] [address] * Thyroid Function Cecil (08/14/2025 8:02 AM DIRECTOR SAFETY) [facility] TSH 3.64 0.30 - 4.20 mcIUnit/mL Blood 08/14/2025 8:02 AM DIRECTOR SAFETY 08/14/2025 8:14 AM DIRECTOR SAFETY Pablo Perez MD LAB BLOOD ORDERABLES Final R [facility] Performing Organization Address [facility] Co de Phone Number [facility] [address] [facility] [employer] [place] [address] * (ABNORMAL) CBC with auto differential (08/14/2025 8:02 AM DIRECTOR SAFETY) [facility] WBC 6.38 3.80 - 9.90 K/cumm Hgb 13.8 13.0 - 17.5 g/dL [facility] Hct 40.0 38.9 - 50.3 % [facility] Plt 132(L) 150 - 400 K/cumm [facility] MPV 8.7(L) 9.1 - 12.3 fL [facility] RBC 4.68 4.30 - 5.80 M/cumm [facility] MCV 85.5 81.3 - 96.4 fL [facility] MCH 29.5 27.1 - 33.3 pg [facility] MCHC 34.5 32.3 - 35.7 g/dL [facility] RDW CV 13.7 11.1 - 14.9 % [facility] RDW SD 42.7 35.7 - 48.1 fL [facility] NRBC abs 0.00 0.00 - 0.01 K/cumm [facility] ANC Prelim 4.84 1.50 - 6.50 K/cumm [facility] Comment: Interpretive Data The rapid ANC is a preliminary automated count and may vary from the final ANC (Neut Abs) reported in the WBC differential that follows. Current interpretive data was last revised 2024. Blood 08/14/2025 8:02 AM DIRECTOR SAFETY 08/14/2025 8:02 AM DIRECTOR SAFETY Pablo Perez MD LAB BLOOD ORDERABLES Final R esult [facility] [address] [place] [address] * (ABNORMAL) Comprehensive metabolic panel (08/14/2025 8:02 AM DIRECTOR SAFETY) Sodium 138 135 - 145 mmol/L Potassium, pl 4.6 3.3 - 4.9 mmol/L [facility] Chloride 102 97 - 110 mmol/L [facility] CO2 25 22 - 32 mmol/L [facility] Anion gap 11 2 - 15 mmol/L [facility] BUN 24 6 - 25 mg/dL [facility] Creatinine 1.16 0.80 - 1.30 mg/dL [facility] Glucose 246(H) 70 - 199 mg/dL [facility] Comment: Interpretive Data Fasting glucose >/= [...] 2022. Calcium 9.4 8.5 - 10.3 mg/dL [facility] Bilirubin, total 0.6 0.1 - 1.2 mg/dL [facility] Protein, pl 6.3(L) 6.5 - 8.5 g/dL [facility] Albumin 3.9 3.5 - 5.0 g/dL [facility] Alk phos 69 40 - 130 Units/L [facility] ALT 15 7 - 55 Units/L [facility] AST 16 10 - 50 Units/L [facility] Blood 08/14/2025 8:02 AM DIRECTOR SAFETY 08/14/2025 8:14 AM DIRECTOR SAFETY Pablo Perez MD LAB BLOOD ORDERABLES Final R esult Performing Organization Address [facility] Co de Phone Number [facility] [address] Department [place] [address] * Protein / creatinine ratio, urine, random (07/24/2025 11:32 AM CDT) Protein, ur, quant 4.2 mg/dL Comment: Interpretive Data No reference range established. Current interpretive data was last revised 2019. Creatinine Ur 47.4 mg/dL [facility] Comment: Interpretive Data No reference range established. Current interpretive data was last revised 2019. Protein/creatinin e ratio 88.6 0.0 - 180.0 mg/g CR [facility] Urine 07/24/2025 11:3 2 AM CDT 07/24/2025 11:32 AM CDT Narrative [facility] - 07/24/2025 1:00 PM CDT No reference range established for random urine total protein. Result [facility] Pablo Perez MD LAB URINE ORDERABLES Final R [facility] Performing Organization Address [facility] de Phone Number [facility] [address] [place] [address] * eGFR (07/24/2025 11:22 AM CDT) eGFR 74 >=60 mL/min/1. 73 m2 Comment: [...] interpretive data was last reviewed 2021. Blood 07/24/2025 11:2 2 AM CDT 07/24/2025 12:07 PM CDT Pablo Perez MD LAB BLOOD ORDERABLES Final R esult [facility] [address] [place] [address] * Differential, auto (07/24/2025 11:22 AM CDT) Neutrophil abs 2.82 1.50 - 6.50 K/cumm Imm gran abs 0.01 0.00 - 0.10 K/cumm [facility] Lymphocyte abs 0.88 0.80 - 3.30 K/cumm [facility] Monocyte abs 0.39 0.20 - 0.80 K/cumm [facility] Eosinophil abs 0.28 0.00 - 0.50 K/cumm [facility] Basophil abs 0.01 0.00 - 0.10 K/cumm [facility] Neutrophil pct 64.3 % [facility] Comment: Interpretive Data Percent cell count reference ranges are not reported, since discordance with absolute values may lead to misinterpretation of CBC data. Current Interpretive Data was last revised on 2018. Imm gran pct 0.2 % [facility] Comment: Interpretive Data Percent cell count reference ranges are not reported, since discordance with absolute values may lead to misinterpretation of CBC data. Current Interpretive Data was last revised on 2018. Lymphocyte pct 20.0 % [facility] Comment: Interpretive Data Percent cell count reference ranges are not reported, since discordance with absolute values may lead to misinterpretation of CBC data. Current Interpretive Data was last revised on 2018. Monocyte pct 8.9 % [facility] Comment: Interpretive Data Percent cell count reference ranges are not reported, since discordance with absolute values may lead to misinterpretation of CBC data. Current Interpretive Data was last revised on 2018. Eosinophil pct 6.4 % [facility] Comment: Interpretive Data Percent cell count reference ranges are not reported, since discordance with absolute values may lead to misinterpretation of CBC data. Current Interpretive Data was last revised on 2018. Basophil pct 0.2 % [facility] Comment: Interpretive Data Percent cell count reference ranges are not reported, since discordance with absolute values may lead to misinterpretation of CBC data. Current Interpretive Data was last revised on 2018. Blood 07/24/2025 11:2 2 AM CDT 07/24/2025 11:22 AM CDT Pablo Perez MD LAB BLOOD ORDERABLES Final R esult Performing Organization Address City/[facility]/ZIP Co de Phone Number [facility] [address] [facility] [employer] [place], [place] [phone] * Thyroid Function Cecil (07/24/2025 11:22 AM CDT) Pathologist [facility] TSH 2.37 0.30 - 4.20 mcIUnit/mL Blood 07/24/2025 11:2 2 AM CDT 07/24/2025 12:07 PM CDT Pablo Perez MD LAB BLOOD ORDERABLES Final R esult Performing Organization Address [facility]/ZIP Co de Phone Number [facility] [address] Department of [employer] [place] [address] * (ABNORMAL) CBC with auto differential (07/24/2025 11:22 AM CDT) WBC 4.39 3.80 - 9.90 K/cumm Hgb 14.3 13.0 - 17.5 g/dL [facility] Hct 42.1 38.9 - 50.3 % [facility] Plt 120(L) 150 - 400 K/cumm [facility] MPV 8.7(L) 9.1 - 12.3 fL [facility] RBC 4.83 4.30 - 5.80 M/cumm [facility] MCV 87.2 81.3 - 96.4 fL [facility] MCH 29.6 27.1 - 33.3 pg [facility] MCHC 34.0 32.3 - 35.7 g/dL [facility] RDW CV 13.6 11.1 - 14.9 % [facility] RDW SD 43.5 35.7 - 48.1 fL [facility] NRBC abs 0.00 0.00 - 0.01 K/cumm [facility] ANC Prelim 2.82 1.50 - 6.50 K/cumm [facility] Comment: Interpretive Data The rapid ANC is a preliminary automated count and may vary from the final ANC (Neut Abs) reported in the WBC differential that follows. Current interpretive data was last revised 2024. Blood 07/24/2025 11:2 2 AM CDT 07/24/2025 11:22 AM CDT us Pablo Perez MD LAB BLOOD ORDERABLES Final R esult [facility] [address] [place] [address] * (ABNORMAL) Comprehensive metabolic panel (07/24/2025 11:22 AM CDT) Sodium 140 135 - 145 mmol/L Potassium, pl 5.1(H) 3.3 - 4.9 mmol/L [facility] Chloride 102 97 - 110 mmol/L [facility] CO2 27 22 - 32 mmol/L [facility] Anion gap 11 2 - 15 mmol/L [facility] BUN 21 6 - 25 mg/dL [facility] Creatinine 1.06 0.80 - 1.30 mg/dL [facility] Glucose 151 70 - 199 mg/dL [facility] Comment: Interpretive Data Fasting glucose >/= [...] 2022. Calcium 9.6 8.5 - 10.3 mg/dL [facility] Bilirubin, total 0.8 0.1 - 1.2 mg/dL [facility] Protein, pl 6.6 6.5 - 8.5 g/dL [facility] Albumin 4.2 3.5 - 5.0 g/dL [facility] Alk phos 62 40 - 130 Units/L [facility] ALT 15 7 - 55 Units/L [facility] AST 13 10 - 50 Units/L [facility] Blood 07/24/2025 11:2 2 AM CDT 07/24/2025 12:07 PM CDT Pablo Perez MD LAB BLOOD ORDERABLES Final R esult [facility] [address] [place] [address] * Protein / creatinine ratio, urine, random (07/03/2025 1:19 PM CDT) Protein, ur, quant 4.8 mg/dL Comment: Interpretive Data No reference range established. Current interpretive data was last revised 2019. Creatinine Ur 47.7 mg/dL [facility] Comment: Interpretive Data No reference range established. Current interpretive data was last revised 2019. Protein/creatinin e ratio 100.6 0.0 - 180.0 mg/g CR [facility] Urine 07/03/2025 1:19 PM CDT 07/03/2025 1:52 PM CDT Narrative [facility] - 07/03/2025 2:24 PM CDT No reference range established for random urine total protein. Pablo Perez MD LAB URINE ORDERABLES Final R esult Performing Organization Address [facility] Co de Phone Number [facility] [address] Department of [employer] [place], [place] [phone] * eGFR (07/03/2025 1:18 PM CDT) eGFR [...] ORDERABLES Final R esult Performing Organization Address City/[facility]/ZIP Co de Phone Number [facility] [address] Department of [employer] [place], [place] [phone] * Differential, auto (07/03/2025 1:18 PM CDT) Neutrophil abs 3.08 1.50 - 6.50 K/cumm Imm gran abs 0.01 0.00 - 0.10 K/cumm [facility] Lymphocyte abs 0.89 0.80 - 3.30 K/cumm [facility] Monocyte abs 0.38 0.20 - 0.80 K/cumm [facility] Eosinophil abs 0.26 0.00 - 0.50 K/cumm [facility] Basophil abs 0.02 0.00 - 0.10 K/cumm [facility] Neutrophil pct 66.4 % [facility] Comment: Interpretive Data Percent cell count reference ranges are not reported, since discordance with absolute values may lead to misinterpretation of CBC data. Current Interpretive Data was last revised on 2018. Imm gran pct 0.2 % [facility] Comment: Interpretive Data Percent cell count reference ranges are not reported, since discordance with absolute values may lead to misinterpretation of CBC data. Current Interpretive Data was last revised on 2018. Lymphocyte pct 19.2 % [facility] Comment: Interpretive Data Percent cell count reference ranges are not reported, since discordance with absolute values may lead to misinterpretation of CBC data. Current Interpretive Data was last revised on 2018. Monocyte pct 8.2 % [facility] Comment: Interpretive Data Percent cell count reference ranges are not reported, since discordance with absolute values may lead to misinterpretation of CBC data. Current Interpretive Data was last revised on 2018. Eosinophil pct 5.6 % [facility] Comment: Interpretive Data Percent cell count reference ranges are not reported, since discordance with absolute values may lead to misinterpretation of CBC data. Current Interpretive Data was last revised on 2018. Basophil pct 0.4 % [facility] Comment: Interpretive Data Percent cell count reference ranges are not reported, since discordance with absolute values may lead to misinterpretation of CBC data. Current Interpretive Data was last revised on 2018. Blood 07/03/2025 1:18 PM CDT 07/03/2025 1:18 PM CDT Pablo Perez MD LAB BLOOD ORDERABLES Final R esult [facility] [address] [place] [address] * Thyroid Function Cecil (07/03/2025 1:18 PM CDT) [facility] TSH 2.44 0.30 - 4.20 mcIUnit/mL Blood 07/03/2025 1:18 PM CDT 07/03/2025 1:52 PM CDT Pablo Perez MD LAB BLOOD ORDERABLES Final R esult [facility] [address] [place] [address] * (ABNORMAL) CBC with auto differential (07/03/2025 1:18 PM CDT) [facility] WBC 4.64 3.80 - 9.90 K/cumm Hgb 13.7 13.0 - 17.5 g/dL [facility] Hct 40.1 38.9 - 50.3 % [facility] Plt 117(L) 150 - 400 K/cumm [facility] MPV 9.1 9.1 - 12.3 fL [facility] RBC 4.57 4.30 - 5.80 M/cumm [facility] MCV 87.7 81.3 - 96.4 fL [facility] MCH 30.0 27.1 - 33.3 pg [facility] MCHC 34.2 32.3 - 35.7 g/dL [facility] RDW CV 13.5 11.1 - 14.9 % [facility] RDW SD 43.6 35.7 - 48.1 fL [facility] NRBC abs 0.00 0.00 - 0.01 K/cumm [facility] ANC Prelim 3.08 1.50 - 6.50 K/cumm [facility] Comment: Interpretive Data The rapid ANC is a preliminary automated count and may vary from the final ANC (Neut Abs) reported in the WBC differential that follows. Current interpretive data was last revised 2024. Blood 07/03/2025 1:18 PM CDT 07/03/2025 1:18 PM CDT Pablo Perez MD LAB BLOOD ORDERABLES Final R esult [facility] [address] [place] [address] * (ABNORMAL) Comprehensive metabolic panel (07/03/2025 1:18 PM CDT) Sodium 140 135 - 145 mmol/L Potassium, pl 4.4 3.3 - 4.9 mmol/L [facility] Chloride 102 97 - 110 mmol/L [facility] CO2 26 22 - 32 mmol/L [facility] Anion gap 12 2 - 15 mmol/L [facility] BUN 25 6 - 25 mg/dL [facility] Creatinine 1.15 0.80 - 1.30 mg/dL [facility] Glucose 233(H) 70 - 199 mg/dL [facility] Comment: Interpretive Data Fasting glucose >/= [...] 2022. Calcium 9.0 8.5 - 10.3 mg/dL [facility] Bilirubin, total 0.4 0.1 - 1.2 mg/dL [facility] Protein, pl 6.2(L) 6.5 - 8.5 g/dL [facility] Albumin 4.0 3.5 - 5.0 g/dL [facility] Alk phos 65 40 - 130 Units/L [facility] ALT 16 7 - 55 Units/L [facility] AST 14 10 - 50 Units/L [facility] Blood 07/03/2025 1:18 PM CDT 07/03/2025 1:52 PM CDT Pablo Perez MD LAB BLOOD ORDERABLES Final R esult Performing Organization Address [facility]/ZIP Co de Phone Number [facility] [address] [place] [address] * eGFR (06/12/2025 1:39 PM CDT) eGFR [...] ORDERABLES Final R esult Performing Organization Address City/[facility]/ZIP Co de Phone Number [facility] [address] Department of [employer] [place], [place] [id number] * Differential, auto (06/12/2025 1:39 PM CDT) Pathologist [facility] Neutrophil abs 3.44 1.50 - 6.50 K/cumm Imm gran abs 0.01 0.00 - 0.10 K/cumm [facility] Lymphocyte abs 0.81 0.80 - 3.30 K/cumm [facility] Monocyte abs 0.37 0.20 - 0.80 K/cumm [facility] Eosinophil abs 0.39 0.00 - 0.50 K/cumm [facility] Basophil abs 0.02 0.00 - 0.10 K/cumm [facility] Neutrophil pct 68.3 % [facility] Comment: Interpretive Data Percent cell count reference ranges are not reported, since discordance with absolute values may lead to misinterpretation of CBC data. Current Interpretive Data was last revised on 2018. Imm gran pct 0.2 % [facility] Comment: Interpretive Data Percent cell count reference ranges are not reported, since discordance with absolute values may lead to misinterpretation of CBC data. Current Interpretive Data was last revised on 2018. Lymphocyte pct 16.1 % [facility] Comment: Interpretive Data Percent cell count reference ranges are not reported, since discordance with absolute values may lead to misinterpretation of CBC data. Current Interpretive Data was last revised on 2018. Monocyte pct 7.3 % [facility] Comment: Interpretive Data Percent cell count reference ranges are not reported, since discordance with absolute values may lead to misinterpretation of CBC data. Current Interpretive Data was last revised on 2018. Eosinophil pct 7.7 % [facility] Comment: Interpretive Data Percent cell count reference ranges are not reported, since discordance with absolute values may lead to misinterpretation of CBC data. Current Interpretive Data was last revised on 2018. Basophil pct 0.4 % [facility] Comment: Interpretive Data Percent cell count reference ranges are not reported, since discordance with absolute values may lead to misinterpretation of CBC data. Current Interpretive Data was last revised on 2018. Blood 06/12/2025 1:39 PM CDT 06/12/2025 1:39 PM CDT Pablo Perez MD LAB BLOOD ORDERABLES Final R esult [facility] [address] [place] [address] * Thyroid Function Cecil (06/12/2025 1:39 PM CDT) [facility] TSH 2.53 0.30 - 4.20 mcIUnit/mL Blood 06/12/2025 1:39 PM CDT 06/12/2025 2:20 PM CDT Pablo Perez MD LAB BLOOD ORDERABLES Final R esult [facility] [address] [place] [address] * (ABNORMAL) CBC with auto differential (06/12/2025 1:39 PM CDT) [facility] WBC 5.04 3.80 - 9.90 K/cumm Hgb 14.2 13.0 - 17.5 g/dL [facility] Hct 41.1 38.9 - 50.3 % [facility] Plt 126(L) 150 - 400 K/cumm [facility] MPV 9.1 9.1 - 12.3 fL [facility] RBC 4.72 4.30 - 5.80 M/cumm [facility] MCV 87.1 81.3 - 96.4 fL [facility] MCH 30.1 27.1 - 33.3 pg [facility] MCHC 34.5 32.3 - 35.7 g/dL [facility] RDW CV 13.2 11.1 - 14.9 % [facility] RDW SD 42.5 35.7 - 48.1 fL [facility] NRBC abs 0.00 0.00 - 0.01 K/cumm [facility] ANC Prelim 3.44 1.50 - 6.50 K/cumm [facility] Comment: Interpretive Data The rapid ANC is a preliminary automated count and may vary from the final ANC (Neut Abs) reported in the WBC differential that follows. Current interpretive data was last revised 2024. Blood 06/12/2025 1:39 PM CDT 06/12/2025 1:39 PM CDT Pablo Perez MD LAB BLOOD ORDERABLES Final R esult Performing Organization Address [facility] Co de Phone Number [facility] [address] [facility] [employer] [place], [place] [id number] * Protein / creatinine ratio, urine, random (06/12/2025 1:39 PM CDT) Protein, ur, quant 4.1 mg/dL Comment: Interpretive Data No reference range established. Current interpretive data was last revised 2019. Creatinine Ur 41.3 mg/dL [facility] Comment: Interpretive Data No reference range established. Current interpretive data was last revised 2019. Protein/creatinin e ratio 99.3 0.0 - 180.0 mg/g CR [facility] Urine 06/12/2025 1:39 PM CDT 06/12/2025 2:20 PM CDT Narrative [facility] - 06/12/2025 2:48 PM CDT No reference range established for random urine total protein. Pablo Perez MD LAB URINE ORDERABLES Final R esult Performing Organization Address [facility] Co de Phone Number [facility] [address] [facility] [employer] [place] [address] * (ABNORMAL) Comprehensive metabolic panel (06/12/2025 1:39 PM CDT) [facility] Sodium 137 135 - 145 mmol/L Potassium, pl 4.5 3.3 - 4.9 mmol/L [facility] Chloride 102 97 - 110 mmol/L [facility] CO2 23 22 - 32 mmol/L [facility] Anion gap 12 2 - 15 mmol/L [facility] BUN 23 6 - 25 mg/dL [facility] Creatinine 1.13 0.80 - 1.30 mg/dL [facility] Glucose 195 70 - 199 mg/dL [facility] Comment: Interpretive Data Fasting glucose >/= [...] 2022. Calcium 9.8 8.5 - 10.3 mg/dL [facility] Bilirubin, total 0.5 0.1 - 1.2 mg/dL [facility] Protein, pl 6.4(L) 6.5 - 8.5 g/dL [facility] Albumin 4.0 3.5 - 5.0 g/dL [facility] Alk phos 69 40 - 130 Units/L [facility] ALT 17 7 - 55 Units/L [facility] AST 20 10 - 50 Units/L [facility] Comment:Slightly Hemolyzed S pecimen Blood 06/12/2025 1:39 PM CDT 06/12/2025 2:20 PM CDT us Pablo Perez MD LAB BLOOD ORDERABLES Final R esult [facility] [address] [place] [address] * CT Chest Abdomen Pelvis W Contrast [...] CARE TEST ORDERABLE S Final Result * (ABNORMAL) Hemoglobin A1c (08/25/2024 9:50 AM DIRECTOR SAFETY) Hgb A1C 7.2(H) 4.0 - 5.6 % Estimated Average Glucose 160 mg/dL [facility] Comment: The ADA recommends reporting an estimated Average Glucose (eAG) with all Hemoglobin A1c results using the equation derived from a study of 507 normal and diabetic adults. Minority populations were underrepresented and children were not included. (Diabetes Care 31:6668-7844, 2008). The eAG is not equivalent to a fasting glucose. Blood 08/25/2024 9:50 AM DIRECTOR SAFETY 08/25/2024 10:16 AM DIRECTOR SAFETY us Todd Clemens MD LAB BLOOD ORDERABLES Andressa sheldon Result [facility] [address] [place] [address] from Last 3 Months or Most Recently Relevant to Health Maintenance Insurance Advance Directives For more information, please contact: [phone] Documents on File Type Date Recorded Patient Flosser Expl anation ADVANCE DIRECTIVE 08/25/2024 12:15 PM Pow er of Directory Operator-Medical * Full Code (Latest Code Status on File) Date Activated Date Inactivated Comments 08/25/2024 6:42 AM 09/03/2024 4:27 PM Care Teams Joy Operator Relationship Specialty Start Date End Date Sushma Willett MD [address] [facility] [address] [place] [address] PCP - General Family Practice 05/30/24 Samm Boudreaux MD [address] [place] [address] Consulting Physician Radiation Oncology 07/06/24 Pablo Perez MD [address] [place] [address] Medical Oncologist/Pouch Making Machine Operator Hematology and Oncology 07/06/24 Isaak Burgess MD [address] [facility] [address] [place] [address] Automotive Service Manager Cardiology 06/27/25
--- OUTSIDE RECORDS SUMMARY | 2025-08-26 12:22 | XMS_ITS | Clinical Summary ---
Author Organization [facility] Address [address] [place] [address] Care Team Providers Care Senior Validation Engineer Name Role Phone None, Provider MD Primary Care Provider Unavaila ble Encounters Date Type Department Care Team Description 07/17/2025 10:28 AM CDT - 07/17/2025 11:59 PM CDT Hospital Encounter [facility] [place] [address] Zaire Camilo MD Discharge Disposition: Home or Self Care (Routine Discharge) 07/17/2025 Travel from Last 3 Months Social History Tobacco Use Types Packs/Day Years Used Date Smoking Tobacco: Never Assessed Sex and Gender Information Value Date Recorded Sex Assigned at Male 07/17/2025 10:26 AM CDT Legal Sex Male 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 [address] [place], [place] [address] Examination: XR THOR SPINE 3V Exam time: [...] 3 Months Insurance [employer] MEDICARE Care Teams Senior Validation Engineer Relationship Specialty Start Date End Date None, Provider, PCP - General UNKNOWN PHYSICIAN SPECIALTY 10/10/24
--- OUTSIDE RECORDS SUMMARY | 2025-08-26 12:22 | XMS_ITS | Encounter Summary ---
Author Organization [facility] Healthcare Address [address] [place] [address] Care Team Providers Care Back Joiner Name Role Phone Sushma Willett MD Primary Care Provider Samm Boudreaux MD Unavailable [phone] Pablo Perez MD Unavailable [phone] Isaak Burgess MD Unavailable [phone] Encounter Details Date Type Department Care Team (Late st Contact Info) Description 07/30/2024 Social Work [facility][note 2][address] [place] [address] Jolie Pabon LCSW Social History [...] on file Legal Sex Male 2:20 PM CERTIFIED ART THERAPIST Gender Identity Not on file Sexual Orientation Not on file documented as of this encounter Functional Status documented as of this encounter Plan of Treatment Not on file documented as of this encounter Visit Diagnoses Not on filedocumented in this encounter Care Teams Back Joiner Relationship Specialty Start Date End Date Sushma Willett MD [address] [facility] [address] [place] [address] PCP - General Family Practice 05/30/24 Samm Boudreaux MD [address] [place] [address] Consulting Physician Radiation Oncology 07/06/24 Pablo Perez MD [address] [place] [address] Medical Oncologist/Scientific Database Curator Hematology and Oncology 07/06/24 Isaak Burgess MD [address] [facility] [address] [place] [address] Children'S Lunchroom Supervisor Cardiology 06/27/25 documented as of this encounter
[2025-08-26 13:11] LABS: Add Urine Microscopic? NO; Appearance Urine Clear (Clear); Glucose Urine UA 3+ mg/dL (Negative); Leukocyte Esterase Ur Negative LEU/UL (Negative); Nitrate Urine Negative (Negative); Specific Grav Ur 1.024 (1.001-1.035)
== END 2025-08-26 10:35 | disposition home or self-care (01) ==
PROVIDERS: PCP Family Medicine; Visit Provider Family Medicine
DX: N30.00 Acute cystitis without hematuria (principal)
CPT/HCPCS: 81003; 87077; 87086; 87186

== ENCOUNTER 2025-08-31 04:06 | Inpatient (IN) | payer MEDICARE, SELFPAY ==
[2025-08-31] VITALS (71 sets, daily range): BP systolic 83–131; BP diastolic 50–84; PULSE 56–88; RESP 13–25; TEMP 36.9–39.7; O2SAT 83–100; BMI 24.7
--- NOTE | ~2025-08-31 | CT_ITS ---
CT abdomen pelvis w con Clinical History: Fever, renal cancer hx . Comparison: CT abdomen and pelvis without contrast 08/19/2025 CT chest abdomen pelvis 08/24/2024 CT abdomen pelvis with contrast 05/11/2024 Technique: Axial images lung bases to symphysis pubis IV contrast information not listed in PACS Coronal, sagittal reformats CT images acquired with automatic exposure control for dose reduction DLP: 448 mGy-cm Findings: Lung bases: Clear. Visualized heart and pericardium: Unremarkable. Liver: Several hypodense foci as before. Intrahepatic biliary ductal dilatation after cholecystectomy. Gallbladder: Removed. Spleen: Unremarkable. Pancreas: Unremarkable. Adrenal glands: Unremarkable. Kidneys: Right kidney- No hydronephrosis. No renal stones. A few cysts, lower pole cyst slightly larger. A few smaller hypodense foci too small to characterize. Left kidney- No hydronephrosis. No renal stones. Parenchymal mass smaller than scan 1 year prior. Distal esophagus/stomach: Unremarkable. Small bowel loops: Normal caliber and wall thickness. Colon: Normal caliber and wall thickness. Appendix not seen. Nodes: No enlarged nodes. Peritoneum: No ascites. No free air. Urinary bladder: Knight catheter, likely accounting for intraluminal gas. Prostate: Unremarkable. Bones: Sacral lytic lesion larger than 1 year prior. Soft tissues: Unremarkable. Aorta: No aneurysm or dissection. IVC: Unremarkable. Main portal vein/SMV/splenic vein: Patent. IMPRESSION: 1. No acute inflammatory process. 2. Findings as above. Reviewed, dictated and finalized at location R. ULSION GENERATOR REPAIRER
--- NOTE | ~2025-08-31 | XR_ITS ---
Examination: XR chest 1V portable Clinical History: weakness Comparison: None Technique: Portable AP Findings: Heart size normal. Lungs clear. No acute bony abnormality. IMPRESSION: 1. No acute cardiopulmonary findings given portable technique. Reviewed, dictated and finalized at location R. R BOOT TOP ASSEMBLER
--- NOTE | ~2025-08-31 | XR_ITS ---
Examination: XR chest port-a-cath/central Clinical History: central ine placement Comparison: Earlier same day Technique: Portable AP Findings: Left neck central line with catheter tip at junction of innominate veins. Heart size normal. Lungs clear. No acute bony abnormality. IMPRESSION: 1. No pneumothorax or cardiopulmonary change. Reviewed, dictated and finalized at location R. IARD TABLE ASSEMBLER
--- NOTE | 2025-08-31 04:14 | ECG_ITS ---
Test Date: 2025-08-31 04:22:05 Measurements Intervals [place] Rate: 73 P: 33 UT: 99 QRS: -67 QRSD: 117 T: 65 QT: 412 QTc: 455 Interpretive Statements SIGNIFICANT BASELINE ARTIFACT, POOR QUALITY ECG SUSPECT SINUS RHYTHM POOR R-WAVE PROGRESSION LEFTWARD AXIS SUSPECT PREVIOUS INFERIOR INFARCTION ABNORMAL ECG Compared to ECG 08/24/2024 17:32:34 NO OBVIOUS CHANGE, COMPARISON IS VERY DIFFICULT GIVEN POOR QUALITY OF THIS TRACING Electronically Signed On 08-31-2025 08:13:05 INDUSTRIAL LABORER by Zaire Cowan M.D.
--- NOTE | 2025-08-31 04:15 | ED.AMS ---
HPI - Altered Mental Status General Chief Complaint: Altered Mental Status Stated Complaint: Confusion/Weakness Time Seen by Provider: 08/31/25 04:12 History of Present Illness HPI narrative: 75-year-old male with a history of hypertension, diabetes, paroxysmal AFib, cardiomyopathy, renal cell carcinoma with spinal metastasis currently undergoing immunotherapy, chemotherapy, radiation therapy. History of chronic urinary retention and recurrent urinary tract infections. He self catheterizes every 4 hours at home. Recently treated for urinary tract infection with nitrofurantoin for E coli last week. He had a follow-up visit with his primary care provider on the . For last few days patient has been feeling fever at home, weak and feeling like his legs are giving out on him. He normally ambulates with a walker and today was too weak to get up and go to the restroom and slid to the ground but did not hit his head or lose consciousness. He called the ambulance as he was too weak to get up. He has been complaining of confusion, feeling weak and having persistent urinary symptoms since the when he was diagnosed with the UTI. Review of patient's no from the with his primary care provider confirms these same symptoms at that time. No interval change in history and patient denies any other medication changes. No chest pain, shortness a breath, nausea, vomiting, abdominal pain, diarrhea. Follows regularly with Urology and Hematology/Oncology for his care. Related Data Home Medications ?Medication ?Instructions ?Recorded ?Confirmed ?Last Taken ?Type tamsulosin 0.4 mg capsule 0.4 mg PO [facility] 06/28/24 08/26/25 08/23/24 18:00 History lenvatinib 10 mg/day (10 mg x 1) 10 mg PO DAILY 12/20/24 08/26/25 Unknown History capsule (Lenvima) Allergies Allergy/AdvReac Type Severity Reaction Status Date / Time [id number] Reductase AdvReac Mild Muscle Pain Verified 08/26/25 09:41 Inhibitor Review of Systems Review of Systems: As reviewed above in HPI [facility] Past Medical History Medical History Statin myopathy Cardiomyopathy Paroxysmal atrial fibrillation (~08/2024) 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 (~2023) Urinary retention Left kidney mass History of colon polyps History of polyneuropathy (~1992) h/o numbness and weakness in legs ruled out MS Vitamin D deficiency Dyslipidemia Toe fracture 01/2015 ROM[place]N (obstructive sleep apnea) Type 2 diabetes mellitus without complication, without long-term current use of insulin Essential (primary) hypertension Surgical History Surgical History History of incisional hernia repair (~03/2002) History of right inguinal hernia repair (~03/2017) [place] teeth extracted History of cholecystectomy (~1999) Family History Family History Father Carcinoma of colon, Onset Age: 61 Sibling Family history of type 2 diabetes mellitus Other Diabetes mellitus Family history of malignant neoplasm Social History Social History Smoking status: Never smoker Second hand tobacco smoke exposure: No Alcohol intake: former Drinks per week: 2 Alcohol use details: consumes 2 beers weekly Substance use: never Substance use type: does not use Lack of Transportation: No Lack of Food: Never True Current Housing: I Have Housing Concerned About Future Housing: No Difficulty Paying Gas/Electric Bills: No Difficulty Paying for Meds: No Currently Unemployed: No Education: High School Diploma/GED Difficulty w/ Childcare or Family Care: No Living arrangements: other Additional living arrangements comments: with sp Spiritual care concerns: No Agree to blood products: Yes Exam Narrative: GENERAL: Overall well-appearing and not any acute distress. Well nourished. HEAD: Normocephalic and atraumatic EYES: PERRLA ENT: Nares clear, no rhinorrhea or epistaxis. Mucous membranes moist. NECK: Supple. CHEST: [Clear to auscultation. No respiratory distress.] HEART: [Regular rate and rhythm]. No murmur heard. [Normal peripheral pulses.] ABDOMEN: [Soft, nondistended], [nontender], [No rigidity or guarding] EXTREMITIES: Normal range of motion. [No edema.] SKIN: Warm, dry, no rash. NEURO: No deficits and moving all extremities. Symmetric strength and sensation throughout. Alert oriented x4, no ataxia or facial asymmetry or speech deficits. PSYCH: Normal mood and affect Course Vital Signs Vital signs: Vital Signs Temperature 38.1 C H 08/31/25 04:08 Pulse Rate 73 08/31/25 04:08 Respiratory Rate 15 08/31/25 04:08 Blood Pressure 131/70 08/31/25 04:08 Pulse Oximetry 94 08/31/25 04:08 Oxygen Delivery Room Air 08/31/25 04:08 Temperature 38.8 C H 08/31/25 05:56 Pulse Rate 71 08/31/25 05:56 Respiratory Rate 17 08/31/25 05:56 Blood Pressure 94/63 L 08/31/25 05:56 Pulse Oximetry 95 08/31/25 05:56 Oxygen Delivery Room Air 08/31/25 04:08 Procedures Central Line Placement Left IJ: Central Line Date: 08/31/25 Central Line Time: 06:40 Discussed w/ the patient/family/POA,the placement of a central venous catheter, including its clinical necessity/indication & associated potential risks, benifits and alternatives.: Yes The patient/family/POA understand(s) and acknowledge(s) the need to proceed with central venous catheter insertion as an important element of the patient's clinical management.: Yes Time Out Performed: Yes Patient Placed on Monitor/Pulse Ox: Yes Max. Sterile Barrier Technique: Caps, large sterile sheet and hand hygiene Central Line Prep: 2% chlorhexidine scrub and sterile drapes applied Technique: US-Guided Local Anesthetic: lidocaine 1% Amount of anesthesia used (mL): 5 Ultrasound Used for Placement: Yes Central Line Lumen Inserted: triple Post Procedure: sutured in place, good blood return, all ports aspirated, flushed, capped and sterile dressing applied Post Procedure X-Ray: tip of catheter in good position and no pneumothorax seen Patient Tolerated Procedure: well and no complications Complications: other (Required multiple attempts given patient's vascular access being very torturous and flat from hypovolemia. Two subclavian attempts under ultrasound guidance without any cannulation success. Successful left IJ under ultrasound guidance. No immediate complications otherwise.) MDM - Altered Mental Status MDM Narrative Medical decision making narrative: 75-year-old male with a history of hypertension, diabetes, paroxysmal AFib, cardiomyopathy, renal cell carcinoma with spinal metastasis currently undergoing immunotherapy, chemotherapy, radiation therapy. History of chronic urinary retention and recurrent urinary tract infections. He self catheterizes every 4 hours at home. Recently treated for urinary tract infection with nitrofurantoin for E coli last week. He had a follow-up visit with his primary care provider on the . For last few days patient has been feeling fever at home, weak and feeling like his legs are giving out on him. He normally ambulates with a walker and today was too weak to get up and go to the restroom and slid to the ground but did not hit his head or lose consciousness. He called the ambulance as he was too weak to get up. He has been complaining of confusion, feeling weak and having persistent urinary symptoms since the when he was diagnosed with the UTI. Review of patient's no from the with his primary care provider confirms these same symptoms at that time. No interval change in history and patient denies any other medication changes. No chest pain, shortness a breath, nausea, vomiting, abdominal pain, diarrhea. Follows regularly with Urology and Hematology/Oncology for his care. Patient is overall well-appearing and not in distress but he is febrile here with a temperature 38.1? C. Saturating 95% on room air. No tachycardia. Normal blood pressure. He has an unremarkable physical examination but I do suspect urinary tract source given his history of UTIs and self catheterizations. He has no focal complaints otherwise. Urinalysis and catheterization was ordered. He was given a fluid bolus and started on Rocephin given previous E coli culture sensitivities on review. Laboratory studies and a chest x-ray and EKG were also obtained. Patient placed on monitoring tech and re-evaluated afterwards. Given Tylenol for his fever. Viral panel swabs obtained. Patient had down trending blood pressures throughout the evening despite fluid resuscitation. He was given a total 30 cc/kg fluids and then additional L after bedside ultrasound showed severe volume depletion and collapsibility of his subclavian and internal jugular vein while trying to cannulate for a central line. Fever did come down to 101.0 after interventions. Broadened antibiotics to include vancomycin and cefepime given the down trending blood pressures. Patient has had a history of septic shock from urinary source which is most similar to events 1 year prior. Suspect potential Gram-negative sepsis from E coli based on rapid downtrend in vitals. CT abdomen pelvis with contrast obtained at this time. Blood pressure is holding with a map of 65 but central venous catheter was placed for vasopressors given that he is no longer volume responsive. Will discuss with supervisory civil engineer for admission. Awaiting CT read. Postprocedural central line x-ray looks appropriate positioning. Norepi ordered. CT shows no acute inflammatory process. Spoke to Dr. Ray from the Intensive Care Unit who accepted the patient to the ICU. Spoke to the hospitalist Dr. Adrian who accepted the patient to the hospital at this time. Pressure is improving with additional fluid resuscitation, norepinephrine has not started yet currently map is 72. Will go to ICU for care at this time. Medical Records Attestation: I reviewed the patient's medical records. Lab Data Attestation: I reviewed the patient's lab results. 08/31/25 04:36 08/31/25 04:37 Labs: Lab Results 08/31/25 08/31/25 Range/Units 04:36 04:37 WBC 6.6 (4.5-10.0) K/mm3 RBC 5.04 (4.6-6.20) M/mm3 Hgb 14.7 (14.0-18.0) g/dL Hct 44.5 (42.0-52.0) % MCV 88.3 (80-100) fl MCH 29.2 (26-34) pg MCHC 33.0 (32-36) g/dl RDW 13.8 (11.5-14.5) % Plt Count 129 L (150-375) k/mm3 MPV 8.9 (7.4-10.4) fl Immature Gran % (Auto) 0.5 (0-0.5) % Neut % (Auto) 91.3 H (45.5-73.1) % Lymph % (Auto) 2.7 L (18.3-44.2) % [place] % (Auto) 3.2 (2.6-8.5) % Eos % (Auto) 2.0 (0-4.4) % Baso % (Auto) 0.3 (0.2-1.2) % Lymph # (Auto) 0.18 L (0.9-3.2) K/mm3 [place] # (Auto) 0.2 (0.1-0.6) K/mm3 Eos # (Auto) 0.1 (0-0.3) K/mm3 Baso # (Auto) 0.0 (0.0-0.1) K/mm3 Abs Immat Gran (auto) 0.03 (0.00-0.031) K/mm3 Absolute Neuts (auto) 6.0 (1.3-6.7) K/mm3 Absolute Nucleated RBC 0.000 (0.0-0.012) K/mm3 Nucleated RBC % 0.0 (0.0-0.2) % PT 14.3 (11.1-14.7) Seconds INR 1.1 APTT 34.9 (22.3-36.8) Seconds Sodium 131 L (137-145) mmol/L Potassium 4.1 (3.4-5.0) mmol/L Chloride 94 L (98-107) mmol/L Carbon Dioxide 26 (22-30) mmol/L Anion Gap 11 (4-12) mmol/L BUN 31 H (9-20) mg/dL Creatinine 1.43 H (0.7-1.3) mg/dL Estim Creat Clear Calc 49 ml/min Estimated GFR 48 L (59 - ) Glucose 182 H (65-110) mg/dL Lactic Acid 2.0 (0.7-2.0) mmol/L Calcium 9.0 (8.4-10.2) mg/dL Total Bilirubin 1.1 (0.2-1.3) mg/dL AST 31 (17-59) U/L ALT 26 (6-50) U/L Alkaline Phosphatase 76 (38-126) U/L C-Reactive Protein 8.2 H (<1.0) mg/dL Total Protein 7.5 (6.3-8.2) g/dL Albumin 4.3 (3.5-5.1) g/dL Urine Color Yellow (Yellow) Urine Appearance Clear (Clear) Urine pH 5.0 (5.0-9.0) Ur Specific [place] 1.026 (1.001-1.035) Urine Protein 1+ H (Negative) mg/dL Urine Glucose (UA) 3+ H (Negative) mg/dL Urine Ketones 1+ H (Negative) mg/dL Ur Blood (Man) Negative (Negative) Urine Nitrate Negative (Negative) Urine Bilirubin Negative (Negative) Urine Urobilinogen 0.2 (<2.0) mg/dL Leukocyte Esterase Rfl Negative (Negative) [place]/UL Urine RBC 0-2 (0-2) /hpf Urine WBC 6-10 H (0-3) /hpf Ur Squamous Epith Cells Few (Few) /hpf Urine Bacteria None seen /hpf Urine Casts 3-5 Influenza A (RT-PCR) Negative (Negative) Influenza B (RT-PCR) Negative (Negative) SARS-CoV-2 RNA (RT-PCR) Negative (Negative) Imaging Data Attestation: I personally reviewed and interpreted this imaging study as follows: My impression: Impressions Chest X-Ray 08/31/25 06:17 IMPRESSION: 1. No acute cardiopulmonary findings given portable technique. Abdomen/Pelvis CT 08/31/25 06:39 IMPRESSION: 1. No acute inflammatory process. 2. Findings as above. Chest X-Ray 08/31/25 06:52 IMPRESSION: 1. No pneumothorax or cardiopulmonary change. Critical Care Time Critical Care Time Critical Care Time: Yes Total Critical Care Time: 75 Discharge Plan Discharge Clinical Impression: Septic shock, Acute UTI, History of gram negative sepsis, Weakness Patient Disposition: Still a Patient Condition: Guarded Prognosis Patient Language: Belarusian Prescriptions: No Action Lenvima 10 mg/day (10 mg x 1) capsule 10 mg PO DAILY Keytruda 25 mg/mL solution 200 mg IV .[id number] Rx Instructions: administer over 30 mins tamsulosin 0.4 mg capsule 0.4 mg PO [facility] (DME) OneTouch Ultra Test Strip See Rx Instructions .Route Qty: 100 2RF Rx Instructions: Use to check BS every morning and as needed metformin 500 mg tablet extended release 24 hr 500 mg PO BID Qty: 180 1RF ezetimibe 10 mg tablet 10 mg PO DAILY Qty: 90 1RF spironolactone 25 mg tablet 25 mg PO DAILY Qty: 90 1RF carvedilol 6.25 mg tablet 6.25 mg PO BID Qty: 180 1RF Jardiance 10 mg tablet 10 mg PO DAILY Qty: 90 1RF losartan-hydrochlorothiazide 100-25 mg tablet 1 tablet PO DAILY Qty: 90 1RF glipizide 10 mg tablet extended release 24hr 10 mg PO DAILY Qty: 90 1RF nitrofurantoin macrocrystal 100 mg capsule 100 mg PO Q12H Qty: 20 0RF Rx Instructions: must administer with a meal/food Follow-up/Referrals: Leroy Willett MD [Primary Care Provider, [facility]] Time of Disposition: 07:06
--- OUTSIDE RECORDS SUMMARY | 2025-08-31 04:23 | XMS_ITS | Encounter Summary ---
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 [place] [address] PCP - General Family Practice 05/30/24 Samm Boudreaux MD [address] [place] [address] Consulting Physician Radiation Oncology 07/06/24 Pablo Perez MD [address] [place] [address] Medical Oncologist/Master [facility] 07/06/24 Isaak Burgess MD [address] [facility] [address] [place] [address] Concrete Pump Operator Cardiology 06/27/25 documented as of this encounter
--- OUTSIDE RECORDS SUMMARY | 2025-08-31 04:23 | XMS_ITS ---
Author Organization [facility] Address [address] [place] [address] Care Team Providers Care Family Nurse Practitioner Name Role Phone Sushma Willett MD Primary Care Provider Samm Boudreaux MD Unavailable Pablo Perez MD Unavailable Isaak Burgess MD [...]
--- OUTSIDE RECORDS SUMMARY | 2025-08-31 04:23 | XMS_ITS | Clinical Summary ---
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) 08/14/2025 9:00 AM VAULT TELLER Infusion [facility] [address] [place] [phone] Sharlene Day, RN 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) 08/14/2025 8:15 AM VAULT TELLER Office Visit [facility] [address] [place] [phone] Pablo Perez MD 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) 08/14/2025 8:00 AM VAULT TELLER Lab [facility] Lab [address] [place] [phone] 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) 08/14/2025 Orders Only [facility] [address] [place] [phone] Pablo Perez MD 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) 08/14/2025 Orders Only [facility] [address] [place] [phone] Pablo Perez MD 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) 07/24/2025 1:00 PM CDT Infusion [facility] [address] [place] [phone] José Estrada RN 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) 07/24/2025 11:45 AM CDT Office Visit [facility] [address] [place] [phone] Pablo Perez MD 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) 07/24/2025 11:30 AM CDT Lab [facility] [address] [place] [phone] 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) 07/03/2025 2:30 PM CDT Infusion [facility] [address] [place] [phone] Yahaira Mclean RN 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) 07/03/2025 2:15 PM CDT Office Visit [facility] [address] [place] [phone] Pablo Perez MD 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) 07/03/2025 1:45 PM CDT Lab [facility] [address] [place] [phone] 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) 07/02/2025 10:30 AM CDT Office Visit [facility] [address] [place] [phone] Isaak Burgess MD Paroxysmal atrial fibrillation (HCC) (Primary Dx); Cardiomyopathy, unspecified type (HCC) 06/12/2025 3:00 PM CDT Infusion [facility] [address] [place] [phone] Claudia Morrow RN 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) 06/12/2025 2:30 PM CDT Office Visit [facility] [address] [place] [phone] Pablo Perez MD 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) 06/12/2025 2:00 PM CDT Lab [facility] [address] [place] [phone] 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 Never 08/27/2024 Do you belong to any clubs o r organizations such as cheondoism groups, unions, fraternal or athletic groups, or [...] time in the past 12 m [facility], were you homeless or living [...] on file Legal Sex Male 2:20 PM VAULT TELLER Gender Identity Not on file Sexual Orientation Not on file Last Filed Vital Signs Vital Sign Reading Time Taken Comments Blood Pressure 138/71 08/14/2025 8:12 AM VAULT TELLER Pulse 82 08/14/2025 8:12 AM VAULT TELLER Temperature 36.1 C (96.9 F) 08/14/2025 8:12 AM VAULT TELLER Respiratory Rate 18 08/14/2025 8:12 AM VAULT TELLER Oxygen Saturation 100% 08/14/2025 8:12 AM VAULT TELLER Inhaled Oxygen Concentration - - Weight 92.3 kg (203 lb 6.4 oz) 08/14/2025 8:12 A M VAULT TELLER Height 193 cm (6' 4) 07/02/2025 11:03 AM CDT Body Mass Index 24.76 07/02/2025 11:03 AM CDT Plan of Treatment Health Maintenance Due Date Last Done Comments Colon Cancer Screening-Colonoscopy 1950 Depression Screening 1950 Hepatitis C Screening 1950 Hepatitis B Screening 1969 Zoster Vaccine (1 of 2) 1970 Well Visit 65+ 2016 Covid-19 Vaccine (2024-2 6 season) 2025 07/14/2023, 08/09/2022, 07/27/2021, Additional history exists Influenza Vaccine (#1) 2025 , 07/01/2023, 07/07/2022, Additional history exists Fall Risk Assessment 08/14/2026 08/14/2025, 07/03/2025, 06/12/2025, Additional history exists DTaP/Tdap/Td Vaccine (3 - Td or Tdap) 07/14/2033 07/14/2023, 07/24/2012 Pneumococcal vaccine 65+ Completed 020, 07/13/2017, 07/23/2016 Procedures Procedure Name Priority Date/Time Associated Diagnosis Comments PROTEIN / CREATININE RATIO, URINE, RANDOM Routine 08/14/2025 8:09 AM VAULT TELLER 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) EGFR STAT 08/14/2025 8:02 AM VAULT TELLER 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) DIFFERENTIAL AUTO STAT 08/14/2025 8:0 2 AM VAULT TELLER 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) CBC WITH AUTO DIFFERENTIAL STAT 08/14/2025 8:02 AM VAULT TELLER 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 Current interpretive data was last revised 2019. Creatinine Ur 87.7 mg/dL [facility] Comment: Interpretive Data No reference range established. Current interpretive data was last revised 2019. Protein/creatinin e ratio 1,234.9(H ) 0.0 - 180.0 mg/g CR [facility] Urine 08/14/2025 8:09 AM VAULT TELLER 08/14/2025 8:09 AM VAULT TELLER Narrative [facility] - 08/14/2025 8:37 AM VAULT TELLER No reference range established for random urine total protein. Pablo Perez MD LAB URINE ORDERABLES Final R esult [facility] [address] [place] [address] * eGFR (08/14/2025 8:02 AM VAULT TELLER) eGFR 66 >=60 mL/min/1. 73 m2 Comment: [...] last reviewed 2021. Blood 08/14/2025 8:02 AM VAULT TELLER 08/14/2025 8:14 AM VAULT TELLER Pablo Perez MD LAB BLOOD ORDERABLES Final R candel[employer]t [facility] [address] [place] [address] * (ABNORMAL) Differential, auto (08/14/2025 8:02 AM VAULT TELLER) Neutrophil abs 4.84 1.50 - 6.50 K/cumm Imm gran abs 0.02 0.00 - 0.10 K/cumm [facility] Lymphocyte abs 0.78(L) 0.80 - 3.30 K/cumm [facility] Monocyte abs 0.38 0.20 - 0.80 K/cumm [facility] Eosinophil abs 0.35 0.00 - 0.50 K/cumm [facility] Basophil abs 0.01 0.00 - 0.10 K/cumm [facility] Neutrophil pct 75.8 % [facility] Comment: Interpretive Data Percent cell count reference ranges are not reported, since discordance with absolute values may lead to misinterpretation of CBC data. Current Interpretive Data was last revised on 2018. Imm gran pct 0.3 % [facility] Comment: Interpretive Data Percent cell count reference ranges are not reported, since discordance with absolute values may lead to misinterpretation of CBC data. Current Interpretive Data was last revised on 2018. Lymphocyte pct 12.2 % [facility] Comment: Interpretive Data Percent cell count reference ranges are not reported, since discordance with absolute values may lead to misinterpretation of CBC data. Current Interpretive Data was last revised on 2018. Monocyte pct 6.0 % [facility] Comment: Interpretive Data Percent cell count reference ranges are not reported, since discordance with absolute values may lead to misinterpretation of CBC data. Current Interpretive Data was last revised on 2018. Eosinophil pct 5.5 % [facility] Comment: Interpretive Data Percent cell count reference ranges are not reported, since discordance with absolute values may lead to misinterpretation of CBC data. Current Interpretive Data was last revised on 2018. Basophil pct 0.2 % [facility] Comment: Interpretive Data Percent cell count reference ranges are not reported, since discordance with absolute values may lead to misinterpretation of CBC data. Current Interpretive Data was last revised on 2018. Blood 08/14/2025 8:02 AM VAULT TELLER 08/14/2025 8:02 AM VAULT TELLER Pablo Perez MD LAB BLOOD ORDERABLES Final R esult [facility] [address] Department [place] [address] * Thyroid Function [place] (08/14/2025 8:02 AM VAULT TELLER) [facility] TSH 3.64 0.30 - 4.20 mcIUnit/mL Blood 08/14/2025 8:02 AM VAULT TELLER 08/14/2025 8:14 AM VAULT TELLER Pablo Perez MD LAB BLOOD ORDERABLES Final R esult [facility] [address] [place] [address] * (ABNORMAL) CBC with auto differential (08/14/2025 8:02 AM VAULT TELLER) [facility] WBC 6.38 3.80 - 9.90 K/cumm Hgb 13.8 13.0 - 17.5 g/dL [facility] Hct 40.0 38.9 - 50.3 % [facility] Plt 132(L) 150 - 400 K/cumm [facility] MPV 8.7(L) 9.1 - 12.3 fL [facility] RBC 4.68 4.30 - 5.80 M/cumm [facility] MCV 85.5 81.3 - 96.4 fL [facility] MCH 29.5 27.1 - 33.3 pg [facility] MCHC 34.5 32.3 - 35.7 g/dL [facility] RDW CV 13.7 11.1 - 14.9 % [facility] RDW SD 42.7 35.7 - 48.1 fL [facility] NRBC abs 0.00 0.00 - 0.01 K/cumm [facility] ANC Prelim 4.84 1.50 - 6.50 K/cumm [facility] Comment: Interpretive Data The rapid ANC is a preliminary automated count and may vary from the final ANC (Neut Abs) reported in the WBC differential that follows. Current interpretive data was last revised 2024. Blood 08/14/2025 8:02 AM VAULT TELLER 08/14/2025 8:02 AM VAULT TELLER Pablo Perez MD LAB BLOOD ORDERABLES Final R esult [facility] [address] [place] [address] * (ABNORMAL) Comprehensive metabolic panel (08/14/2025 8:02 AM VAULT TELLER) Sodium 138 135 - 145 mmol/L Potassium, pl 4.6 3.3 - 4.9 mmol/L [facility] Chloride 102 97 - 110 mmol/L [facility] CO2 25 22 - 32 mmol/L [facility] Anion gap 11 2 - 15 mmol/L [facility] BUN 24 6 - 25 mg/dL [facility] Creatinine 1.16 0.80 - 1.30 mg/dL [facility] Glucose 246(H) 70 - 199 mg/dL [facility] Comment: Interpretive Data Fasting glucose >/= [...] 2022. Calcium 9.4 8.5 - 10.3 mg/dL [facility] Bilirubin, total 0.6 0.1 - 1.2 mg/dL [facility] Protein, pl 6.3(L) 6.5 - 8.5 g/dL [facility] Albumin 3.9 3.5 - 5.0 g/dL [facility] Alk phos 69 40 - 130 Units/L [facility] ALT 15 7 - 55 Units/L [facility] AST 16 10 - 50 Units/L [facility] Blood 08/14/2025 8:02 AM VAULT TELLER 08/14/2025 8:14 AM VAULT TELLER Pablo Perez MD LAB BLOOD ORDERABLES Final R esult Performing Organization Address [facility] Co de Phone Number [facility] [address] Department [place] [address] * Protein / creatinine ratio, urine, random (07/24/2025 11:32 AM CDT) Pathologist [facility] Protein, ur, quant 4.2 mg/dL Comment: Interpretive Data No reference range established. Current interpretive data was last revised 2019. Creatinine Ur 47.4 mg/dL [facility] Comment: Interpretive Data No reference range established. Current interpretive data was last revised 2019. Protein/creatinin e ratio 88.6 0.0 - 180.0 mg/g CR [facility] Urine 07/24/2025 11:3 2 AM CDT 07/24/2025 11:32 AM CDT Narrative [facility] - 07/24/2025 1:00 PM CDT No reference range established for random urine total protein. Pablo Perez MD LAB URINE ORDERABLES Final R [employer] Performing Organization Address [facility] de Phone Number [facility] [address] Department [place] [address] * eGFR (07/24/2025 11:22 AM CDT) Pathologist [facility] eGFR 74 >=60 mL/min/1. 73 m2 Comment: [...] MD LAB BLOOD ORDERABLES Final R esult [facility] [address] [place] [address] * Differential, auto (07/24/2025 11:22 AM CDT) Neutrophil abs 2.82 1.50 - 6.50 K/cumm Imm gran abs 0.01 0.00 - 0.10 K/cumm [facility] Lymphocyte abs 0.88 0.80 - 3.30 K/cumm [facility] Monocyte abs 0.39 0.20 - 0.80 K/cumm [facility] Eosinophil abs 0.28 0.00 - 0.50 K/cumm [facility] Basophil abs 0.01 0.00 - 0.10 K/cumm [facility] Neutrophil pct 64.3 % [facility] Comment: Interpretive Data Percent cell count reference ranges are not reported, since discordance with absolute values may lead to misinterpretation of CBC data. Current Interpretive Data was last revised on 2018. Imm gran pct 0.2 % [facility] Comment: Interpretive Data Percent cell count reference ranges are not reported, since discordance with absolute values may lead to misinterpretation of CBC data. Current Interpretive Data was last revised on 2018. Lymphocyte pct 20.0 % [facility] Comment: Interpretive Data Percent cell count reference ranges are not reported, since discordance with absolute values may lead to misinterpretation of CBC data. Current Interpretive Data was last revised on 2018. Monocyte pct 8.9 % [facility] Comment: Interpretive Data Percent cell count reference ranges are not reported, since discordance with absolute values may lead to misinterpretation of CBC data. Current Interpretive Data was last revised on 2018. Eosinophil pct 6.4 % [facility] Comment: Interpretive Data Percent cell count reference ranges are not reported, since discordance with absolute values may lead to misinterpretation of CBC data. Current Interpretive Data was last revised on 2018. Basophil pct 0.2 % [facility] Comment: Interpretive Data Percent cell count reference ranges are not reported, since discordance with absolute values may lead to misinterpretation of CBC data. Current Interpretive Data was last revised on 2018. Blood 07/24/2025 11:2 2 AM CDT 07/24/2025 11:22 AM CDT Pablo Perez MD LAB BLOOD ORDERABLES Final R esult Performing Organization Address City/[facility]/ZIP Co de Phone Number [facility] [address] [place] [address] * Thyroid Function [place] (07/24/2025 11:22 AM CDT) Pathologist [facility] TSH 2.37 0.30 - 4.20 mcIUnit/mL Blood 07/24/2025 11:2 2 AM CDT 07/24/2025 12:07 PM CDT Pablo Perez MD LAB BLOOD ORDERABLES Final R esult Performing Organization Address City/[facility]/ZIP Co de Phone Number [facility] [address] [place] [address] * (ABNORMAL) CBC with auto differential (07/24/2025 11:22 AM CDT) Pathologist [facility] WBC 4.39 3.80 - 9.90 K/cumm Hgb 14.3 13.0 - 17.5 g/dL [facility] Hct 42.1 38.9 - 50.3 % [facility] Plt 120(L) 150 - 400 K/cumm [facility] MPV 8.7(L) 9.1 - 12.3 fL [facility] RBC 4.83 4.30 - 5.80 M/cumm [facility] MCV 87.2 81.3 - 96.4 fL [facility] MCH 29.6 27.1 - 33.3 pg [facility] MCHC 34.0 32.3 - 35.7 g/dL [facility] RDW CV 13.6 11.1 - 14.9 % [facility] RDW SD 43.5 35.7 - 48.1 fL [facility] NRBC abs 0.00 0.00 - 0.01 K/cumm [facility] ANC Prelim 2.82 1.50 - 6.50 K/cumm [facility] Comment: Interpretive Data The rapid ANC is a preliminary automated count and may vary from the final ANC (Neut Abs) reported in the WBC differential that follows. Current interpretive data was last revised 2024. Blood 07/24/2025 11:2 2 AM CDT 07/24/2025 11:22 AM CDT us Pablo Perez MD LAB BLOOD ORDERABLES Final R esult [facility] [address] [place] [address] * (ABNORMAL) Comprehensive metabolic panel (07/24/2025 11:22 AM CDT) Sodium 140 135 - 145 mmol/L Potassium, pl 5.1(H) 3.3 - 4.9 mmol/L [facility] Chloride 102 97 - 110 mmol/L [facility] CO2 27 22 - 32 mmol/L [facility] Anion gap 11 2 - 15 mmol/L [facility] BUN 21 6 - 25 mg/dL [facility] Creatinine 1.06 0.80 - 1.30 mg/dL [facility] Glucose 151 70 - 199 mg/dL [facility] Comment: Interpretive Data Fasting glucose >/= [...] 2022. Calcium 9.6 8.5 - 10.3 mg/dL [facility] Bilirubin, total 0.8 0.1 - 1.2 mg/dL [facility] Protein, pl 6.6 6.5 - 8.5 g/dL [facility] Albumin 4.2 3.5 - 5.0 g/dL [facility] Alk phos 62 40 - 130 Units/L [facility] ALT 15 7 - 55 Units/L [facility] AST 13 10 - 50 Units/L [facility] Blood 07/24/2025 11:2 2 AM CDT 07/24/2025 12:07 PM CDT Pablo Perez MD LAB BLOOD ORDERABLES Final R esult [facility] [address] Department [place] [address] * Protein / creatinine ratio, urine, random (07/03/2025 1:19 PM CDT) Protein, ur, quant 4.8 mg/dL Comment: Interpretive Data No reference range established. Current interpretive data was last revised 2019. Creatinine Ur 47.7 mg/dL [facility] Comment: Interpretive Data No reference range established. Current interpretive data was last revised 2019. Protein/creatinin e ratio 100.6 0.0 - 180.0 mg/g CR [facility] Urine 07/03/2025 1:19 PM CDT 07/03/2025 1:52 PM CDT Narrative [facility] - 07/03/2025 2:24 PM CDT No reference range established for random urine total protein. Pablo Perez MD LAB URINE ORDERABLES Final R esult Performing Organization Address [facility] de Phone Number [facility] [address] [place] [address] * eGFR (07/03/2025 1:18 PM CDT) eGFR [...] ORDERABLES Final R esult Performing Organization Address [facility] Co de Phone Number [facility] [address] [place] [address] * Differential, auto (07/03/2025 1:18 PM CDT) Neutrophil abs 3.08 1.50 - 6.50 K/cumm Imm gran abs 0.01 0.00 - 0.10 K/cumm [facility] Lymphocyte abs 0.89 0.80 - 3.30 K/cumm [facility] Monocyte abs 0.38 0.20 - 0.80 K/cumm [facility] Eosinophil abs 0.26 0.00 - 0.50 K/cumm [facility] Basophil abs 0.02 0.00 - 0.10 K/cumm [facility] Neutrophil pct 66.4 % [facility] Comment: Interpretive Data Percent cell count reference ranges are not reported, since discordance with absolute values may lead to misinterpretation of CBC data. Current Interpretive Data was last revised on 2018. Imm gran pct 0.2 % [facility] Comment: Interpretive Data Percent cell count reference ranges are not reported, since discordance with absolute values may lead to misinterpretation of CBC data. Current Interpretive Data was last revised on 2018. Lymphocyte pct 19.2 % [facility] Comment: Interpretive Data Percent cell count reference ranges are not reported, since discordance with absolute values may lead to misinterpretation of CBC data. Current Interpretive Data was last revised on 2018. Monocyte pct 8.2 % [facility] Comment: Interpretive Data Percent cell count reference ranges are not reported, since discordance with absolute values may lead to misinterpretation of CBC data. Current Interpretive Data was last revised on 2018. Eosinophil pct 5.6 % [facility] Comment: Interpretive Data Percent cell count reference ranges are not reported, since discordance with absolute values may lead to misinterpretation of CBC data. Current Interpretive Data was last revised on 2018. Basophil pct 0.4 % [facility] Comment: Interpretive Data Percent cell count reference ranges are not reported, since discordance with absolute values may lead to misinterpretation of CBC data. Current Interpretive Data was last revised on 2018. Blood 07/03/2025 1:18 PM CDT 07/03/2025 1:18 PM CDT Pablo Perez MD LAB BLOOD ORDERABLES Final R esult [facility] [address] [place] [address] * Thyroid Function [place] (07/03/2025 1:18 PM CDT) Pathologist [facility] TSH 2.44 0.30 - 4.20 mcIUnit/mL Blood 07/03/2025 1:18 PM CDT 07/03/2025 1:52 PM CDT Pablo Perez MD LAB BLOOD ORDERABLES Final R esult [facility] [address] [place] [address] * (ABNORMAL) CBC with auto differential (07/03/2025 1:18 PM CDT) [facility] WBC 4.64 3.80 - 9.90 K/cumm Hgb 13.7 13.0 - 17.5 g/dL [facility] Hct 40.1 38.9 - 50.3 % [facility] Plt 117(L) 150 - 400 K/cumm [facility] MPV 9.1 9.1 - 12.3 fL [facility] RBC 4.57 4.30 - 5.80 M/cumm [facility] MCV 87.7 81.3 - 96.4 fL [facility] MCH 30.0 27.1 - 33.3 pg [facility] MCHC 34.2 32.3 - 35.7 g/dL [facility] RDW CV 13.5 11.1 - 14.9 % [facility] RDW SD 43.6 35.7 - 48.1 fL [facility] NRBC abs 0.00 0.00 - 0.01 K/cumm [facility] ANC Prelim 3.08 1.50 - 6.50 K/cumm [facility] Comment: Interpretive Data The rapid ANC is a preliminary automated count and may vary from the final ANC (Neut Abs) reported in the WBC differential that follows. Current interpretive data was last revised 2024. Blood 07/03/2025 1:18 PM CDT 07/03/2025 1:18 PM CDT Pablo Perez MD LAB BLOOD ORDERABLES Final R esult Performing Organization Address [facility]/ZIP Co de Phone Number [facility] [address] [place] [address] * (ABNORMAL) Comprehensive metabolic panel (07/03/2025 1:18 PM CDT) Sodium 140 135 - 145 mmol/L Potassium, pl 4.4 3.3 - 4.9 mmol/L [facility] Chloride 102 97 - 110 mmol/L [facility] CO2 26 22 - 32 mmol/L [facility] Anion gap 12 2 - 15 mmol/L [facility] BUN 25 6 - 25 mg/dL [facility] Creatinine 1.15 0.80 - 1.30 mg/dL [facility] Glucose 233(H) 70 - 199 mg/dL [facility] Comment: Interpretive Data Fasting glucose >/= [...] 2022. Calcium 9.0 8.5 - 10.3 mg/dL [facility] Bilirubin, total 0.4 0.1 - 1.2 mg/dL [facility] Protein, pl 6.2(L) 6.5 - 8.5 g/dL [facility] Albumin 4.0 3.5 - 5.0 g/dL [facility] Alk phos 65 40 - 130 Units/L [facility] ALT 16 7 - 55 Units/L [facility] AST 14 10 - 50 Units/L [facility] Blood 07/03/2025 1:18 PM CDT 07/03/2025 1:52 PM CDT Pablo Perez MD LAB BLOOD ORDERABLES Final R esult Performing Organization Address [facility]/ZIP Co de Phone Number [facility] [address] [place] [address] * eGFR (06/12/2025 1:39 PM CDT) eGFR [...] ORDERABLES Final R esult Performing Organization Address [facility]/ZIP Co de Phone Number [facility] [address] [place] [address] * Differential, auto (06/12/2025 1:39 PM CDT) Pathologist [facility] Neutrophil abs 3.44 1.50 - 6.50 K/cumm Imm gran abs 0.01 0.00 - 0.10 K/cumm [facility] Lymphocyte abs 0.81 0.80 - 3.30 K/cumm [facility] Monocyte abs 0.37 0.20 - 0.80 K/cumm [facility] Eosinophil abs 0.39 0.00 - 0.50 K/cumm [facility] Basophil abs 0.02 0.00 - 0.10 K/cumm [facility] Neutrophil pct 68.3 % [facility] Comment: Interpretive Data Percent cell count reference ranges are not reported, since discordance with absolute values may lead to misinterpretation of CBC data. Current Interpretive Data was last revised on 2018. Imm gran pct 0.2 % [facility] Comment: Interpretive Data Percent cell count reference ranges are not reported, since discordance with absolute values may lead to misinterpretation of CBC data. Current Interpretive Data was last revised on 2018. Lymphocyte pct 16.1 % [facility] Comment: Interpretive Data Percent cell count reference ranges are not reported, since discordance with absolute values may lead to misinterpretation of CBC data. Current Interpretive Data was last revised on 2018. Monocyte pct 7.3 % [facility] Comment: Interpretive Data Percent cell count reference ranges are not reported, since discordance with absolute values may lead to misinterpretation of CBC data. Current Interpretive Data was last revised on 2018. Eosinophil pct 7.7 % [facility] Comment: Interpretive Data Percent cell count reference ranges are not reported, since discordance with absolute values may lead to misinterpretation of CBC data. Current Interpretive Data was last revised on 2018. Basophil pct 0.4 % [facility] Comment: Interpretive Data Percent cell count reference ranges are not reported, since discordance with absolute values may lead to misinterpretation of CBC data. Current Interpretive Data was last revised on 2018. Blood 06/12/2025 1:39 PM CDT 06/12/2025 1:39 PM CDT us Pablo Perez MD LAB BLOOD ORDERABLES Final R esult [facility] [address] Department of Laboratories [place], [place] [id number] * Thyroid Function [place] (06/12/2025 1:39 PM CDT) TSH 2.53 0.30 - 4.20 mcIUnit/mL Blood 06/12/2025 1:39 PM CDT 06/12/2025 2:20 PM CDT Pablo Perez MD LAB BLOOD ORDERABLES Final R esult [facility] [address] [place] [place] [address] * (ABNORMAL) CBC with auto differential (06/12/2025 1:39 PM CDT) [facility] WBC 5.04 3.80 - 9.90 K/cumm Hgb 14.2 13.0 - 17.5 g/dL [facility] Hct 41.1 38.9 - 50.3 % [facility] Plt 126(L) 150 - 400 K/cumm [facility] MPV 9.1 9.1 - 12.3 fL [facility] RBC 4.72 4.30 - 5.80 M/cumm [facility] MCV 87.1 81.3 - 96.4 fL [facility] MCH 30.1 27.1 - 33.3 pg [facility] MCHC 34.5 32.3 - 35.7 g/dL [facility] RDW CV 13.2 11.1 - 14.9 % [facility] RDW SD 42.5 35.7 - 48.1 fL [facility] NRBC abs 0.00 0.00 - 0.01 K/cumm [facility] ANC Prelim 3.44 1.50 - 6.50 K/cumm [facility] Comment: Interpretive Data The rapid ANC is a preliminary automated count and may vary from the final ANC (Neut Abs) reported in the WBC differential that follows. Current interpretive data was last revised 2024. Blood 06/12/2025 1:39 PM CDT 06/12/2025 1:39 PM CDT Pablo Perez MD LAB BLOOD ORDERABLES Final R esult [facility] [address] [place] [address] [phone] * Protein / creatinine ratio, urine, random (06/12/2025 1:39 PM CDT) [facility] Protein, ur, quant 4.1 mg/dL Comment: Interpretive Data No reference range established. Current interpretive data was last revised 2019. Creatinine Ur 41.3 mg/dL [facility] Comment: Interpretive Data No reference range established. Current interpretive data was last revised 2019. Protein/creatinin e ratio 99.3 0.0 - 180.0 mg/g CR [facility] Urine 06/12/2025 1:39 PM CDT 06/12/2025 2:20 PM CDT Narrative [facility] - 06/12/2025 2:48 PM CDT No reference range established for random urine total protein. Pablo Perez MD LAB URINE ORDERABLES Final R esult [facility] [address] [place] [address] * (ABNORMAL) Comprehensive metabolic panel (06/12/2025 1:39 PM CDT) [facility] Sodium 137 135 - 145 mmol/L Potassium, pl 4.5 3.3 - 4.9 mmol/L [facility] Chloride 102 97 - 110 mmol/L [facility] CO2 23 22 - 32 mmol/L [facility] Anion gap 12 2 - 15 mmol/L [facility] BUN 23 6 - 25 mg/dL [facility] Creatinine 1.13 0.80 - 1.30 mg/dL [facility] Glucose 195 70 - 199 mg/dL [facility] Comment: Interpretive Data Fasting glucose >/= [...] 2022. Calcium 9.8 8.5 - 10.3 mg/dL [facility] Bilirubin, total 0.5 0.1 - 1.2 mg/dL [facility] Protein, pl 6.4(L) 6.5 - 8.5 g/dL [facility] Albumin 4.0 3.5 - 5.0 g/dL [facility] Alk phos 69 40 - 130 Units/L [facility] ALT 17 7 - 55 Units/L [facility] AST 20 10 - 50 Units/L [facility] Comment:Slightly Hemolyzed S pecimen Blood 06/12/2025 1:39 PM CDT 06/12/2025 2:20 PM CDT Pablo Perez MD LAB BLOOD ORDERABLES Final R esult [facility] [address] [place] [address] * CT Chest Abdomen Pelvis W Contrast [...] for contrast evaluation (06/11/2025 9:12 AM CDT) Creatinine, POC 1.2 0.6 - 1.5 mg/dL Comment:eGFR: 65 Blood 06/11/2025 9:12 AM CDT Pablo Perez MD POINT OF CARE TEST ORDERABLE S Final Result from Last 3 Months Insurance [facility] MEDICARE [employer] MEDICARE Advance Directives For more information, please contact: [phone] Documents on File Type Date Recorded Patient Marble Coper Expl anation ADVANCE DIRECTIVE 08/25/2024 12:15 PM [facility] er of Legal Administrator-Medical * Full Code (Latest Code Status on File) Date Activated Date Inactivated Comments 08/25/2024 6:42 AM 09/03/2024 4:27 PM Care Teams Card Lacer Relationship Specialty Start Date End Date Sushma Willett MD [address] [address] PCP - General Family Practice 05/30/24 Samm Boudreaux MD [address] DEPT RADIATION ONCOLOGY [place], [place] [id number] Consulting Physician Radiation Oncology 07/06/24 Pablo Perez MD [address] [place] [address] Medical Oncologist/Industrial Hygienist Hematology and Oncology 07/06/24 Isaak Burgess MD [address] [facility] [address] [place] [address] Metal Window Screen Assembler Cardiology 06/27/25
[2025-08-31] MEDS: cefTRIAXone 1 GM in SODIUM CHLORIDE 0.9% IV 50 ML 100 ML IVPB (04:32)
[2025-08-31] MEDS: LACTATED RINGERS 1,000 ML 999 ML IV CONT ×2 (04:32→05:23)
[2025-08-31] MEDS: ACETAMINOPHEN 500 MG TABLET 1000 MG PO (04:34)
[2025-08-31 04:50] LABS: Hematocrit 44.5 % (42.0-52.0); Hemoglobin 14.7 g/dL (14.0-18.0); Immature Granulocyte Percent A 0.5 % (0-0.5); Lymphocytes Absolute Auto 0.18 K/mm3 (0.9-3.2); Mean Corpuscular HGB Conc 33.0 g/dl (32-36); Mean Corpuscular Hemoglobin 29.2 pg (26-34); Mean Corpuscular Volume 88.3 fl (80-100); Nucleated Red Blood Cells Absolute Auto 0.000 K/mm3 (0.0-0.012); Nucleated Red Blood Cells Perc 0.0 % (0.0-0.2); Platelet Count Result 129 k/mm3 (150-375); Red Blood Count 5.04 M/mm3 (4.6-6.20); White Blood Count 6.6 K/mm3 (4.5-10.0)
[2025-08-31 04:51] LABS: Add Urine Microscopic? YES; Appearance Urine Clear (Clear); Glucose Urine UA 3+ mg/dL (Negative); Leukocyte Esterase Ur Negative LEU/UL (Negative); Nitrate Urine Negative (Negative); Specific Grav Ur 1.026 (1.001-1.035)
[2025-08-31 05:00] LABS: Alanine Aminotransferase 26 U/L (6-50); Albumin Level 4.3 g/dL (3.5-5.1); Alkaline Phosphatase 76 U/L (38-126); Anion Gap 11 mmol/L (4-12); Aspartate Amino Transferase 31 U/L (17-59); Bilirubin,Total 1.1 mg/dL (0.2-1.3); Blood Urea Nitrogen 31 mg/dL (9-20); CRP 8.2 mg/dL (<1.0); Calcium 9.0 mg/dL (8.4-10.2); Carbon Dioxide 26 mmol/L (22-30); Chloride 94 mmol/L (98-107); Estimated CRCL calculation 49 ml/min; Estimated Glomerular Filt Rate 48; Glucose 182 mg/dL (65-110); Potassium 4.1 mmol/L (3.4-5.0); Sodium 131 mmol/L (137-145); Total Protein 7.5 g/dL (6.3-8.2)
[2025-08-31 05:08] LABS: INR 1.1; Prothrombin Time 14.3 Seconds (11.1-14.7)
[2025-08-31 05:09] LABS: Partial Thromboplastin Time 34.9 Seconds (22.3-36.8)
[2025-08-31 05:21] LABS: Influenza A QL RT-PCR Negative (Negative); Influenza B QL RT-PCR Negative (Negative); SARS-CoV-2 RNA PCR Negative (Negative)
[2025-08-31] MEDS: LACTATED RINGERS 1,000 ML 999 ML (06:42)
[2025-08-31] MEDS: LACTATED RINGERS 500 ML 999 ML IV CONT (06:42)
[2025-08-31] MEDS: CEFEPIME 2 GM in SODIUM CHLORIDE 0.9% IV 50 ML 100 ML IVPB ×2 (06:51→17:39)
[2025-08-31 08:33] LABS: MRSA (PCR) NOT DETECTED (NOT DETECTE)
[2025-08-31] MEDS: VANCOMYCIN 1,250 MG/NS 250 ML 1,250 MG/250 ML BAG 166.67 MG IVPB (08:35)
--- NOTE | 2025-08-31 08:37 | WPCEDHO ---
ED Hand Off Checklist All vitals saved:y IV Site documented:y All med administrations documented:y Triage Note Triage Note Pt to the ED with increased 08/31/25 04:08 weakness and confusion that has been ongoing with a UTI that has been in the process of being treated for the past month. Pt A and O x4. Pt does self cath. Pt did have to lower self to ground and unable to stand back up. Pt states he has some urinary symptoms. Allergies Aaesanr-PZT-FlB Reductase Inhibitor Adverse Reaction (Mild, Verified 08/26/25 09:41) Muscle Pain Family History (Last Reviewed 08/31/25 @ 04:17 by Bruce Padron MD) Father Carcinoma of colon Sibling Family history of type 2 diabetes mellitus Other Diabetes mellitus Family history of malignant neoplasm Active Medications including assessments/comments Vancomycin HCl (Vancomycin 1,250 Mg/Ns 250 Ml) 1,250 mg in 250 mls @ 166.667 mls/hr IVPB ONCE ONE Stop: 08/31/25 09:29 Last Admin: 08/31/25 08:35 Dose: 166.67 mls/hr Documented By: YANET Infusion/Titration Document 08/31/25 08:35 YANET (Rec: 08/31/25 08:35 YANET [id number]) Intake IV Site Peripheral Access Left Forearm Container Volume 250 Waste Amount 0 Dosing Infusion Rate 166.67 Increase/Decrease Started Elapsed Time Elapsed Time ( 0m minutes) Administered/Completed Medications Discontinued Medications Acetaminophen (Acetaminophen 500 Mg Tablet) 1,000 mg PO ONCE STA Stop: 08/31/25 04:19 Last Admin: 08/31/25 04:34 Dose: 1,000 mg Documented By: EDMAR Lactated Ringer's (Lr - Lactated Ringers Iv) 1,000 mls @ 999 mls/hr IV CONT .Q1H1M STA Stop: 08/31/25 05:13 Last Infusion: 08/31/25 05:35 Dose: Infused Documented By: Admin: 08/31/25 04:32 Dose: 999 mls/hr Documented By: EDMAR Ceftriaxone Sodium 1 gm/ (Sodium Chloride) 50 mls @ 100 mls/hr IVPB ONCE STA Stop: 08/31/25 04:42 Last Infusion: 08/31/25 05:10 Dose: Infused Documented By: Admin: 08/31/25 04:32 Dose: 100 mls/hr Documented By: EDMAR Lactated Ringer's (Lr - Lactated Ringers Iv) 1,000 mls @ 999 mls/hr IV CONT .Q1H1M STA Stop: 08/31/25 06:11 Last Infusion: 08/31/25 07:22 Dose: Infused Documented By: Admin: 08/31/25 05:23 Dose: 999 mls/hr Documented By: EDMAR Lactated Ringer's (Lactated Ringers) 500 mls @ 999 mls/hr IV CONT .Q31M STA Stop: 08/31/25 06:36 Last Infusion: 08/31/25 07:18 Dose: Infused Documented By: Admin: 08/31/25 06:42 Dose: 999 mls/hr Documented By: EDMAR Cefepime HCl 2 gm/ Sodium (Chloride) 50 mls @ 100 mls/hr IVPB ONCE STA Stop: 08/31/25 07:07 Last Infusion: 08/31/25 07:17 Dose: Infused Documented By: Admin: 08/31/25 06:51 Dose: 100 mls/hr Documented By: EDMAR Lactated Ringer's (Lr - Lactated Ringers Iv) Confirm Administered Dose 1,000 mls @ as directed .ROUTE .STK-MED ONE Stop: 08/31/25 06:38 Last Infusion: 08/31/25 07:47 Dose: Infused Documented By: Admin: 08/31/25 06:42 Dose: 999 mls/hr Documented By: EDMAR Interventions/Assessments IV / Saline Lock, Insert Start: 08/31/25 04:00 Freq: Status: Active Protocol: Document 08/31/25 06:49 EDMAR (Rec: 08/31/25 06:49 EDMAR [id number]) IV Assessment Central Catheter, Triple Lumen Left Jugular, Internal IV Catheter Access Initiated IV Insertion Date 08/31/25 IV Insertion Time 06:49 IV Insertion 2 Attempts IV Site Assessment WNL IV Care and WNL Maintenance PA: Cardiovascular Assessment Start: 08/31/25 04:00 Freq: Status: Active Protocol: Document 08/31/25 04:08 ROSSIG (Rec: 08/31/25 04:15 EDMAR [id number]) Cardiovascular Assessment Cardiovascular None Symptoms Skin Description Normal Color Heart Sounds Normal Jugular Vein None Distention PA: Neurological Assessment Start: 08/31/25 04:00 Freq: Status: Active Protocol: Document 08/31/25 04:08 LLG (Rec: 08/31/25 04:15 LLG [id number]) [place] Coma Scale Eyes Open Verbal Oriented and Alert Motor Follows Commands [place] Coma Total 15 Score Neurological Assessment Level of Alert,Awake Consciousness Arousable to Verbal Orientation Oriented to Person,Oriented to Place,Oriented to Time Neurological Confusion Symptoms Hallucination Type None Unable to Redirect No Behavior Behavior Cooperative Patient Able to Comprehend Comprehension Memory Description Intact Ability to Maintain Unable to Assess Balance Facial Symmetry Symmetrical Speech Pattern Clear Tongue Position Midline PA: Respiratory Assessment Start: 08/31/25 04:00 Freq: Status: Active Protocol: Document 08/31/25 04:08 LLG (Rec: 08/31/25 04:15 LLG [id number]) Respiratory Assessment Symptoms None Effort Normal Depth Normal Chest Expansion Symmetrical Cough Description None Sputum Amount None Oxygen Delivery Oxygen Delivery Room Air Pulse Oximetry (90- 95 100) Last Vital Signs Temperature 99.7 F H 08/31/25 08:25 Pulse Rate 69 08/31/25 08:25 Respiratory Rate 16 08/31/25 08:25 Pulse Oximetry 99 08/31/25 08:25 Blood Pressure 94/57 L 08/31/25 08:25 Blood Pressure Mean 69 08/31/25 08:25 Oxygen Delivery Nasal Cannula 08/31/25 08:01 Oxygen Flow Rate 2 08/31/25 08:01 Weight 85.5 kg 08/31/25 04:08 Last Result - Abnormals Only Plt Count 129 k/mm3 (150-375) L 08/31/25 04:36 Neut % (Auto) 91.3 % (45.5-73.1) H 08/31/25 04:36 Lymph % (Auto) 2.7 % (18.3-44.2) L 08/31/25 04:36 Lymph # (Auto) 0.18 K/mm3 (0.9-3.2) L 08/31/25 04:36 Sodium 131 mmol/L (137-145) L 08/31/25 04:37 Chloride 94 mmol/L (98-107) L 08/31/25 04:37 BUN 31 mg/dL (9-20) H 08/31/25 04:37 Creatinine 1.43 mg/dL (0.7-1.3) H 08/31/25 04:37 Estimated GFR 48 (59-) L 08/31/25 04:37 Glucose 182 mg/dL (65-110) H 08/31/25 04:37 C-Reactive Protein 8.2 mg/dL (<1.0) H 08/31/25 04:37 Urine Protein 1+ mg/dL (Negative) H 08/31/25 04:36 Urine Glucose (UA) 3+ mg/dL (Negative) H 08/31/25 04:36 Urine Ketones 1+ mg/dL (Negative) H 08/31/25 04:36 Urine WBC 6-10 /hpf (0-3) H 08/31/25 04:36 Most Recent Suicide Severity Rating Suicide Severity Rating NO RISK INDICATED 08/31/25 04:08
--- NOTE | 2025-08-31 09:05 | ADMGEN ---
This patient, Farooq Fish, was admitted to Intensive Care Unit-4 at 0848. Patient/family oriented to hospital policies and general routines including ID bracelet, bed and alarms, visiting hours, pain management, procedures, bathroom and other care routines, personal items, smoking policy, room service/diet, and visiting hours. Information on how to activate the Rapid Response Team has been discussed. Patient/Family are encouraged to report perceived risks to care and to ask questions if they do not understand what they are told or what they should do.
[2025-08-31] MEDS: VANCOMYCIN HCL 1,000 MG in SODIUM CHLORIDE 0.9% IV 250 ML 250 MG IVPB (10:08)
[2025-08-31] MEDS: ENOXAPARIN 40 MG/0.4 ML SYRINGE SUB-Q (10:11)
[2025-08-31] MEDS: PANTOPRAZOLE SODIUM IV 40 MG VIAL IV PUSH (10:11)
--- NOTE | 2025-08-31 11:25 | P.CONIN_ITS ---
Assessment and Plan Assessment and plan (1) Septic shock: Code(s): A41.9 - Sepsis, unspecified organism; R65.21 - Severe sepsis with septic shock Status: Acute Assessment and Plan: 08/31: Patient presented with confusion, generalized weakness, fevers, altered mental status, hypotension -in the ED patient received 3.5 L IV fluid bolus despite which his blood pressures remain low, left IJ line was placed -patient did not require Levophed -upon arrival to the ICU patient's blood pressures have been stable -started on cefepime and vancomycin (08/31: -08/31: Urine cultures have been obtained (patient has had recent E coli UTI on 08/26/2025, 08/19/2025, 08/01/2025 resistant to ampicillin only) -08/31: Blood cultures have been obtained -will give albumin for intravascular volume expansion -monitor urine output (2) Type 2 diabetes mellitus without complication, without long-term current use of insulin: Code(s): E11.9 - Type 2 diabetes mellitus without complications Status: Chronic Assessment and Plan: Will start Accu-Cheks and sliding scale insulin -patient does take Jardiance, glipizide, metformin at home -according to his , patient has had decreased appetite and oral intake since the last week, (3) Renal cell carcinoma: Qualifiers: Laterality: left Qualified Code(s): C64.2 - Malignant neoplasm of left kidney, except renal pelvis Code(s): C64.9 - Malignant neoplasm of unspecified kidney, except renal pelvis Status: Acute Assessment and Plan: History of renal cell carcinoma on Keytruda and Lenvima, follows up the oncologist at [facility] (4) Acute renal failure: Qualifiers: Acute renal failure type: unspecified Qualified Code(s): N17.9 - Acute kidney failure, unspecified Code(s): N17.9 - Acute kidney failure, unspecified Status: Acute Assessment and Plan: Acute renal failure likely related to hypotension, severe sepsis/shock, blood pressure and cardiomyopathy medications (baseline creatinine 1.20-1.23 in July of 2025) -has received adequate IV fluids, -patient does have a left renal cell carcinoma -encourage fluid intake and albumin for intravascular volume expansion -urinary catheter in place -patient does have urinary retention and self catheterizes every 4 hours at home -continue to monitor urine output, renal function electrode (5) Acute UTI: Code(s): N39.0 - Urinary tract infection, site not specified Status: Acute Assessment and Plan: UA was reflective of UTI, antibiotics as above, cultures have been a (6) Paroxysmal atrial fibrillation: Onset Date: ~08/2024 Code(s): I48.0 - Paroxysmal atrial fibrillation Status: Acute Assessment and Plan: History of paroxysmal AFib, currently rate controlled (7) Cardiomyopathy: Qualifiers: Cardiomyopathy type: unspecified Qualified Code(s): I42.9 - Cardiomyopathy, unspecified Code(s): I42.9 - Cardiomyopathy, unspecified Status: Acute Assessment and Plan: History of cardiomyopathy, takes Entresto, Coreg, Jardiance, losartan/HCTZ, spironolactone -check echocardiogram Plan DVT prophylaxis: Lovenox Stress ulcer prophylaxis: Proton Nutrition: Heart healthy and diabetic diet Code Status: Full code Critical Care Time Spent: 49 minutes Discussed with patient and his spouse at bedside and updated them with patient's condition and plan of care. Date aware that he has a UTI, on antibiotics. Received adequate fluids currently not requiring any pressors. I answered all the questions Due to a high probability of clinically significant, life threatening deterioration, the patient required my highest level of preparedness to intervene emergently and I personally spent this critical care time directly and personally managing the patient. This critical care time included obtaining a history; examining the patient; pulse oximetry; ordering and review of studies; arranging urgent treatment with development of a management plan; evaluation of patient's response to treatment; frequent reassessment; and discussions with other providers. It was exclusive of separately billable procedures and treating other patients and teaching time. Please see Assessment and Plan section and the rest of the note for further information on patient assessment and treatment This dictation may have been done utilizing a voice recognition system. Attempts have been made to correct errors. However, there may be uncorrected grammatical, spelling, and recognitions errors present. Associate Financial Representative Consult Note Consult date: 08/31/25 Reason for consult: Hypotension, confusion, generalized weakness, Severe sepsis, UTI, possible bacteremia, HPI: Farooq Fish is a 75 year old male with past medical received of hypertension, paroxysmal atrial fibrillation, cardiomyopathy, left renal cell carcinoma with spinal Mets, obstructive sleep apnea, vitamin-D deficiency, diabetes type 2, chronic urinary retention, self catheterizes every 4 hours at home, recurring UTIs presented the ED on 08/31/2025 with complains of generalized weakness, confusion, fevers. He felt like his legs were giving out on him, normally ambulates by himself but had to use a walker due to weakness to go to the restroom. He did slide to the ground but did not hit his head or lose consciousness. When the ambulance arrived he was too weak to get up. He was recently seen in the ER on 08/19/2025 and also followed up with his primary care doctor on 08/26/2025 and was started on nitrofurantoin for E coli UTI. In the ER patient was found to be hypotensive, was given 3.5 L IV fluids despite which his blood pressures remained low, left IJ line was inserted, Levophed was ordered but never had to be started. WBC count of 6.6, hemoglobin 14.7, platelets 120, neutrophils were 91% INR of 1.1. Sodium 131, potassium 4.1, chloride 94, CO2 26, creatinine 1.43, BUN 31, glucose 182, lactic 2.0, normal LFTs. UA was unremarkable. MRSA screen was negative. Influenza, SARs CoV 2 PCR were negative Chest x-ray did not show any pneumothorax or cardiopulmonary changes right kidney cysts. CT abdomen and pelvis did not show any acute inflammatory process. Several hypodense foci as before. Intrahepatic biliary ductal dilatation after cholecystectomy. Left kidney parenchyma mass smaller than scan 1 year prior. Sacral lytic lesion larger than 1 year prior Patient was started on cefepime and vancomycin and transferred to the ICU for further management Patient seen and examined upon arrival to the ICU, pleasant gentleman, denies any shortness of breath, chest pain, abdominal pain, nausea, vomiting. Blood pressures have been stable, not requiring Levophed. Has a Knight catheter. Patient was febrile to 103 in the ER, in the ICU his temperature is 99.8?. According the spouse, patient does take Keytruda and Lenvima for his kidney renal cell carcinoma. Radiation treatment was approximately 1 year ago. Review of Systems 2 Review of Systems: All systems reviewed & are unremarkable except as noted in HPI and below PMFSH Past Medical History Medical History Statin myopathy Cardiomyopathy Paroxysmal atrial fibrillation (~08/2024) 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 (~2023) Urinary retention Left kidney mass History of colon polyps History of polyneuropathy (~1992) h/o numbness and weakness in legs ruled out MS Vitamin D deficiency Dyslipidemia Toe fracture 01/2015 [place] (obstructive sleep apnea) Type 2 diabetes mellitus without complication, without long-term current use of insulin Essential (primary) hypertension Surgical History Surgical History History of incisional hernia repair (~03/2002) History of right inguinal hernia repair (~03/2017) [place] teeth extracted History of cholecystectomy (~1999) Family History Family History Father Carcinoma of colon, Onset Age: 61 Sibling Family history of type 2 diabetes mellitus Other Diabetes mellitus Family history of malignant neoplasm Social History Social History Smoking status: Never smoker Second hand tobacco smoke exposure: No Alcohol intake: former Drinks per week: 2 Alcohol use details: consumes 2 beers weekly Substance use: never Substance use type: does not use Lack of Transportation: No Lack of Food: Never True Current Housing: I Have Housing Concerned About Future Housing: No Difficulty Paying Gas/Electric Bills: No Difficulty Paying for Meds: No Currently Unemployed: No Education: High School Diploma/GED Difficulty w/ Childcare or Family Care: No Living arrangements: other Additional living arrangements comments: with sp Spiritual care concerns: No Agree to blood products: Yes Meds Home Medications and Allergies Home Medications ?Medication ?Instructions ?Recorded ?Confirmed ?Type blood sugar diagnostic (OneTouch #100 ea 01/02/2408/04 Rx Ultra Test strips) tamsulosin 0.4 mg capsule 0.4 mg PO HS 06/28/2408/04 History lenvatinib 10 mg/day (10 mg x 1) 10 mg PO .noon 08/31/25 History capsule (Lenvima) pembrolizumab 25 mg/mL intravenous 200 mg (8 mL) IV .Q 3WEEKS 12/20/24 08/31/25 Rx solution (Keytruda) metformin 500 mg tablet,extended 500 mg PO BID #180 ta bs 03/15/25 08/31/25 Rx release 24 hr ezetimibe 10 mg tablet 10 mg PO DAILY #90 tabs 04/0308/31/25 Rx carvedilol 6.25 mg tablet 6.25 mg PO BID #180 tabs 08/31/25 Rx empagliflozin 10 mg tablet 10 mg PO DAILY #90 tabs 08/31/25 Rx (Jardiance) spironolactone 25 mg tablet 25 mg PO DAILY #90 tabs 08/31/25 Rx losartan 100 1 tablet PO DAILY #90 tabs 1 10/12/24 08/31/25 Rx mg-hydrochlorothiazide 25 mg tablet glipizide 10 mg tablet, extended 10 mg PO DAILY #90 ta bs 08/26/25 08/31/25 Rx release 24 hr nitrofurantoin macrocrystal 100 mg 100 mg PO Q12H #20 caps 08/28/25 08/31/25 Rx capsule Allergies Allergy/AdvReac Type Severity Reaction Status Date / Time Hoalsys-RBD-MuQ Reductase AdvReac Mild Muscle Pain Verified 08/31/25 09:05 Inhibitor Vital Signs Vital Signs - 24 hr 08/31/25 04:08 08/31/25 04:08 08/31/25 04:46 Temperature 100.6 F H 103.4 F H Pulse Rate 73 Respiratory Rate 15 Blood Pressure 131/70 Pulse Oximetry 94 95 Oxygen Delivery Room Air Room Air Oxygen Flow Rate 08/31/25 04:47 08/31/25 04:51 08/31/25 05:00 Temperature 103.4 F H 103.3 F H 103.1 F H Pulse Rate 73 70 70 Respiratory Rate 21 H 17 18 Blood Pressure 115/61 117/52 L Pulse Oximetry 99 97 97 Oxygen Delivery Oxygen Flow Rate 08/31/25 05:01 08/31/25 05:09 08/31/25 05:11 Temperature 103.1 F H 103 F H 102.9 F H Pulse Rate 70 70 Respiratory Rate 24 H 19 Blood Pressure 108/52 L Pulse Oximetry 97 96 Oxygen Delivery Oxygen Flow Rate 08/31/25 05:15 08/31/25 05:20 08/31/25 05:30 Temperature 102.8 F H 102.7 F H 102.5 F H Pulse Rate 70 67 68 Respiratory Rate 17 17 23 H Blood Pressure 101/51 L 95/51 L Pulse Oximetry 96 96 96 Oxygen Delivery Oxygen Flow Rate 08/31/25 05:31 08/31/25 05:53 08/31/25 05:56 Temperature 102.5 F H 101.9 F H 101.8 F H Pulse Rate 69 71 Respiratory Rate 17 17 Blood Pressure 94/63 L Pulse Oximetry 97 96 95 Oxygen Delivery Oxygen Flow Rate 08/31/25 05:57 08/31/25 06:00 08/31/25 06:01 Temperature 101.8 F H 101.8 F H 101.8 F H Pulse Rate 72 68 67 Respiratory Rate 15 16 16 Blood Pressure 94/54 L Pulse Oximetry 96 96 97 Oxygen Delivery Oxygen Flow Rate 08/31/25 06:10 08/31/25 06:15 08/31/25 06:18 Temperature 101.6 F H 101.5 F H 101.4 F H Pulse Rate 73 71 69 Respiratory Rate 16 16 16 Blood Pressure 92/66 L 100/56 L Pulse Oximetry 99 100 100 Oxygen Delivery Oxygen Flow Rate 08/31/25 06:20 08/31/25 06:26 08/31/25 06:30 Temperature 101.0 F H 101.0 F H 101.1 F H Pulse Rate 76 69 68 Respiratory Rate 18 18 19 Blood Pressure 99/53 L 107/54 L Pulse Oximetry 100 100 100 Oxygen Delivery Oxygen Flow Rate 08/31/25 06:31 08/31/25 06:36 08/31/25 06:40 Temperature 101.1 F H 101.0 F H 101.0 F H Pulse Rate 70 66 69 Respiratory Rate 18 18 17 Blood Pressure 105/59 L 93/51 L 90/52 L Pulse Oximetry 100 100 95 Oxygen Delivery Oxygen Flow Rate 08/31/25 06:45 08/31/25 06:46 08/31/25 06:50 Temperature 100.9 F H 100.9 F H 100.8 F H Pulse Rate 65 69 73 Respiratory Rate 14 20 20 Blood Pressure 96/56 L 92/64 L Pulse Oximetry 94 95 95 Oxygen Delivery Oxygen Flow Rate 08/31/25 06:55 08/31/25 07:00 08/31/25 07:01 Temperature 100.7 F H 100.5 F H 100.5 F H Pulse Rate 70 70 69 Respiratory Rate 18 18 17 Blood Pressure 108/56 L 110/57 L Pulse Oximetry 95 92 94 Oxygen Delivery Oxygen Flow Rate 08/31/25 07:06 08/31/25 07:11 08/31/25 07:14 Temperature 100.3 F H 100.2 F H 100.1 F H Pulse Rate 65 63 65 Respiratory Rate 17 23 H 14 Blood Pressure 112/50 L 83/54 L 105/57 L Pulse Oximetry 93 95 92 Oxygen Delivery Oxygen Flow Rate 08/31/25 07:15 08/31/25 07:16 08/31/25 07:20 Temperature 100.1 F H 100.0 F H 99.9 F H Pulse Rate 67 63 67 Respiratory Rate 16 22 H 16 Blood Pressure 106/59 L 110/64 Pulse Oximetry 92 94 94 Oxygen Delivery Oxygen Flow Rate 08/31/25 07:25 08/31/25 07:30 08/31/25 07:31 Temperature 99.8 F H 99.8 F H 99.8 F H Pulse Rate 67 63 64 Respiratory Rate 19 23 H 15 Blood Pressure 115/63 101/56 L Pulse Oximetry 92 95 97 Oxygen Delivery Oxygen Flow Rate 08/31/25 07:35 08/31/25 07:40 08/31/25 07:45 Temperature 99.7 F H 99.7 F H 99.7 F H Pulse Rate 56 L 63 65 Respiratory Rate 16 20 17 Blood Pressure 108/56 L 106/59 L Pulse Oximetry 94 97 90 Oxygen Delivery Oxygen Flow Rate 08/31/25 07:46 08/31/25 07:50 08/31/25 07:56 Temperature 99.7 F H 99.6 F 99.6 F Pulse Rate 61 69 61 Respiratory Rate 15 15 16 Blood Pressure 102/60 103/55 L 104/56 L Pulse Oximetry 94 96 93 Oxygen Delivery Oxygen Flow Rate 08/31/25 08:00 08/31/25 08:01 08/31/25 08:01 Temperature 99.7 F H Pulse Rate 64 Respiratory Rate 17 Blood Pressure 103/62 Pulse Oximetry 95 83 L 94 Oxygen Delivery Room Air Nasal Cannula Oxygen Flow Rate 2 08/31/25 08:01 08/31/25 08:05 08/31/25 08:10 Temperature 99.7 F H 99.5 F 99.7 F H Pulse Rate 63 71 69 Respiratory Rate 15 14 17 Blood Pressure 100/56 L 100/58 L Pulse Oximetry 94 98 97 Oxygen Delivery Oxygen Flow Rate 08/31/25 08:15 08/31/25 08:16 08/31/25 08:21 Temperature 99.7 F H 99.7 F H 99.7 F H Pulse Rate 64 63 62 Respiratory Rate 18 16 16 Blood Pressure 109/64 94/56 L Pulse Oximetry 98 99 98 Oxygen Delivery Oxygen Flow Rate 08/31/25 08:25 08/31/25 09:00 08/31/25 10:00 Temperature 99.7 F H 99.8 F H Pulse Rate 69 68 88 Respiratory Rate 16 18 Blood Pressure 94/57 L 106/63 Pulse Oximetry 99 94 Oxygen Delivery Oxygen Flow Rate 08/31/25 10:00 08/31/25 11:00 Temperature Pulse Rate 88 97 Respiratory Rate 14 17 Blood Pressure 143/80 H 133/74 Pulse Oximetry 97 96 Oxygen Delivery Oxygen Flow Rate Exam 2 Narrative: General: Pleasant gentleman currently in no acute distress HEENT:? Pupils equal and reactive, sclera is clear, moist oral me Neck:? Supple Respiratory:? Clear to auscultation bilaterally, no wheezing, adequate air and Cardiac:? S1-S2 normal, regular rate and rhythm Abdomen:? Soft, nontender, nondistended, normoactive bowel sound Extremities:? No edema, palpable pedal pulses Neuro:? Patient is awake, alert, oriented, nonfocal, follows simple commands and answers to questions appropriately Skin:? No skin lesions noted, skin is warm and dry Psych:? Normal mentation and affect Results Labs 08/31/25 04:36 08/31/25 04:37 Labs: Short CBC 08/31/25 Range/Units 04:36 WBC 6.6 (4.5-10.0) K/mm3 Hgb 14.7 (14.0-18.0) g/dL Hct 44.5 (42.0-52.0) % Plt Count 129 L (150-375) k/mm3 [facility] 08/31/25 04:37 Sodium 131 L Potassium 4.1 Chloride 94 L Carbon Dioxide 26 BUN 31 H Creatinine 1.43 H Glucose 182 H Calcium 9.0 Liver Function 08/31/25 Range/Units 04:37 Total Bilirubin 1.1 (0.2-1.3) mg/dL AST 31 (17-59) U/L ALT 26 (6-50) U/L Alkaline Phosphatase 76 (38-126) U/L Albumin 4.3 (3.5-5.1) g/dL Urine 08/31/25 Range/Units 04:36 Urine Color Yellow (Yellow) Urine Appearance Clear (Clear) Urine pH 5.0 (5.0-9.0) Ur Specific [place] 1.026 (1.001-1.035) Urine Protein 1+ H (Negative) mg/dL Urine Glucose (UA) 3+ H (Negative) mg/dL Quality VTE Prophylaxis VTE prophylaxis: pharmacologic ordered Hospitalist MIPS Advance Care Plan I have confirmed that the patient's Advanced Care Plan is present, code status is documented, or surrogate decision maker is listed in patient medical record.: Yes Medication Reconciliation I have utilized all available resources to obtain, update and review the patients current medications (includes all prescriptions, OTC, herbals, cannabis, and nutritional supplements).: Yes
[2025-08-31] MEDS: ALBUMIN HUMAN 25% 25 GM/100 ML 100 ML IVPB ×3 (12:52→23:41)
[2025-08-31] MEDS: ACETAMINOPHEN 325 MG TABLET 650 MG PO ×2 (13:03→17:39)
--- NOTE | 2025-08-31 14:12 | PM.IMHP ---
H&P: HPI History of Present Illness Date/Time: 08/31/25 14:12 Chief Complaint: Weakness Narrative: This is a 75-year-old male who presents to the ER with fever and generalized weakness. He normally ambulates with a walker and today he was too weak to get up and go to the bathroom and slid to the ground. He denies hitting his head or losing consciousness. He called ambulance. He has been feeling weak over the past few days. He has had persistent urinary symptoms since when he was diagnosed with UTI. He had come to ED for UTI and was discharged home on nitrofurantoin. Urine culture grew E coli. Repeat UA was performed on 08/26/2025 a when he went to see his PCP. Urine culture grew E coli at that time as well. Really has been battling with recurrent UTIs for a while. In the ED initial vital were okay except for temperature of 38.1?. Laboratory workup revealed WBC of 6.6 hemoglobin of 14.7 platelet of 129. Sodium of 131 potassium 4.1 chloride 94 BUN 31 creatinine 1.4 bicarbonate of 26 blood glucose of 182 lactate of 2 LFTs were normal CRP of 8.2 urinalysis was positive with urine WBC of 6 to 10. Influenza and COVID swab was negative. Chest x-ray with no acute cardiopulmonary findings. CT abdomen pelvis with no acute inflammatory process. While in the ED patient's blood pressure continued to decline despite fluid resuscitation. Patient had a central line placed while in the ER and broad-spectrum antibiotics were started. Patient has not required any vasopressors so far. Patient is admitted to ICU for further treatment. Review of Systems Review of Systems: - CONSTITUTIONAL: Denies weight loss, reports fever and chills. Reports generalized weakness - HEENT: Denies changes in vision and hearing - RESPIRATORY: Denies SOB and cough. - CV: Denies palpitations and CP. - GI: Denies abdominal pain, nausea, vomiting and diarrhea. - : Reports ongoing dysuria and urinary frequency. - MSK: Denies myalgia and joint pain. - SKIN: Denies rash and pruritus. - NEUROLOGICAL: Denies headache and syncope. - PSYCHIATRIC: Denies recent changes in mood. Denies anxiety and depression. [facility] Past Medical History Medical History Statin myopathy Cardiomyopathy Paroxysmal atrial fibrillation (~08/2024) 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 (~2023) Urinary retention Left kidney mass History of colon polyps History of polyneuropathy (~1992) h/o numbness and weakness in legs ruled out MS Vitamin D deficiency Dyslipidemia Toe fracture 01/2015 [place]N (obstructive sleep apnea) Type 2 diabetes mellitus without complication, without long-term current use of insulin Essential (primary) hypertension Surgical History Surgical History History of incisional hernia repair (~03/2002) History of right inguinal hernia repair (~03/2017) [place] teeth extracted History of cholecystectomy (~1999) Family History Family History Father Carcinoma of colon, Onset Age: 61 Sibling Family history of type 2 diabetes mellitus Other Diabetes mellitus Family history of malignant neoplasm Social History Social History Smoking status: Never smoker Second hand tobacco smoke exposure: No Alcohol intake: former Drinks per week: 2 Alcohol use details: consumes 2 beers weekly Substance use: never Substance use type: does not use Lack of Transportation: No Lack of Food: Never True Current Housing: I Have Housing Concerned About Future Housing: No Difficulty Paying Gas/Electric Bills: No Difficulty Paying for Meds: No Currently Unemployed: No Education: High School Diploma/GED Difficulty w/ Childcare or Family Care: No Living arrangements: other Additional living arrangements comments: with sp Spiritual care concerns: No Agree to blood products: Yes Meds Home Medications and Allergies Home Medications ?Medication ?Instructions ?Recorded ?Confirmed ?Type blood sugar diagnostic (OneTouch #100 ea 01/02/24 08/26/25 Rx Ultra Test strips) tamsulosin 0.4 mg capsule 0.4 mg PO HS 06/28/24 08/31/25 History lenvatinib 10 mg/day (10 mg x 1) 10 mg PO .noon 12/20/24 08/31/25 History capsule (Lenvima) pembrolizumab 25 mg/mL intravenous 200 mg (8 mL) IV .[id number] 12/20/24 08/31/25 Rx solution (Keytruda) metformin 500 mg tablet,extended 500 mg PO BID #180 tabs 03/15/25 08/31/25 Rx release 24 hr ezetimibe 10 mg tablet 10 mg PO DAILY #90 tabs 04/24/25 08/31/25 Rx carvedilol 6.25 mg tablet 6.25 mg PO BID #180 tabs 05/21/25 08/31/25 Rx empagliflozin 10 mg tablet 10 mg PO DAILY #90 tabs 05/21/25 08/31/25 Rx (Jardiance) spironolactone 25 mg tablet 25 mg PO DAILY #90 tabs 05/21/25 08/31/25 Rx losartan 100 1 tablet PO DAILY #90 tabs 08/12/25 08/31/25 Rx mg-hydrochlorothiazide 25 mg tablet glipizide 10 mg tablet, extended 10 mg PO DAILY #90 tabs 08/26/25 08/31/25 Rx release 24 hr nitrofurantoin macrocrystal 100 mg 100 mg PO Q12H #20 caps 08/28/25 08/31/25 Rx capsule Allergies Allergy/AdvReac Type Severity Reaction Status Date / Time [id number] Reductase AdvReac Mild Muscle Pain Verified 08/31/25 09:05 Inhibitor Vital Signs Vital Signs - 24 hr 08/31/25 04:08 08/31/25 04:08 08/31/25 04:46 Temperature 100.6 F H 103.4 F H Pulse Rate 73 Respiratory Rate 15 Blood Pressure 131/70 Pulse Oximetry 94 95 Oxygen Delivery Room Air Room Air Oxygen Flow Rate 08/31/25 04:47 08/31/25 04:51 08/31/25 05:00 Temperature 103.4 F H 103.3 F H 103.1 F H Pulse Rate 73 70 70 Respiratory Rate 21 H 17 18 Blood Pressure 115/61 117/52 L Pulse Oximetry 99 97 97 Oxygen Delivery Oxygen Flow Rate 08/31/25 05:01 08/31/25 05:09 08/31/25 05:11 Temperature 103.1 F H 103 F H 102.9 F H Pulse Rate 70 70 Respiratory Rate 24 H 19 Blood Pressure 108/52 L Pulse Oximetry 97 96 Oxygen Delivery Oxygen Flow Rate 08/31/25 05:15 08/31/25 05:20 08/31/25 05:30 Temperature 102.8 F H 102.7 F H 102.5 F H Pulse Rate 70 67 68 Respiratory Rate 17 17 23 H Blood Pressure 101/51 L 95/51 L Pulse Oximetry 96 96 96 Oxygen Delivery Oxygen Flow Rate 08/31/25 05:31 08/31/25 05:53 08/31/25 05:56 Temperature 102.5 F H 101.9 F H 101.8 F H Pulse Rate 69 71 Respiratory Rate 17 17 Blood Pressure 94/63 L Pulse Oximetry 97 96 95 Oxygen Delivery Oxygen Flow Rate 08/31/25 05:57 08/31/25 06:00 08/31/25 06:01 Temperature 101.8 F H 101.8 F H 101.8 F H Pulse Rate 72 68 67 Respiratory Rate 15 16 16 Blood Pressure 94/54 L Pulse Oximetry 96 96 97 Oxygen Delivery Oxygen Flow Rate 08/31/25 06:10 08/31/25 06:15 08/31/25 06:18 Temperature 101.6 F H 101.5 F H 101.4 F H Pulse Rate 73 71 69 Respiratory Rate 16 16 16 Blood Pressure 92/66 L 100/56 L Pulse Oximetry 99 100 100 Oxygen Delivery Oxygen Flow Rate 08/31/25 06:20 08/31/25 06:26 08/31/25 06:30 Temperature 101.0 F H 101.0 F H 101.1 F H Pulse Rate 76 69 68 Respiratory Rate 18 18 19 Blood Pressure 99/53 L 107/54 L Pulse Oximetry 100 100 100 Oxygen Delivery Oxygen Flow Rate 08/31/25 06:31 08/31/25 06:36 08/31/25 06:40 Temperature 101.1 F H 101.0 F H 101.0 F H Pulse Rate 70 66 69 Respiratory Rate 18 18 17 Blood Pressure 105/59 L 93/51 L 90/52 L Pulse Oximetry 100 100 95 Oxygen Delivery Oxygen Flow Rate 08/31/25 06:45 08/31/25 06:46 08/31/25 06:50 Temperature 100.9 F H 100.9 F H 100.8 F H Pulse Rate 65 69 73 Respiratory Rate 14 20 20 Blood Pressure 96/56 L 92/64 L Pulse Oximetry 94 95 95 Oxygen Delivery Oxygen Flow Rate 08/31/25 06:55 08/31/25 07:00 08/31/25 07:01 Temperature 100.7 F H 100.5 F H 100.5 F H Pulse Rate 70 70 69 Respiratory Rate 18 18 17 Blood Pressure 108/56 L 110/57 L Pulse Oximetry 95 92 94 Oxygen Delivery Oxygen Flow Rate 08/31/25 07:06 08/31/25 07:11 08/31/25 07:14 Temperature 100.3 F H 100.2 F H 100.1 F H Pulse Rate 65 63 65 Respiratory Rate 17 23 H 14 Blood Pressure 112/50 L 83/54 L 105/57 L Pulse Oximetry 93 95 92 Oxygen Delivery Oxygen Flow Rate 08/31/25 07:15 08/31/25 07:16 08/31/25 07:20 Temperature 100.1 F H 100.0 F H 99.9 F H Pulse Rate 67 63 67 Respiratory Rate 16 22 H 16 Blood Pressure 106/59 L 110/64 Pulse Oximetry 92 94 94 Oxygen Delivery Oxygen Flow Rate 08/31/25 07:25 08/31/25 07:30 08/31/25 07:31 Temperature 99.8 F H 99.8 F H 99.8 F H Pulse Rate 67 63 64 Respiratory Rate 19 23 H 15 Blood Pressure 115/63 101/56 L Pulse Oximetry 92 95 97 Oxygen Delivery Oxygen Flow Rate 08/31/25 07:35 08/31/25 07:40 08/31/25 07:45 Temperature 99.7 F H 99.7 F H 99.7 F H Pulse Rate 56 L 63 65 Respiratory Rate 16 20 17 Blood Pressure 108/56 L 106/59 L Pulse Oximetry 94 97 90 Oxygen Delivery Oxygen Flow Rate 08/31/25 07:46 08/31/25 07:50 08/31/25 07:56 Temperature 99.7 F H 99.6 F 99.6 F Pulse Rate 61 69 61 Respiratory Rate 15 15 16 Blood Pressure 102/60 103/55 L 104/56 L Pulse Oximetry 94 96 93 Oxygen Delivery Oxygen Flow Rate 08/31/25 08:00 08/31/25 08:01 08/31/25 08:01 Temperature 99.7 F H Pulse Rate 64 Respiratory Rate 17 Blood Pressure 103/62 Pulse Oximetry 95 83 L 94 Oxygen Delivery Room Air Nasal Cannula Oxygen Flow Rate 2 08/31/25 08:01 08/31/25 08:05 08/31/25 08:10 Temperature 99.7 F H 99.5 F 99.7 F H Pulse Rate 63 71 69 Respiratory Rate 15 14 17 Blood Pressure 100/56 L 100/58 L Pulse Oximetry 94 98 97 Oxygen Delivery Oxygen Flow Rate 08/31/25 08:15 08/31/25 08:16 08/31/25 08:21 Temperature 99.7 F H 99.7 F H 99.7 F H Pulse Rate 64 63 62 Respiratory Rate 18 16 16 Blood Pressure 109/64 94/56 L Pulse Oximetry 98 99 98 Oxygen Delivery Oxygen Flow Rate 08/31/25 08:25 08/31/25 09:00 08/31/25 10:00 Temperature 99.7 F H 99.8 F H Pulse Rate 69 68 88 Respiratory Rate 16 18 Blood Pressure 94/57 L 106/63 Pulse Oximetry 99 94 Oxygen Delivery Oxygen Flow Rate 08/31/25 10:00 08/31/25 11:00 08/31/25 12:00 Temperature Pulse Rate 70 69 Respiratory Rate 16 19 Blood Pressure 113/66 113/58 L Pulse Oximetry 98 97 97 Oxygen Delivery Room Air Oxygen Flow Rate 08/31/25 12:00 08/31/25 12:00 08/31/25 13:00 Temperature 100.6 F H 101.1 F H Pulse Rate 71 72 69 Respiratory Rate 18 13 Blood Pressure 124/78 122/84 Pulse Oximetry 98 94 Oxygen Delivery Oxygen Flow Rate 08/31/25 13:03 08/31/25 14:00 08/31/25 14:00 Temperature 101.1 F H 101.8 F H Pulse Rate 73 75 Respiratory Rate 19 Blood Pressure 111/62 Pulse Oximetry 95 Oxygen Delivery Oxygen Flow Rate 08/31/25 14:05 Temperature 101.8 F H Pulse Rate Respiratory Rate Blood Pressure Pulse Oximetry Oxygen Delivery Oxygen Flow Rate Exam Narrative: GENERAL: Well-appearing and not any acute distress. Well nourished. HEAD: Normocephalic and atraumatic EYES: PERRLA ENT: Nares clear, no rhinorrhea or epistaxis. Mucous membranes moist. NECK: Supple. CHEST: [Clear to auscultation. No respiratory distress.] HEART: [Regular rate and rhythm]. No murmur heard. [Normal peripheral pulses.] ABDOMEN: [Soft, nondistended], [nontender], [No rigidity or guarding] EXTREMITIES: Normal range of motion. [No edema.] SKIN: Warm, dry, no rash. NEURO: No deficits and moving all extremities. Alert and oriented x3 PSYCH: Normal mood and affect H&P: Results Labs Labs: Short CBC 08/31/25 Range/Units 04:36 WBC 6.6 (4.5-10.0) K/mm3 Hgb 14.7 (14.0-18.0) g/dL Hct 44.5 (42.0-52.0) % Plt Count 129 L (150-375) k/mm3 BMP 08/31/25 04:37 Sodium 131 L Potassium 4.1 Chloride 94 L Carbon Dioxide 26 BUN 31 H Creatinine 1.43 H Glucose 182 H Calcium 9.0 Liver Function 08/31/25 Range/Units 04:37 Total Bilirubin 1.1 (0.2-1.3) mg/dL AST 31 (17-59) U/L ALT 26 (6-50) U/L Alkaline Phosphatase 76 (38-126) U/L Albumin 4.3 (3.5-5.1) g/dL Urine 08/31/25 Range/Units 04:36 Urine Color Yellow (Yellow) Urine Appearance Clear (Clear) Urine pH 5.0 (5.0-9.0) Ur Specific [place] 1.026 (1.001-1.035) Urine Protein 1+ H (Negative) mg/dL Urine Glucose (UA) 3+ H (Negative) mg/dL Assessment and Plan Assessment and plan (1) UTI (urinary tract infection): Qualifiers: Hematuria presence: without hematuria Urinary tract infection type: acute cystitis Qualified Code(s): N30.00 - Acute cystitis without hematuria Code(s): N39.0 - Urinary tract infection, site not specified Status: Acute (2) Acute renal failure: Qualifiers: Acute renal failure type: unspecified Qualified Code(s): N17.9 - Acute kidney failure, unspecified Code(s): N17.9 - Acute kidney failure, unspecified Status: Acute (3) Septic shock: Code(s): A41.9 - Sepsis, unspecified organism; R65.21 - Severe sepsis with septic shock Status: Acute (4) 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: Onset Date: ~2023 Code(s): C64.2 - Malignant neoplasm of left kidney, except renal pelvis Status: Acute (5) Weakness: Code(s): R53.1 - Weakness Status: Acute (6) Type 2 diabetes mellitus without complication, without long-term current use of insulin: Code(s): E11.9 - Type 2 diabetes mellitus without complications Status: Chronic (7) Dyslipidemia: Code(s): E78.5 - Hyperlipidemia, unspecified Status: Chronic (8) Paroxysmal atrial fibrillation: Onset Date: ~08/2024 Code(s): I48.0 - Paroxysmal atrial fibrillation Status: Acute (9) Cardiomyopathy: Qualifiers: Cardiomyopathy type: unspecified Qualified Code(s): I42.9 - Cardiomyopathy, unspecified Code(s): I42.9 - Cardiomyopathy, unspecified Status: Acute (10) Essential (primary) hypertension: Code(s): I10 - Essential (primary) hypertension Status: Chronic Plan This is a 75-year-old male who presents to the ER with fever and generalized weakness. He normally ambulates with a walker and today he was too weak to get up and go to the bathroom and slid to the ground. He denies hitting his head or losing consciousness. He called ambulance. He has been feeling weak over the past few days. He has had persistent urinary symptoms since when he was diagnosed with UTI. He had come to ED for UTI and was discharged home on nitrofurantoin. Urine culture grew E coli. Repeat UA was performed on 08/26/2025 a when he went to see his PCP. Urine culture grew E coli at that time as well. Really has been battling with recurrent UTIs for a while. In the ED initial vital were okay except for temperature of 38.1?. Laboratory workup revealed WBC of 6.6 hemoglobin of 14.7 platelet of 129. Sodium of 131 potassium 4.1 chloride 94 BUN 31 creatinine 1.4 bicarbonate of 26 blood glucose of 182 lactate of 2 LFTs were normal CRP of 8.2 urinalysis was positive with urine WBC of 6 to 10. Influenza and COVID swab was negative. Chest x-ray with no acute cardiopulmonary findings. CT abdomen pelvis with no acute inflammatory process. While in the ED patient's blood pressure continued to decline despite fluid resuscitation. Patient had a central line placed while in the ER and broad-spectrum antibiotics were started. Patient has not required any vasopressors so far. Patient is admitted to ICU for further treatment. 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 Follows with oncologist Bladder outlet obstruction needing intermittent catheterization LISBET mild baseline creatinine 1.2 July of 2025 UTI Paroxysmal atrial fibrillation Cardiomyopathy Hypertension Hyperlipidemia DVT prophylaxis Lovenox Code status full code Hospitalist [facility] Advance Care Plan I have confirmed that the patient's Advanced Care Plan is present, code status is documented, or surrogate decision maker is listed in patient medical record.: Yes Medication Reconciliation I have utilized all available resources to obtain, update and review the patients current medications (includes all prescriptions, OTC, herbals, cannabis, and nutritional supplements).: Yes
[2025-09-01] VITALS (17 sets, daily range): BP systolic 96–125; BP diastolic 51–84; PULSE 45–86; RESP 12–17; TEMP 36.3–37.4; O2SAT 94–100
[2025-09-01] MEDS: ALBUMIN HUMAN 25% 25 GM/100 ML 100 ML IVPB (05:16)
[2025-09-01] MEDS: CEFEPIME 2 GM in SODIUM CHLORIDE 0.9% IV 50 ML 100 ML IVPB ×2 (05:20→18:30)
[2025-09-01 05:49] LABS: Hematocrit 33.0 % (42.0-52.0); Hemoglobin 11.0 g/dL (14.0-18.0); Immature Granulocyte Percent A 0.5 % (0-0.5); Immature Platelet Fraction Pct 1.5 % (0.9-11.2); Lymphocytes Absolute Auto 0.29 K/mm3 (0.9-3.2); Mean Corpuscular HGB Conc 33.3 g/dl (32-36); Mean Corpuscular Hemoglobin 29.4 pg (26-34); Mean Corpuscular Volume 88.2 fl (80-100); Nucleated Red Blood Cells Absolute Auto 0.000 K/mm3 (0.0-0.012); Nucleated Red Blood Cells Perc 0.0 % (0.0-0.2); Platelet Count Result 107 k/mm3 (150-375); Red Blood Count 3.74 M/mm3 (4.6-6.20); White Blood Count 3.9 K/mm3 (4.5-10.0)
[2025-09-01 06:00] LABS: Alanine Aminotransferase 17 U/L (6-50); Albumin Level 3.4 g/dL (3.5-5.1); Alkaline Phosphatase 54 U/L (38-126); Anion Gap 4 mmol/L (4-12); Aspartate Amino Transferase 22 U/L (17-59); Bilirubin,Total 0.7 mg/dL (0.2-1.3); Blood Urea Nitrogen 21 mg/dL (9-20); Calcium 8.2 mg/dL (8.4-10.2); Carbon Dioxide 27 mmol/L (22-30); Chloride 102 mmol/L (98-107); Estimated CRCL calculation 57 ml/min; Estimated Glomerular Filt Rate > 60; Glucose 97 mg/dL (65-110); Magnesium 2.3 mg/dL (1.6-2.3); Potassium 3.6 mmol/L (3.4-5.0); Sodium 133 mmol/L (137-145); Total Protein 5.6 g/dL (6.3-8.2)
--- NOTE | 2025-09-01 06:23 | PC.NURSE ---
This patient, Farooq Fish, was transferred to [[facility] room 206-2 ] on 09/01/25 at 0623. Personal belongings sent with patient. Report given to [JULIANNE Desai ]. Appropriate documentation sent with patient.
--- NOTE | 2025-09-01 06:44 | PC.NURSE ---
This patient, Farooq Fish, was received from [Tanya WHITAKER ] on 09/01/25 at 0634. Patient/family oriented to unit policies and routines
[2025-09-01] MEDS: VANCOMYCIN 1,500 MG/NS 500 ML 1,500 MG/500 ML BAG 250 MG IVPB (09:23)
[2025-09-01] MEDS: PANTOPRAZOLE SODIUM IV 40 MG VIAL IV PUSH (09:23)
--- NOTE | 2025-09-01 11:16 | P.PNIM_ITS ---
Progress Note: A&P Assessment and Plan (1) UTI (urinary tract infection): Qualifiers: Hematuria presence: without hematuria Urinary tract infection type: acute cystitis Qualified Code(s): N30.00 - Acute cystitis without hematuria Code(s): N39.0 - Urinary tract infection, site not specified Status: Acute (2) Acute renal failure: Qualifiers: Acute renal failure type: unspecified Qualified Code(s): N17.9 - Acute kidney failure, unspecified Code(s): N17.9 - Acute kidney failure, unspecified Status: Acute (3) Septic shock: Code(s): A41.9 - Sepsis, unspecified organism; R65.21 - Severe sepsis with septic shock Status: Acute (4) 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: Onset Date: ~2023 Code(s): C64.2 - Malignant neoplasm of left kidney, except renal pelvis Status: Acute (5) Weakness: Code(s): R53.1 - Weakness Status: Acute (6) Type 2 diabetes mellitus without complication, without long-term current use of insulin: Code(s): E11.9 - Type 2 diabetes mellitus without complications Status: Chronic (7) Dyslipidemia: Code(s): E78.5 - Hyperlipidemia, unspecified Status: Chronic (8) Paroxysmal atrial fibrillation: Onset Date: ~08/2024 Code(s): I48.0 - Paroxysmal atrial fibrillation Status: Acute (9) Cardiomyopathy: Qualifiers: Cardiomyopathy type: unspecified Qualified Code(s): I42.9 - Cardiomyopathy, unspecified Code(s): I42.9 - Cardiomyopathy, unspecified Status: Acute (10) Essential (primary) hypertension: Code(s): I10 - Essential (primary) hypertension Status: Chronic Plan This is a 75-year-old male who presents to the ER with fever and generalized weakness. He normally ambulates with a walker and today he was too weak to get up and go to the bathroom and slid to the ground. He denies hitting his head or losing consciousness. He called ambulance. He has been feeling weak over the past few days. He has had persistent urinary symptoms since when he was diagnosed with UTI. He had come to ED for UTI and was discharged home on nitrofurantoin. Urine culture grew E coli. Repeat UA was performed on 08/26/2025 a when he went to see his PCP. Urine culture grew E coli at that time as well. Really has been battling with recurrent UTIs for a while. In the ED initial vital were okay except for temperature of 38.1?. Laboratory workup revealed WBC of 6.6 hemoglobin of 14.7 platelet of 129. Sodium of 131 potassium 4.1 chloride 94 BUN 31 creatinine 1.4 bicarbonate of 26 blood glucose of 182 lactate of 2 LFTs were normal CRP of 8.2 urinalysis was positive with urine WBC of 6 to 10. Influenza and COVID swab was negative. Chest x-ray with no acute cardiopulmonary findings. CT abdomen pelvis with no acute inflammatory process. While in the ED patient's blood pressure continued to decline despite fluid resuscitation. Patient had a central line placed while in the ER and broad- spectrum antibiotics were started. Patient has not required any vasopressors so far. Patient is admitted to ICU for further treatment. Sepsis did not require any vasopressors. Blood pressure medication on hold. 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 Follows with oncologist Bladder outlet obstruction needing intermittent catheterization LISBET mild baseline creatinine 1.2 July of 2025 UTI Paroxysmal atrial fibrillation Cardiomyopathy Hypertension Hyperlipidemia DVT prophylaxis Lovenox Code status full code Subjective Date/time seen: 09/01/25 11:16 Interval history: No overnight events. No new complaints. Denies any chest pain or shortness of breath. Blood pressure okay. Review of Systems Review of Systems: All systems reviewed & are unremarkable except as noted in HPI and below Exam Narrative: GENERAL: Well-appearing and not any acute distress. Well nourished. HEAD: Normocephalic and atraumatic EYES: PERRLA ENT: Nares clear, no rhinorrhea or epistaxis. Mucous membranes moist. NECK: Supple. CHEST: [Clear to auscultation. No respiratory distress.] HEART: [Regular rate and rhythm]. No murmur heard. [Normal peripheral pulses.] ABDOMEN: [Soft, nondistended], [nontender], [No rigidity or guarding] EXTREMITIES: Normal range of motion. [No edema.] SKIN: Warm, dry, no rash. NEURO: No deficits and moving all extremities. Alert and oriented x3 PSYCH: Normal mood and affect Objective Data Vital Signs Vital Signs: Vital Signs - 24 hr 08/31/25 12:00 08/31/25 12:00 08/31/25 12:00 Temperature 100.6 F H Pulse Rate 71 72 Respiratory Rate 18 Blood Pressure 124/78 Pulse Oximetry 97 98 Oxygen Delivery Room Air 08/31/25 13:00 08/31/25 13:03 08/31/25 14:00 Temperature 101.1 F H 101.1 F H Pulse Rate 69 73 Respiratory Rate 13 Blood Pressure 122/84 Pulse Oximetry 94 Oxygen Delivery 08/31/25 14:00 08/31/25 14:05 08/31/25 15:00 Temperature 101.8 F H 101.8 F H 98.6 F Pulse Rate 75 71 Respiratory Rate 19 25 H Blood Pressure 111/62 102/66 Pulse Oximetry 95 96 Oxygen Delivery 08/31/25 16:00 08/31/25 16:00 08/31/25 16:00 Temperature 98.5 F Pulse Rate 70 62 Respiratory Rate 24 H Blood Pressure 107/65 Pulse Oximetry 95 95 Oxygen Delivery Room Air 08/31/25 17:39 08/31/25 18:00 08/31/25 18:39 Temperature 100.1 F H 99.9 F H Pulse Rate 72 Respiratory Rate Blood Pressure Pulse Oximetry Oxygen Delivery 08/31/25 20:00 08/31/25 20:00 08/31/25 20:00 Temperature 100.0 F H Pulse Rate 69 68 Respiratory Rate 21 H Blood Pressure 118/73 Pulse Oximetry 96 Oxygen Delivery Room Air 08/31/25 20:59 08/31/25 22:00 09/01/25 00:00 Temperature 99.3 F Pulse Rate 64 63 Respiratory Rate 17 Blood Pressure 118/59 L Pulse Oximetry 99 94 Oxygen Delivery Room Air 09/01/25 00:00 09/01/25 00:00 09/01/25 02:00 Temperature Pulse Rate 64 59 L Respiratory Rate Blood Pressure Pulse Oximetry Oxygen Delivery Room Air 09/01/25 04:00 09/01/25 04:00 09/01/25 04:00 Temperature 99.3 F Pulse Rate 67 65 Respiratory Rate 17 Blood Pressure 118/64 Pulse Oximetry 100 Oxygen Delivery Room Air 09/01/25 06:00 09/01/25 07:53 Temperature 98.1 F Pulse Rate 68 68 Respiratory Rate 12 Blood Pressure 107/84 Pulse Oximetry 100 Oxygen Delivery Intake/Output Intake/Output: Intake & Output 08/29/25 08/30/25 08/31/25 09/01/25 23:59 23:59 23:59 23:59 Intake Total 4570 350 Output Total 1625 1600 Balance 2945 -8340 Meds/Results Medications: Active Medications Generic Name Dose Route Start Last Admin Trade Name Freq PRN Reason Stop Dose Admin Acetaminophen 650 mg 08/31/25 07:06 08/31/25 17:39 Acetaminophen 325 Mg Tablet PO 650 mg Q4H PRN Administration Mild Pain (1-3) or Fever Dextrose 12.5 gm 08/31/25 11:44 Dextrose 50% 25 Gm/50 Ml Syringe IV PUSH PRN PRN Hypoglycemia Protocol Enoxaparin Sodium 40 mg 08/31/25 09:30 09/01/25 09:42 Enoxaparin 40 Mg/0.4 Ml Syringe SUB-Q Not Given DAILY AMBER Glucagon 1 mg 08/31/25 11:44 Glucagon For Inj 1 Mg Vial IM PRN PRN Hypoglycemia Protocol Glucose 15 gm 08/31/25 11:44 Glucose Oral Gel 15 Gm Of Glucse In 37.5 Gm Tube PO PRN PRN Hypoglycemia Protocol Vancomycin HCl 1,500 mg in 500 mls @ 250 mls/hr 09/01/25 09:00 09/01/25 09:23 Vancomycin 1,500 Mg/Ns 500 Ml IVPB 250 mls/hr Q24H AMBER Administration Cefepime HCl 2 gm/ Sodium 50 mls @ 100 mls/hr 08/31/25 18:00 09/01/25 05:50 Chloride IVPB Infused Q12H AMBER Infusion Dextrose 1,000 mls @ 100 mls/hr 08/31/25 11:44 Dextrose 5% 1,000 Ml IVPB PRN PRN Hypoglycemia Protocol Insulin Aspart 1 - 3 units 08/31/25 21:00 08/31/25 21:21 Insulin Aspart (*Bkc) 100 Units/Ml SUB-Q Not Given HS AMBER Protocol Insulin Aspart 3 - 6 units 08/31/25 12:00 09/01/25 08:38 Insulin Aspart (*Bkc) 100 Units/Ml SUB-Q Not Given TIDWM AMBER Protocol Ondansetron HCl 4 mg 08/31/25 07:06 Ondansetron Inj 4 Mg/2 Ml Vial IV PUSH Q4H PRN Nausea Pantoprazole Sodium 40 mg 08/31/25 09:00 09/01/25 09:23 Pantoprazole Sodium Iv 40 Mg Vial IV PUSH 40 mg QAM AMBER Administration Radiology Results: ITS Impressions Abdomen/Pelvis CT 08/31/25 06:39 IMPRESSION: 1. No acute inflammatory process. 2. Findings as above. Chest X-Ray 08/31/25 06:52 IMPRESSION: 1. No pneumothorax or cardiopulmonary change. Labs Labs: Laboratory Results - last 24 hr 08/31/25 08/31/25 08/31/25 12:48 16:28 16:28 WBC RBC Hgb Hct MCV MCH MCHC RDW Plt Count MPV Immature Gran % (Auto) Neut % (Auto) Lymph % (Auto) [place] % (Auto) Eos % (Auto) Baso % (Auto) Lymph # (Auto) [place] # (Auto) Eos # (Auto) Baso # (Auto) Abs Immat Gran (auto) Absolute Neuts (auto) Absolute Nucleated RBC Nucleated RBC % % Immature Plt Fraction Sodium Potassium Chloride Carbon Dioxide Anion Gap BUN Creatinine Estim Creat Clear Calc Estimated GFR Glucose POC Capillary Glucose 97 146 H 146 H Lactic Acid Calcium Phosphorus Magnesium Total Bilirubin AST ALT Alkaline Phosphatase Total Protein Albumin 08/31/25 09/01/25 09/01/25 21:11 05:32 07:09 WBC 3.9 L RBC 3.74 L Hgb 11.0 L D Hct 33.0 L MCV 88.2 MCH 29.4 MCHC 33.3 RDW 13.9 Plt Count 107 L MPV 8.8 Immature Gran % (Auto) 0.5 Neut % (Auto) 71.6 Lymph % (Auto) 7.5 L [place] % (Auto) 9.3 H Eos % (Auto) 10.6 H Baso % (Auto) 0.5 Lymph # (Auto) 0.29 L [place] # (Auto) 0.4 Eos # (Auto) 0.4 H Baso # (Auto) 0.0 Abs Immat Gran (auto) 0.02 Absolute Neuts (auto) 2.8 Absolute Nucleated RBC 0.000 Nucleated RBC % 0.0 % Immature Plt Fraction 1.5 Sodium 133 L Potassium 3.6 Chloride 102 Carbon Dioxide 27 Anion Gap 4 BUN 21 H D Creatinine 1.01 Estim Creat Clear Calc 57 Estimated GFR > 60 Glucose 97 POC Capillary Glucose 167 H 118 H Lactic Acid 0.7 Calcium 8.2 L Phosphorus 3.1 Magnesium 2.3 Total Bilirubin 0.7 AST 22 ALT 17 Alkaline Phosphatase 54 Total Protein 5.6 L Albumin 3.4 L
--- NOTE | 2025-09-01 18:25 | PHAR ---
HOME MED VERIFIED LENVIMA 10MG CAPSULES TAKE 1 Daily
[2025-09-02] VITALS (14 sets, daily range): BP systolic 118–140; BP diastolic 54–74; PULSE 45–95; RESP 15–22; TEMP 36.4–37.1; O2SAT 95–100
[2025-09-02 04:30] LABS: Hematocrit 32.7 % (42.0-52.0); Hemoglobin 10.9 g/dL (14.0-18.0); Immature Granulocyte Percent A 0.6 % (0-0.5); Lymphocytes Absolute Auto 0.52 K/mm3 (0.9-3.2); Mean Corpuscular HGB Conc 33.3 g/dl (32-36); Mean Corpuscular Hemoglobin 29.1 pg (26-34); Mean Corpuscular Volume 87.4 fl (80-100); Nucleated Red Blood Cells Absolute Auto 0.000 K/mm3 (0.0-0.012); Nucleated Red Blood Cells Perc 0.0 % (0.0-0.2); Platelet Count Result 100 k/mm3 (150-375); Red Blood Count 3.74 M/mm3 (4.6-6.20); White Blood Count 3.4 K/mm3 (4.5-10.0)
[2025-09-02 04:52] LABS: Alanine Aminotransferase 17 U/L (6-50); Albumin Level 3.4 g/dL (3.5-5.1); Alkaline Phosphatase 61 U/L (38-126); Anion Gap 4 mmol/L (4-12); Aspartate Amino Transferase 20 U/L (17-59); Bilirubin,Total 0.6 mg/dL (0.2-1.3); Blood Urea Nitrogen 14 mg/dL (9-20); Calcium 8.5 mg/dL (8.4-10.2); Carbon Dioxide 28 mmol/L (22-30); Chloride 103 mmol/L (98-107); Estimated CRCL calculation 66 ml/min; Estimated Glomerular Filt Rate > 60; Glucose 126 mg/dL (65-110); Magnesium 2.5 mg/dL (1.6-2.3); Potassium 3.4 mmol/L (3.4-5.0); Sodium 135 mmol/L (137-145); Total Protein 5.8 g/dL (6.3-8.2)
[2025-09-02] MEDS: CEFEPIME 2 GM in SODIUM CHLORIDE 0.9% IV 50 ML 100 ML IVPB ×2 (05:45→17:54)
[2025-09-02] MEDS: ENOXAPARIN 40 MG/0.4 ML SYRINGE SUB-Q (08:42)
[2025-09-02] MEDS: PANTOPRAZOLE SODIUM IV 40 MG VIAL IV PUSH (08:42)
[2025-09-02] MEDS: EZETIMIBE 10 MG TABLET PO (08:42)
[2025-09-02] MEDS: glipiZIDE XL 5 MG TABCR 10 MG PO (08:43)
[2025-09-02] MEDS: VANCOMYCIN 1,750 MG/NS 500 ML 1,750 MG/500 ML BAG 250 MG IVPB (08:43)
--- NOTE | 2025-09-02 14:20 | PM.IMPN2 ---
Subjective Date/time seen: 09/02/25 14:20 Interval history: No overnight events. No new complaints. Denies any chest pain or shortness of breath. Blood pressure okay. Blood pressure remained stable Review of Systems Review of Systems: All systems reviewed & are unremarkable except as noted in HPI and below Exam Narrative: GENERAL: Well-appearing and not any acute distress. Well nourished. HEAD: Normocephalic and atraumatic EYES: PERRLA ENT: Nares clear, no rhinorrhea or epistaxis. Mucous membranes moist. NECK: Supple. CHEST: [Clear to auscultation. No respiratory distress.] HEART: [Regular rate and rhythm]. No murmur heard. [Normal peripheral pulses.] ABDOMEN: [Soft, nondistended], [nontender], [No rigidity or guarding] EXTREMITIES: Normal range of motion. [No edema.] SKIN: Warm, dry, no rash. NEURO: No deficits and moving all extremities. Alert and oriented x3 PSYCH: Normal mood and affect Objective Data Vital Signs Vital Signs: Vital Signs - 24 hr 09/01/25 16:00 09/01/25 16:00 09/01/25 16:00 Temperature 97.9 F Pulse Rate 64 64 Respiratory Rate 16 Blood Pressure 110/56 L Pulse Oximetry 96 96 Oxygen Delivery Room Air 09/01/25 18:00 09/01/25 20:00 09/01/25 20:00 Temperature 98.0 F Pulse Rate 60 68 45 L Respiratory Rate 17 17 Blood Pressure 125/59 L Pulse Oximetry 98 98 Oxygen Delivery Room Air 09/01/25 20:00 09/01/25 22:00 09/01/25 23:40 Temperature Pulse Rate 45 L 52 L 86 Respiratory Rate 16 Blood Pressure 96/51 L Pulse Oximetry 97 Oxygen Delivery 09/01/25 23:48 09/01/25 23:48 09/01/25 23:54 Temperature 97.4 F L Pulse Rate 62 62 Respiratory Rate 16 Blood Pressure Pulse Oximetry 97 Oxygen Delivery Room Air 09/02/25 00:00 09/02/25 02:00 09/02/25 03:44 Temperature 98.2 F Pulse Rate 61 46 L 45 L Respiratory Rate 15 15 Blood Pressure 123/64 Pulse Oximetry 98 98 Oxygen Delivery Room Air 09/02/25 03:44 09/02/25 04:00 09/02/25 06:00 Temperature 97.5 F L Pulse Rate 45 L 54 L 60 Respiratory Rate 17 Blood Pressure 118/67 Pulse Oximetry 99 Oxygen Delivery 09/02/25 08:00 09/02/25 08:00 09/02/25 08:00 Temperature 98.0 F Pulse Rate 95 63 Respiratory Rate 22 H Blood Pressure 126/54 L Pulse Oximetry 96 Oxygen Delivery Room Air 09/02/25 09:26 09/02/25 10:00 09/02/25 12:00 Temperature 98.8 F Pulse Rate 65 66 Respiratory Rate 20 Blood Pressure 120/60 Pulse Oximetry 98 Oxygen Delivery Room Air 09/02/25 12:00 Temperature Pulse Rate 66 Respiratory Rate Blood Pressure Pulse Oximetry Oxygen Delivery Intake/Output Intake/Output: Intake & Output 08/30/25 08/31/25 09/01/25 09/02/25 23:59 23:59 23:59 23:59 Intake Total 4570 1020 1125 Output Total 1625 3075 1390 Balance 3780 -6718 -809 Meds/Results Medications: Active Medications Generic Name Dose Route Start Last Admin Trade Name Freq PRN Reason Stop Dose Admin Acetaminophen 650 mg 08/31/25 07:06 08/31/25 17:39 Acetaminophen 325 Mg Tablet PO 650 mg Q4H PRN Administration Mild Pain (1-3) or Fever Dextrose 12.5 gm 08/31/25 11:44 Dextrose 50% 25 Gm/50 Ml Syringe IV PUSH PRN PRN Hypoglycemia Protocol Ezetimibe 10 mg 09/02/25 09:00 09/02/25 08:42 Ezetimibe 10 Mg Tablet PO 10 mg DAILY AMBER Administration Enoxaparin Sodium 40 mg 08/31/25 09:30 09/02/25 08:42 Enoxaparin 40 Mg/0.4 Ml Syringe SUB-Q 40 mg DAILY AMBER Administration Glipizide 10 mg 09/02/25 08:00 09/02/25 08:43 Glipizide Xl 5 Mg Tabcr PO 10 mg DAILY@0800 AMBER Administration Glucagon 1 mg 08/31/25 11:44 Glucagon For Inj 1 Mg Vial IM PRN PRN Hypoglycemia Protocol Glucose 15 gm 08/31/25 11:44 Glucose Oral Gel 15 Gm Of Glucse In 37.5 Gm Tube PO PRN PRN Hypoglycemia Protocol Cefepime HCl 2 gm/ Sodium 50 mls @ 100 mls/hr 08/31/25 18:00 09/02/25 06:15 Chloride IVPB Infused Q12H AMBER Infusion Dextrose 1,000 mls @ 100 mls/hr 08/31/25 11:44 Dextrose 5% 1,000 Ml IVPB PRN PRN Hypoglycemia Protocol Vancomycin HCl 1,750 mg in 500 mls @ 250 mls/hr 09/02/25 09:00 09/02/25 08:43 Vancomycin 1,750 Mg/Ns 500 Ml IVPB 250 mls/hr Q18H AMBER Administration Insulin Aspart 1 - 3 units 08/31/25 21:00 09/01/25 22:10 Insulin Aspart (*Bkc) 100 Units/Ml SUB-Q Not Given HS AMBER Protocol Insulin Aspart 3 - 6 units 08/31/25 12:00 09/02/25 12:06 Insulin Aspart (*Bkc) 100 Units/Ml SUB-Q Not Given TIDWM [facility] Protocol Home Med 10 mg 09/02/25 12:00 09/02/25 12:56 Lenvatinib [Lenvima] PO 10/02/25 11:59 10 mg 10 Mg Capsule) DAILY@1200 AMBER Administration Ondansetron HCl 4 mg 08/31/25 07:06 Ondansetron Inj 4 Mg/2 Ml Vial IV PUSH Q4H PRN Nausea Pantoprazole Sodium 40 mg 08/31/25 09:00 09/02/25 08:42 Pantoprazole Sodium Iv 40 Mg Vial IV PUSH 40 mg QAM AMBER Administration Sodium Chloride 10 ml 09/02/25 14:00 Central Line Flush IV PUSH Q8HR AMBER Sodium Chloride 20 ml 09/02/25 06:48 Central Line Flush IV PUSH PRN PRN after blood draws Radiology Results: ITS Impressions Abdomen/Pelvis CT 08/31/25 06:39 IMPRESSION: 1. No acute inflammatory process. 2. Findings as above. Chest X-Ray 08/31/25 06:52 IMPRESSION: 1. No pneumothorax or cardiopulmonary change. Labs Labs: Laboratory Results - last 24 hr 09/01/25 09/01/25 09/02/25 16:15 20:41 04:09 WBC 3.4 L RBC 3.74 L Hgb 10.9 L Hct 32.7 L MCV 87.4 MCH 29.1 MCHC 33.3 RDW 13.8 Plt Count 100 L MPV 9.0 Immature Gran % (Auto) 0.6 H Neut % (Auto) 63.2 Lymph % (Auto) 15.2 L [place] % (Auto) 9.9 H Eos % (Auto) 10.8 H Baso % (Auto) 0.3 Lymph # (Auto) 0.52 L [place] # (Auto) 0.3 Eos # (Auto) 0.4 H Baso # (Auto) 0.0 Abs Immat Gran (auto) 0.02 Absolute Neuts (auto) 2.2 Absolute Nucleated RBC 0.000 Nucleated RBC % 0.0 Sodium 135 L Potassium 3.4 Chloride 103 Carbon Dioxide 28 Anion Gap 4 BUN 14 D Creatinine 0.86 Estim Creat Clear Calc 66 Estimated GFR > 60 Glucose 126 H POC Capillary Glucose 149 H 187 H Calcium 8.5 Magnesium 2.5 H Total Bilirubin 0.6 AST 20 ALT 17 Alkaline Phosphatase 61 Total Protein 5.8 L Albumin 3.4 L Vancomycin Trough 8.2 L 09/02/25 09/02/25 06:58 11:27 WBC RBC Hgb Hct MCV MCH MCHC RDW Plt Count MPV Immature Gran % (Auto) Neut % (Auto) Lymph % (Auto) [place] % (Auto) Eos % (Auto) Baso % (Auto) Lymph # (Auto) [place] # (Auto) Eos # (Auto) Baso # (Auto) Abs Immat Gran (auto) Absolute Neuts (auto) Absolute Nucleated RBC Nucleated RBC % Sodium Potassium Chloride Carbon Dioxide Anion Gap BUN Creatinine Estim Creat Clear Calc Estimated GFR Glucose POC Capillary Glucose 136 H 190 H Calcium Magnesium Total Bilirubin AST ALT Alkaline Phosphatase Total Protein Albumin Vancomycin Trough Assessment and Plan Assessment and Plan (1) UTI (urinary tract infection): Qualifiers: Hematuria presence: without hematuria Urinary tract infection type: acute cystitis Qualified Code(s): N30.00 - Acute cystitis without hematuria Code(s): N39.0 - Urinary tract infection, site not specified Status: Acute (2) Acute renal failure: Qualifiers: Acute renal failure type: unspecified Qualified Code(s): N17.9 - Acute kidney failure, unspecified Code(s): N17.9 - Acute kidney failure, unspecified Status: Acute (3) Septic shock: Code(s): A41.9 - Sepsis, unspecified organism; R65.21 - Severe sepsis with septic shock Status: Acute (4) 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: Onset Date: ~2023 Code(s): C64.2 - Malignant neoplasm of left kidney, except renal pelvis Status: Acute (5) Weakness: Code(s): R53.1 - Weakness Status: Acute (6) Type 2 diabetes mellitus without complication, without long-term current use of insulin: Code(s): E11.9 - Type 2 diabetes mellitus without complications Status: Chronic (7) Dyslipidemia: Code(s): E78.5 - Hyperlipidemia, unspecified Status: Chronic (8) Paroxysmal atrial fibrillation: Onset Date: ~08/2024 Code(s): I48.0 - Paroxysmal atrial fibrillation Status: Acute (9) Cardiomyopathy: Qualifiers: Cardiomyopathy type: unspecified Qualified Code(s): I42.9 - Cardiomyopathy, unspecified Code(s): I42.9 - Cardiomyopathy, unspecified Status: Acute (10) Essential (primary) hypertension: Code(s): I10 - Essential (primary) hypertension Status: Chronic Plan This is a 75-year-old male who presents to the ER with fever and generalized weakness. He normally ambulates with a walker and today he was too weak to get up and go to the bathroom and slid to the ground. He denies hitting his head or losing consciousness. He called ambulance. He has been feeling weak over the past few days. He has had persistent urinary symptoms since when he was diagnosed with UTI. He had come to ED for UTI and was discharged home on nitrofurantoin. Urine culture grew E coli. Repeat UA was performed on 08/26/2025 a when he went to see his PCP. Urine culture grew E coli at that time as well. Really has been battling with recurrent UTIs for a while. In the ED initial vital were okay except for temperature of 38.1?. Laboratory workup revealed WBC of 6.6 hemoglobin of 14.7 platelet of 129. Sodium of 131 potassium 4.1 chloride 94 BUN 31 creatinine 1.4 bicarbonate of 26 blood glucose of 182 lactate of 2 LFTs were normal CRP of 8.2 urinalysis was positive with urine WBC of 6 to 10. Influenza and COVID swab was negative. Chest x-ray with no acute cardiopulmonary findings. CT abdomen pelvis with no acute inflammatory process. While in the ED patient's blood pressure continued to decline despite fluid resuscitation. Patient had a central line placed while in the ER and broad-spectrum antibiotics were started. Patient has not required any vasopressors so far. Patient is admitted to ICU for further treatment. Sepsis did not require any vasopressors. Blood pressure medication on hold. 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 Follows with oncologist Bladder outlet obstruction needing intermittent catheterization LISBET mild baseline creatinine 1.2 July of 2025 UTI Paroxysmal atrial fibrillation bradycardic overnight beta-markus on hold. Check [employer] for screening for sleep apnea Cardiomyopathy Hypertension Hyperlipidemia DVT prophylaxis Lovenox Code status full code
[2025-09-02] MEDS: INSULIN ASPART (*BKC) 100 UNITS/ML SUB-Q (20:38)
[2025-09-03] VITALS: PULSE 63
[2025-09-03 04:00] VITALS: PULSE 62
[2025-09-03] MEDS: CEFEPIME 2 GM in SODIUM CHLORIDE 0.9% IV 50 ML 100 ML IVPB (05:22)
[2025-09-03 05:26] LABS: Hematocrit 32.9 % (42.0-52.0); Hemoglobin 11.1 g/dL (14.0-18.0); Immature Granulocyte Percent A 0.5 % (0-0.5); Lymphocytes Absolute Auto 0.74 K/mm3 (0.9-3.2); Mean Corpuscular HGB Conc 33.7 g/dl (32-36); Mean Corpuscular Hemoglobin 29.2 pg (26-34); Mean Corpuscular Volume 86.6 fl (80-100); Nucleated Red Blood Cells Absolute Auto 0.000 K/mm3 (0.0-0.012); Nucleated Red Blood Cells Perc 0.0 % (0.0-0.2); Platelet Count Result 111 k/mm3 (150-375); Red Blood Count 3.80 M/mm3 (4.6-6.20); White Blood Count 4.1 K/mm3 (4.5-10.0)
[2025-09-03 05:51] LABS: Alanine Aminotransferase 15 U/L (6-50); Albumin Level 3.3 g/dL (3.5-5.1); Alkaline Phosphatase 55 U/L (38-126); Anion Gap 1 mmol/L (4-12); Aspartate Amino Transferase 17 U/L (17-59); Bilirubin,Total 0.6 mg/dL (0.2-1.3); Blood Urea Nitrogen 14 mg/dL (9-20); Calcium 8.1 mg/dL (8.4-10.2); Carbon Dioxide 28 mmol/L (22-30); Chloride 104 mmol/L (98-107); Estimated CRCL calculation 75 ml/min; Estimated Glomerular Filt Rate > 60; Glucose 113 mg/dL (65-110); Magnesium 2.5 mg/dL (1.6-2.3); Potassium 3.4 mmol/L (3.4-5.0); Sodium 133 mmol/L (137-145); Total Protein 5.8 g/dL (6.3-8.2)
[2025-09-03 05:57] VITALS: BP 129/65; PULSE 60; RESP 16; TEMP 36.9; O2SAT 95
[2025-09-03 08:00] VITALS: BP 134/73; PULSE 50; PULSE 53; RESP 16; TEMP 37.2; O2SAT 94
[2025-09-03] MEDS: ENOXAPARIN 40 MG/0.4 ML SYRINGE SUB-Q (09:52)
[2025-09-03] MEDS: PANTOPRAZOLE SODIUM IV 40 MG VIAL IV PUSH (09:53)
[2025-09-03] MEDS: glipiZIDE XL 5 MG TABCR 10 MG PO (09:53)
[2025-09-03] MEDS: EZETIMIBE 10 MG TABLET PO (09:53)
[2025-09-03 12:00] VITALS: PULSE 63
--- NOTE | 2025-09-03 12:59 | P.DS_ITS ---
DS: Admitting Diagnosis Discharge Date 09/03/2025 Admitting Diagnosis Fever DS: Discharge Diagnosis Discharge Diagnosis (1) UTI (urinary tract infection): Qualifiers: Hematuria presence: without hematuria Urinary tract infection type: acute cystitis Qualified Code(s): N30.00 - Acute cystitis without hematuria Code(s): N39.0 - Urinary tract infection, site not specified Status: Acute (2) Acute renal failure: Qualifiers: Acute renal failure type: unspecified Qualified Code(s): N17.9 - Acute kidney failure, unspecified Code(s): N17.9 - Acute kidney failure, unspecified Status: Acute (3) Septic shock: Code(s): A41.9 - Sepsis, unspecified organism; R65.21 - Severe sepsis with septic shock Status: Acute (4) 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: Onset Date: ~2023 Code(s): C64.2 - Malignant neoplasm of left kidney, except renal pelvis Status: Acute (5) Weakness: Code(s): R53.1 - Weakness Status: Acute (6) Type 2 diabetes mellitus without complication, without long-term current use of insulin: Code(s): E11.9 - Type 2 diabetes mellitus without complications Status: Chronic (7) Dyslipidemia: Code(s): E78.5 - Hyperlipidemia, unspecified Status: Chronic (8) Paroxysmal atrial fibrillation: Onset Date: ~08/2024 Code(s): I48.0 - Paroxysmal atrial fibrillation Status: Acute (9) Cardiomyopathy: Qualifiers: Cardiomyopathy type: unspecified Qualified Code(s): I42.9 - Cardiomyopathy, unspecified Code(s): I42.9 - Cardiomyopathy, unspecified Status: Acute (10) Essential (primary) hypertension: Code(s): I10 - Essential (primary) hypertension Status: Chronic DS: Summary Hospital Course Hospital Course: This is a 75-year-old male who presents to the ER with fever and generalized weakness. He normally ambulates with a walker and today he was too weak to get up and go to the bathroom and slid to the ground. He denies hitting his head or losing consciousness. He called ambulance. He has been feeling weak over the past few days. He has had persistent urinary symptoms since when he was diagnosed with UTI. He had come to ED for UTI and was discharged home on nitrofurantoin. Urine culture grew E coli. Repeat UA was performed on 08/26/2025 a when he went to see his PCP. Urine culture grew E coli at that time as well. Really has been battling with recurrent UTIs for a while. In the ED initial vital were okay except for temperature of 38.1?. Laboratory workup revealed WBC of 6.6 hemoglobin of 14.7 platelet of 129. Sodium of 131 potassium 4.1 chloride 94 BUN 31 creatinine 1.4 bicarbonate of 26 blood glucose of 182 lactate of 2 LFTs were normal CRP of 8.2 urinalysis was positive with urine WBC of 6 to 10. Influenza and COVID swab was negative. Chest x-ray with no acute cardiopulmonary findings. CT abdomen pelvis with no acute inflammatory process. While in the ED patient's blood pressure continued to decline despite fluid resuscitation. Patient had a central line placed while in the ER and broad- spectrum antibiotics were started. Patient has not required any vasopressors so far. Patient is admitted to ICU for further treatment. Sepsis did not require any vasopressors. Blood pressure medication on hold. Central line discontinued UTI urine culture with no growth. Currently on cefepime. 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 Follows with oncologist Bladder outlet obstruction needing intermittent catheterization LISBET mild baseline creatinine 1.2 July of 2025 UTI Paroxysmal atrial fibrillation bradycardic overnight beta-markus on hold. Apnea link with AHI 1.8. Need sleep study as an outpatient basis. Cardiomyopathy Hypertension Hyperlipidemia DVT prophylaxis Lovenox Code status full code Time Spent with Patient Time attestation: Total time spent providing and/or coordinating discharge services: 40 minutes Exam Narrative: GENERAL: Well-appearing and not any acute distress. Well nourished. HEAD: Normocephalic and atraumatic EYES: PERRLA ENT: Nares clear, no rhinorrhea or epistaxis. Mucous membranes moist. NECK: Supple. CHEST: [Clear to auscultation. No respiratory distress.] HEART: [Regular rate and rhythm]. No murmur heard. [Normal peripheral pulses.] ABDOMEN: [Soft, nondistended], [nontender], [No rigidity or guarding] EXTREMITIES: Normal range of motion. [No edema.] SKIN: Warm, dry, no rash. NEURO: No deficits and moving all extremities. Alert and oriented x3 PSYCH: Normal mood and affect DS: Data Data Completed and Pending Labs on day of discharge: Labs from last 24 hours 09/03/25 09/03/25 09/03/25 11:45 07:33 05:18 WBC 4.1 L RBC 3.80 L Hgb 11.1 L Hct 32.9 L MCV 86.6 MCH 29.2 MCHC 33.7 RDW 13.7 Plt Count 111 L MPV 9.1 Immature Gran % (Auto) 0.5 Neut % (Auto) 66.9 Lymph % (Auto) 18.1 L [place] % (Auto) 9.8 H Eos % (Auto) 4.2 Baso % (Auto) 0.5 Lymph # (Auto) 0.74 L [place] # (Auto) 0.4 Eos # (Auto) 0.2 Baso # (Auto) 0.0 Abs Immat Gran (auto) 0.02 Absolute Neuts (auto) 2.7 Absolute Nucleated RBC 0.000 Nucleated RBC % 0.0 Sodium 133 L Potassium 3.4 Chloride 104 Carbon Dioxide 28 Anion Gap 1 L BUN 14 Creatinine 0.89 Estim Creat Clear Calc 75 Estimated GFR > 60 Glucose 113 H POC Capillary Glucose 150 H 120 H Calcium 8.1 L Magnesium 2.5 H Total Bilirubin 0.6 AST 17 ALT 15 Alkaline Phosphatase 55 Total Protein 5.8 L Albumin 3.3 L 09/02/25 09/02/25 09/02/25 20:04 16:43 15:29 WBC RBC Hgb Hct MCV MCH MCHC RDW Plt Count MPV Immature Gran % (Auto) Neut % (Auto) Lymph % (Auto) [place] % (Auto) Eos % (Auto) Baso % (Auto) Lymph # (Auto) [place] # (Auto) Eos # (Auto) Baso # (Auto) Abs Immat Gran (auto) Absolute Neuts (auto) Absolute Nucleated RBC Nucleated RBC % Sodium Potassium Chloride Carbon Dioxide Anion Gap BUN Creatinine Estim Creat Clear Calc Estimated GFR Glucose POC Capillary Glucose 211 H 161 H 171 H Calcium Magnesium Total Bilirubin AST ALT Alkaline Phosphatase Total Protein Albumin Preliminary micro results at discharge 08/31/25 04:38 Blood Culture - Preliminary Blood 08/31/25 04:38 Blood Culture - Preliminary Blood Imaging Radiologist's impression: ITS Impressions Chest X-Ray 08/31/25 06:17 IMPRESSION: 1. No acute cardiopulmonary findings given portable technique. Abdomen/Pelvis CT 08/31/25 06:39 IMPRESSION: 1. No acute inflammatory process. 2. Findings as above. Chest X-Ray 08/31/25 06:52 IMPRESSION: 1. No pneumothorax or cardiopulmonary change. Discharge Plan Discharge Attending physician on discharge: Cal Campbell Consulting providers: Shu Ray Discharging Clinician: Cal Campbell Anticipated Discharge Date/Time: 09/03/25 13:05 Patient Disposition: Home Activity: as tolerated Diet: heart healthy Discharge Instructions: Blood pressure medication held due to low blood pressure on admission. Resume has tolerated as an outpatient basis. Follow-up with PCP with regard to this Need sleep study as an outpatient basis to rule out sleep apnea Stop Jardiance due to recurrent UTIs. Please follow-up with PCP/Cardiology with regard to this. Continue intermittent catheterization as previously ordered/performed Patient Instructions: Antibiotic Form Patient Language: Guatemalan Stand Alone Forms: General Discharge Information Follow-up/Referrals: Leroy Willett MD [Primary Care Provider, [facility]] - 1 Week Discharge Medications: New levofloxacin 750 mg tablet 750 mg PO DAILY Qty: 4 0RF Continued Lenvima 10 mg/day (10 mg x 1) capsule 10 mg PO .noon Keytruda 25 mg/mL solution 200 mg IV .[id number] Rx Instructions: administer over 30 mins tamsulosin 0.4 mg capsule 0.4 mg PO [facility] (DME) OneTouch Ultra Test Strip See Rx Instructions .Route Qty: 100 2RF Rx Instructions: Use to check BS every morning and as needed ezetimibe 10 mg tablet 10 mg PO DAILY Qty: 90 1RF carvedilol 6.25 mg tablet 6.25 mg PO BID Qty: 180 1RF glipizide 10 mg tablet extended release 24hr 10 mg PO DAILY Qty: 90 1RF metformin 500 mg tablet extended release 24 hr 500 mg PO BID Qty: 180 1RF Discontinued spironolactone 25 mg tablet 25 mg PO DAILY Qty: 90 1RF Jardiance 10 mg tablet 10 mg PO DAILY Qty: 90 1RF losartan-hydrochlorothiazide 100-25 mg tablet 1 tablet PO DAILY Qty: 90 1RF nitrofurantoin macrocrystal 100 mg capsule 100 mg PO Q12H Qty: 20 0RF Rx Instructions: must administer with a meal/food Date of admission: 08/31/25 07:06 Primary Care Provider: Leroy Willett Admitting Provider: Cal Campbell Attending physician on admission: Cal Campbell Condition: Improved
== END 2025-09-03 14:03 | disposition home or self-care (01) | DRG 871 ==
LOC: ANHED 07:06 → ANHICU 08:30 → ANHIMU 09-01 06:34 → ANH3MEDSUR 09-02 15:45
PROVIDERS: Internal Medicine; Admitting Provider Internal Medicine; Emergency Provider Student in an Organized Health Care Education/Training Program; PCP Family Medicine; Visit Provider Internal Medicine
DX: A41.9 Sepsis, unspecified organism (principal); R65.21 Severe sepsis with septic shock; N39.0 Urinary tract infection, site not specified; C64.2 Malignant neoplasm of left kidney, except renal pelvis; C79.51 Secondary malignant neoplasm of bone; N17.9 Acute kidney failure, unspecified; I43 Cardiomyopathy in diseases classified elsewhere; E11.9 Type 2 diabetes mellitus without complications; E78.5 Hyperlipidemia, unspecified; G47.33 Obstructive sleep apnea (adult) (pediatric); I48.0 Paroxysmal atrial fibrillation; I11.9 Hypertensive heart disease without heart failure; Z20.822 Contact with and (suspected) exposure to COVID-19; Z79.84 Long term (current) use of oral hypoglycemic drugs
CPT/HCPCS: 36415; 36556; 71045; 74177; 80053; 80202; 81001; 82948; 83605; 83735; 84100; 85025; 85055; 85610; 85730; 86140; 87040; 87086; 87636; 87641; 93005; 96365; 97161; 97165; 99291; A9270; C1751; J0692; J0696; J1650; J1815; J2470; J3373; J7050; J7120; P9047; Q9967

== ENCOUNTER 2025-09-09 13:14 | Outpatient (CLI) | payer MEDICARE, SELFPAY | END 2025-09-09 13:15 | disposition home or self-care (01) | LOC: ANHGOSHLAB 13:15 | PROVIDERS: PCP Family Medicine; Visit Provider Family Medicine | DX: N30.00 Acute cystitis without hematuria (principal) | CPT/HCPCS: 87086 ==